=== PATIENT | female | born 1940 | race Caucasian/White ===

== ENCOUNTER 2018-09-30 13:04 | Inpatient (IN) | payer OTHER ==
--- NOTE | 2018-09-30 13:32 | PDOC ---
History of Present Illness - General Chief Complaint: Shortness of Breath Stated Complaint: SEND BY PCP, COPD PNEUMONIA Time Seen by Provider: 09/30/18 13:31 - History of Present Illness Initial Comments: The patient is a 78F w/ a history of COPD, CAD s/p CABG, and HTN who presents for evaluation of several days of productive cough, shortness of breath, and malaise. The patient was sent from her PCP's office today. She reports that she was recently ill in August, admitted to a hospital in [place] for 5 days for respiratory symptoms. Reports 3-4 days of worsening cough, shortness of breath, malaise. Denies sick contacts. Reports that she was given antibiotics by her PMD but did not complete course because she did not feel they were helping. Denies fevers/chills, vision changes, abdominal pain, N/V/C/D, or changes in sensation 09/30/18 15:38 Past History - Past Medical History Allergies/Adverse Reactions: Allergies Allergy/AdvReac Type Severity Reaction Status Date / Time pregabalin [From Lyrica] Allergy Mild Rash Verified 08/15/12 14:19 Iodinated Contrast- Oral and Allergy Verified 08/15/12 14:19 IV Dye [IV Dye, Iodine Containing Contrast ] ADOLEX Allergy Uncoded 08/15/12 14:19 Home Medications: Ambulatory Orders Aspirin [ASA -] 81 mg PO DAILY 09/30/18 Baclofen 10 mg PO HS 09/30/18 Budesonide [Pulmicort 0.25 mg -] 1 neb PO BID 09/30/18 Calcium Citrate [Calcitrate] 950 mg PO DAILY 09/30/18 Clopidogrel Bisulfate [Plavix] 75 mg PO DAILY 09/30/18 Dexlansoprazole [Dexilant] 60 mg PO DAILY 09/30/18 Docusate Sodium [Colace] 100 mg PO BID 09/30/18 Fentanyl 50 adh.patch TD Q72H 09/30/18 Furosemide [Lasix] 20 mg PO DAILY 09/30/18 Glipizide Xl [Glucotrol Xl -] 2.5 mg PO DAILY 09/30/18 Ipratropium/Albuterol Sulfate [Iprat-Albut 0.5-3(2.5) mg/3 ml] 3 ml IH PRN 09/30 Metoprolol Tartrate 25 mg PO BID 09/30/18 Mirabegron [Myrbetriq] 50 mg PO DAILY 09/30/18 Mirtazapine 7.5 mg PO HS 09/30/18 Multivitamins [Tab-A-Vit -] 1 tab PO DAILY 09/30/18 Oxycodone HCl/Acetaminophen [Endocet 10-325 mg Tablet] 1 each PO QID 09/30/18 Roflumilast [Daliresp] 500 mcg PO DAILY 09/30/18 Rosuvastatin Calcium [Crestor] 20 mg PO DAILY 09/30/18 Zolpidem Tartrate [Ambien] 5 mg PO HS 09/30/18 Asthma: Yes COPD: Yes CHF: Yes Diabetes: Yes HTN: Yes Hypercholesterolemia: Yes - Surgical History Cardiac Surgery: Yes (STENTS) - Suicide/Smoking/Psychosocial Hx Smoking Status: No Smoking History: Never smoked Have you smoked in the past 12 months: No Number of Cigarettes Smoked Daily: 0 Information on smoking cessation initiated: No Hx Alcohol Use: No Drug/Substance Use Hx: No Substance Use Type: None Hx Substance Use Treatment: No Review of Systems - Review of Systems Able to Perform ROS?: Yes Comments:: GENERAL/CONSTITUTIONAL: No fever or chills. HEAD, EYES, EARS, NOSE AND THROAT: No change in vision. No ear pain or discharge. No sore throat CARDIOVASCULAR: No chest pain RESPIRATORY: per HPI GASTROINTESTINAL: No nausea, vomiting, diarrhea or constipation GENITOURINARY: No dysuria, frequency, or change in urination MUSCULOSKELETAL: No joint or muscle swelling or pain. No neck or back pain SKIN: No rash NEUROLOGIC: No headache, vertigo, loss of consciousness, or change in strength/ sensation ENDOCRINE: No increased thirst. No abnormal weight change HEMATOLOGIC/LYMPHATIC: No anemia, easy bleeding, or history of blood clots ALLERGIC/IMMUNOLOGIC: No hives or skin allergy 09/30/18 15:44 Is the patient limited Filipino proficient: No *Physical Exam - Vital Signs Last Vital Signs Temp Pulse Resp BP Pulse Ox 99.3 F 115 H 22 H 120/60 90 L 09/30/18 13:13 09/30/18 13:13 09/30/18 13:13 09/30/18 13:13 09/30/18 13:13 - Physical Exam Comments: GENERAL: Awake, alert, and fully oriented, in no acute distress HEAD: No signs of trauma, normocephalic, atraumatic EYES: PERRLA, EOMI, sclera anicteric, conjunctiva clear ENT: Hearing grossly normal, nares patent, oropharynx clear without exudates. Moist mucosa LUNGS: No distress, speaks full sentences, b/l rhonchi diffusely b/l HEART: Regular rate and rhythm, normal S1 and S2, no murmurs appreciated, peripheral pulses normal and equal bilaterally ABDOMEN: Soft, nontender, normoactive bowel sounds. No guarding, no rebound. No masses EXTREMITIES : Normal inspection, Normal range of motion, no edema. No clubbing or cyanosis NEUROLOGICAL: Cranial nerves II through XII grossly intact. Normal speech, normal gait, no focal sensorimotor deficits SKIN: Warm, Dry, normal turgor, no rashes or lesions noted 09/30/18 15:45 Moderate Sedation - Procedure Monitoring Vital Signs: Procedure Monitoring Vital Signs Temperature 99.3 F 09/30/18 13:13 Pulse Rate 115 H 09/30/18 13:13 Respiratory Rate 22 H 09/30/18 13:13 Blood Pressure 120/60 09/30/18 13:13 O2 Sat by Pulse Oximetry (%) 90 L 09/30/18 13:13 ED Treatment Course - LABORATORY CBC & Chemistry Diagram: 09/30/18 14:00 09/30/18 14:00 Medical Decision Making - Medical Decision Making The patient is a 78F w/ a history of COPD, CAD s/p CABG, and HTN who presents for evaluation of several days of productive cough, shortness of breath, and malaise. The patient was sent from her PCP's office today. Ddx: COPD/CHF exacerbation, PNA, URI, ACS r/o ED Course CMP, CBC, Influenza, lactate, Trop I, blood cultures CXR, ECG 09/30/18 13:55 CXR w/ b/l pulmonary vascular congestion -no focal consolidation -Ceftriaxone and Doxycycline for PNA ECG w/ sinus tachycardia to 114, incomplete RBBB 09/30/18 14:41 No leukocytosis No anemia No OBEY LFTs wnl Lytes wnl Trop I neg Plan for admission for PNA vs COPD exacerbation Plan discussed w/ patient who is in agreement and verbalized understanding Dispo: admit *DC/Admit/Observation/Transfer Diagnosis at time of Disposition: COPD (chronic obstructive pulmonary disease) Qualifiers: COPD type: unspecified COPD Qualified Code(s): J44.9 - Chronic obstructive pulmonary disease, unspecified Pneumonia Qualifiers: Pneumonia type: due to unspecified organism Laterality: unspecified laterality Lung location: unspecified part of lung Qualified Code(s): J18.9 - Pneumonia, unspecified organism Hypertension Qualifiers: Hypertension type: unspecified Qualified Code(s): I10 - Essential (primary) hypertension - Discharge Dispostion Condition at time of disposition: Fair Decision to Admit order: Yes - Referrals - Patient Instructions - Post Discharge Activity
--- NOTE | 2018-09-30 13:35 | PDOC ---
Attending Attestation - HPI HPI: 09/30/18 17:26 78YOF, with a significant past medical history of DM, COPD, CAD (s/p CABG), and HTN, presenting with, 3-4 days of a productive cough, wheezing, malaise, and shortness of breath. Patient was recently evaluated at her PCP, Dr. Thompson office at which time she was advised to report to the ED if her symptoms persisted after antibiotics for further evaluation (patient was noncompliant with antibiotics because she believed it didnt help). She was recently admitted in [place] for 5 days for similar symptoms. She denies recent headache or dizziness. She denies recent nausea, vomit, diarrhea or constipation. She denies recent dysuria, frequency, urgency or hematuria. She denies recent chest pain. No sick contacts or travel. No new changes in medications. Allergies: Pregabalin, IV dye, adolex Past Medical History: DM, COPD, CAD (s/p CABG), and HTN Social history: Lives with family. No smoking. No alcohol. No illicit drugs. Surgical history: CABG <Ryan Chapa - Last Filed: 09/30/18 17:25> - Resident Resident Name: Dharmesh Pace - ED Attending Attestation I have performed the following: I have examined & evaluated the patient, The case was reviewed & discussed with the resident, I agree w/resident's findings & plan - Physicial Exam PE: 09/30/18 16:23 NAD, malaised, PERRL, EOMI, MMM, nl conjunctiva, anicteric; neck supple. lungs with bilateral coarse breath sounds and wheezing, +tachy, no murmurs, abdomen soft nontender. MCHUGH x4, no focal neuro deficits. No peripheral edema. normal color for ethnicity, WWP. no calf tenderness. - Medical Decision Making 09/30/18 16:24 I, Judi Gillespie MD, attest that this document has been prepared under my direction and personally reviewed by me in its entirety. I further attest, that it accurately reflects all work, treatment, procedures and medical decision -making performed by me. See HPI for details Vital signs reviewed, +tachy and febrile. hypoxic originally RA, then on O2 via nasal cannula Prior notes reviewed, including admissions, discharges and consultations. laboratory results and imaging reviewed, basic labs and lytes wnl, notable for normal lactic. CXR_unremarkable, does not correlate for pna in early process, but also possibly viral vs bacterial pna, covered appropriately. Cardiac panel_neg trop. EKG sinus tachycardia, 114 bpm, no interval abnormalities, wide QRS with incomplete RBBB, ST and T wave segments and morphology normal. T wave abnormalities with TWI in precordial leads. changed from prior. ED course: IV cef/doxy for CAP coverage. neg flu IV hydration, tylenol for fever and duonebs for diffuse wheezing, IV mag 2g for severity of sx, correlating with brochospasms from infection no steroids, h/o diabetes risk of hyperglycemia and DKA. Admit to Dr Kendall, accepted for management of Bronchitis/CAP, respiratory care , hydration and respiratory support/abx. pt made aware of impression and plan, agreeable. 09/30/18 19:22 <Judi Gillespie - Last Filed: 09/30/18 19:22> Attestations - Attestations 09/30/18 17:26 Documentation prepared by Ryan Chapa, acting as medical office receptionist assistant for Judi Gillesipe MD. <Ryan Chapa - Last Filed: 09/30/18 17:25>
[2018-09-30 14:25] LABS: VENOUS PC02 51.5 mmHg (38-52); VENOUS PH 7.37 (7.32-7.42); VENOUS PO2 22.4 mmHg (28-48)
[2018-09-30 14:29] LABS: BASO % 1.1 % (0-2.0); EOS % 0.8 % (0-4.5); HEMATOCRIT 38.2 % (32.4-45.2); HEMOGLOBIN 13.2 GM/dL (10.7-15.3); LYMPH % 15.5 % (8-40); MCH 31.4 pg (25.7-33.7); MCHC 34.5 g/dl (32.0-36.0); MEAN PLT VOLUME 7.8 fl (7.5-11.1); MONO % 7.6 % (3.8-10.2); PLATELET COUNT 232 K/MM3 (134-434); RDW 14.9 % (11.6-15.6); WHITE BLOOD COUNT 7.9 K/mm3 (4.0-10.0)
[2018-09-30] MEDS ORDERED: DOXYCYCLINE HYCLATE 100 MG CAPSULE PO ONE ×2 (14:38→14:51)
[2018-09-30] MEDS ORDERED: CEFTRIAXONE 1,000 MG in DEXTROSE 5%-WATER - 50 ML IVPB ONE (14:38)
[2018-09-30] MEDS ORDERED: ALBUTEROL SO4 2.5/IPRATROPIUM 0.5 INH SOL 3 ML VIAL.NEB. NEB ONE ×2 (14:51→23:28)
[2018-09-30] MEDS ORDERED: CEFTRIAXONE 1 GM/50 ML BAG ONE (14:52)
[2018-09-30 14:58] LABS: ALBUMIN 3.1 g/dl (3.4-5.0); ALK PHOS 97 U/L (45-117); ANION GAP 6 MMOL/L (8-16); BILIRUBIN,TOTAL 0.7 mg/dL (0.2-1); BLOOD UREA NITROGEN 24 mg/dL (7-18); CALCIUM 9.1 mg/dL (8.5-10.1); CHLORIDE 103 mmol/L (98-107); CO2 31 mmol/L (21-32); CREATININE 0.8 mg/dL (0.55-1.3); GLUCOSE,RANDOM 151 mg/dL (74-106); POTASSIUM 4.3 mmol/L (3.5-5.1); SGOT/AST 21 U/L (15-37); SGPT/ALT 27 U/L (13-61); SODIUM 139 mmol/L (136-145); TOT PROT 6.9 g/dl (6.4-8.2)
[2018-09-30] MEDS ORDERED: ACETAMINOPHEN 1000 MG/100 ML VIAL (NON FORMULARY) IVPB ONE (15:04)
[2018-09-30] MEDS: ALBUTEROL SO4 2.5/IPRATROPIUM 0.5 INH SOL 3 ML VIAL.NEB. NEB SCH ×5 (15:07→20:20)
[2018-09-30] MEDS ORDERED: ACETAMINOPHEN INJECTION 100 ML IVPB ONE (15:25)
[2018-09-30] MEDS ORDERED: ALBUTEROL SO4 2.5/IPRATROPIUM 0.5 INH SOL 3 ML VIAL.NEB. NEB PRN (16:17)
[2018-09-30] MEDS ORDERED: FENTANYL PATCH WASTE MC PRN (16:17)
[2018-09-30] MEDS ORDERED: ZOLPIDEM TARTRATE 5 MG TABLET PO PRN (16:17)
[2018-09-30] MEDS ORDERED: DOCUSATE SODIUM 100 MG CAPSULE (FP) PO PRN (16:17)
[2018-09-30] MEDS ORDERED: MAGNESIUM SULF 50% (8.12 MEQ/2 ML-1 GM VIAL) IVPB ONE (16:18)
[2018-09-30] MEDS ORDERED: fentaNYL 50mcg/hr PATCH.TD72 TD SCH (16:30)
[2018-09-30] MEDS ORDERED: MAGNESIUM SULF 50% (8.12 MEQ/2 ML-1 GM VIAL) ONE (17:45)
[2018-09-30] MEDS: BUDESONIDE 0.25 MG/2ML INH SUSP VIAL NEB SCH (20:10)
[2018-09-30] MEDS: HEPARIN NA (PORCINE) 5,000 UNITS/ML 1ML VIAL SQ SCH (22:35)
[2018-09-30] MEDS: MIRTAZAPINE 15 MG TABLET (FP) PO SCH (22:36)
[2018-09-30] MEDS: BACLOFEN 10 MG TABLET (FP) PO SCH (22:36)
[2018-09-30] MEDS: METOPROLOL TARTRATE 25 MG TABLET (FP) PO SCH (22:36)
[2018-09-30] MEDS: ROSUVASTATIN CA 5 MG TABLET (FP) PO SCH (22:36)
[2018-09-30] MEDS ORDERED: METOPROLOL TARTRATE 25 MG TABLET (FP) ONE (23:28)
[2018-09-30] MEDS ORDERED: BACLOFEN 10 MG TABLET (FP) ONE (23:28)
[2018-09-30] MEDS ORDERED: HEPARIN NA (PORCINE) 5,000 UNITS/ML 1ML VIAL ONE (23:29)
[2018-09-30] MEDS ORDERED: MIRTAZAPINE 15 MG TABLET (FP) ONE (23:29)
[2018-10-01] MEDS: ALBUTEROL SO4 2.5/IPRATROPIUM 0.5 INH SOL 3 ML VIAL.NEB. NEB SCH ×5 (00:30→21:25)
[2018-10-01] MEDS ORDERED: ALBUTEROL SO4 2.5/IPRATROPIUM 0.5 INH SOL 3 ML VIAL.NEB. NEB ONE ×2 (04:13→15:04)
[2018-10-01] MEDS: glipiZIDE-XL 2.5 MG TAB.ER.24 PO SCH (07:31)
[2018-10-01] MEDS: BACLOFEN 10 MG TABLET (FP) PO SCH ×3 (07:31→21:22)
[2018-10-01] MEDS ORDERED: BACLOFEN 10 MG TABLET (FP) ONE (07:32)
[2018-10-01] MEDS ORDERED: glipiZIDE 5 MG TABLET (FP) ONE (07:32)
[2018-10-01] MEDS: CALCITRIOL 0.25 MCG CAPSULE (FP) PO SCH (09:55)
[2018-10-01] MEDS: FUROSEMIDE 20 MG TABLET (FP) PO SCH (09:55)
[2018-10-01] MEDS: METOPROLOL TARTRATE 25 MG TABLET (FP) PO SCH ×2 (09:55→21:19)
[2018-10-01] MEDS: MULTIVITAMINS (DAILY MVI) TABLET (FP) PO SCH (09:55)
[2018-10-01] MEDS: CLOPIDOGREL BISULFATE 75 MG TABLET (FP) PO SCH (09:55)
[2018-10-01] MEDS: HEPARIN NA (PORCINE) 5,000 UNITS/ML 1ML VIAL SQ SCH (09:55)
[2018-10-01] MEDS: PANTOPRAZOLE 40 MG TABLET (FP) PO SCH (09:55)
[2018-10-01] MEDS: ASPIRIN COATED 81 MG TABLET.EC PO SCH (09:55)
[2018-10-01] MEDS: ROFLUMILAST 500 MCG TABLET PO SCH (09:55)
[2018-10-01] MEDS: BUDESONIDE 0.25 MG/2ML INH SUSP VIAL NEB SCH ×2 (09:55→21:24)
--- NOTE | 2018-10-01 10:37 | HP ---
Admitting History and Physical - Primary Care Physician PCP: Miri Baker I - Admission Chief Complaint: cough and malaise History of Present Illness: The patient is a 78F w/ a history of COPD, CAD s/p CABG, and HTN who presents for evaluation of several days of productive cough, shortness of breath, and malaise. The patient was sent from her PCP's office today. She reports that she was recently ill in August, admitted to a hospital in [place] for 5 days for respiratory symptoms. Reports 3-4 days of worsening cough, shortness of breath, malaise. Denies sick contacts. Reports that she was given antibiotics by her PMD but did not complete course because she did not feel they were helping. patient says she is so weak she cannot walk or make her bed , feeling very tired and fatigue and has a cough. she denies fever or chill, but was complaining of headache yesterday patient given rocephin and doxycycline in ER- temp 100.6 - Past Medical History Cardiovascular: Yes: CAD (s/p cabg) Pulmonary: Yes: COPD Musculoskeletal: Yes: Other (lumbar stenosis) Rheumatology: Yes: Other - Smoking History Smoking history: Never smoked Have you smoked in the past 12 months: No Aproximately how many cigarettes per day: 0 - Alcohol/Substance Use Hx Alcohol Use: No Home Medications - Allergies Allergies/Adverse Reactions: Allergies Allergy/AdvReac Type Severity Reaction Status Date / Time pregabalin [From Lyrica] Allergy Mild Rash Verified 08/15/12 14:19 Iodinated Contrast- Oral and Allergy Verified 08/15/12 14:19 IV Dye [IV Dye, Iodine Containing Contrast ] ADOLEX Allergy Uncoded 08/15/12 14:19 - Home Medications Home Medications: Ambulatory Orders Aspirin [ASA -] 81 mg PO DAILY 09/30/18 Baclofen 10 mg PO HS 09/30/18 Budesonide [Pulmicort 0.25 mg -] 1 neb PO BID 09/30/18 Calcium Citrate [Calcitrate] 950 mg PO DAILY 09/30/18 Clopidogrel Bisulfate [Plavix] 75 mg PO DAILY 09/30/18 Dexlansoprazole [Dexilant] 60 mg PO DAILY 09/30/18 Docusate Sodium [Colace] 100 mg PO BID 09/30/18 Fentanyl 50 adh.patch TD Q72H 09/30/18 Furosemide [Lasix] 20 mg PO DAILY 09/30/18 Glipizide Xl [Glucotrol Xl -] 2.5 mg PO DAILY 09/30/18 Ipratropium/Albuterol Sulfate [Iprat-Albut 0.5-3(2.5) mg/3 ml] 3 ml IH PRN 09/30 Metoprolol Tartrate 25 mg PO BID 09/30/18 Mirabegron [Myrbetriq] 50 mg PO DAILY 09/30/18 Mirtazapine 7.5 mg PO HS 09/30/18 Multivitamins [Tab-A-Vit -] 1 tab PO DAILY 09/30/18 Oxycodone HCl/Acetaminophen [Endocet 10-325 mg Tablet] 1 each PO QID 09/30/18 Roflumilast [Daliresp] 500 mcg PO DAILY 09/30/18 Rosuvastatin Calcium [Crestor] 20 mg PO DAILY 09/30/18 Zolpidem Tartrate [Ambien] 5 mg PO HS 09/30/18 Review of Systems - Review of Systems Constitutional: reports: Weakness, Other (fatigue malaise) Respiratory: reports: Cough Physical Examination Vital Signs: Vital Signs Temperature 97.6 F 10/01/18 07:51 Pulse Rate 74 10/01/18 07:51 Respiratory Rate 14 10/01/18 07:51 Blood Pressure 128/64 10/01/18 07:51 O2 Sat by Pulse Oximetry (%) 99 10/01/18 07:51 Constitutional: Yes: Calm Cardiovascular: Yes: Regular Rate and Rhythm, S1, S2 Respiratory: Yes: Rhonchi Gastrointestinal: Yes: Normal Bowel Sounds, Soft Edema: No Neurological: Yes: Alert, Oriented Problem List - Problems (1) COPD (chronic obstructive pulmonary disease) Assessment/Plan: daliresp and bronchodilators pulmicort Code(s): J44.9 - CHRONIC OBSTRUCTIVE PULMONARY DISEASE, UNSPECIFIED Qualifiers: COPD type: unspecified COPD Qualified Code(s): J44.9 - Chronic obstructive pulmonary disease, unspecified (2) Cough Assessment/Plan: URI symptoms rapid flu test ID consult oxygen as needed bronchodilators abx per ID dvt ppx Code(s): R05 - COUGH (3) Hx of CABG Assessment/Plan: plavix ,aspirin , metoprolol, statin Code(s): Z95.1 - PRESENCE OF AORTOCORONARY BYPASS GRAFT (4) Diabetes Assessment/Plan: hgba1c,sliding scale,glucotrol diabetic diet Code(s): E11.9 - TYPE 2 DIABETES MELLITUS WITHOUT COMPLICATIONS Qualifiers: Diabetes mellitus type: type 2 (5) Lumbar stenosis Assessment/Plan: baclofen tid Code(s): M48.061 - SPINAL STENOSIS, LUMBAR REGION WITHOUT NEUROGENIC KEESHA
[2018-10-01 10:45] LABS: HEMATOCRIT 36.3 % (32.4-45.2); HEMOGLOBIN 12.1 GM/dL (10.7-15.3); MCHC 33.3 g/dl (32.0-36.0); MEAN CELL VOLUME 92.8 fl (80-96); MEAN PLT VOLUME 7.2 fl (7.5-11.1); PLATELET COUNT 192 K/MM3 (134-434); RBC 3.91 M/mm3 (3.60-5.2); RDW 14.5 % (11.6-15.6); WHITE BLOOD COUNT 6.5 K/mm3 (4.0-10.0)
[2018-10-01 11:33] LABS: ALBUMIN 2.9 g/dl (3.4-5.0); ALK PHOS 96 U/L (45-117); ANION GAP 8 MMOL/L (8-16); BILIRUBIN,TOTAL 0.8 mg/dL (0.2-1); BLOOD UREA NITROGEN 20 mg/dL (7-18); CALCIUM 8.6 mg/dL (8.5-10.1); CHLORIDE 106 mmol/L (98-107); CO2 26 mmol/L (21-32); CREATININE 0.7 mg/dL (0.55-1.3); GLUCOSE,RANDOM 88 mg/dL (74-106); POTASSIUM 4.2 mmol/L (3.5-5.1); SGOT/AST 20 U/L (15-37); SGPT/ALT 28 U/L (13-61); SODIUM 140 mmol/L (136-145); TOT PROT 6.5 g/dl (6.4-8.2)
--- NOTE | 2018-10-01 12:43 | PN ---
Progress Note (short form) - Note Progress Note: ID CONSULT DICTATED R/O HCAP ACUTE EXAC COPD DM CAD PENDING C/S EMPIRIC ZOSYN/ ZITHROMAX
--- NOTE | 2018-10-01 13:50 | CONS ---
DATE OF CONSULTATION: DATE OF DICTATION: 10/01/2018 HISTORY OF PRESENT ILLNESS: The patient is a 78-year-old female with a history of COPD and coronary artery disease who was evaluated for possible pneumonia. The patient reports being hospitalized in a [place] hospital for 1 week in late August 2018. She was treated for a respiratory tract illness. She reports at that time she was tested for the flu and it was negative. Since returning to [place], she has not been feeling well. Over the past 3 to 4 days she has had worsening shortness of breath and cough productive of whitish sputum, as well as malaise. She had presented to her primary care physician and was prescribed an antibiotic; however, stopped taking it because she felt it was not effective. She presented to the emergency room where she was noted to have fever, tachycardia and hypoxemia. Chest x-ray shows no acute infiltrate. A Rapid flu swab was performed and was negative. The patient denies any ill contacts. She lives alone. She is a nonsmoker; however, states she had a long history of second-hand smoke. Denied any associated fever or chills, nausea, vomiting. PAST MEDICAL HISTORY: Positive for COPD, coronary artery disease, hypertension, asthma, congestive heart failure, diabetes mellitus, hyperlipidemia. PAST SURGICAL HISTORY: Status post coronary artery bypass graft. ALLERGIES: IODINE, LYRICA, ATARAX. MEDICATIONS: Aspirin, Balcofen, Plavix, Colace, fentanyl, Lasix, Glucotrol, oxycodone, Crestor, Ambien. SOCIAL HISTORY: Lives alone, nonsmoker. History of second-hand tobacco exposure. SYSTEMS REVIEW: Neurologic: No loss of consciousness, seizure activity, focal weakness. Cardiac: Negative for chest pain or palpitations. Respiratory: As per HPI. Gastrointestinal: Negative vomiting or diarrhea. Genitourinary: Negative for urinary tract infection. LABORATORY DATA: White count 7.9, hematocrit 38.2, platelet count 323. BUN 24, creatinine 0.8. Liver enzymes normal. Flu swab negative. Cultures pending. PHYSICAL EXAMINATION: General: On exam she is awake. She is in no acute distress. Her breathing does appear slightly labored. Vitals: Temperature 97.6. T max 100.6, blood pressure 128/64, pulse 74 regular, respirations 18 per minute. HEENT: Sclera anicteric. Dry mucous membranes. Heart: Sounds S1, S2. Lungs: Coarse rhonchi bilaterally, no wheezing, or rales. Abdomen: Obese, soft, nontender. Extremities: Negative for edema. IMPRESSION: 1. Rule out healthcare acquired pneumonia. 2. Acute exacerbation chronic obstructive pulmonary disease. 3. Diabetes mellitus. 4. Coronary artery disease. Await cultures. Obtain suptum culture, urine Legionella and pneumococcal antigens. Empiric antibiotic coverage for the healthcare acquired risk is atypical pneumonia with Zithromax and Zosyn. Will follow. Thank you for the kind referral. ASH BARNES M.D. [id number]
--- NOTE | 2018-10-01 14:11 | PN ---
Progress Note (short form) - Note Progress Note: PULMONARY CONSULTATION DICTATED 10/01/18 IMP COPD EXACERBATION R/O PNEUMONIA LLL ASHD S/PCABG DM HTN PLAN IV MEDROL INHALED BRONCHODILATORS ABX O2 CULTURES CHEST CT PFTS OUTPATIENT DR KARIMI Problem List - Problems (1) COPD (chronic obstructive pulmonary disease) Code(s): J44.9 - CHRONIC OBSTRUCTIVE PULMONARY DISEASE, UNSPECIFIED Qualifiers: COPD type: unspecified COPD Qualified Code(s): J44.9 - Chronic obstructive pulmonary disease, unspecified (2) Cough Code(s): R05 - COUGH (3) Diabetes Code(s): E11.9 - TYPE 2 DIABETES MELLITUS WITHOUT COMPLICATIONS Qualifiers: Diabetes mellitus type: type 2 (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 - PRESENCE OF AORTOCORONARY BYPASS GRAFT (5) Hypertension Code(s): I10 - ESSENTIAL (PRIMARY) HYPERTENSION Qualifiers: Hypertension type: unspecified Qualified Code(s): I10 - Essential (primary ) hypertension (6) Pneumonia Code(s): J18.9 - PNEUMONIA, UNSPECIFIED ORGANISM Qualifiers: Pneumonia type: due to unspecified organism Laterality: unspecified laterality Lung location: unspecified part of lung Qualified Code(s): J18.9 - Pneumonia, unspecified organism
--- NOTE | 2018-10-01 14:40 | CONS ---
DATE OF CONSULTATION: 10/01/2018 REFERRING PHYSICIAN: Alexander Kendall MD HISTORY: The patient is a 78-year-old female known to me from previous office visit many years ago with a history of COPD secondary to 2nd-hand smoke, hypertension, diabetes mellitus, ASHD status post CABG admitted to [facility] with the complaint of a 3- to 4-day history of increasing shortness of breath, cough productive of yellowish sputum, fever, chills, and shortness of breath. The patient was recently hospitalized in [place] secondary to a COPD exacerbation and discharged on . She states that since that time she has not felt well. She feels weak as well as short of breath. She went to Dr. Gunter's office yesterday with the above complaints and was advised to go to the emergency room. She denies any chest pain or palpitations. She does have, as stated, a cough productive of yellowish sputum and fevers. She denies any history of DVT or PE in the past. She is a nonsmoker. She does have a history of 2nd-hand smoke exposure. She is from [place] and moved to the [facility] many years ago. PAST MEDICAL HISTORY: Includes ASHD status post CABG, hypertension, COPD/asthma, diabetes. REVIEW OF SYSTEMS: Positive cough, positive shortness of breath, positive fever, positive chills. No chest pain, no palpitations, no abdominal pain, no lower extremity edema. CURRENT MEDICATIONS: Include Pulmicort, Tylenol, Zithromax, Zosyn, heparin, Remeron, Ambien, DuoNeb, Colace, , Crestor, NovoLog, Lasix, , Ecotrin, Roxicodone, Plavix, Protonix, Daliresp, and Calcitrol. PHYSICAL EXAMINATION: General: The patient is a well-developed, well-nourished female awake and alert in no acute distress. Vital Signs: She is afebrile. Blood pressure 128/64, respiratory rate 12, O2 saturation 99% on room air. HEENT: Normocephalic and atraumatic. Neck: Supple. Heart: Regular. S1, S2. Chest: Bilateral wheezes and rales. Abdomen: Soft. Bowel sounds are positive. Extremities: No cyanosis or edema. LABORATORIES: WBC 6.5, hemoglobin 12.1, hematocrit 36.3 with a platelet count of 192,000. Venous blood gas of 7.37, PCO2 of 51, PO2 of 22. Chest x-ray reveals increased markings at the left base with possible blunting left costophrenic angle. IMPRESSION: 1. Chronic obstructive pulmonary disease with exacerbation. 2. Pneumonia left lower lobe. 3. Arteriosclerotic heart disease status post coronary artery bypass graft. 4. Diabetes. 5. Hypertension. PLAN: Inhaled bronchodilators. Short course of Medrol. Antibiotics as per Infectious Disease. CT scan of the chest. Supplemental O2 as needed. Sputum for culture and sensitivity. Pulmonary function test as an outpatient. DVT prophylaxis. PHILLY KARIMI M.D. [id number]
[2018-10-01] MEDS: PIPERACILLIN/TAZOB 2.25 GM 2.25 GM in DEXTROSE 5%-WATER - 50 ML IVPB SCH (15:00)
[2018-10-01] MEDS ORDERED: PIPERACILLIN/TAZOB 2.25 GM 2.25 GM/50 ML BAG IVPB ONE (15:04)
[2018-10-01] MEDS ORDERED: AZITHROMYCIN IVPB 500 MG/250 ML BAG IVPB ONE (15:04)
[2018-10-01] MEDS: AZITHROMYCIN IVPB 500 MG/250 ML BAG IVPB SCH (15:15)
[2018-10-01] MEDS ORDERED: methylPREDNISolone NA SUCC 40 MG/1 ML VIAL ONE (15:17)
[2018-10-01] MEDS: INSULIN SLIDING SCALE (NOVOLOG) 1 VIAL SQ SCH ×2 (15:18→21:18)
[2018-10-01] MEDS ORDERED: INSULIN (NOVOLOG) ASPART 100 UNITS/ML 10ML VIAL ONE (15:20)
[2018-10-01] MEDS: methylPREDNISolone NA SUCC 40 MG/1 ML VIAL IVPUSH SCH ×2 (15:29→21:18)
--- NOTE | 2018-10-01 18:18 | EKG ---
Test Reason : Blood Pressure : / mmHG Vent. 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
[2018-10-01] MEDS ORDERED: BUDESONIDE 0.5 MG/2 ML INH SUSP VIAL NEB ONE (20:57)
[2018-10-01] MEDS: MIRTAZAPINE 15 MG TABLET (FP) PO SCH (21:19)
[2018-10-01] MEDS: ROSUVASTATIN CA 5 MG TABLET (FP) PO SCH (21:22)
[2018-10-02] MEDS: PIPERACILLIN/TAZOB 2.25 GM 2.25 GM in DEXTROSE 5%-WATER - 50 ML IVPB SCH ×4 (01:54→18:03)
[2018-10-02] MEDS: methylPREDNISolone NA SUCC 40 MG/1 ML VIAL IVPUSH SCH ×3 (02:45→15:40)
[2018-10-02] MEDS: glipiZIDE-XL 2.5 MG TAB.ER.24 PO SCH (06:03)
[2018-10-02] MEDS: BACLOFEN 10 MG TABLET (FP) PO SCH ×3 (06:03→21:32)
[2018-10-02] MEDS: INSULIN SLIDING SCALE (NOVOLOG) 1 VIAL SQ SCH ×5 (06:04→21:35)
[2018-10-02 07:32] LABS: BASO % 0.2 % (0-2.0); HEMATOCRIT 38.1 % (32.4-45.2); LYMPH % 13.8 % (8-40); MCH 31.7 pg (25.7-33.7); MEAN CELL VOLUME 93.4 fl (80-96); MEAN PLT VOLUME 7.5 fl (7.5-11.1); MONO % 2.7 % (3.8-10.2); NEUT % 83.3 % (42.8-82.8); PLATELET COUNT 207 K/MM3 (134-434); RBC 4.08 M/mm3 (3.60-5.2); RDW 14.3 % (11.6-15.6); WHITE BLOOD COUNT 6.1 K/mm3 (4.0-10.0)
[2018-10-02] MEDS ORDERED: PT OWN MED DRAWER 7, Y5N ONE (07:40)
[2018-10-02 07:49] LABS: ALK PHOS 118 U/L (45-117); ANION GAP 9 MMOL/L (8-16); BILIRUBIN,TOTAL 0.9 mg/dL (0.2-1); BLOOD UREA NITROGEN 21 mg/dL (7-18); CALCIUM 9.1 mg/dL (8.5-10.1); CHLORIDE 108 mmol/L (98-107); CO2 25 mmol/L (21-32); CREATININE 0.8 mg/dL (0.55-1.3); GLUCOSE,RANDOM 147 mg/dL (74-106); POTASSIUM 4.8 mmol/L (3.5-5.1); SGOT/AST 24 U/L (15-37); SGPT/ALT 40 U/L (13-61); SODIUM 142 mmol/L (136-145); TOT PROT 6.8 g/dl (6.4-8.2)
[2018-10-02] MEDS: ALBUTEROL SO4 2.5/IPRATROPIUM 0.5 INH SOL 3 ML VIAL.NEB. NEB SCH ×4 (08:16→21:37)
[2018-10-02] MEDS: BUDESONIDE 0.25 MG/2ML INH SUSP VIAL NEB SCH ×2 (08:18→21:37)
[2018-10-02] MEDS ORDERED: DEXTROSE 5%-WATER - 50 ML IVPB ONE ×2 (10:53→17:44)
[2018-10-02] MEDS ORDERED: PIPERACILLIN/TAZOBACTAM 2.25 GM VIAL IVPB ONE ×2 (10:53→17:44)
[2018-10-02] MEDS: AZITHROMYCIN IVPB 500 MG/250 ML BAG IVPB SCH (10:59)
[2018-10-02] MEDS: ROFLUMILAST 500 MCG TABLET PO SCH (10:59)
[2018-10-02] MEDS: METOPROLOL TARTRATE 25 MG TABLET (FP) PO SCH ×2 (11:00→21:32)
[2018-10-02] MEDS: ENOXAPARIN NA (PORCINE) 40 MG/0.4 ML DISP.SYRIN SQ SCH (11:00)
[2018-10-02] MEDS: PANTOPRAZOLE 40 MG TABLET (FP) PO SCH (11:00)
[2018-10-02] MEDS: CLOPIDOGREL BISULFATE 75 MG TABLET (FP) PO SCH (11:00)
[2018-10-02] MEDS: ASPIRIN COATED 81 MG TABLET.EC PO SCH (11:00)
[2018-10-02] MEDS: FUROSEMIDE 20 MG TABLET (FP) PO SCH (11:00)
[2018-10-02] MEDS: MULTIVITAMINS (DAILY MVI) TABLET (FP) PO SCH (11:00)
[2018-10-02] MEDS: CALCITRIOL 0.25 MCG CAPSULE (FP) PO SCH (11:00)
--- NOTE | 2018-10-02 15:32 | PN ---
Progress Note, Physician History of Present Illness: pulmonary alert,still dyspneic,congested - Current Medication List Current Medications: Active Medications Acetaminophen (Tylenol -) 650 mg PO Q6H PRN PRN Reason: FEVER Albuterol/Ipratropium (Duoneb -) 1 amp NEB Q4H [facility] Last Admin: 10/02/18 12:42 Dose: 1 amp Albuterol/Ipratropium (Duoneb -) 1 amp NEB Q6H PRN PRN Reason: SHORTNESS OF BREATH Aspirin (Ecotrin -) 81 mg PO DAILY [facility] Last Admin: 10/02/18 11:00 Dose: 81 mg Baclofen (Lioresal -) 10 mg PO TID [facility] Last Admin: 10/02/18 13:47 Dose: 10 mg Budesonide (Pulmicort 0.25 Mg Nebulizer -) 1 amp NEB RBID [facility] Last Admin: 10/02/18 08:18 Dose: 1 amp Calcitriol (Rocaltrol -) 0.25 mcg PO DAILY [facility] Last Admin: 10/02/18 11:00 Dose: 0.25 mcg Clopidogrel Bisulfate (Plavix -) 75 mg PO DAILY [facility] Last Admin: 10/02/18 11:00 Dose: 75 mg Docusate Sodium (Colace -) 100 mg PO Q12H PRN PRN Reason: CONSTIPATION Enoxaparin Sodium (Lovenox -) 40 mg SQ DAILY [facility] Last Admin: 10/02/18 11:00 Dose: 40 mg Furosemide (Lasix -) 20 mg PO DAILY [facility] Last Admin: 10/02/18 11:00 Dose: 20 mg Glipizide (Glucotrol Xl -) 2.5 mg PO DAILY@0700 [facility] Last Admin: 10/02/18 06:03 Dose: 2.5 mg Piperacillin Sod/Tazobactam (Sod 2.25 gm/ Dextrose) 50 mls @ 100 mls/hr IVPB Q8H-IV [facility]; Protocol Last Admin: 10/02/18 10:59 Dose: 100 mls/hr Azithromycin (Zithromax 500mg Ivpb (Pre-Docked)) 500 mg in 250 mls @ 250 mls/ hr IVPB DAILY [facility] Last Admin: 10/02/18 10:59 Dose: 250 mls/hr Insulin Aspart (Novolog Vial Sliding Scale -) 1 vial SQ ACHS [facility]; Protocol Last Admin: 10/02/18 12:00 Dose: 2 units Methylprednisolone Sodium Succinate (Solu-Medrol -) 40 mg IVPUSH Q6H-IV [facility] Last Admin: 10/02/18 08:56 Dose: 40 mg Metoprolol Tartrate (Lopressor -) 25 mg PO BID [facility] Last Admin: 10/02/18 11:00 Dose: 25 mg Mirtazapine (Remeron -) 7.5 mg PO HS [facility] Last Admin: 10/01/18 21:19 Dose: 7.5 mg Multivitamins/Minerals/Vitamin C (Tab-A-Vit -) 1 tab PO DAILY [facility] Last Admin: 10/02/18 11:00 Dose: 1 tab Oxycodone HCl (Roxicodone -) 5 mg PO Q6H PRN PRN Reason: PAIN LEVEL 7 - 10 Pantoprazole Sodium (Protonix -) 40 mg PO DAILY [facility] Last Admin: 10/02/18 11:00 Dose: 40 mg Roflumilast (Daliresp -) 500 mcg PO DAILY [facility] Last Admin: 10/02/18 10:59 Dose: 500 mcg Rosuvastatin Calcium (Crestor -) 5 mg PO HS [facility] Last Admin: 10/01/18 21:22 Dose: 5 mg Zolpidem Tartrate (Ambien -) 5 mg PO HS PRN PRN Reason: INSOMNIA - Objective Vital Signs: Vital Signs Temperature 97.6 F 10/02/18 06:00 Pulse Rate 80 10/02/18 06:00 Respiratory Rate 20 10/02/18 06:00 Blood Pressure 125/75 10/02/18 06:00 O2 Sat by Pulse Oximetry (%) 99 10/01/18 22:00 Constitutional: Yes: Well Nourished, Calm Eyes: Yes: WNL HENT: Yes: WNL Neck: Yes: WNL Cardiovascular: Yes: Regular Rate and Rhythm, S1, S2 Respiratory: Yes: Wheezes (bilateral wheezes) Gastrointestinal: Yes: Normal Bowel Sounds, Soft Extremities: Yes: WNL Edema: No Labs: CBC, BMP 10/02/18 06:00 10/02/18 06:00 - ....Imaging Cat Scan: Report Reviewed, Image Reviewed Problem List - Problems (1) COPD (chronic obstructive pulmonary disease) Code(s): J44.9 - CHRONIC OBSTRUCTIVE PULMONARY DISEASE, UNSPECIFIED Qualifiers: COPD type: unspecified COPD Qualified Code(s): J44.9 - Chronic obstructive pulmonary disease, unspecified (2) Cough Code(s): R05 - COUGH (3) Diabetes Code(s): E11.9 - TYPE 2 DIABETES MELLITUS WITHOUT COMPLICATIONS Qualifiers: Diabetes mellitus type: type 2 (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 - PRESENCE OF AORTOCORONARY BYPASS GRAFT (5) Hypertension Code(s): I10 - ESSENTIAL (PRIMARY) HYPERTENSION Qualifiers: Hypertension type: unspecified Qualified Code(s): I10 - Essential (primary ) hypertension (6) Pneumonia Code(s): J18.9 - PNEUMONIA, UNSPECIFIED ORGANISM Qualifiers: Pneumonia type: due to unspecified organism Laterality: unspecified laterality Lung location: unspecified part of lung Qualified Code(s): J18.9 - Pneumonia, unspecified organism Assessment/Plan IMP COPD EXACERBATION PNEUMONIA LLL ASHD S/PCABG DM HTN PLAN IV MEDROL INCREASE TO 60Q6 INHALED BRONCHODILATORS ABX O2 PFTS OUTPAT[address] KARIMI Problem List - Problems (1) COPD (chronic obstructive pulmonary disease) Code(s): J44.9 - CHRONIC OBSTRUCTIVE PULMONARY DISEASE, UNSPECIFIED Qualifiers: COPD type: unspecified COPD Qualified Code(s): J44.9 - Chronic obstructive pulmonary disease, unspecified (2) Cough Code(s): R05 - COUGH (3) Diabetes Code(s): E11.9 - TYPE 2 DIABETES MELLITUS WITHOUT COMPLICATIONS Qualifiers: Diabetes mellitus type: type 2 (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 - PRESENCE OF AORTOCORONARY BYPASS GRAFT (5) Hypertension Code(s): I10 - ESSENTIAL (PRIMARY) HYPERTENSION Qualifiers: Hypertension type: unspecified Qualified Code(s): I10 - Essential (primary ) hypertension (6) Pneumonia Code(s): J18.9 - PNEUMONIA, UNSPECIFIED ORGANISM Qualifiers: Pneumonia type: due to unspecified organism Laterality: unspecified laterality Lung location: unspecified part of lung Qualified Code(s): J18.9 - Pneumonia, unspecified organism
--- NOTE | 2018-10-02 16:04 | PN ---
Progress Note, Physician Chief Complaint: Cough SOB COPD History of Present Illness: Previous notes and events reviewed awake and alert NAD pt sts cough and SOB is not improving afebrile, wbc wnl - Current Medication List Current Medications: Active Medications Acetaminophen (Tylenol -) 650 mg PO Q6H PRN PRN Reason: FEVER Albuterol/Ipratropium (Duoneb -) 1 amp NEB Q4H [facility] Last Admin: 10/02/18 12:42 Dose: 1 amp Albuterol/Ipratropium (Duoneb -) 1 amp NEB Q6H PRN PRN Reason: SHORTNESS OF BREATH Aspirin (Ecotrin -) 81 mg PO DAILY [facility] Last Admin: 10/02/18 11:00 Dose: 81 mg Baclofen (Lioresal -) 10 mg PO TID [facility] Last Admin: 10/02/18 13:47 Dose: 10 mg Budesonide (Pulmicort 0.25 Mg Nebulizer -) 1 amp NEB RBID [facility] Last Admin: 10/02/18 08:18 Dose: 1 amp Calcitriol (Rocaltrol -) 0.25 mcg PO DAILY [facility] Last Admin: 10/02/18 11:00 Dose: 0.25 mcg Clopidogrel Bisulfate (Plavix -) 75 mg PO DAILY [facility] Last Admin: 10/02/18 11:00 Dose: 75 mg Docusate Sodium (Colace -) 100 mg PO Q12H PRN PRN Reason: CONSTIPATION Enoxaparin Sodium (Lovenox -) 40 mg SQ DAILY [facility] Last Admin: 10/02/18 11:00 Dose: 40 mg Furosemide (Lasix -) 20 mg PO DAILY [facility] Last Admin: 10/02/18 11:00 Dose: 20 mg Glipizide (Glucotrol Xl -) 2.5 mg PO DAILY@0700 [facility] Last Admin: 10/02/18 06:03 Dose: 2.5 mg Piperacillin Sod/Tazobactam (Sod 2.25 gm/ Dextrose) 50 mls @ 100 mls/hr IVPB Q8H-IV [facility]; Protocol Last Admin: 10/02/18 10:59 Dose: 100 mls/hr Azithromycin (Zithromax 500mg Ivpb (Pre-Docked)) 500 mg in 250 mls @ 250 mls/ hr IVPB DAILY [facility] Last Admin: 10/02/18 10:59 Dose: 250 mls/hr Insulin Aspart (Novolog Vial Sliding Scale -) 1 vial SQ ACHS [facility]; Protocol Last Admin: 10/02/18 12:00 Dose: 2 units Methylprednisolone Sodium Succinate (Solu-Medrol -) 40 mg IVPUSH Q6H-IV [facility] Last Admin: 10/02/18 15:40 Dose: 40 mg Metoprolol Tartrate (Lopressor -) 25 mg PO BID [facility] Last Admin: 10/02/18 11:00 Dose: 25 mg Mirtazapine (Remeron -) 7.5 mg PO HS [facility] Last Admin: 10/01/18 21:19 Dose: 7.5 mg Multivitamins/Minerals/Vitamin C (Tab-A-Vit -) 1 tab PO DAILY [facility] Last Admin: 10/02/18 11:00 Dose: 1 tab Oxycodone HCl (Roxicodone -) 5 mg PO Q6H PRN PRN Reason: PAIN LEVEL 7 - 10 Pantoprazole Sodium (Protonix -) 40 mg PO DAILY [facility] Last Admin: 10/02/18 11:00 Dose: 40 mg Roflumilast (Daliresp -) 500 mcg PO DAILY [facility] Last Admin: 10/02/18 10:59 Dose: 500 mcg Rosuvastatin Calcium (Crestor -) 5 mg PO HS [facility] Last Admin: 10/01/18 21:22 Dose: 5 mg Zolpidem Tartrate (Ambien -) 5 mg PO HS PRN PRN Reason: INSOMNIA - Objective Vital Signs: Vital Signs Temperature 97.6 F 10/02/18 06:00 Pulse Rate 80 10/02/18 06:00 Respiratory Rate 20 10/02/18 06:00 Blood Pressure 125/75 10/02/18 06:00 O2 Sat by Pulse Oximetry (%) 99 10/01/18 22:00 Constitutional: Yes: Calm, Mild Distress Eyes: Yes: Conjunctiva Clear Cardiovascular: Yes: Regular Rate and Rhythm Respiratory: Yes: On Nasal O2, Wheezes Gastrointestinal: Yes: Normal Bowel Sounds, Soft Musculoskeletal: Yes: WNL Extremities: Yes: WNL Edema: No Integumentary: Yes: WNL Neurological: Yes: Alert, Oriented Psychiatric: Yes: Alert, Oriented Labs: CBC, BMP 10/02/18 06:00 10/02/18 06:00 <Felisha Merrill - Last Filed: 10/02/18 15:59> - Current Medication List Current Medications: Active Medications Acetaminophen (Tylenol -) 650 mg PO Q6H PRN PRN Reason: FEVER Albuterol/Ipratropium (Duoneb -) 1 amp NEB Q4H [facility] Last Admin: 10/02/18 12:42 Dose: 1 amp Albuterol/Ipratropium (Duoneb -) 1 amp NEB Q6H PRN PRN Reason: SHORTNESS OF BREATH Aspirin (Ecotrin -) 81 mg PO DAILY [facility] Last Admin: 10/02/18 11:00 Dose: 81 mg Baclofen (Lioresal -) 10 mg PO TID [facility] Last Admin: 10/02/18 13:47 Dose: 10 mg Budesonide (Pulmicort 0.25 Mg Nebulizer -) 1 amp NEB RBID [facility] Last Admin: 10/02/18 08:18 Dose: 1 amp Calcitriol (Rocaltrol -) 0.25 mcg PO DAILY [facility] Last Admin: 10/02/18 11:00 Dose: 0.25 mcg Clopidogrel Bisulfate (Plavix -) 75 mg PO DAILY [facility] Last Admin: 10/02/18 11:00 Dose: 75 mg Docusate Sodium (Colace -) 100 mg PO Q12H PRN PRN Reason: CONSTIPATION Enoxaparin Sodium (Lovenox -) 40 mg SQ DAILY [facility] Last Admin: 10/02/18 11:00 Dose: 40 mg Furosemide (Lasix -) 20 mg PO DAILY [facility] Last Admin: 10/02/18 11:00 Dose: 20 mg Glipizide (Glucotrol Xl -) 2.5 mg PO DAILY@0700 [facility] Last Admin: 10/02/18 06:03 Dose: 2.5 mg Piperacillin Sod/Tazobactam (Sod 2.25 gm/ Dextrose) 50 mls @ 100 mls/hr IVPB Q8H-IV [facility]; Protocol Last Admin: 10/02/18 10:59 Dose: 100 mls/hr Azithromycin (Zithromax 500mg Ivpb (Pre-Docked)) 500 mg in 250 mls @ 250 mls/ hr IVPB DAILY [facility] Last Admin: 10/02/18 10:59 Dose: 250 mls/hr Insulin Aspart (Novolog Vial Sliding Scale -) 1 vial SQ ACHS [facility]; Protocol Last Admin: 10/02/18 12:00 Dose: 2 units Methylprednisolone Sodium Succinate (Solu-Medrol -) 60 mg IVPB Q6H-IV [facility] Metoprolol Tartrate (Lopressor -) 25 mg PO BID [facility] Last Admin: 10/02/18 11:00 Dose: 25 mg Mirtazapine (Remeron -) 7.5 mg PO HS [facility] Last Admin: 10/01/18 21:19 Dose: 7.5 mg Multivitamins/Minerals/Vitamin C (Tab-A-Vit -) 1 tab PO DAILY [facility] Last Admin: 10/02/18 11:00 Dose: 1 tab Oxycodone HCl (Roxicodone -) 5 mg PO Q6H PRN PRN Reason: PAIN LEVEL 7 - 10 Pantoprazole Sodium (Protonix -) 40 mg PO DAILY [facility] Last Admin: 10/02/18 11:00 Dose: 40 mg Roflumilast (Daliresp -) 500 mcg PO DAILY [facility] Last Admin: 10/02/18 10:59 Dose: 500 mcg Rosuvastatin Calcium (Crestor -) 5 mg PO HS [facility] Last Admin: 10/01/18 21:22 Dose: 5 mg Zolpidem Tartrate (Ambien -) 5 mg PO HS PRN PRN Reason: INSOMNIA - Objective Vital Signs: Vital Signs Temperature 97.6 F 10/02/18 06:00 Pulse Rate 80 10/02/18 06:00 Respiratory Rate 20 10/02/18 06:00 Blood Pressure 125/75 10/02/18 06:00 O2 Sat by Pulse Oximetry (%) 99 10/01/18 22:00 Labs: CBC, BMP 10/02/18 06:00 10/02/18 06:00 <Alexander Kendall - Last Filed: 10/02/18 16:50> Problem List - Problems (1) COPD (chronic obstructive pulmonary disease) Code(s): J44.9 - CHRONIC OBSTRUCTIVE PULMONARY DISEASE, UNSPECIFIED Qualifiers: COPD type: unspecified COPD Qualified Code(s): J44.9 - Chronic obstructive pulmonary disease, unspecified (2) Pneumonia Code(s): J18.9 - PNEUMONIA, UNSPECIFIED ORGANISM Qualifiers: Pneumonia type: due to unspecified organism Laterality: unspecified laterality Lung location: unspecified part of lung Qualified Code(s): J18.9 - Pneumonia, unspecified organism (3) Hypertension Code(s): I10 - ESSENTIAL (PRIMARY) HYPERTENSION Qualifiers: Hypertension type: unspecified Qualified Code(s): I10 - Essential (primary ) hypertension (4) Cough Code(s): R05 - COUGH (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 - PRESENCE OF AORTOCORONARY BYPASS GRAFT (6) Diabetes Code(s): E11.9 - TYPE 2 DIABETES MELLITUS WITHOUT COMPLICATIONS Qualifiers: Diabetes mellitus type: type 2 <Felisha Merrill - Last Filed: 10/02/18 15:59> Assessment/Plan -pulm on board -increase to methylprednisolone 60mg IVPB q6 -cont albuterol neb tx PRN -O2 via NC PRN, keep SpO2 >90% -ID on board -cont IV ABT -sputum cultures pending -BGM ACHS, ISS -cont metoprolol and lasix -dvt ppx -diabetic/low Na diet <Felisha Merrill - Last Filed: 10/02/18 15:59> PATIENT SEEN AND EXAMINED AND I AGREE WITH ABOVE NOTE <Alexander Kendall - Last Filed: 10/02/18 16:50>
[2018-10-02] MEDS ORDERED: INSULIN (NOVOLOG) ASPART 100 UNITS/ML 10ML VIAL ONE (21:01)
[2018-10-02] MEDS ORDERED: BUDESONIDE 0.5 MG/2 ML INH SUSP VIAL NEB ONE (21:28)
[2018-10-02] MEDS: MIRTAZAPINE 15 MG TABLET (FP) PO SCH (21:31)
[2018-10-02] MEDS: methylPREDNISolone NA SUCC 40 MG/1 ML VIAL IVPB SCH (21:32)
[2018-10-02] MEDS: ROSUVASTATIN CA 5 MG TABLET (FP) PO SCH (21:35)
[2018-10-02] MEDS: ACETAMINOPHEN 325 MG TABLET (FP) PO PRN (21:37)
[2018-10-02] MEDS: oxyCODONE HCL 5 MG TABLET PO PRN (21:38)
--- NOTE | 2018-10-02 22:07 | PN ---
Progress Note, Physician Chief Complaint: Awake, ambulatory Breathing non-labored Afebrile - Current Medication List Current Medications: Active Medications Acetaminophen (Tylenol -) 650 mg PO Q6H PRN PRN Reason: FEVER Last Admin: 10/02/18 21:37 Dose: 650 mg Albuterol/Ipratropium (Duoneb -) 1 amp NEB Q4H [facility] Last Admin: 10/02/18 21:37 Dose: 1 amp Albuterol/Ipratropium (Duoneb -) 1 amp NEB Q6H PRN PRN Reason: SHORTNESS OF BREATH Aspirin (Ecotrin -) 81 mg PO DAILY [facility] Last Admin: 10/02/18 11:00 Dose: 81 mg Baclofen (Lioresal -) 10 mg PO TID [facility] Last Admin: 10/02/18 21:32 Dose: 10 mg Budesonide (Pulmicort 0.25 Mg Nebulizer -) 1 amp NEB RBID [facility] Last Admin: 10/02/18 21:37 Dose: 1 amp Calcitriol (Rocaltrol -) 0.25 mcg PO DAILY [facility] Last Admin: 10/02/18 11:00 Dose: 0.25 mcg Clopidogrel Bisulfate (Plavix -) 75 mg PO DAILY [facility] Last Admin: 10/02/18 11:00 Dose: 75 mg Docusate Sodium (Colace -) 100 mg PO Q12H PRN PRN Reason: CONSTIPATION Enoxaparin Sodium (Lovenox -) 40 mg SQ DAILY [facility] Last Admin: 10/02/18 11:00 Dose: 40 mg Furosemide (Lasix -) 20 mg PO DAILY [facility] Last Admin: 10/02/18 11:00 Dose: 20 mg Glipizide (Glucotrol Xl -) 2.5 mg PO DAILY@0700 [facility] Last Admin: 10/02/18 06:03 Dose: 2.5 mg Piperacillin Sod/Tazobactam (Sod 2.25 gm/ Dextrose) 50 mls @ 100 mls/hr IVPB Q8H-IV [facility]; Protocol Last Admin: 10/02/18 18:03 Dose: 100 mls/hr Azithromycin (Zithromax 500mg Ivpb (Pre-Docked)) 500 mg in 250 mls @ 250 mls/ hr IVPB DAILY [facility] Last Admin: 10/02/18 10:59 Dose: 250 mls/hr Insulin Aspart (Novolog Vial Sliding Scale -) 1 vial SQ ACHS [facility]; Protocol Last Admin: 10/02/18 21:35 Dose: Not Given Methylprednisolone Sodium Succinate (Solu-Medrol -) 60 mg IVPB Q6H-IV [facility] Last Admin: 10/02/18 21:32 Dose: 60 mg Metoprolol Tartrate (Lopressor -) 25 mg PO BID [facility] Last Admin: 10/02/18 21:32 Dose: 25 mg Mirtazapine (Remeron -) 7.5 mg PO HS [facility] Last Admin: 10/02/18 21:31 Dose: 7.5 mg Multivitamins/Minerals/Vitamin C (Tab-A-Vit -) 1 tab PO DAILY [facility] Last Admin: 10/02/18 11:00 Dose: 1 tab Oxycodone HCl (Roxicodone -) 5 mg PO Q6H PRN PRN Reason: PAIN LEVEL 7 - 10 Last Admin: 10/02/18 21:38 Dose: 5 mg Pantoprazole Sodium (Protonix -) 40 mg PO DAILY [facility] Last Admin: 10/02/18 11:00 Dose: 40 mg Roflumilast (Daliresp -) 500 mcg PO DAILY [facility] Last Admin: 10/02/18 10:59 Dose: 500 mcg Rosuvastatin Calcium (Crestor -) 5 mg PO HS [facility] Last Admin: 10/02/18 21:35 Dose: Not Given Zolpidem Tartrate (Ambien -) 5 mg PO HS PRN PRN Reason: INSOMNIA Last Admin: 10/02/18 21:32 Dose: 5 mg - Objective Vital Signs: Vital Signs Temperature 98.8 F 10/02/18 21:42 Pulse Rate 86 10/02/18 21:42 Respiratory Rate 20 10/02/18 21:42 Blood Pressure 142/84 10/02/18 21:42 O2 Sat by Pulse Oximetry (%) 98 10/02/18 09:00 Constitutional: Yes: No Distress Eyes: Yes: Conjunctiva Clear Cardiovascular: Yes: Regular Rate and Rhythm, S1, S2 Respiratory: Yes: Rhonchi Gastrointestinal: Yes: Normal Bowel Sounds, Soft Edema: No Labs: CBC, BMP 10/02/18 06:00 10/02/18 06:00 Assessment/Plan Exacerbation COPD R/O HCAP Continue empiric zosyn/ zithromax
[2018-10-03] MEDS: ALBUTEROL SO4 2.5/IPRATROPIUM 0.5 INH SOL 3 ML VIAL.NEB. NEB SCH ×6 (00:21→16:25)
[2018-10-03] MEDS ORDERED: PIPERACILLIN/TAZOBACTAM 2.25 GM VIAL IVPB ONE ×3 (01:32→17:19)
[2018-10-03] MEDS ORDERED: DEXTROSE 5%-WATER - 50 ML IVPB ONE ×3 (01:32→17:19)
[2018-10-03] MEDS: PIPERACILLIN/TAZOB 2.25 GM 2.25 GM in DEXTROSE 5%-WATER - 50 ML IVPB SCH ×3 (01:44→17:29)
[2018-10-03] MEDS: methylPREDNISolone NA SUCC 40 MG/1 ML VIAL IVPB SCH ×4 (03:22→21:25)
[2018-10-03] MEDS ORDERED: PT OWN MED DRAWER 7, Y5N ONE ×2 (05:58→21:10)
[2018-10-03] MEDS: BACLOFEN 10 MG TABLET (FP) PO SCH ×3 (05:59→21:25)
[2018-10-03] MEDS: glipiZIDE-XL 2.5 MG TAB.ER.24 PO SCH (05:59)
[2018-10-03] MEDS: INSULIN SLIDING SCALE (NOVOLOG) 1 VIAL SQ SCH ×4 (06:00→21:26)
[2018-10-03] MEDS ORDERED: BUDESONIDE 0.5 MG/2 ML INH SUSP VIAL NEB ONE (07:10)
[2018-10-03] MEDS: BUDESONIDE 0.25 MG/2ML INH SUSP VIAL NEB SCH (07:19)
[2018-10-03 07:21] LABS: HEMATOCRIT 35.5 % (32.4-45.2); HEMOGLOBIN 11.7 GM/dL (10.7-15.3); MCH 30.9 pg (25.7-33.7); MCHC 33.1 g/dl (32.0-36.0); MEAN CELL VOLUME 93.3 fl (80-96); MEAN PLT VOLUME 7.6 fl (7.5-11.1); PLATELET COUNT 225 K/MM3 (134-434); RDW 14.5 % (11.6-15.6); WHITE BLOOD COUNT 12.1 K/mm3 (4.0-10.0)
[2018-10-03 08:16] LABS: ALBUMIN 2.8 g/dl (3.4-5.0); ALK PHOS 106 U/L (45-117); ANION GAP 8 MMOL/L (8-16); BILIRUBIN,TOTAL 0.3 mg/dL (0.2-1); BLOOD UREA NITROGEN 37 mg/dL (7-18); CALCIUM 9.1 mg/dL (8.5-10.1); CHLORIDE 106 mmol/L (98-107); CO2 26 mmol/L (21-32); CREATININE 1.1 mg/dL (0.55-1.3); GLUCOSE,RANDOM 129 mg/dL (74-106); POTASSIUM 4.9 mmol/L (3.5-5.1); SGOT/AST 29 U/L (15-37); SGPT/ALT 50 U/L (13-61); SODIUM 141 mmol/L (136-145); TOT PROT 6.3 g/dl (6.4-8.2)
[2018-10-03] MEDS: CLOPIDOGREL BISULFATE 75 MG TABLET (FP) PO SCH (09:24)
[2018-10-03] MEDS: ASPIRIN COATED 81 MG TABLET.EC PO SCH (09:24)
[2018-10-03] MEDS: PANTOPRAZOLE 40 MG TABLET (FP) PO SCH (09:24)
[2018-10-03] MEDS: METOPROLOL TARTRATE 25 MG TABLET (FP) PO SCH ×2 (09:24→21:25)
[2018-10-03] MEDS: AZITHROMYCIN IVPB 500 MG/250 ML BAG IVPB SCH (09:24)
[2018-10-03] MEDS: MULTIVITAMINS (DAILY MVI) TABLET (FP) PO SCH (09:24)
[2018-10-03] MEDS: ROFLUMILAST 500 MCG TABLET PO SCH (09:24)
[2018-10-03] MEDS: CALCITRIOL 0.25 MCG CAPSULE (FP) PO SCH (09:24)
[2018-10-03] MEDS: FUROSEMIDE 20 MG TABLET (FP) PO SCH (09:24)
[2018-10-03] MEDS: ENOXAPARIN NA (PORCINE) 40 MG/0.4 ML DISP.SYRIN SQ SCH (09:24)
[2018-10-03] MEDS: oxyCODONE HCL 5 MG TABLET PO PRN (09:52)
--- NOTE | 2018-10-03 10:52 | PN ---
Progress Note (short form) - Note Progress Note: PULMONARY Breathing about the same. Still with shortness of breath, cough, wheezing and chest tightness. Vital Signs Period Temp Pulse Resp BP Sys/Webster Pulse Ox Last 24 Hr 97.6 F-98.9 F 71-94 20-20 131-148/77-92 98 Gen: tachypneic at rest Heart: RRR Lung: bilateral rhonchi, wheezes Abd: soft, nontender Ext: no edema CBC, BMP 10/03/18 06:30 10/03/18 06:30 Active Medications Acetaminophen (Tylenol -) 650 mg PO Q6H PRN PRN Reason: FEVER Last Admin: 10/02/18 21:37 Dose: 650 mg Albuterol/Ipratropium (Duoneb -) 1 amp NEB Q4H [facility] Last Admin: 10/03/18 07:19 Dose: 1 amp Albuterol/Ipratropium (Duoneb -) 1 amp NEB Q6H PRN PRN Reason: SHORTNESS OF BREATH Aspirin (Ecotrin -) 81 mg PO DAILY [facility] Last Admin: 10/03/18 09:24 Dose: 81 mg Baclofen (Lioresal -) 10 mg PO TID [facility] Last Admin: 10/03/18 05:59 Dose: 10 mg Budesonide (Pulmicort 0.25 Mg Nebulizer -) 1 amp NEB RBID [facility] Last Admin: 10/03/18 07:19 Dose: 1 amp Calcitriol (Rocaltrol -) 0.25 mcg PO DAILY [facility] Last Admin: 10/03/18 09:24 Dose: 0.25 mcg Clopidogrel Bisulfate (Plavix -) 75 mg PO DAILY [facility] Last Admin: 10/03/18 09:24 Dose: 75 mg Docusate Sodium (Colace -) 100 mg PO Q12H PRN PRN Reason: CONSTIPATION Enoxaparin Sodium (Lovenox -) 40 mg SQ DAILY [facility] Last Admin: 10/03/18 09:24 Dose: 40 mg Furosemide (Lasix -) 20 mg PO DAILY [facility] Last Admin: 10/03/18 09:24 Dose: 20 mg Glipizide (Glucotrol Xl -) 2.5 mg PO DAILY@0700 [facility] Last Admin: 10/03/18 05:59 Dose: 2.5 mg Piperacillin Sod/Tazobactam (Sod 2.25 gm/ Dextrose) 50 mls @ 100 mls/hr IVPB Q8H-IV [facility]; Protocol Last Admin: 10/03/18 09:24 Dose: 100 mls/hr Azithromycin (Zithromax 500mg Ivpb (Pre-Docked)) 500 mg in 250 mls @ 250 mls/ hr IVPB DAILY [facility] Last Admin: 10/03/18 09:24 Dose: 250 mls/hr Insulin Aspart (Novolog Vial Sliding Scale -) 1 vial SQ ACHS [facility]; Protocol Last Admin: 10/03/18 06:00 Dose: Not Given Methylprednisolone Sodium Succinate (Solu-Medrol -) 60 mg IVPB Q6H-IV [facility] Last Admin: 10/03/18 09:19 Dose: 60 mg Metoprolol Tartrate (Lopressor -) 25 mg PO BID [facility] Last Admin: 10/03/18 09:24 Dose: 25 mg Mirtazapine (Remeron -) 7.5 mg PO HS [facility] Last Admin: 10/02/18 21:31 Dose: 7.5 mg Multivitamins/Minerals/Vitamin C (Tab-A-Vit -) 1 tab PO DAILY [facility] Last Admin: 10/03/18 09:24 Dose: 1 tab Oxycodone HCl (Roxicodone -) 5 mg PO Q6H PRN PRN Reason: PAIN LEVEL 7 - 10 Last Admin: 10/03/18 09:52 Dose: 5 mg Pantoprazole Sodium (Protonix -) 40 mg PO DAILY [facility] Last Admin: 10/03/18 09:24 Dose: 40 mg Roflumilast (Daliresp -) 500 mcg PO DAILY [facility] Last Admin: 10/03/18 09:24 Dose: 500 mcg Rosuvastatin Calcium (Crestor -) 5 mg PO HS [facility] Last Admin: 10/02/18 21:35 Dose: Not Given Zolpidem Tartrate (Ambien -) 5 mg PO HS PRN PRN Reason: INSOMNIA Last Admin: 10/02/18 21:32 Dose: 5 mg A/P Acute COPD Exacerbation Pneumonia CAD s/p CABG HTN DM - continue medrol at current dose - inhaled bronchodilators - O2 to keep SpO2 >90% - continue antibiotics - f/u cultures - outpt PFTs and f/u - DVT prophylaxis
--- NOTE | 2018-10-03 12:02 | PN ---
Progress Note, Physician Chief Complaint: Cough SOB COPD History of Present Illness: Previous notes and events reviewed awake and alert NAD pt sts cont to have cough and SOB but has mildly improved afebrile, wbc mildly elev - Current Medication List Current Medications: Active Medications Acetaminophen (Tylenol -) 650 mg PO Q6H PRN PRN Reason: FEVER Last Admin: 10/02/18 21:37 Dose: 650 mg Albuterol/Ipratropium (Duoneb -) 1 amp NEB Q4H [facility] Last Admin: 10/03/18 11:21 Dose: 1 amp Albuterol/Ipratropium (Duoneb -) 1 amp NEB Q6H PRN PRN Reason: SHORTNESS OF BREATH Aspirin (Ecotrin -) 81 mg PO DAILY [facility] Last Admin: 10/03/18 09:24 Dose: 81 mg Baclofen (Lioresal -) 10 mg PO TID [facility] Last Admin: 10/03/18 05:59 Dose: 10 mg Budesonide (Pulmicort 0.25 Mg Nebulizer -) 1 amp NEB RBID [facility] Last Admin: 10/03/18 07:19 Dose: 1 amp Calcitriol (Rocaltrol -) 0.25 mcg PO DAILY [facility] Last Admin: 10/03/18 09:24 Dose: 0.25 mcg Clopidogrel Bisulfate (Plavix -) 75 mg PO DAILY [facility] Last Admin: 10/03/18 09:24 Dose: 75 mg Docusate Sodium (Colace -) 100 mg PO Q12H PRN PRN Reason: CONSTIPATION Enoxaparin Sodium (Lovenox -) 40 mg SQ DAILY [facility] Last Admin: 10/03/18 09:24 Dose: 40 mg Furosemide (Lasix -) 20 mg PO DAILY [facility] Last Admin: 10/03/18 09:24 Dose: 20 mg Glipizide (Glucotrol Xl -) 2.5 mg PO DAILY@0700 [facility] Last Admin: 10/03/18 05:59 Dose: 2.5 mg Piperacillin Sod/Tazobactam (Sod 2.25 gm/ Dextrose) 50 mls @ 100 mls/hr IVPB Q8H-IV [facility]; Protocol Last Admin: 10/03/18 09:24 Dose: 100 mls/hr Azithromycin (Zithromax 500mg Ivpb (Pre-Docked)) 500 mg in 250 mls @ 250 mls/ hr IVPB DAILY [facility] Last Admin: 10/03/18 09:24 Dose: 250 mls/hr Insulin Aspart (Novolog Vial Sliding Scale -) 1 vial SQ ACHS [facility]; Protocol Last Admin: 10/03/18 06:00 Dose: Not Given Methylprednisolone Sodium Succinate (Solu-Medrol -) 60 mg IVPB Q6H-IV [facility] Last Admin: 10/03/18 09:19 Dose: 60 mg Metoprolol Tartrate (Lopressor -) 25 mg PO BID [facility] Last Admin: 10/03/18 09:24 Dose: 25 mg Mirtazapine (Remeron -) 7.5 mg PO HS [facility] Last Admin: 10/02/18 21:31 Dose: 7.5 mg Multivitamins/Minerals/Vitamin C (Tab-A-Vit -) 1 tab PO DAILY [facility] Last Admin: 10/03/18 09:24 Dose: 1 tab Oxycodone HCl (Roxicodone -) 5 mg PO Q6H PRN PRN Reason: PAIN LEVEL 7 - 10 Last Admin: 10/03/18 09:52 Dose: 5 mg Pantoprazole Sodium (Protonix -) 40 mg PO DAILY [facility] Last Admin: 10/03/18 09:24 Dose: 40 mg Roflumilast (Daliresp -) 500 mcg PO DAILY [facility] Last Admin: 10/03/18 09:24 Dose: 500 mcg Rosuvastatin Calcium (Crestor -) 5 mg PO HS [facility] Last Admin: 10/02/18 21:35 Dose: Not Given Zolpidem Tartrate (Ambien -) 5 mg PO HS PRN PRN Reason: INSOMNIA Last Admin: 10/02/18 21:32 Dose: 5 mg - Objective Vital Signs: Vital Signs Temperature 98.9 F 10/03/18 08:16 Pulse Rate 94 H 10/03/18 08:16 Respiratory Rate 20 10/03/18 08:16 Blood Pressure 140/92 10/03/18 08:16 O2 Sat by Pulse Oximetry (%) 98 10/02/18 21:00 Constitutional: Yes: Well Nourished, No Distress, Calm Eyes: Yes: Conjunctiva Clear Neck: Yes: Supple Cardiovascular: Yes: Regular Rate and Rhythm Respiratory: Yes: On Nasal O2, Wheezes Gastrointestinal: Yes: Normal Bowel Sounds, Soft Musculoskeletal: Yes: WNL Extremities: Yes: WNL Edema: No Integumentary: Yes: WNL Neurological: Yes: Alert, Oriented Psychiatric: Yes: Alert, Oriented Labs: CBC, BMP 10/03/18 06:30 10/03/18 06:30 <Felisha Merrill - Last Filed: 10/03/18 11:58> - Current Medication List Current Medications: Active Medications Acetaminophen (Tylenol -) 650 mg PO Q6H PRN PRN Reason: FEVER Last Admin: 10/02/18 21:37 Dose: 650 mg Albuterol/Ipratropium (Duoneb -) 1 amp NEB Q4H [facility] Last Admin: 10/04/18 20:09 Dose: 1 amp Albuterol/Ipratropium (Duoneb -) 1 amp NEB Q6H PRN PRN Reason: SHORTNESS OF BREATH Aspirin (Ecotrin -) 81 mg PO DAILY [facility] Last Admin: 10/04/18 09:39 Dose: 81 mg Baclofen (Lioresal -) 10 mg PO TID [facility] Last Admin: 10/04/18 14:58 Dose: 10 mg Budesonide (Pulmicort 0.25 Mg Nebulizer -) 1 amp NEB RBID [facility] Last Admin: 10/04/18 20:17 Dose: 1 amp Calcitriol (Rocaltrol -) 0.25 mcg PO DAILY [facility] Last Admin: 10/04/18 09:38 Dose: 0.25 mcg Clopidogrel Bisulfate (Plavix -) 75 mg PO DAILY [facility] Last Admin: 10/04/18 09:38 Dose: 75 mg Docusate Sodium (Colace -) 100 mg PO Q12H PRN PRN Reason: CONSTIPATION Enoxaparin Sodium (Lovenox -) 40 mg SQ DAILY [facility] Last Admin: 10/04/18 09:40 Dose: 40 mg Furosemide (Lasix -) 20 mg PO DAILY [facility] Last Admin: 10/04/18 09:39 Dose: 20 mg Glipizide (Glucotrol Xl -) 2.5 mg PO DAILY@0700 [facility] Last Admin: 10/04/18 06:11 Dose: 2.5 mg Guaifenesin (Diabetic Tussin Dm -) 5 ml PO Q6H PRN PRN Reason: COUGH Last Admin: 10/04/18 12:19 Dose: 5 ml Piperacillin Sod/Tazobactam (Sod 2.25 gm/ Dextrose) 50 mls @ 100 mls/hr IVPB Q8H-IV [facility]; Protocol Last Admin: 10/04/18 17:37 Dose: 100 mls/hr Azithromycin (Zithromax 500mg Ivpb (Pre-Docked)) 500 mg in 250 mls @ 250 mls/ hr IVPB DAILY [facility] Last Admin: 10/04/18 09:39 Dose: 250 mls/hr Insulin Aspart (Novolog Vial Sliding Scale -) 1 vial SQ ACHS [facility]; Protocol Last Admin: 10/04/18 16:49 Dose: Not Given Methylprednisolone Sodium Succinate (Solu-Medrol -) 60 mg IVPB Q6H-IV [facility] Last Admin: 10/04/18 14:58 Dose: 60 mg Metoprolol Tartrate (Lopressor -) 25 mg PO BID [facility] Last Admin: 10/04/18 09:39 Dose: 25 mg Mirtazapine (Remeron -) 7.5 mg PO [facility] Last Admin: 10/03/18 21:25 Dose: 7.5 mg Multivitamins/Minerals/Vitamin C (Tab-A-Vit -) 1 tab PO DAILY [facility] Last Admin: 10/04/18 09:39 Dose: 1 tab Nitroglycerin (Nitrostat -) 0.4 mg SL Q5M PRN PRN Reason: FOR CHEST PAIN Last Admin: 10/03/18 14:10 Dose: 0.4 mg Pantoprazole Sodium (Protonix -) 40 mg PO DAILY [facility] Last Admin: 10/04/18 09:39 Dose: 40 mg Roflumilast (Daliresp -) 500 mcg PO DAILY [facility] Last Admin: 10/04/18 09:38 Dose: 500 mcg Rosuvastatin Calcium (Crestor -) 5 mg PO HS [facility] Last Admin: 10/03/18 21:26 Dose: 5 mg - Objective Vital Signs: Vital Signs Temperature 98.1 F 10/04/18 18:00 Pulse Rate 82 10/04/18 18:00 Respiratory Rate 20 10/04/18 18:00 Blood Pressure 137/78 10/04/18 18:00 O2 Sat by Pulse Oximetry (%) 96 10/04/18 12:09 Labs: CBC, BMP 10/04/18 06:30 10/04/18 06:30 <EnochAmmir - Last Filed: 10/04/18 21:11> Problem List - Problems (1) COPD (chronic obstructive pulmonary disease) Code(s): J44.9 - CHRONIC OBSTRUCTIVE PULMONARY DISEASE, UNSPECIFIED Qualifiers: COPD type: unspecified COPD Qualified Code(s): J44.9 - Chronic obstructive pulmonary disease, unspecified (2) Pneumonia Code(s): J18.9 - PNEUMONIA, UNSPECIFIED ORGANISM Qualifiers: Pneumonia type: due to unspecified organism Laterality: unspecified laterality Lung location: unspecified part of lung Qualified Code(s): J18.9 - Pneumonia, unspecified organism (3) Hypertension Code(s): I10 - ESSENTIAL (PRIMARY) HYPERTENSION Qualifiers: Hypertension type: unspecified Qualified Code(s): I10 - Essential (primary ) hypertension (4) Cough Code(s): R05 - COUGH (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 - PRESENCE OF AORTOCORONARY BYPASS GRAFT (6) Diabetes Code(s): E11.9 - TYPE 2 DIABETES MELLITUS WITHOUT COMPLICATIONS Qualifiers: Diabetes mellitus type: type 2 <Felisha Merrill - Last Filed: 10/03/18 11:58> Assessment/Plan -pulm on board -cont with methylprednisolone 60mg IVPB q6 -cont albuterol neb tx PRN -O2 via NC PRN, keep SpO2 >90% -ID on board -nares MRSA culture pending -cont IV ABT -sputum cultures pending -BGM ACHS, ISS -cont metoprolol and lasix -dvt ppx -diabetic/low Na diet -when breathing improves will order pre/post O2 sat to assess if home O2 needed for discharge <Felisha Merrill - Last Filed: 10/03/18 11:58> I HAVE EXAMINED THE PATIENT AND AGREE WITH ABOVE NOTE <Alexander Kendall - Last Filed: 10/04/18 21:11>
--- NOTE | 2018-10-03 13:57 | PN ---
Progress Note (short form) - Note Progress Note: Patient complain of sharp/pressing pain that started in back and radiate to chest, 8/10 on pain scale. VS BP 140/67, HR 67, O2 96% on O2. EKG, troponin STAT. Cardiology consult placed. Nitro SL ordered PRN. On examination patient states that the pain has decreased to about 3/10 on pain scale. Will continue to monitor and will follow up. Problem List - Problems (1) COPD (chronic obstructive pulmonary disease) Code(s): J44.9 - CHRONIC OBSTRUCTIVE PULMONARY DISEASE, UNSPECIFIED Qualifiers: COPD type: unspecified COPD Qualified Code(s): J44.9 - Chronic obstructive pulmonary disease, unspecified (2) Pneumonia Code(s): J18.9 - PNEUMONIA, UNSPECIFIED ORGANISM Qualifiers: Pneumonia type: due to unspecified organism Laterality: unspecified laterality Lung location: unspecified part of lung Qualified Code(s): J18.9 - Pneumonia, unspecified organism (3) Hypertension Code(s): I10 - ESSENTIAL (PRIMARY) HYPERTENSION Qualifiers: Hypertension type: unspecified Qualified Code(s): I10 - Essential (primary ) hypertension (4) Cough Code(s): R05 - COUGH (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 - PRESENCE OF AORTOCORONARY BYPASS GRAFT (6) Diabetes Code(s): E11.9 - TYPE 2 DIABETES MELLITUS WITHOUT COMPLICATIONS Qualifiers: Diabetes mellitus type: type 2
[2018-10-03] MEDS ORDERED: NITROGLYCERIN SUBLINGUAL 1/150 0.4 MG TAB SL PRN (14:03)
[2018-10-03] MEDS ORDERED: NITROGLYCERIN SUBLINGUAL 1/150 0.4 MG TAB ONE (14:08)
--- NOTE | 2018-10-03 16:16 | CON.CARD ---
Consult Consult Specialty:: Cardiology Reason for Consultation:: Chest pain - History of Present Illness Chief Complaint: Chest pain History of Present Illness: This is a 78 year old female with a PMH of DM, COPD, CAD (s/p CABG), and HTN. She presents now with a 3 - 4 day history of a productive cough, wheezing, malaise, and shortness of breath. She also describes chest pain. She states that she developed jaw pain which radiates to her chest. Troponins are negative. EKG is NSR with an incomplete RBBB. The patient had a persantine nuclear stress test 11/23/16 which showed no ischemia. She states that she can not do a treadmill stress test because she "can't walk fast enough." Presently she is CP free. . - Past Medical History Cardio/Vascular: Yes: CAD (s/p cabg) Pulmonary: Yes: COPD Musculoskeletal: Yes: Other (lumbar stenosis) Rheumatology: Yes: Other - Alcohol/Substance Use Hx Alcohol Use: No - Smoking History Smoking history: Never smoked Have you smoked in the past 12 months: No Aproximately how many cigarettes per day: 0 Home Medications - Allergies Allergies/Adverse Reactions: Allergies Allergy/AdvReac Type Severity Reaction Status Date / Time pregabalin [From Lyrica] Allergy Mild Rash Verified 08/15/12 14:19 Iodinated Contrast- Oral and Allergy Verified 08/15/12 14:19 IV Dye [IV Dye, Iodine Containing Contrast ] ADOLEX Allergy Uncoded 08/15/12 14:19 - Home Medications Home Medications: Ambulatory Orders Aspirin [ASA -] 81 mg PO DAILY 09/30/18 Baclofen 10 mg PO HS 09/30/18 Budesonide [Pulmicort 0.25 mg -] 1 neb PO BID 09/30/18 Calcium Citrate [Calcitrate] 950 mg PO DAILY 09/30/18 Clopidogrel Bisulfate [Plavix] 75 mg PO DAILY 09/30/18 Dexlansoprazole [Dexilant] 60 mg PO DAILY 09/30/18 Docusate Sodium [Colace] 100 mg PO BID 09/30/18 Fentanyl 50 adh.patch TD Q72H 09/30/18 Furosemide [Lasix] 20 mg PO DAILY 09/30/18 Glipizide Xl [Glucotrol Xl -] 2.5 mg PO DAILY 09/30/18 Ipratropium/Albuterol Sulfate [Iprat-Albut 0.5-3(2.5) mg/3 ml] 3 ml IH PRN 09/30 Metoprolol Tartrate 25 mg PO BID 09/30/18 Mirabegron [Myrbetriq] 50 mg PO DAILY 09/30/18 Mirtazapine 7.5 mg PO HS 09/30/18 Multivitamins [Tab-A-Vit -] 1 tab PO DAILY 09/30/18 Oxycodone HCl/Acetaminophen [Endocet 10-325 mg Tablet] 1 each PO QID 09/30/18 Roflumilast [Daliresp] 500 mcg PO DAILY 09/30/18 Rosuvastatin Calcium [Crestor] 20 mg PO DAILY 09/30/18 Zolpidem Tartrate [Ambien] 5 mg PO HS 09/30/18 Vital Signs: Vital Signs Temperature 99.1 F 10/03/18 13:48 Pulse Rate 75 10/03/18 13:48 Respiratory Rate 20 10/03/18 13:48 Blood Pressure 140/67 10/03/18 13:48 O2 Sat by Pulse Oximetry (%) 98 10/02/18 21:00 Constitutional: Yes: No Distress Eyes: Yes: WNL HENT: Yes: WNL Neck: Yes: WNL Respiratory: Yes: Rhonchi (Bilateral scattered inspiratory rhonchi) Gastrointestinal: Yes: Soft Cardiovascular: Yes: Regular Rate and Rhythm (NL S1S2 no MRHG) Extremities: Yes: WNL Edema: No Neurological: Yes: Alert, Oriented - Other Data Labs, Other Data: CBC, BMP 10/03/18 06:30 10/03/18 06:30 Assessment/Plan 78 year old female with a PMH of DM, COPD, CAD (s/p CABG), and HTN. She presents now with a 3 - 4 day history of a productive cough, wheezing, malaise, and shortness of breath. She also describes chest pain. She states that she developed jaw pain which radiates to her chest. Troponins are negative. EKG is NSR with an incomplete RBBB. The patient had a persantine nuclear stress test 11/23/16 which showed no ischemia. She states that she can not do a treadmill stress test because she "can't walk fast enough." Presently she is CP free. Chest Pain Trop negative x1, continue to trend Continue Metoprolol tartrate 25 mg PO bid Continue Crestor 5 mg daily Continue ASA 81 mg/Plavix 75 mg PO daily Contine LOasix 20 mg daily Would obtain an echcoardiogram Would not do a stress test untill her pulmonary status improves Will follow with you.
--- NOTE | 2018-10-03 16:40 | EKG ---
Test Reason : Blood Pressure : / mmHG Vent. 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
[2018-10-03] MEDS ORDERED: INSULIN (NOVOLOG) ASPART 100 UNITS/ML 10ML VIAL ONE (21:11)
[2018-10-03] MEDS: MIRTAZAPINE 15 MG TABLET (FP) PO SCH (21:25)
[2018-10-03] MEDS: ROSUVASTATIN CA 5 MG TABLET (FP) PO SCH (21:26)
[2018-10-04] MEDS ORDERED: PIPERACILLIN/TAZOBACTAM 2.25 GM VIAL IVPB ONE ×3 (01:50→17:08)
[2018-10-04] MEDS ORDERED: DEXTROSE 5%-WATER - 50 ML IVPB ONE ×3 (01:50→17:08)
[2018-10-04] MEDS: PIPERACILLIN/TAZOB 2.25 GM 2.25 GM in DEXTROSE 5%-WATER - 50 ML IVPB SCH ×3 (01:54→17:37)
[2018-10-04] MEDS: methylPREDNISolone NA SUCC 40 MG/1 ML VIAL IVPB SCH ×4 (02:42→21:29)
[2018-10-04] MEDS: glipiZIDE-XL 2.5 MG TAB.ER.24 PO SCH (06:11)
[2018-10-04] MEDS: INSULIN SLIDING SCALE (NOVOLOG) 1 VIAL SQ SCH ×4 (06:11→21:29)
[2018-10-04] MEDS: BACLOFEN 10 MG TABLET (FP) PO SCH ×3 (06:11→21:29)
[2018-10-04] MEDS: BUDESONIDE 0.25 MG/2ML INH SUSP VIAL NEB SCH ×2 (07:35→20:17)
[2018-10-04] MEDS: ALBUTEROL SO4 2.5/IPRATROPIUM 0.5 INH SOL 3 ML VIAL.NEB. NEB SCH ×4 (07:35→20:09)
[2018-10-04 07:42] LABS: HEMATOCRIT 36.1 % (32.4-45.2); MCH 30.9 pg (25.7-33.7); MCHC 33.4 g/dl (32.0-36.0); MEAN CELL VOLUME 92.5 fl (80-96); MEAN PLT VOLUME 7.7 fl (7.5-11.1); PLATELET COUNT 239 K/MM3 (134-434); RDW 14.4 % (11.6-15.6); WHITE BLOOD COUNT 12.2 K/mm3 (4.0-10.0)
[2018-10-04 08:25] LABS: ALBUMIN 2.7 g/dl (3.4-5.0); ALK PHOS 91 U/L (45-117); ANION GAP 11 MMOL/L (8-16); BILIRUBIN,TOTAL 0.2 mg/dL (0.2-1); BLOOD UREA NITROGEN 40 mg/dL (7-18); CALCIUM 9.2 mg/dL (8.5-10.1); CHLORIDE 106 mmol/L (98-107); CO2 25 mmol/L (21-32); GLUCOSE,RANDOM 110 mg/dL (74-106); POTASSIUM 4.7 mmol/L (3.5-5.1); SGOT/AST 17 U/L (15-37); SGPT/ALT 42 U/L (13-61); SODIUM 143 mmol/L (136-145); TOT PROT 6.3 g/dl (6.4-8.2)
[2018-10-04] MEDS: CALCITRIOL 0.25 MCG CAPSULE (FP) PO SCH (09:38)
[2018-10-04] MEDS: CLOPIDOGREL BISULFATE 75 MG TABLET (FP) PO SCH (09:38)
[2018-10-04] MEDS: ROFLUMILAST 500 MCG TABLET PO SCH (09:38)
[2018-10-04] MEDS: PANTOPRAZOLE 40 MG TABLET (FP) PO SCH (09:39)
[2018-10-04] MEDS: MULTIVITAMINS (DAILY MVI) TABLET (FP) PO SCH (09:39)
[2018-10-04] MEDS: METOPROLOL TARTRATE 25 MG TABLET (FP) PO SCH ×2 (09:39→21:29)
[2018-10-04] MEDS: AZITHROMYCIN IVPB 500 MG/250 ML BAG IVPB SCH (09:39)
[2018-10-04] MEDS: FUROSEMIDE 20 MG TABLET (FP) PO SCH (09:39)
[2018-10-04] MEDS: ASPIRIN COATED 81 MG TABLET.EC PO SCH (09:39)
[2018-10-04] MEDS: ENOXAPARIN NA (PORCINE) 40 MG/0.4 ML DISP.SYRIN SQ SCH (09:40)
--- NOTE | 2018-10-04 10:31 | PN ---
Progress Note, Physician Chief Complaint: Cough SOB COPD History of Present Illness: Previous notes and events reviewed awake and alert NAD pt had episode of chest pain on 10/03/18, trop neg, EKG shows NSR, RBBB patient denies chest pain on exam, sts SOB is about the same - Current Medication List Current Medications: Active Medications Acetaminophen (Tylenol -) 650 mg PO Q6H PRN PRN Reason: FEVER Last Admin: 10/02/18 21:37 Dose: 650 mg Albuterol/Ipratropium (Duoneb -) 1 amp NEB Q4H [facility] Last Admin: 10/04/18 07:35 Dose: 1 amp Albuterol/Ipratropium (Duoneb -) 1 amp NEB Q6H PRN PRN Reason: SHORTNESS OF BREATH Aspirin (Ecotrin -) 81 mg PO DAILY [facility] Last Admin: 10/04/18 09:39 Dose: 81 mg Baclofen (Lioresal -) 10 mg PO TID [facility] Last Admin: 10/04/18 06:11 Dose: 10 mg Budesonide (Pulmicort 0.25 Mg Nebulizer -) 1 amp NEB RBID [facility] Last Admin: 10/04/18 07:35 Dose: 1 amp Calcitriol (Rocaltrol -) 0.25 mcg PO DAILY [facility] Last Admin: 10/04/18 09:38 Dose: 0.25 mcg Clopidogrel Bisulfate (Plavix -) 75 mg PO DAILY [facility] Last Admin: 10/04/18 09:38 Dose: 75 mg Docusate Sodium (Colace -) 100 mg PO Q12H PRN PRN Reason: CONSTIPATION Enoxaparin Sodium (Lovenox -) 40 mg SQ DAILY [facility] Last Admin: 10/04/18 09:40 Dose: 40 mg Furosemide (Lasix -) 20 mg PO DAILY [facility] Last Admin: 10/04/18 09:39 Dose: 20 mg Glipizide (Glucotrol Xl -) 2.5 mg PO DAILY@0700 [facility] Last Admin: 10/04/18 06:11 Dose: 2.5 mg Piperacillin Sod/Tazobactam (Sod 2.25 gm/ Dextrose) 50 mls @ 100 mls/hr IVPB Q8H-IV [facility]; Protocol Last Admin: 10/04/18 09:39 Dose: 100 mls/hr Azithromycin (Zithromax 500mg Ivpb (Pre-Docked)) 500 mg in 250 mls @ 250 mls/ hr IVPB DAILY [facility] Last Admin: 10/04/18 09:39 Dose: 250 mls/hr Insulin Aspart (Novolog Vial Sliding Scale -) 1 vial SQ ACHS [facility]; Protocol Last Admin: 10/04/18 06:11 Dose: Not Given Methylprednisolone Sodium Succinate (Solu-Medrol -) 60 mg IVPB Q6H-IV [facility] Last Admin: 10/04/18 08:35 Dose: 60 mg Metoprolol Tartrate (Lopressor -) 25 mg PO BID [facility] Last Admin: 10/04/18 09:39 Dose: 25 mg Mirtazapine (Remeron -) 7.5 mg PO HS [facility] Last Admin: 10/03/18 21:25 Dose: 7.5 mg Multivitamins/Minerals/Vitamin C (Tab-A-Vit -) 1 tab PO DAILY [facility] Last Admin: 10/04/18 09:39 Dose: 1 tab Nitroglycerin (Nitrostat -) 0.4 mg SL Q5M PRN PRN Reason: FOR CHEST PAIN Last Admin: 10/03/18 14:10 Dose: 0.4 mg Pantoprazole Sodium (Protonix -) 40 mg PO DAILY [facility] Last Admin: 10/04/18 09:39 Dose: 40 mg Roflumilast (Daliresp -) 500 mcg PO DAILY [facility] Last Admin: 10/04/18 09:38 Dose: 500 mcg Rosuvastatin Calcium (Crestor -) 5 mg PO HS [facility] Last Admin: 10/03/18 21:26 Dose: 5 mg - Objective Vital Signs: Vital Signs Temperature 98 F 10/03/18 22:00 Pulse Rate 82 10/03/18 22:00 Respiratory Rate 20 10/03/18 22:00 Blood Pressure 132/78 10/03/18 22:00 O2 Sat by Pulse Oximetry (%) 94 L 10/03/18 21:00 Constitutional: Yes: Well Nourished, Calm, Mild Distress Eyes: Yes: Conjunctiva Clear Neck: Yes: Supple Cardiovascular: Yes: Regular Rate and Rhythm Respiratory: Yes: Wheezes Gastrointestinal: Yes: Normal Bowel Sounds, Soft Musculoskeletal: Yes: WNL Extremities: Yes: WNL Edema: Yes Edema: LLE: Trace, RLE: Trace Integumentary: Yes: WNL Neurological: Yes: Alert, Oriented Psychiatric: Yes: Alert, Oriented Labs: CBC, BMP 10/04/18 06:30 10/04/18 06:30 - ....Imaging EKG: Report Reviewed <Felisha Merrill - Last Filed: 10/04/18 10:27> - Current Medication List Current Medications: Active Medications Acetaminophen (Tylenol -) 650 mg PO Q6H PRN PRN Reason: FEVER Last Admin: 10/02/18 21:37 Dose: 650 mg Albuterol/Ipratropium (Duoneb -) 1 amp NEB Q4H [facility] Last Admin: 10/04/18 20:09 Dose: 1 amp Albuterol/Ipratropium (Duoneb -) 1 amp NEB Q6H PRN PRN Reason: SHORTNESS OF BREATH Aspirin (Ecotrin -) 81 mg PO DAILY [facility] Last Admin: 10/04/18 09:39 Dose: 81 mg Baclofen (Lioresal -) 10 mg PO TID [facility] Last Admin: 10/04/18 14:58 Dose: 10 mg Budesonide (Pulmicort 0.25 Mg Nebulizer -) 1 amp NEB RBID [facility] Last Admin: 10/04/18 20:17 Dose: 1 amp Calcitriol (Rocaltrol -) 0.25 mcg PO DAILY [facility] Last Admin: 10/04/18 09:38 Dose: 0.25 mcg Clopidogrel Bisulfate (Plavix -) 75 mg PO DAILY [facility] Last Admin: 10/04/18 09:38 Dose: 75 mg Docusate Sodium (Colace -) 100 mg PO Q12H PRN PRN Reason: CONSTIPATION Enoxaparin Sodium (Lovenox -) 40 mg SQ DAILY [facility] Last Admin: 10/04/18 09:40 Dose: 40 mg Furosemide (Lasix -) 20 mg PO DAILY [facility] Last Admin: 10/04/18 09:39 Dose: 20 mg Glipizide (Glucotrol Xl -) 2.5 mg PO DAILY@0700 [facility] Last Admin: 10/04/18 06:11 Dose: 2.5 mg Guaifenesin (Diabetic Tussin Dm -) 5 ml PO Q6H PRN PRN Reason: COUGH Last Admin: 10/04/18 12:19 Dose: 5 ml Piperacillin Sod/Tazobactam (Sod 2.25 gm/ Dextrose) 50 mls @ 100 mls/hr IVPB Q8H-IV [facility]; Protocol Last Admin: 10/04/18 17:37 Dose: 100 mls/hr Azithromycin (Zithromax 500mg Ivpb (Pre-Docked)) 500 mg in 250 mls @ 250 mls/ hr IVPB DAILY [facility] Last Admin: 10/04/18 09:39 Dose: 250 mls/hr Insulin Aspart (Novolog Vial Sliding Scale -) 1 vial SQ ACHS [facility]; Protocol Last Admin: 10/04/18 16:49 Dose: Not Given Methylprednisolone Sodium Succinate (Solu-Medrol -) 60 mg IVPB Q6H-IV [facility] Last Admin: 10/04/18 14:58 Dose: 60 mg Metoprolol Tartrate (Lopressor -) 25 mg PO BID [facility] Last Admin: 10/04/18 09:39 Dose: 25 mg Mirtazapine (Remeron -) 7.5 mg PO [facility] Last Admin: 10/03/18 21:25 Dose: 7.5 mg Multivitamins/Minerals/Vitamin C (Tab-A-Vit -) 1 tab PO DAILY [facility] Last Admin: 10/04/18 09:39 Dose: 1 tab Nitroglycerin (Nitrostat -) 0.4 mg SL Q5M PRN PRN Reason: FOR CHEST PAIN Last Admin: 10/03/18 14:10 Dose: 0.4 mg Pantoprazole Sodium (Protonix -) 40 mg PO DAILY [facility] Last Admin: 10/04/18 09:39 Dose: 40 mg Roflumilast (Daliresp -) 500 mcg PO DAILY [facility] Last Admin: 10/04/18 09:38 Dose: 500 mcg Rosuvastatin Calcium (Crestor -) 5 mg PO HS [facility] Last Admin: 10/03/18 21:26 Dose: 5 mg - Objective Vital Signs: Vital Signs Temperature 98.1 F 10/04/18 18:00 Pulse Rate 82 10/04/18 18:00 Respiratory Rate 20 10/04/18 18:00 Blood Pressure 137/78 10/04/18 18:00 O2 Sat by Pulse Oximetry (%) 96 10/04/18 12:09 Labs: CBC, BMP 10/04/18 06:30 10/04/18 06:30 <Eddie Kendallmir - Last Filed: 10/04/18 21:10> Problem List - Problems (1) COPD (chronic obstructive pulmonary disease) Code(s): J44.9 - CHRONIC OBSTRUCTIVE PULMONARY DISEASE, UNSPECIFIED Qualifiers: COPD type: unspecified COPD Qualified Code(s): J44.9 - Chronic obstructive pulmonary disease, unspecified (2) Pneumonia Code(s): J18.9 - PNEUMONIA, UNSPECIFIED ORGANISM Qualifiers: Pneumonia type: due to unspecified organism Laterality: unspecified laterality Lung location: unspecified part of lung Qualified Code(s): J18.9 - Pneumonia, unspecified organism (3) Hypertension Code(s): I10 - ESSENTIAL (PRIMARY) HYPERTENSION Qualifiers: Hypertension type: unspecified Qualified Code(s): I10 - Essential (primary ) hypertension (4) Cough Code(s): R05 - COUGH (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 - PRESENCE OF AORTOCORONARY BYPASS GRAFT (6) Diabetes Code(s): E11.9 - TYPE 2 DIABETES MELLITUS WITHOUT COMPLICATIONS Qualifiers: Diabetes mellitus type: type 2 <Felisha Merrill - Last Filed: 10/04/18 10:27> Assessment/Plan -pulm on board -cont with methylprednisolone 60mg IVPB q6 -cont albuterol neb tx PRN -O2 via NC PRN, keep SpO2 >90% -ID on board -nares MRSA culture pending -cont IV ABT -cardiology recommendation appreciated -Echocardiogram ordered, hold off on stress test until pulm improves -Nitro SL PRN for chest pain -cont with metoprolol, lasix -sputum cultures pending -elev BUN, renal consult made -BGM ACHS, ISS -dvt ppx -diabetic/low Na diet -when breathing improves will order pre/post O2 sat to assess if home O2 needed for discharge <Felisha Merrill - Last Filed: 10/04/18 10:27> I HAVE EXAMINED THE PATIENT AND AGREE WITH ABOVE NOTE <Alexander Kendall - Last Filed: 10/04/18 21:10>
--- NOTE | 2018-10-04 12:17 | CONSULT ---
Consult Consult Specialty:: Nephrology Reason for Consultation:: Rising BUN - History of Present Illness History of Present Illness: Pt is a 78F PMHx of COPD, CAD s/p CABG, DM, and HTN who presented for productive cough, shortness of breath, and malais and admitted for COPD exacerbation with PNA, we have been consulted for rising BUN. Pt has had rising BUN/cr from 21/0.8>>37/1.1 >>40/1.0. Pt had proteinuria in past 2011, with negative renal US in 2017 for renal pathology. Has been on dexlansoprazole and lasix 20mg at home. Now on steroids for COPD exacerbation. - History Source History Provided By: Patient, Medical Record Limitations to Obtaining History: No Limitations - Past Medical History Cardio/Vascular: Yes: CAD (s/p cabg) Pulmonary: Yes: COPD Musculoskeletal: Yes: Other (lumbar stenosis) Rheumatology: Yes: Other - Alcohol/Substance Use Hx Alcohol Use: No - Smoking History Smoking history: Never smoked Have you smoked in the past 12 months: No Aproximately how many cigarettes per day: 0 Home Medications - Allergies Allergies/Adverse Reactions: Allergies Allergy/AdvReac Type Severity Reaction Status Date / Time pregabalin [From Lyrica] Allergy Mild Rash Verified 08/15/12 14:19 Iodinated Contrast- Oral and Allergy Verified 08/15/12 14:19 IV Dye [IV Dye, Iodine Containing Contrast ] ADOLEX Allergy Uncoded 08/15/12 14:19 - Home Medications Home Medications: Ambulatory Orders Aspirin [ASA -] 81 mg PO DAILY 09/30/18 Baclofen 10 mg PO HS 09/30/18 Budesonide [Pulmicort 0.25 mg -] 1 neb PO BID 09/30/18 Calcium Citrate [Calcitrate] 950 mg PO DAILY 09/30/18 Clopidogrel Bisulfate [Plavix] 75 mg PO DAILY 09/30/18 Dexlansoprazole [Dexilant] 60 mg PO DAILY 09/30/18 Docusate Sodium [Colace] 100 mg PO BID 09/30/18 Fentanyl 50 adh.patch TD Q72H 09/30/18 Furosemide [Lasix] 20 mg PO DAILY 09/30/18 Glipizide Xl [Glucotrol Xl -] 2.5 mg PO DAILY 09/30/18 Ipratropium/Albuterol Sulfate [Iprat-Albut 0.5-3(2.5) mg/3 ml] 3 ml IH PRN 09/30 Metoprolol Tartrate 25 mg PO BID 09/30/18 Mirabegron [Myrbetriq] 50 mg PO DAILY 09/30/18 Mirtazapine 7.5 mg PO HS 09/30/18 Multivitamins [Tab-A-Vit -] 1 tab PO DAILY 09/30/18 Oxycodone HCl/Acetaminophen [Endocet 10-325 mg Tablet] 1 each PO QID 09/30/18 Roflumilast [Daliresp] 500 mcg PO DAILY 09/30/18 Rosuvastatin Calcium [Crestor] 20 mg PO DAILY 09/30/18 Zolpidem Tartrate [Ambien] 5 mg PO HS 09/30/18 Review of Systems - Review of Systems Cardiovascular: reports: Chest Pain, Shortness of Breath Respiratory: reports: Cough Genitourinary: denies: Dysuria, Hematuria Physical Exam Vital Signs: Vital Signs Temperature 98 F 10/03/18 22:00 Pulse Rate 78 10/04/18 12:09 Respiratory Rate 20 10/03/18 22:00 Blood Pressure 132/78 10/03/18 22:00 O2 Sat by Pulse Oximetry (%) 96 10/04/18 12:09 Constitutional: Yes: Well Nourished, Mild Distress Eyes: Yes: Conjunctiva Clear Neck: Yes: Supple Cardiovascular: Yes: Regular Rate and Rhythm, S1, S2 Respiratory: Yes: Cough, Rhonchi Gastrointestinal: Yes: Soft Labs: CBC, BMP 10/04/18 06:30 10/04/18 06:30 Assessment/Plan Ambulatory Orders Aspirin [ASA -] 81 mg PO DAILY 09/30/18 Baclofen 10 mg PO HS 09/30/18 Budesonide [Pulmicort 0.25 mg -] 1 neb PO BID 09/30/18 Calcium Citrate [Calcitrate] 950 mg PO DAILY 09/30/18 Clopidogrel Bisulfate [Plavix] 75 mg PO DAILY 09/30/18 Dexlansoprazole [Dexilant] 60 mg PO DAILY 09/30/18 Docusate Sodium [Colace] 100 mg PO BID 09/30/18 Fentanyl 50 adh.patch TD Q72H 09/30/18 Furosemide [Lasix] 20 mg PO DAILY 09/30/18 Glipizide Xl [Glucotrol Xl -] 2.5 mg PO DAILY 09/30/18 Ipratropium/Albuterol Sulfate [Iprat-Albut 0.5-3(2.5) mg/3 ml] 3 ml IH PRN 09/30 Metoprolol Tartrate 25 mg PO BID 09/30/18 Mirabegron [Myrbetriq] 50 mg PO DAILY 09/30/18 Mirtazapine 7.5 mg PO HS 09/30/18 Multivitamins [Tab-A-Vit -] 1 tab PO DAILY 09/30/18 Oxycodone HCl/Acetaminophen [Endocet 10-325 mg Tablet] 1 each PO QID 09/30/18 Roflumilast [Daliresp] 500 mcg PO DAILY 09/30/18 Rosuvastatin Calcium [Crestor] 20 mg PO DAILY 09/30/18 Zolpidem Tartrate [Ambien] 5 mg PO HS 09/30/18 Active Medications Acetaminophen (Tylenol -) 650 mg PO Q6H PRN PRN Reason: FEVER Last Admin: 10/02/18 21:37 Dose: 650 mg Albuterol/Ipratropium (Duoneb -) 1 amp NEB Q4H [facility] Last Admin: 10/04/18 11:50 Dose: 1 amp Albuterol/Ipratropium (Duoneb -) 1 amp NEB Q6H PRN PRN Reason: SHORTNESS OF BREATH Aspirin (Ecotrin -) 81 mg PO DAILY [facility] Last Admin: 10/04/18 09:39 Dose: 81 mg Baclofen (Lioresal -) 10 mg PO TID [facility] Last Admin: 10/04/18 06:11 Dose: 10 mg Budesonide (Pulmicort 0.25 Mg Nebulizer -) 1 amp NEB RBID [facility] Last Admin: 10/04/18 07:35 Dose: 1 amp Calcitriol (Rocaltrol -) 0.25 mcg PO DAILY [facility] Last Admin: 10/04/18 09:38 Dose: 0.25 mcg Clopidogrel Bisulfate (Plavix -) 75 mg PO DAILY [facility] Last Admin: 10/04/18 09:38 Dose: 75 mg Docusate Sodium (Colace -) 100 mg PO Q12H PRN PRN Reason: CONSTIPATION Enoxaparin Sodium (Lovenox -) 40 mg SQ DAILY [facility] Last Admin: 10/04/18 09:40 Dose: 40 mg Furosemide (Lasix -) 20 mg PO DAILY [facility] Last Admin: 10/04/18 09:39 Dose: 20 mg Glipizide (Glucotrol Xl -) 2.5 mg PO DAILY@0700 [facility] Last Admin: 10/04/18 06:11 Dose: 2.5 mg Guaifenesin (Diabetic Tussin Dm -) 5 ml PO Q6H PRN PRN Reason: COUGH Last Admin: 10/04/18 12:19 Dose: 5 ml Piperacillin Sod/Tazobactam (Sod 2.25 gm/ Dextrose) 50 mls @ 100 mls/hr IVPB Q8H-IV [facility]; Protocol Last Admin: 10/04/18 09:39 Dose: 100 mls/hr Azithromycin (Zithromax 500mg Ivpb (Pre-Docked)) 500 mg in 250 mls @ 250 mls/ hr IVPB DAILY [facility] Last Admin: 10/04/18 09:39 Dose: 250 mls/hr Insulin Aspart (Novolog Vial Sliding Scale -) 1 vial SQ ACHS [facility]; Protocol Last Admin: 10/04/18 11:34 Dose: Not Given Methylprednisolone Sodium Succinate (Solu-Medrol -) 60 mg IVPB Q6H-IV [facility] Last Admin: 10/04/18 08:35 Dose: 60 mg Metoprolol Tartrate (Lopressor -) 25 mg PO BID [facility] Last Admin: 10/04/18 09:39 Dose: 25 mg Mirtazapine (Remeron -) 7.5 mg PO HS [facility] Last Admin: 10/03/18 21:25 Dose: 7.5 mg Multivitamins/Minerals/Vitamin C (Tab-A-Vit -) 1 tab PO DAILY [facility] Last Admin: 10/04/18 09:39 Dose: 1 tab Nitroglycerin (Nitrostat -) 0.4 mg SL Q5M PRN PRN Reason: FOR CHEST PAIN Last Admin: 10/03/18 14:10 Dose: 0.4 mg Pantoprazole Sodium (Protonix -) 40 mg PO DAILY [facility] Last Admin: 10/04/18 09:39 Dose: 40 mg Roflumilast (Daliresp -) 500 mcg PO DAILY [facility] Last Admin: 10/04/18 09:38 Dose: 500 mcg Rosuvastatin Calcium (Crestor -) 5 mg PO HS [facility] Last Admin: 10/03/18 21:26 Dose: 5 mg Assessment Pt is a 78F PMHx of COPD, CAD s/p CABG, DM, and HTN who presented for productive cough, shortness of breath, and malais and admitted for COPD exacerbation with PNA, we have been consulted for rising BUN. COPD exacerbation PNA CAD s/p CABG, DM with hyperglycemia Chest pain HTN Rising BUN Plan Pt with more isolated BUN rise in setting of steroid use Continue to monitor Pt has CKD stage 3A (CKD_EPI) GFR 54ml/min/1.73 CKD Likely in setting of diabetic/HTN nephropathy Proteinuria in past Abd US- R/o medicorenal disease (US in 2017 negative) Urinary lytes Spot protein Creatinine ratio UA Daily electrolytes Avoid nephrotoxic medications Renal diet BP control Glycemic control Visit type - Emergency Visit Emergency Visit: Yes ED Registration Date: 09/30/18 Care time: The patient presented to the Emergency Department on the above date and was hospitalized for further evaluation of their emergent condition. - New Patient This patient is new to me today: Yes Date on this admission: 10/04/18 - Critical Care Critical Care patient: No
[2018-10-04] MEDS: guaiFENesin/D-M SUGAR-FREE/ACLHOL-FREE 118 ML BOTTLE PO PRN (12:19)
--- NOTE | 2018-10-04 13:32 | PN ---
Progress Note (short form) - Note Progress Note: PULMONARY Still with shortness of breath, cough, wheezing and chest tightness. VSS/AFEBRILE Gen: tachypneic at rest Heart: RRR Lung: bilateral rhonchi, wheezes Abd: soft, nontender Ext: no edema labs/meds/notes/radiographs Acute COPD Exacerbation Pneumonia CAD s/p CABG HTN DM - continue medrol at current dose - inhaled bronchodilators - O2 to keep SpO2 >90% - continue antibiotics - f/u cultures - outpt PFTs and f/u - DVT prophylaxis Sergio NEWBY MD
--- NOTE | 2018-10-04 14:04 | ECHO ---
Version: 1 Name: PEEWEE JAFFE Exam: Adult Echocardiogram Study Date: 10/04/2018, 12:40 PM Age: 78 Years MMode/2D Measurements & Calculations IVSd: 0.86 cm LVIDs: 3.6 cm LVIDd: 5.1 cm LVPWd: 0.83 cm ACS: 1.41 cm Ao root diam: 2.8 cm LA dimension: 3.9 cm Doppler Measurements & Calculations MV E max brayan: 159.9 cm/sec MV V2 max: 169.7 cm/sec MV A max brayan: 163.4 cm/sec MV max P.5 mmHg MV mean P.4 mmHg Med E/e': 32.8 MV E/A: 0.98 Med Peak E' Brayan: 4.9 cm/sec Lat E/e': 20.8 Lat Peak E' Brayan: 7.7 cm/sec Ao max P.6 mmHg Ao mean P.4 mmHg Ao V2 max: 155.3 cm/sec PI end-d brayan: 149.3 cm/sec TR max brayan: 281.8 cm/sec TR max P.2 mmHg Procedure A two-dimensional transthoracic echocardiogram with color flow and Doppler was performed in limited views only. Left Ventricle Ejection Fraction = 40-45%. Left ventricular systolic function is mildly reduced. There is basal ant eroseptal wall severe hypokinesis. There is mid anteroseptal wall severe hypokinesis. Right Ventricle The right ventricle is grossly normal size. The right ventricular systolic function is grossly mariangel l. Atria The left atrium is mildly dilated. Right atrial size is normal. Mitral Valve There is a bioprosthetic mitral valve. There is mild mitral regurgitation. Tricuspid Valve The tricuspid valve is not well visualized, but is grossly normal. There is mild tricuspid regurgita tion. Right ventricular systolic pressure is elevated at 30-40mmHg. Aortic Valve Cannot exclude prosthetic aortic valve, repeat dedicated images are recommended. Pulmonic Valve The pulmonic valve is not well seen, but is grossly normal. There is no pulmonic valvular stenosis. Mild pulmonic valvular regurgitation. Pericardium/Pleura Trivial pericardial effusion not hemodynamically significant. Summary Statements There is basal anteroseptal wall severe hypokinesis. There is mid anteroseptal wall severe hypokinesis. Ejection Fraction = 40-45%. Left ventricular systolic function is mildly reduced. The left atrium is mildly dilated. There is a bioprosthetic mitral valve. There is mild mitral regurgitation. There is mild tricuspid regurgitation. Right ventricular systolic pressure is elevated at 30-40mmHg. Cannot exclude prosthetic aortic valve, repeat dedicated images are recommended. Mild pulmonic valvular regurgitation. MD Rapp *Israel 10/04/2018, 2:03 PM Ordering Physician: Denise Anthony Referring Physician: Alexander Kendall Performed By: Liset Hightower
--- NOTE | 2018-10-04 14:21 | PN ---
Teaching Attending Note Name of Resident: Pema Sesay (Nephrology) ATTENDING PHYSICIAN STATEMENT I saw and evaluated the patient. I reviewed the resident's note and discussed the case with the resident. I agree with the resident's findings and plan as documented. Renal Pt is a 78 year old female with pmhx of COPD, CAD, and HTN who presents with a productive cough. She also complains of wheezing. She was found to have elevated BUN and I was called to evaluate her. She denies history of ckd. She denies dysuria or hematuria. She has been on steroids. pmhx copd can htn allergies contrast, pregabalin fam hx denies ros cough Current Medications Generic Name Dose Route Start Last Admin Trade Name Freq PRN Reason Stop Dose Admin Acetaminophen 650 mg 09/30/18 16:17 10/02/18 21:37 Tylenol - PO 650 mg Q6H PRN Administration FEVER Albuterol/Ipratropium 1 amp 09/30/18 16:19 10/04/18 11:50 Duoneb - NEB 1 amp Q4H [facility] Administration Albuterol/Ipratropium 1 amp 09/30/18 16:17 Duoneb - NEB Q6H PRN SHORTNESS OF BREATH Aspirin 81 mg 10/01/18 10:00 10/04/18 09:39 Ecotrin - PO 81 mg DAILY [facility] Administration Baclofen 10 mg 09/30/18 22:00 10/04/18 06:11 Lioresal - PO 10 mg TID [facility] Administration Budesonide 1 amp 09/30/18 20:00 10/04/18 07:35 Pulmicort 0.25 Mg Nebulizer - NEB 1 amp RBID [facility] Administration Calcitriol 0.25 mcg 10/01/18 10:00 10/04/18 09:38 Rocaltrol - PO 0.25 mcg DAILY [facility] Administration Clopidogrel Bisulfate 75 mg 10/01/18 10:00 10/04/18 09:38 Plavix - PO 75 mg DAILY [facility] Administration Docusate Sodium 100 mg 09/30/18 16:17 Colace - PO Q12H PRN CONSTIPATION Enoxaparin Sodium 40 mg 10/02/18 10:00 10/04/18 09:40 Lovenox - SQ 40 mg DAILY [facility] Administration Furosemide 20 mg 10/01/18 10:00 10/04/18 09:39 Lasix - PO 20 mg DAILY [facility] Administration Glipizide 2.5 mg 10/01/18 07:00 10/04/18 06:11 Glucotrol Xl - PO 2.5 mg DAILY@0700 [facility] Administration Guaifenesin 5 ml 10/04/18 10:51 10/04/18 12:19 Diabetic Tussin Dm - PO 5 ml Q6H PRN Administration COUGH Piperacillin Sod/Tazobactam 50 mls @ 100 mls/hr 10/01/18 13:15 10/04/18 09:39 Sod 2.25 gm/ Dextrose IVPB 100 mls/hr Q8H-IV [facility] Administration Protocol Azithromycin 500 mg in 250 mls @ 250 mls/hr 10/01/18 13:15 10/04/18 09:39 Zithromax 500mg Ivpb (Pre-Docked) IVPB 250 mls/hr DAILY [facility] Administration Insulin Aspart 1 vial 10/01/18 11:00 10/04/18 11:34 Novolog Vial Sliding Scale - SQ Not Given ACHS [facility] Protocol Methylprednisolone Sodium Succinate 60 mg 10/02/18 21:00 10/04/18 08:35 Solu-Medrol - IVPB 60 mg Q6H-IV [facility] Administration Metoprolol Tartrate 25 mg 09/30/18 22:00 10/04/18 09:39 Lopressor - PO 25 mg BID [facility] Administration Mirtazapine 7.5 mg 09/30/18 22:00 10/03/18 21:25 Remeron - PO 7.5 mg HS [facility] Administration Multivitamins/Minerals/Vitamin C 1 tab 10/01/18 10:00 10/04/18 09:39 Tab-A-Vit - PO 1 tab DAILY [facility] Administration Nitroglycerin 0.4 mg 10/03/18 14:03 10/03/18 14:10 Nitrostat - SL 0.4 mg Q5M PRN Administration FOR CHEST PAIN Pantoprazole Sodium 40 mg 10/01/18 10:00 10/04/18 09:39 Protonix - PO 40 mg DAILY [facility] Administration Roflumilast 500 mcg 10/01/18 10:00 10/04/18 09:38 Daliresp - PO 500 mcg DAILY [facility] Administration Rosuvastatin Calcium 5 mg 09/30/18 22:00 10/03/18 21:26 Crestor - PO 5 mg HS [facility] Administration Laboratory Tests 09/30/18 10/02/18 10/03/18 13:14 06:00 06:30 WBC Sodium BUN 21 H 37 H Creatinine 0.8 Influenza A (Rapid) Negative Influenza B (Rapid) Negative 10/04/18 10/04/18 06:30 06:30 WBC 12.2 H Sodium 143 BUN 40 H Creatinine 1.0 Influenza A (Rapid) Influenza B (Rapid) Last Vital Signs Temp Pulse Resp BP Pulse Ox 98.7 F 78 20 134/78 96 10/04/18 10:00 10/04/18 12:09 10/04/18 10:00 10/04/18 10:00 10/04/18 12:09 cardio s1s2 pulm wheezing GI soft ext trace edema neuro awake and alert skin neg rash Impression 1. azotemia 2. copd 3. htn 4. cad 5. 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
--- NOTE | 2018-10-04 15:29 | PN ---
Progress Note, Physician Chief Complaint: Presently comfortable History of Present Illness: This is a 78 year old female with a PMH of DM, COPD, CAD (s/p CABG), MVR - Bio, and HTN. She presents now with a 3 - 4 day history of a productive cough, wheezing, malaise, and shortness of breath. She also describes chest pain. She states that she developed jaw pain which radiates to her chest. Troponins are negative. EKG is NSR with an incomplete RBBB. The patient had a persantine nuclear stress test 11/23/16 which showed no ischemia. She states that she can not do a treadmill stress test because she "can't walk fast enough." Presently she is CP free. . - Current Medication List Current Medications: Active Medications Acetaminophen (Tylenol -) 650 mg PO Q6H PRN PRN Reason: FEVER Last Admin: 10/02/18 21:37 Dose: 650 mg Albuterol/Ipratropium (Duoneb -) 1 amp NEB Q4H [facility] Last Admin: 10/04/18 11:50 Dose: 1 amp Albuterol/Ipratropium (Duoneb -) 1 amp NEB Q6H PRN PRN Reason: SHORTNESS OF BREATH Aspirin (Ecotrin -) 81 mg PO DAILY [facility] Last Admin: 10/04/18 09:39 Dose: 81 mg Baclofen (Lioresal -) 10 mg PO TID [facility] Last Admin: 10/04/18 14:58 Dose: 10 mg Budesonide (Pulmicort 0.25 Mg Nebulizer -) 1 amp NEB RBID [facility] Last Admin: 10/04/18 07:35 Dose: 1 amp Calcitriol (Rocaltrol -) 0.25 mcg PO DAILY [facility] Last Admin: 10/04/18 09:38 Dose: 0.25 mcg Clopidogrel Bisulfate (Plavix -) 75 mg PO DAILY [facility] Last Admin: 10/04/18 09:38 Dose: 75 mg Docusate Sodium (Colace -) 100 mg PO Q12H PRN PRN Reason: CONSTIPATION Enoxaparin Sodium (Lovenox -) 40 mg SQ DAILY [facility] Last Admin: 10/04/18 09:40 Dose: 40 mg Furosemide (Lasix -) 20 mg PO DAILY [facility] Last Admin: 10/04/18 09:39 Dose: 20 mg Glipizide (Glucotrol Xl -) 2.5 mg PO DAILY@0700 [facility] Last Admin: 10/04/18 06:11 Dose: 2.5 mg Guaifenesin (Diabetic Tussin Dm -) 5 ml PO Q6H PRN PRN Reason: COUGH Last Admin: 10/04/18 12:19 Dose: 5 ml Piperacillin Sod/Tazobactam (Sod 2.25 gm/ Dextrose) 50 mls @ 100 mls/hr IVPB Q8H-IV [facility]; Protocol Last Admin: 10/04/18 09:39 Dose: 100 mls/hr Azithromycin (Zithromax 500mg Ivpb (Pre-Docked)) 500 mg in 250 mls @ 250 mls/ hr IVPB DAILY [facility] Last Admin: 10/04/18 09:39 Dose: 250 mls/hr Insulin Aspart (Novolog Vial Sliding Scale -) 1 vial SQ ACHS [facility]; Protocol Last Admin: 10/04/18 11:34 Dose: Not Given Methylprednisolone Sodium Succinate (Solu-Medrol -) 60 mg IVPB Q6H-IV [facility] Last Admin: 10/04/18 14:58 Dose: 60 mg Metoprolol Tartrate (Lopressor -) 25 mg PO BID [facility] Last Admin: 10/04/18 09:39 Dose: 25 mg Mirtazapine (Remeron -) 7.5 mg PO HS [facility] Last Admin: 10/03/18 21:25 Dose: 7.5 mg Multivitamins/Minerals/Vitamin C (Tab-A-Vit -) 1 tab PO DAILY [facility] Last Admin: 10/04/18 09:39 Dose: 1 tab Nitroglycerin (Nitrostat -) 0.4 mg SL Q5M PRN PRN Reason: FOR CHEST PAIN Last Admin: 10/03/18 14:10 Dose: 0.4 mg Pantoprazole Sodium (Protonix -) 40 mg PO DAILY [facility] Last Admin: 10/04/18 09:39 Dose: 40 mg Roflumilast (Daliresp -) 500 mcg PO DAILY [facility] Last Admin: 10/04/18 09:38 Dose: 500 mcg Rosuvastatin Calcium (Crestor -) 5 mg PO HS [facility] Last Admin: 10/03/18 21:26 Dose: 5 mg - Objective Vital Signs: Vital Signs Temperature 98.7 F 10/04/18 10:00 Pulse Rate 78 10/04/18 12:09 Respiratory Rate 20 10/04/18 10:00 Blood Pressure 134/78 10/04/18 10:00 O2 Sat by Pulse Oximetry (%) 96 10/04/18 12:09 Constitutional: Yes: No Distress HENT: Yes: WNL Neck: Yes: WNL Cardiovascular: Yes: Regular Rate and Rhythm (NL S1S2 1/6 CATRINA RUSB) Respiratory: Yes: Rhonchi (Bilateral inspiratory and expiratory rhonchi) Gastrointestinal: Yes: Soft Extremities: Yes: WNL Edema: No Neurological: Yes: Alert, Oriented (Grossly non focal) Labs: CBC, BMP 10/04/18 06:30 10/04/18 06:30 Assessment/Plan 78 year old female with a PMH of DM, COPD, CAD (s/p CABG), MVR - Bio, and HTN. She presents now with a 3 - 4 day history of a productive cough, wheezing, malaise, and shortness of breath. She also describes chest pain. She states that she developed jaw pain which radiates to her chest. Troponins are negative. EKG is NSR with an incomplete RBBB. The patient had a persantine nuclear stress test 11/23/16 which showed no ischemia. She states that she can not do a treadmill stress test because she "can't walk fast enough." Presently she is CP free. Echocardiogram 10/04/18 noted: EF 40 - 45% Anteroseptal hypokinesis Bio Mitral valve Mild TR with an RVSP 40 - 45% Chest Pain Trop negative x1 Continue Metoprolol tartrate 25 mg PO bid Continue Crestor 5 mg daily Continue ASA 81 mg/Plavix 75 mg PO daily Continue Lasix 20 mg daily Would not do a stress test untill her pulmonary status improves (as an outpatient) Cardiology outpatient follow up Call prn
[2018-10-04] MEDS ORDERED: PT OWN MED DRAWER 7, Y5N ONE (20:13)
[2018-10-04] MEDS: MIRTAZAPINE 15 MG TABLET (FP) PO SCH (21:29)
[2018-10-04] MEDS: ROSUVASTATIN CA 5 MG TABLET (FP) PO SCH (21:30)
[2018-10-05] MEDS: ALBUTEROL SO4 2.5/IPRATROPIUM 0.5 INH SOL 3 ML VIAL.NEB. NEB SCH ×6 (00:55→19:55)
[2018-10-05] MEDS ORDERED: PIPERACILLIN/TAZOBACTAM 2.25 GM VIAL IVPB ONE ×3 (01:26→17:12)
[2018-10-05] MEDS ORDERED: DEXTROSE 5%-WATER - 50 ML IVPB ONE ×3 (01:26→17:12)
[2018-10-05] MEDS: PIPERACILLIN/TAZOB 2.25 GM 2.25 GM in DEXTROSE 5%-WATER - 50 ML IVPB SCH ×3 (01:33→17:14)
[2018-10-05] MEDS: methylPREDNISolone NA SUCC 40 MG/1 ML VIAL IVPB SCH ×4 (02:27→21:55)
[2018-10-05] MEDS ORDERED: PT OWN MED DRAWER 7, Y5N ONE (06:02)
[2018-10-05] MEDS: glipiZIDE-XL 2.5 MG TAB.ER.24 PO SCH (06:12)
[2018-10-05] MEDS: BACLOFEN 10 MG TABLET (FP) PO SCH ×3 (06:12→21:56)
[2018-10-05] MEDS: INSULIN SLIDING SCALE (NOVOLOG) 1 VIAL SQ SCH ×4 (06:12→21:57)
[2018-10-05] MEDS: BUDESONIDE 0.25 MG/2ML INH SUSP VIAL NEB SCH ×2 (07:28→19:55)
[2018-10-05 07:46] LABS: HEMATOCRIT 37.2 % (32.4-45.2); HEMOGLOBIN 12.7 GM/dL (10.7-15.3); MCH 31.4 pg (25.7-33.7); MCHC 34.1 g/dl (32.0-36.0); MEAN PLT VOLUME 7.5 fl (7.5-11.1); PLATELET COUNT 279 K/MM3 (134-434); RBC 4.04 M/mm3 (3.60-5.2); RDW 14.4 % (11.6-15.6); WHITE BLOOD COUNT 11.9 K/mm3 (4.0-10.0)
[2018-10-05 08:08] LABS: ALBUMIN 2.9 g/dl (3.4-5.0); ALK PHOS 88 U/L (45-117); ANION GAP 8 MMOL/L (8-16); BILIRUBIN,TOTAL 0.4 mg/dL (0.2-1); BLOOD UREA NITROGEN 41 mg/dL (7-18); CALCIUM 9.3 mg/dL (8.5-10.1); CHLORIDE 104 mmol/L (98-107); CO2 28 mmol/L (21-32); GLUCOSE,RANDOM 104 mg/dL (74-106); POTASSIUM 4.5 mmol/L (3.5-5.1); SGOT/AST 15 U/L (15-37); SGPT/ALT 40 U/L (13-61); SODIUM 140 mmol/L (136-145); TOT PROT 6.7 g/dl (6.4-8.2)
[2018-10-05] MEDS: ROFLUMILAST 500 MCG TABLET PO SCH (09:54)
[2018-10-05] MEDS: MULTIVITAMINS (DAILY MVI) TABLET (FP) PO SCH (09:55)
[2018-10-05] MEDS: CLOPIDOGREL BISULFATE 75 MG TABLET (FP) PO SCH (09:55)
[2018-10-05] MEDS: PANTOPRAZOLE 40 MG TABLET (FP) PO SCH (09:55)
[2018-10-05] MEDS: CALCITRIOL 0.25 MCG CAPSULE (FP) PO SCH (09:55)
[2018-10-05] MEDS: METOPROLOL TARTRATE 25 MG TABLET (FP) PO SCH ×2 (09:55→21:55)
[2018-10-05] MEDS: ASPIRIN COATED 81 MG TABLET.EC PO SCH (09:55)
[2018-10-05] MEDS: FUROSEMIDE 20 MG TABLET (FP) PO SCH (09:55)
[2018-10-05] MEDS: AZITHROMYCIN IVPB 500 MG/250 ML BAG IVPB SCH (09:56)
[2018-10-05] MEDS: ENOXAPARIN NA (PORCINE) 40 MG/0.4 ML DISP.SYRIN SQ SCH (09:56)
[2018-10-05] MEDS: guaiFENesin/D-M SUGAR-FREE/ACLHOL-FREE 118 ML BOTTLE PO PRN (11:02)
[2018-10-05 11:57] LABS: RATIO URIN PROTEIN/URIN CREAT 0.2 MG/DL
--- NOTE | 2018-10-05 12:55 | PN ---
Progress Note, Physician Chief Complaint: LLL Pneumonia History of Present Illness: NAD Feeling better Seen by pulmonary+ cardio+ ID - Current Medication List Current Medications: Active Medications Acetaminophen (Tylenol -) 650 mg PO Q6H PRN PRN Reason: FEVER Last Admin: 10/02/18 21:37 Dose: 650 mg Albuterol/Ipratropium (Duoneb -) 1 amp NEB Q4H [facility] Last Admin: 10/05/18 11:55 Dose: 1 amp Albuterol/Ipratropium (Duoneb -) 1 amp NEB Q6H PRN PRN Reason: SHORTNESS OF BREATH Aspirin (Ecotrin -) 81 mg PO DAILY [facility] Last Admin: 10/05/18 09:55 Dose: 81 mg Baclofen (Lioresal -) 10 mg PO TID [facility] Last Admin: 10/05/18 06:12 Dose: 10 mg Budesonide (Pulmicort 0.25 Mg Nebulizer -) 1 amp NEB RBID [facility] Last Admin: 10/05/18 07:28 Dose: 1 amp Calcitriol (Rocaltrol -) 0.25 mcg PO DAILY [facility] Last Admin: 10/05/18 09:55 Dose: 0.25 mcg Clopidogrel Bisulfate (Plavix -) 75 mg PO DAILY [facility] Last Admin: 10/05/18 09:55 Dose: 75 mg Docusate Sodium (Colace -) 100 mg PO Q12H PRN PRN Reason: CONSTIPATION Enoxaparin Sodium (Lovenox -) 40 mg SQ DAILY [facility] Last Admin: 10/05/18 09:56 Dose: 40 mg Furosemide (Lasix -) 20 mg PO DAILY [facility] Last Admin: 10/05/18 09:55 Dose: 20 mg Glipizide (Glucotrol Xl -) 2.5 mg PO DAILY@0700 [facility] Last Admin: 10/05/18 06:12 Dose: 2.5 mg Guaifenesin (Diabetic Tussin Dm -) 5 ml PO Q6H PRN PRN Reason: COUGH Last Admin: 10/05/18 11:02 Dose: 5 ml Piperacillin Sod/Tazobactam (Sod 2.25 gm/ Dextrose) 50 mls @ 100 mls/hr IVPB Q8H-IV [facility]; Protocol Last Admin: 10/05/18 09:54 Dose: 100 mls/hr Azithromycin (Zithromax 500mg Ivpb (Pre-Docked)) 500 mg in 250 mls @ 250 mls/ hr IVPB DAILY [facility] Last Admin: 10/05/18 09:56 Dose: 250 mls/hr Insulin Aspart (Novolog Vial Sliding Scale -) 1 vial SQ ACHS [facility]; Protocol Last Admin: 10/05/18 11:03 Dose: Not Given Methylprednisolone Sodium Succinate (Solu-Medrol -) 60 mg IVPB Q6H-IV [facility] Last Admin: 10/05/18 08:31 Dose: 60 mg Metoprolol Tartrate (Lopressor -) 25 mg PO BID [facility] Last Admin: 10/05/18 09:55 Dose: 25 mg Mirtazapine (Remeron -) 7.5 mg PO [facility] Last Admin: 10/04/18 21:29 Dose: 7.5 mg Multivitamins/Minerals/Vitamin C (Tab-A-Vit -) 1 tab PO DAILY [facility] Last Admin: 10/05/18 09:55 Dose: 1 tab Nitroglycerin (Nitrostat -) 0.4 mg SL Q5M PRN PRN Reason: FOR CHEST PAIN Last Admin: 10/03/18 14:10 Dose: 0.4 mg Pantoprazole Sodium (Protonix -) 40 mg PO DAILY [facility] Last Admin: 10/05/18 09:55 Dose: 40 mg Roflumilast (Daliresp -) 500 mcg PO DAILY [facility] Last Admin: 10/05/18 09:54 Dose: 500 mcg Rosuvastatin Calcium (Crestor -) 5 mg PO [facility] Last Admin: 10/04/18 21:30 Dose: 5 mg - Objective Vital Signs: Vital Signs Temperature 98.0 F 10/05/18 10:00 Pulse Rate 63 10/05/18 10:00 Respiratory Rate 20 10/05/18 10:00 Blood Pressure 144/82 10/05/18 10:00 O2 Sat by Pulse Oximetry (%) 95 10/05/18 08:35 Constitutional: Yes: Well Nourished, No Distress, Calm Cardiovascular: Yes: Regular Rate and Rhythm Respiratory: Yes: Diminished, On Nasal O2 Gastrointestinal: Yes: Normal Bowel Sounds, Soft Genitourinary: Yes: WNL Musculoskeletal: Yes: WNL Extremities: Yes: WNL Edema: No Peripheral Pulses WNL: Yes Neurological: Yes: Alert, Oriented Psychiatric: Yes: Alert, Oriented Labs: CBC, BMP 10/05/18 07:00 10/05/18 07:00 Problem List - Problems (1) COPD (chronic obstructive pulmonary disease) Assessment/Plan: -Pulmonary consult -Bronchodilators -Nasal O2 PRN -IV medrol -IV abx Code(s): J44.9 - CHRONIC OBSTRUCTIVE PULMONARY DISEASE, UNSPECIFIED Qualifiers: COPD type: unspecified COPD Qualified Code(s): J44.9 - Chronic obstructive pulmonary disease, unspecified (2) Pneumonia Assessment/Plan: -Pulmonary consult -Bronchodilators -Nasal O2 PRN -IV medrol -IV abx -CT chest reviewed Code(s): J18.9 - PNEUMONIA, UNSPECIFIED ORGANISM Qualifiers: Pneumonia type: due to unspecified organism Laterality: unspecified laterality Lung location: unspecified part of lung Qualified Code(s): J18.9 - Pneumonia, unspecified organism (3) Cough Assessment/Plan: -On tussin prn -added cepacol prn Code(s): R05 - COUGH (4) Diabetes Assessment/Plan: -BGM AC HS -Diabetic low sodium diet -A1C-6.5 -On Glipizide 2.5 mg -Novolog sliding scale Code(s): E11.9 - TYPE 2 DIABETES MELLITUS WITHOUT COMPLICATIONS Qualifiers: Diabetes mellitus type: type 2 (5) CAD (coronary artery disease) Assessment/Plan: -Seen by cardiology -On asa,plavix, statin Code(s): I25.10 - ATHSCL HEART DISEASE OF [place] CORONARY ARTERY W/O ANG PCTRS Assessment/Plan see problem list Physical therapy
[2018-10-05] MEDS ORDERED: BENZOCAINE/MENTH/CETYLPYRD CL 1 EACH LOZENGE MM PRN (12:59)
--- NOTE | 2018-10-05 13:29 | PN ---
Progress Note (short form) - Note Progress Note: PULMONARY Breathing about the same. Still with shortness of breath, cough, wheezing and chest tightness. Vital Signs Period Temp Pulse Resp BP Sys/Webster Pulse Ox Last 24 Hr 97.9 F-98.9 F 63-82 20-22 132-157/65-86 95-96 Gen: tachypneic at rest Heart: RRR Lung: bilateral rhonchi, wheezes Abd: soft, nontender Ext: no edema CBC, BMP 10/05/18 07:00 10/05/18 07:00 Active Medications Acetaminophen (Tylenol -) 650 mg PO Q6H PRN PRN Reason: FEVER Last Admin: 10/02/18 21:37 Dose: 650 mg Albuterol/Ipratropium (Duoneb -) 1 amp NEB Q4H [facility] Last Admin: 10/05/18 11:55 Dose: 1 amp Albuterol/Ipratropium (Duoneb -) 1 amp NEB Q6H PRN PRN Reason: SHORTNESS OF BREATH Aspirin (Ecotrin -) 81 mg PO DAILY [facility] Last Admin: 10/05/18 09:55 Dose: 81 mg Baclofen (Lioresal -) 10 mg PO TID [facility] Last Admin: 10/05/18 06:12 Dose: 10 mg Benzocaine/Menthol (Cepacol Lozenge -) 1 each MM PRN PRN PRN Reason: SORE THROAT Budesonide (Pulmicort 0.25 Mg Nebulizer -) 1 amp NEB RBID [facility] Last Admin: 10/05/18 07:28 Dose: 1 amp Calcitriol (Rocaltrol -) 0.25 mcg PO DAILY [facility] Last Admin: 10/05/18 09:55 Dose: 0.25 mcg Clopidogrel Bisulfate (Plavix -) 75 mg PO DAILY [facility] Last Admin: 10/05/18 09:55 Dose: 75 mg Docusate Sodium (Colace -) 100 mg PO Q12H PRN PRN Reason: CONSTIPATION Enoxaparin Sodium (Lovenox -) 40 mg SQ DAILY [facility] Last Admin: 10/05/18 09:56 Dose: 40 mg Furosemide (Lasix -) 20 mg PO DAILY [facility] Last Admin: 10/05/18 09:55 Dose: 20 mg Glipizide (Glucotrol Xl -) 2.5 mg PO DAILY@0700 [facility] Last Admin: 10/05/18 06:12 Dose: 2.5 mg Guaifenesin (Diabetic Tussin Dm -) 5 ml PO Q6H PRN PRN Reason: COUGH Last Admin: 10/05/18 11:02 Dose: 5 ml Piperacillin Sod/Tazobactam (Sod 2.25 gm/ Dextrose) 50 mls @ 100 mls/hr IVPB Q8H-IV [facility]; Protocol Last Admin: 10/05/18 09:54 Dose: 100 mls/hr Azithromycin (Zithromax 500mg Ivpb (Pre-Docked)) 500 mg in 250 mls @ 250 mls/ hr IVPB DAILY [facility] Last Admin: 10/05/18 09:56 Dose: 250 mls/hr Insulin Aspart (Novolog Vial Sliding Scale -) 1 vial SQ ACHS [facility]; Protocol Last Admin: 10/05/18 11:03 Dose: Not Given Methylprednisolone Sodium Succinate (Solu-Medrol -) 60 mg IVPB Q6H-IV [facility] Last Admin: 10/05/18 08:31 Dose: 60 mg Metoprolol Tartrate (Lopressor -) 25 mg PO BID [facility] Last Admin: 10/05/18 09:55 Dose: 25 mg Mirtazapine (Remeron -) 7.5 mg PO HS [facility] Last Admin: 10/04/18 21:29 Dose: 7.5 mg Multivitamins/Minerals/Vitamin C (Tab-A-Vit -) 1 tab PO DAILY [facility] Last Admin: 10/05/18 09:55 Dose: 1 tab Nitroglycerin (Nitrostat -) 0.4 mg SL Q5M PRN PRN Reason: FOR CHEST PAIN Last Admin: 10/03/18 14:10 Dose: 0.4 mg Pantoprazole Sodium (Protonix -) 40 mg PO DAILY [facility] Last Admin: 10/05/18 09:55 Dose: 40 mg Roflumilast (Daliresp -) 500 mcg PO DAILY [facility] Last Admin: 10/05/18 09:54 Dose: 500 mcg Rosuvastatin Calcium (Crestor -) 5 mg PO HS [facility] Last Admin: 10/04/18 21:30 Dose: 5 mg A/P Acute COPD Exacerbation Pneumonia CAD s/p CABG HTN DM - continue medrol at current dose - inhaled bronchodilators - O2 to keep SpO2 >90% - continue antibiotics - f/u cultures - outpt PFTs and f/u - DVT prophylaxis
--- NOTE | 2018-10-05 15:04 | PN ---
Progress Note, Physician History of Present Illness: Pt seen and examined at bedside. She still has cough and wheezing. She denies dysuria or hematuria. - Current Medication List Current Medications: Active Medications Acetaminophen (Tylenol -) 650 mg PO Q6H PRN PRN Reason: FEVER Last Admin: 10/02/18 21:37 Dose: 650 mg Albuterol/Ipratropium (Duoneb -) 1 amp NEB Q4H [facility] Last Admin: 10/05/18 11:55 Dose: 1 amp Albuterol/Ipratropium (Duoneb -) 1 amp NEB Q6H PRN PRN Reason: SHORTNESS OF BREATH Aspirin (Ecotrin -) 81 mg PO DAILY [facility] Last Admin: 10/05/18 09:55 Dose: 81 mg Baclofen (Lioresal -) 10 mg PO TID [facility] Last Admin: 10/05/18 13:58 Dose: 10 mg Benzocaine/Menthol (Cepacol Lozenge -) 1 each MM PRN PRN PRN Reason: SORE THROAT Budesonide (Pulmicort 0.25 Mg Nebulizer -) 1 amp NEB RBID [facility] Last Admin: 10/05/18 07:28 Dose: 1 amp Calcitriol (Rocaltrol -) 0.25 mcg PO DAILY [facility] Last Admin: 10/05/18 09:55 Dose: 0.25 mcg Clopidogrel Bisulfate (Plavix -) 75 mg PO DAILY [facility] Last Admin: 10/05/18 09:55 Dose: 75 mg Docusate Sodium (Colace -) 100 mg PO Q12H PRN PRN Reason: CONSTIPATION Enoxaparin Sodium (Lovenox -) 40 mg SQ DAILY [facility] Last Admin: 10/05/18 09:56 Dose: 40 mg Furosemide (Lasix -) 20 mg PO DAILY [facility] Last Admin: 10/05/18 09:55 Dose: 20 mg Glipizide (Glucotrol Xl -) 2.5 mg PO DAILY@0700 [facility] Last Admin: 10/05/18 06:12 Dose: 2.5 mg Guaifenesin (Diabetic Tussin Dm -) 5 ml PO Q6HPO [facility] Piperacillin Sod/Tazobactam (Sod 2.25 gm/ Dextrose) 50 mls @ 100 mls/hr IVPB Q8H-IV [facility]; Protocol Last Admin: 10/05/18 09:54 Dose: 100 mls/hr Azithromycin (Zithromax 500mg Ivpb (Pre-Docked)) 500 mg in 250 mls @ 250 mls/ hr IVPB DAILY [facility] Last Admin: 10/05/18 09:56 Dose: 250 mls/hr Insulin Aspart (Novolog Vial Sliding Scale -) 1 vial SQ ACHS [facility]; Protocol Last Admin: 10/05/18 11:03 Dose: Not Given Methylprednisolone Sodium Succinate (Solu-Medrol -) 60 mg IVPB Q6H-IV [facility] Last Admin: 10/05/18 14:48 Dose: 60 mg Metoprolol Tartrate (Lopressor -) 25 mg PO BID [facility] Last Admin: 10/05/18 09:55 Dose: 25 mg Mirtazapine (Remeron -) 7.5 mg PO [facility] Last Admin: 10/04/18 21:29 Dose: 7.5 mg Multivitamins/Minerals/Vitamin C (Tab-A-Vit -) 1 tab PO DAILY [facility] Last Admin: 10/05/18 09:55 Dose: 1 tab Nitroglycerin (Nitrostat -) 0.4 mg SL Q5M PRN PRN Reason: FOR CHEST PAIN Last Admin: 10/03/18 14:10 Dose: 0.4 mg Pantoprazole Sodium (Protonix -) 40 mg PO DAILY [facility] Last Admin: 10/05/18 09:55 Dose: 40 mg Roflumilast (Daliresp -) 500 mcg PO DAILY [facility] Last Admin: 10/05/18 09:54 Dose: 500 mcg Rosuvastatin Calcium (Crestor -) 5 mg PO [facility] Last Admin: 10/04/18 21:30 Dose: 5 mg - Objective Vital Signs: Vital Signs Temperature 98.0 F 10/05/18 10:00 Pulse Rate 63 10/05/18 10:00 Respiratory Rate 20 10/05/18 10:00 Blood Pressure 144/82 10/05/18 10:00 O2 Sat by Pulse Oximetry (%) 95 10/05/18 08:35 Constitutional: Yes: Calm Eyes: Yes: Conjunctiva Clear HENT: Yes: Atraumatic Cardiovascular: Yes: S1, S2 Respiratory: Yes: On Nasal O2, Wheezes Gastrointestinal: Yes: Soft Musculoskeletal: Yes: WNL Edema: No Neurological: Yes: Oriented Psychiatric: Yes: Oriented Labs: CBC, BMP 10/05/18 07:00 10/05/18 07:00 Assessment/Plan Current Medications Generic Name Dose Route Start Last Admin Trade Name Freq PRN Reason Stop Dose Admin Acetaminophen 650 mg 09/30/18 16:17 10/02/18 21:37 Tylenol - PO 650 mg Q6H PRN Administration FEVER Albuterol/Ipratropium 1 amp 09/30/18 16:19 10/05/18 11:55 Duoneb - NEB 1 amp Q4H [facility] Administration Albuterol/Ipratropium 1 amp 09/30/18 16:17 Duoneb - NEB Q6H PRN SHORTNESS OF BREATH Aspirin 81 mg 10/01/18 10:00 10/05/18 09:55 Ecotrin - PO 81 mg DAILY [facility] Administration Baclofen 10 mg 09/30/18 22:00 10/05/18 13:58 Lioresal - PO 10 mg TID [facility] Administration Benzocaine/Menthol 1 each 10/05/18 12:59 Cepacol Lozenge - MM PRN PRN SORE THROAT Budesonide 1 amp 09/30/18 20:00 10/05/18 07:28 Pulmicort 0.25 Mg Nebulizer - NEB 1 amp RBID [facility] Administration Calcitriol 0.25 mcg 10/01/18 10:00 10/05/18 09:55 Rocaltrol - PO 0.25 mcg DAILY [facility] Administration Clopidogrel Bisulfate 75 mg 10/01/18 10:00 10/05/18 09:55 Plavix - PO 75 mg DAILY [facility] Administration Docusate Sodium 100 mg 09/30/18 16:17 Colace - PO Q12H PRN CONSTIPATION Enoxaparin Sodium 40 mg 10/02/18 10:00 10/05/18 09:56 Lovenox - SQ 40 mg DAILY [facility] Administration Furosemide 20 mg 10/01/18 10:00 10/05/18 09:55 Lasix - PO 20 mg DAILY [facility] Administration Glipizide 2.5 mg 10/01/18 07:00 10/05/18 06:12 Glucotrol Xl - PO 2.5 mg DAILY@0700 [facility] Administration Guaifenesin 5 ml 10/05/18 18:00 Diabetic Tussin Dm - PO Q6HPO [facility] Piperacillin Sod/Tazobactam 50 mls @ 100 mls/hr 10/01/18 13:15 10/05/18 09:54 Sod 2.25 gm/ Dextrose IVPB 100 mls/hr Q8H-IV [facility] Administration Protocol Azithromycin 500 mg in 250 mls @ 250 mls/hr 10/01/18 13:15 10/05/18 09:56 Zithromax 500mg Ivpb (Pre-Docked) IVPB 250 mls/hr DAILY [facility] Administration Insulin Aspart 1 vial 10/01/18 11:00 10/05/18 11:03 Novolog Vial Sliding Scale - SQ Not Given ACHS [facility] Protocol Methylprednisolone Sodium Succinate 60 mg 10/02/18 21:00 10/05/18 14:48 Solu-Medrol - IVPB 60 mg Q6H-IV [facility] Administration Metoprolol Tartrate 25 mg 09/30/18 22:00 10/05/18 09:55 Lopressor - PO 25 mg BID [facility] Administration Mirtazapine 7.5 mg 09/30/18 22:00 10/04/18 21:29 Remeron - PO 7.5 mg HS [facility] Administration Multivitamins/Minerals/Vitamin C 1 tab 10/01/18 10:00 10/05/18 09:55 Tab-A-Vit - PO 1 tab DAILY [facility] Administration Nitroglycerin 0.4 mg 10/03/18 14:03 10/03/18 14:10 Nitrostat - SL 0.4 mg Q5M PRN Administration FOR CHEST PAIN Pantoprazole Sodium 40 mg 10/01/18 10:00 10/05/18 09:55 Protonix - PO 40 mg DAILY [facility] Administration Roflumilast 500 mcg 10/01/18 10:00 10/05/18 09:54 Daliresp - PO 500 mcg DAILY [facility] Administration Rosuvastatin Calcium 5 mg 09/30/18 22:00 10/04/18 21:30 Crestor - PO 5 mg HS [facility] Administration Impression 1. azotemia 2. copd 3. htn 4. cad 5. hld Plan - monitor bun - check ua - check bnu once off of steroids - monitor hg and check occult blood if it drops - will follow
[2018-10-05] MEDS: guaiFENesin/D-M SUGAR-FREE/ACLHOL-FREE 118 ML BOTTLE PO SCH (17:14)
[2018-10-05] MEDS: ROSUVASTATIN CA 5 MG TABLET (FP) PO SCH (21:56)
[2018-10-05] MEDS: MIRTAZAPINE 15 MG TABLET (FP) PO SCH (21:56)
[2018-10-06] MEDS: guaiFENesin/D-M SUGAR-FREE/ACLHOL-FREE 118 ML BOTTLE PO SCH ×3 (00:31→13:53)
[2018-10-06] MEDS: PIPERACILLIN/TAZOB 2.25 GM 2.25 GM in DEXTROSE 5%-WATER - 50 ML IVPB SCH ×3 (03:05→18:02)
[2018-10-06] MEDS ORDERED: PIPERACILLIN/TAZOBACTAM 2.25 GM VIAL IVPB ONE ×3 (03:24→17:59)
[2018-10-06] MEDS: methylPREDNISolone NA SUCC 40 MG/1 ML VIAL IVPB SCH ×4 (04:05→21:47)
[2018-10-06] MEDS: ALBUTEROL SO4 2.5/IPRATROPIUM 0.5 INH SOL 3 ML VIAL.NEB. NEB SCH ×5 (04:09→20:50)
[2018-10-06] MEDS ORDERED: hydrALAZINE HCL 20 MG/ML VIAL IVPUSH ONE (06:26)
[2018-10-06] MEDS ORDERED: FUROSEMIDE 40 MG/4 ML INJECTABLE VIAL IVPUSH ONE (06:27)
[2018-10-06] MEDS ORDERED: ALBUTEROL SO4 0.083% IH SOL 2.5 MG/3 ML VIAL.NEB. NEB PRN (06:39)
[2018-10-06] MEDS: BACLOFEN 10 MG TABLET (FP) PO SCH ×3 (06:50→21:47)
--- NOTE | 2018-10-06 06:58 | RAPID ---
Physical Examination Vital Signs: Vital Signs Temperature 97.8 F 10/06/18 05:45 Pulse Rate 64 10/06/18 05:45 Respiratory Rate 20 10/06/18 05:45 Blood Pressure 140/90 10/06/18 05:45 O2 Sat by Pulse Oximetry (%) 96 10/05/18 21:00 Labs: CBC, BMP 10/05/18 07:00 10/05/18 07:00 Rapid Response - Rapid Response Assessment: Rapid response called. Arrived and informed patient with elevated blood pressure and new onset chest pain. Pt admitted for COPD Exacerbation and pneumonia. States she is having chest pain and tightness which is extending up the right side of her neck. States he is also having difficulty breathing. Exam HR 75-85 BP 199/102 in right arm similar in left Acute respiratory distress Tachypnic, chest tightness, expiratory wheezes Regular rate and rythm, no murmur or rub Abdomen soft nontender A/P rule out ACS with acute complaint of chest pain Respiratory status likely secondary to acute exacerbation of COPD and pneumonia Stat EKG unchanged from previous Recent echo noted with anteroseptal wall dyskinesia Troponins ordered CXR Hydralazine given with good effect on blood pressure Lasix 40 mg IV push Transfer to telemetry
[2018-10-06] MEDS: INSULIN SLIDING SCALE (NOVOLOG) 1 VIAL SQ SCH ×4 (07:47→23:27)
[2018-10-06] MEDS: BUDESONIDE 0.25 MG/2ML INH SUSP VIAL NEB SCH ×2 (08:00→20:50)
[2018-10-06 08:28] LABS: BASO % 0.4 % (0-2.0); HEMOGLOBIN 13.9 GM/dL (10.7-15.3); LYMPH % 9.5 % (8-40); MCH 31.4 pg (25.7-33.7); MEAN CELL VOLUME 92.2 fl (80-96); MEAN PLT VOLUME 7.5 fl (7.5-11.1); MONO % 4.3 % (3.8-10.2); NEUT % 85.8 % (42.8-82.8); PLATELET COUNT 306 K/MM3 (134-434); RBC 4.44 M/mm3 (3.60-5.2); RDW 14.1 % (11.6-15.6); WHITE BLOOD COUNT 10.6 K/mm3 (4.0-10.0)
[2018-10-06 08:49] LABS: PROTHROMBIN TIME (PATIENT) 11.8 SEC (9.7-13.0)
[2018-10-06 08:52] LABS: ACTIVATED PTT 22.6 SECONDS (25.2-36.5)
[2018-10-06 08:58] LABS: ANION GAP 11 MMOL/L (8-16); BLOOD UREA NITROGEN 41 mg/dL (7-18); CALCIUM 9.1 mg/dL (8.5-10.1); CHLORIDE 104 mmol/L (98-107); CO2 28 mmol/L (21-32); CREATININE 1.2 mg/dL (0.55-1.3); GLUCOSE,RANDOM 124 mg/dL (74-106); POTASSIUM 3.9 mmol/L (3.5-5.1); SODIUM 143 mmol/L (136-145)
[2018-10-06] MEDS ORDERED: DEXTROSE 5%-WATER - 50 ML IVPB ONE ×2 (09:01→17:59)
[2018-10-06] MEDS: AZITHROMYCIN IVPB 500 MG/250 ML BAG IVPB SCH (09:52)
[2018-10-06] MEDS: MULTIVITAMINS (DAILY MVI) TABLET (FP) PO SCH (09:54)
[2018-10-06] MEDS: CLOPIDOGREL BISULFATE 75 MG TABLET (FP) PO SCH (09:54)
[2018-10-06] MEDS: PANTOPRAZOLE 40 MG TABLET (FP) PO SCH (09:54)
[2018-10-06] MEDS: FUROSEMIDE 20 MG TABLET (FP) PO SCH (09:54)
[2018-10-06] MEDS: CALCITRIOL 0.25 MCG CAPSULE (FP) PO SCH (09:54)
[2018-10-06] MEDS: METOPROLOL TARTRATE 25 MG TABLET (FP) PO SCH ×2 (09:54→21:46)
[2018-10-06] MEDS: ASPIRIN COATED 81 MG TABLET.EC PO SCH (09:54)
[2018-10-06] MEDS: ROFLUMILAST 500 MCG TABLET PO SCH (09:56)
[2018-10-06] MEDS: ENOXAPARIN NA (PORCINE) 40 MG/0.4 ML DISP.SYRIN SQ SCH (09:56)
[2018-10-06] MEDS: glipiZIDE-XL 2.5 MG TAB.ER.24 PO SCH (09:56)
[2018-10-06 10:21] LABS: ANISOCYTOSIS 0; MACROCYTOSIS 0; PLATELET ESTIMATE NORMAL
--- NOTE | 2018-10-06 12:16 | PN ---
Progress Note (short form) - Note Progress Note: PULMONARY Breathing about the same. Still with shortness of breath, cough, wheezing and chest tightness. Vital Signs Period Temp Pulse Resp BP Sys/Webster Pulse Ox Last 24 Hr 97.5 F-98 F 64-69 19-20 115-164/70-90 92-96 Gen: tachypneic at rest Heart: RRR Lung: bilateral rhonchi, wheezes Abd: soft, nontender Ext: no edema CBC, BMP 10/06/18 07:55 10/06/18 07:55 Active Medications Acetaminophen (Tylenol -) 650 mg PO Q6H PRN PRN Reason: FEVER Last Admin: 10/02/18 21:37 Dose: 650 mg Albuterol Sulfate (Ventolin 0.083% Nebulizer Soln -) 1 amp NEB Q4H PRN PRN Reason: SHORT OF BREATH/WHEEZING Albuterol/Ipratropium (Duoneb -) 1 amp NEB Q4H [facility] Last Admin: 10/06/18 04:09 Dose: 1 amp Aspirin (Ecotrin -) 81 mg PO DAILY [facility] Last Admin: 10/06/18 09:54 Dose: 81 mg Baclofen (Lioresal -) 10 mg PO TID [facility] Last Admin: 10/06/18 06:50 Dose: Not Given Benzocaine/Menthol (Cepacol Lozenge -) 1 each MM PRN PRN PRN Reason: SORE THROAT Last Admin: 10/05/18 15:49 Dose: 1 each Budesonide (Pulmicort 0.25 Mg Nebulizer -) 1 amp NEB RBID [facility] Last Admin: 10/05/18 19:55 Dose: 1 amp Calcitriol (Rocaltrol -) 0.25 mcg PO DAILY [facility] Last Admin: 10/06/18 09:54 Dose: 0.25 mcg Clopidogrel Bisulfate (Plavix -) 75 mg PO DAILY [facility] Last Admin: 10/06/18 09:54 Dose: 75 mg Docusate Sodium (Colace -) 100 mg PO Q12H PRN PRN Reason: CONSTIPATION Enoxaparin Sodium (Lovenox -) 40 mg SQ DAILY [facility] Last Admin: 10/06/18 09:56 Dose: 40 mg Furosemide (Lasix -) 20 mg PO DAILY [facility] Last Admin: 10/06/18 09:54 Dose: 20 mg Glipizide (Glucotrol Xl -) 2.5 mg PO DAILY@0700 [facility] Last Admin: 10/06/18 09:56 Dose: 2.5 mg Guaifenesin (Diabetic Tussin Dm -) 5 ml PO Q6HPO [facility] Last Admin: 10/06/18 06:50 Dose: Not Given Piperacillin Sod/Tazobactam (Sod 2.25 gm/ Dextrose) 50 mls @ 100 mls/hr IVPB Q8H-IV [facility]; Protocol Last Admin: 10/06/18 09:53 Dose: 100 mls/hr Azithromycin (Zithromax 500mg Ivpb (Pre-Docked)) 500 mg in 250 mls @ 250 mls/ hr IVPB DAILY [facility] Last Admin: 10/06/18 09:52 Dose: 250 mls/hr Insulin Aspart (Novolog Vial Sliding Scale -) 1 vial SQ ACHS [facility]; Protocol Last Admin: 10/06/18 07:47 Dose: Not Given Methylprednisolone Sodium Succinate (Solu-Medrol -) 60 mg IVPB Q6H-IV [facility] Last Admin: 10/06/18 09:53 Dose: 60 mg Metoprolol Tartrate (Lopressor -) 25 mg PO BID [facility] Last Admin: 10/06/18 09:54 Dose: 25 mg Mirtazapine (Remeron -) 7.5 mg PO HS [facility] Last Admin: 10/05/18 21:56 Dose: 7.5 mg Multivitamins/Minerals/Vitamin C (Tab-A-Vit -) 1 tab PO DAILY [facility] Last Admin: 10/06/18 09:54 Dose: 1 tab Nitroglycerin (Nitrostat -) 0.4 mg SL Q5M PRN PRN Reason: FOR CHEST PAIN Last Admin: 10/03/18 14:10 Dose: 0.4 mg Pantoprazole Sodium (Protonix -) 40 mg PO DAILY [facility] Last Admin: 10/06/18 09:54 Dose: 40 mg Roflumilast (Daliresp -) 500 mcg PO DAILY [facility] Last Admin: 10/06/18 09:56 Dose: 500 mcg Rosuvastatin Calcium (Crestor -) 5 mg PO HS [facility] Last Admin: 10/05/18 21:56 Dose: 5 mg A/P Acute COPD Exacerbation Pneumonia CAD s/p CABG HTN DM - continue medrol at current dose - inhaled bronchodilators - O2 to keep SpO2 >90% - continue antibiotics - f/u cultures - outpt PFTs and f/u - DVT prophylaxis
--- NOTE | 2018-10-06 14:38 | PN ---
Progress Note, Physician Chief Complaint: LLL Pneumonia History of Present Illness: NAD Feeling better Seen by pulmonary+ cardio+ ID - Current Medication List Current Medications: Active Medications Acetaminophen (Tylenol -) 650 mg PO Q6H PRN PRN Reason: FEVER Last Admin: 10/02/18 21:37 Dose: 650 mg Albuterol Sulfate (Ventolin 0.083% Nebulizer Soln -) 1 amp NEB Q4H PRN PRN Reason: SHORT OF BREATH/WHEEZING Albuterol/Ipratropium (Duoneb -) 1 amp NEB Q4H [facility] Last Admin: 10/06/18 04:09 Dose: 1 amp Aspirin (Ecotrin -) 81 mg PO DAILY [facility] Last Admin: 10/06/18 09:54 Dose: 81 mg Baclofen (Lioresal -) 10 mg PO TID [facility] Last Admin: 10/06/18 13:51 Dose: 10 mg Benzocaine/Menthol (Cepacol Lozenge -) 1 each MM PRN PRN PRN Reason: SORE THROAT Last Admin: 10/05/18 15:49 Dose: 1 each Budesonide (Pulmicort 0.25 Mg Nebulizer -) 1 amp NEB RBID [facility] Last Admin: 10/05/18 19:55 Dose: 1 amp Calcitriol (Rocaltrol -) 0.25 mcg PO DAILY [facility] Last Admin: 10/06/18 09:54 Dose: 0.25 mcg Clopidogrel Bisulfate (Plavix -) 75 mg PO DAILY [facility] Last Admin: 10/06/18 09:54 Dose: 75 mg Docusate Sodium (Colace -) 100 mg PO Q12H PRN PRN Reason: CONSTIPATION Enoxaparin Sodium (Lovenox -) 40 mg SQ DAILY [facility] Last Admin: 10/06/18 09:56 Dose: 40 mg Furosemide (Lasix -) 20 mg PO DAILY [facility] Last Admin: 10/06/18 09:54 Dose: 20 mg Glipizide (Glucotrol Xl -) 2.5 mg PO DAILY@0700 [facility] Last Admin: 10/06/18 09:56 Dose: 2.5 mg Guaifenesin/Codeine Phosphate (Robitussin Ac -) 5 ml PO TID PRN PRN Reason: COUGH Piperacillin Sod/Tazobactam (Sod 2.25 gm/ Dextrose) 50 mls @ 100 mls/hr IVPB Q8H-IV [facility]; Protocol Last Admin: 10/06/18 09:53 Dose: 100 mls/hr Azithromycin (Zithromax 500mg Ivpb (Pre-Docked)) 500 mg in 250 mls @ 250 mls/ hr IVPB DAILY [facility] Last Admin: 10/06/18 09:52 Dose: 250 mls/hr Insulin Aspart (Novolog Vial Sliding Scale -) 1 vial SQ ACHS [facility]; Protocol Last Admin: 10/06/18 07:47 Dose: Not Given Methylprednisolone Sodium Succinate (Solu-Medrol -) 60 mg IVPB Q6H-IV [facility] Last Admin: 10/06/18 09:53 Dose: 60 mg Metoprolol Tartrate (Lopressor -) 25 mg PO BID [facility] Last Admin: 10/06/18 09:54 Dose: 25 mg Mirtazapine (Remeron -) 7.5 mg PO [facility] Last Admin: 10/05/18 21:56 Dose: 7.5 mg Multivitamins/Minerals/Vitamin C (Tab-A-Vit -) 1 tab PO DAILY [facility] Last Admin: 10/06/18 09:54 Dose: 1 tab Nitroglycerin (Nitrostat -) 0.4 mg SL Q5M PRN PRN Reason: FOR CHEST PAIN Last Admin: 10/03/18 14:10 Dose: 0.4 mg Pantoprazole Sodium (Protonix -) 40 mg PO DAILY [facility] Last Admin: 10/06/18 09:54 Dose: 40 mg Roflumilast (Daliresp -) 500 mcg PO DAILY [facility] Last Admin: 10/06/18 09:56 Dose: 500 mcg Rosuvastatin Calcium (Crestor -) 5 mg PO [facility] Last Admin: 10/05/18 21:56 Dose: 5 mg - Objective Vital Signs: Vital Signs Temperature 97.5 F L 10/06/18 08:16 Pulse Rate 68 10/06/18 08:16 Respiratory Rate 20 10/06/18 08:16 Blood Pressure 164/70 10/06/18 08:16 O2 Sat by Pulse Oximetry (%) 92 L 10/06/18 08:14 Constitutional: Yes: Well Nourished, Calm, Mild Distress Cardiovascular: Yes: Regular Rate and Rhythm Respiratory: Yes: Regular Gastrointestinal: Yes: Normal Bowel Sounds, Soft Genitourinary: Yes: Harper Present Musculoskeletal: Yes: Muscle Weakness Edema: Yes Edema: LLE: Trace, RLE: Trace Peripheral Pulses WNL: Yes Neurological: Yes: Alert, Oriented Psychiatric: Yes: Alert, Oriented Labs: CBC, BMP 10/06/18 07:55 10/06/18 07:55 INR, PTT INR 1.00 (0.83-1.09) 10/06/18 07:55 Problem List - Problems (1) COPD (chronic obstructive pulmonary disease) Assessment/Plan: -Pulmonary consult -Bronchodilators -Nasal O2 PRN -IV medrol -IV abx Code(s): J44.9 - CHRONIC OBSTRUCTIVE PULMONARY DISEASE, UNSPECIFIED Qualifiers: COPD type: unspecified COPD Qualified Code(s): J44.9 - Chronic obstructive pulmonary disease, unspecified (2) Pneumonia Assessment/Plan: -Pulmonary consult -Bronchodilators -Nasal O2 PRN -IV medrol -IV abx -CT chest reviewed Code(s): J18.9 - PNEUMONIA, UNSPECIFIED ORGANISM Qualifiers: Pneumonia type: due to unspecified organism Laterality: unspecified laterality Lung location: unspecified part of lung Qualified Code(s): J18.9 - Pneumonia, unspecified organism (3) Cough Assessment/Plan: -On tussin prn -added cepacol prn Code(s): R05 - COUGH (4) Diabetes Assessment/Plan: -BGM AC HS -Diabetic low sodium diet -A1C-6.5 -On Glipizide 2.5 mg -Novolog sliding scale Code(s): E11.9 - TYPE 2 DIABETES MELLITUS WITHOUT COMPLICATIONS Qualifiers: Diabetes mellitus type: type 2 (5) CAD (coronary artery disease) Assessment/Plan: -Seen by cardiology -On asa,plavix, statin Code(s): I25.10 - ATHSCL HEART DISEASE OF [place] CORONARY ARTERY W/O ANG PCTRS Assessment/Plan see problem list Physical therapy
--- NOTE | 2018-10-06 17:41 | PN ---
Progress Note, Physician History of Present Illness: Pt seen and examined at bedside. [facility] She currently denies chest pain. - Current Medication List Current Medications: Active Medications Acetaminophen (Tylenol -) 650 mg PO Q6H PRN PRN Reason: FEVER Last Admin: 10/02/18 21:37 Dose: 650 mg Albuterol Sulfate (Ventolin 0.083% Nebulizer Soln -) 1 amp NEB Q4H PRN PRN Reason: SHORT OF BREATH/WHEEZING Albuterol/Ipratropium (Duoneb -) 1 amp NEB Q4H [facility] Last Admin: 10/06/18 04:09 Dose: 1 amp Aspirin (Ecotrin -) 81 mg PO DAILY [facility] Last Admin: 10/06/18 09:54 Dose: 81 mg Baclofen (Lioresal -) 10 mg PO TID [facility] Last Admin: 10/06/18 13:51 Dose: 10 mg Benzocaine/Menthol (Cepacol Lozenge -) 1 each MM PRN PRN PRN Reason: SORE THROAT Last Admin: 10/05/18 15:49 Dose: 1 each Budesonide (Pulmicort 0.25 Mg Nebulizer -) 1 amp NEB RBID [facility] Last Admin: 10/05/18 19:55 Dose: 1 amp Calcitriol (Rocaltrol -) 0.25 mcg PO DAILY [facility] Last Admin: 10/06/18 09:54 Dose: 0.25 mcg Clopidogrel Bisulfate (Plavix -) 75 mg PO DAILY [facility] Last Admin: 10/06/18 09:54 Dose: 75 mg Docusate Sodium (Colace -) 100 mg PO Q12H PRN PRN Reason: CONSTIPATION Enoxaparin Sodium (Lovenox -) 40 mg SQ DAILY [facility] Last Admin: 10/06/18 09:56 Dose: 40 mg Furosemide (Lasix -) 20 mg PO DAILY [facility] Last Admin: 10/06/18 09:54 Dose: 20 mg Glipizide (Glucotrol Xl -) 2.5 mg PO DAILY@0700 [facility] Last Admin: 10/06/18 09:56 Dose: 2.5 mg Guaifenesin/Codeine Phosphate (Robitussin Ac -) 5 ml PO TID PRN PRN Reason: COUGH Piperacillin Sod/Tazobactam (Sod 2.25 gm/ Dextrose) 50 mls @ 100 mls/hr IVPB Q8H-IV [facility]; Protocol Last Admin: 10/06/18 09:53 Dose: 100 mls/hr Azithromycin (Zithromax 500mg Ivpb (Pre-Docked)) 500 mg in 250 mls @ 250 mls/ hr IVPB DAILY [facility] Last Admin: 10/06/18 09:52 Dose: 250 mls/hr Insulin Aspart (Novolog Vial Sliding Scale -) 1 vial SQ ACHS [facility]; Protocol Last Admin: 10/06/18 16:47 Dose: Not Given Methylprednisolone Sodium Succinate (Solu-Medrol -) 60 mg IVPB Q6H-IV [facility] Last Admin: 10/06/18 15:07 Dose: 60 mg Metoprolol Tartrate (Lopressor -) 25 mg PO BID [facility] Last Admin: 10/06/18 09:54 Dose: 25 mg Mirtazapine (Remeron -) 7.5 mg PO [facility] Last Admin: 10/05/18 21:56 Dose: 7.5 mg Multivitamins/Minerals/Vitamin C (Tab-A-Vit -) 1 tab PO DAILY [facility] Last Admin: 10/06/18 09:54 Dose: 1 tab Nitroglycerin (Nitrostat -) 0.4 mg SL Q5M PRN PRN Reason: FOR CHEST PAIN Last Admin: 10/03/18 14:10 Dose: 0.4 mg Pantoprazole Sodium (Protonix -) 40 mg PO DAILY [facility] Last Admin: 10/06/18 09:54 Dose: 40 mg Roflumilast (Daliresp -) 500 mcg PO DAILY [facility] Last Admin: 10/06/18 09:56 Dose: 500 mcg Rosuvastatin Calcium (Crestor -) 5 mg PO [facility] Last Admin: 10/05/18 21:56 Dose: 5 mg - Objective Vital Signs: Vital Signs Temperature 98.4 F 10/06/18 14:10 Pulse Rate 80 10/06/18 14:10 Respiratory Rate 20 10/06/18 14:10 Blood Pressure 140/66 10/06/18 14:10 O2 Sat by Pulse Oximetry (%) 92 L 10/06/18 08:14 Constitutional: Yes: Anxious HENT: Yes: Atraumatic Cardiovascular: Yes: S1, S2 Respiratory: Yes: On Nasal O2, Wheezes Gastrointestinal: Yes: Soft Genitourinary: Yes: WNL Musculoskeletal: Yes: WNL Edema: No Neurological: Yes: Oriented Psychiatric: Yes: Oriented Labs: CBC, BMP 10/06/18 07:55 10/06/18 07:55 INR, PTT INR 1.00 (0.83-1.09) 10/06/18 07:55 Assessment/Plan Current Medications Generic Name Dose Route Start Last Admin Trade Name Freq PRN Reason Stop Dose Admin Acetaminophen 650 mg 09/30/18 16:17 10/02/18 21:37 Tylenol - PO 650 mg Q6H PRN Administration FEVER Albuterol Sulfate 1 amp 10/06/18 06:39 Ventolin 0.083% Nebulizer Soln - NEB Q4H PRN SHORT OF BREATH/WHEEZING Albuterol/Ipratropium 1 amp 09/30/18 16:19 10/06/18 04:09 Duoneb - NEB 1 amp Q4H [facility] Administration Aspirin 81 mg 10/01/18 10:00 10/06/18 09:54 Ecotrin - PO 81 mg DAILY [facility] Administration Baclofen 10 mg 09/30/18 22:00 10/06/18 13:51 Lioresal - PO 10 mg TID [facility] Administration Benzocaine/Menthol 1 each 10/05/18 12:59 10/05/18 15:49 Cepacol Lozenge - MM 1 each PRN PRN Administration SORE THROAT Budesonide 1 amp 09/30/18 20:00 10/05/18 19:55 Pulmicort 0.25 Mg Nebulizer - NEB 1 amp RBID [facility] Administration Calcitriol 0.25 mcg 10/01/18 10:00 10/06/18 09:54 Rocaltrol - PO 0.25 mcg DAILY [facility] Administration Clopidogrel Bisulfate 75 mg 10/01/18 10:00 10/06/18 09:54 Plavix - PO 75 mg DAILY [facility] Administration Docusate Sodium 100 mg 09/30/18 16:17 Colace - PO Q12H PRN CONSTIPATION Enoxaparin Sodium 40 mg 10/02/18 10:00 10/06/18 09:56 Lovenox - SQ 40 mg DAILY [facility] Administration Furosemide 20 mg 10/01/18 10:00 10/06/18 09:54 Lasix - PO 20 mg DAILY [facility] Administration Glipizide 2.5 mg 10/01/18 07:00 10/06/18 09:56 Glucotrol Xl - PO 2.5 mg DAILY@0700 [facility] Administration Guaifenesin/Codeine Phosphate 5 ml 10/06/18 12:16 Robitussin Ac - PO TID PRN COUGH Piperacillin Sod/Tazobactam 50 mls @ 100 mls/hr 10/01/18 13:15 10/06/18 09:53 Sod 2.25 gm/ Dextrose IVPB 100 mls/hr Q8H-IV [facility] Administration Protocol Azithromycin 500 mg in 250 mls @ 250 mls/hr 10/01/18 13:15 10/06/18 09:52 Zithromax 500mg Ivpb (Pre-Docked) IVPB 250 mls/hr DAILY [facility] Administration Insulin Aspart 1 vial 10/01/18 11:00 10/06/18 16:47 Novolog Vial Sliding Scale - SQ Not Given ACHS [facility] Protocol Methylprednisolone Sodium Succinate 60 mg 10/02/18 21:00 10/06/18 15:07 Solu-Medrol - IVPB 60 mg Q6H-IV [facility] Administration Metoprolol Tartrate 25 mg 09/30/18 22:00 10/06/18 09:54 Lopressor - PO 25 mg BID [facility] Administration Mirtazapine 7.5 mg 09/30/18 22:00 10/05/18 21:56 Remeron - PO 7.5 mg HS [facility] Administration Multivitamins/Minerals/Vitamin C 1 tab 10/01/18 10:00 10/06/18 09:54 Tab-A-Vit - PO 1 tab DAILY [facility] Administration Nitroglycerin 0.4 mg 10/03/18 14:03 10/03/18 14:10 Nitrostat - SL 0.4 mg Q5M PRN Administration FOR CHEST PAIN Pantoprazole Sodium 40 mg 10/01/18 10:00 10/06/18 09:54 Protonix - PO 40 mg DAILY [facility] Administration Roflumilast 500 mcg 10/01/18 10:00 10/06/18 09:56 Daliresp - PO 500 mcg DAILY [facility] Administration Rosuvastatin Calcium 5 mg 09/30/18 22:00 10/05/18 21:56 Crestor - PO 5 mg HS [facility] Administration Impression 1. azotemia 2. copd 3. htn 4. cad 5. hld Plan - check ua - repeat labs in am - scientologist is rising - pt did get lasix earlier - monitor volume statu - steroids can lead to fluid retention - monitor hg and check occult blood if it drops - will follow
--- NOTE | 2018-10-06 18:46 | EKG ---
Test Reason : Blood Pressure : / mmHG Vent. 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
[2018-10-06] MEDS: ROSUVASTATIN CA 5 MG TABLET (FP) PO SCH (21:47)
[2018-10-06] MEDS: MIRTAZAPINE 15 MG TABLET (FP) PO SCH (21:47)
[2018-10-06] MEDS: ACETAMINOPHEN 325 MG TABLET (FP) PO PRN (21:54)
[2018-10-06] MEDS: guaiFENesin/CODEINE 5 ML UNIT-DOSE CUPS PO PRN (21:57)
[2018-10-07] MEDS: ALBUTEROL SO4 2.5/IPRATROPIUM 0.5 INH SOL 3 ML VIAL.NEB. NEB SCH ×6 (00:30→20:01)
[2018-10-07] MEDS ORDERED: DEXTROSE 5%-WATER - 50 ML IVPB ONE ×3 (03:41→16:45)
[2018-10-07] MEDS ORDERED: PIPERACILLIN/TAZOBACTAM 2.25 GM VIAL IVPB ONE ×3 (03:41→16:44)
[2018-10-07] MEDS: methylPREDNISolone NA SUCC 40 MG/1 ML VIAL IVPB SCH ×4 (04:00→22:31)
[2018-10-07] MEDS: PIPERACILLIN/TAZOB 2.25 GM 2.25 GM in DEXTROSE 5%-WATER - 50 ML IVPB SCH ×3 (04:00→17:01)
[2018-10-07] MEDS: INSULIN SLIDING SCALE (NOVOLOG) 1 VIAL SQ SCH ×4 (06:25→22:41)
[2018-10-07] MEDS: BACLOFEN 10 MG TABLET (FP) PO SCH ×3 (06:25→22:31)
[2018-10-07 07:41] LABS: BASO % 0.2 % (0-2.0); HEMATOCRIT 38.7 % (32.4-45.2); HEMOGLOBIN 13.2 GM/dL (10.7-15.3); LYMPH % 12.3 % (8-40); MCH 31.3 pg (25.7-33.7); MCHC 34.1 g/dl (32.0-36.0); MEAN CELL VOLUME 91.9 fl (80-96); MEAN PLT VOLUME 7.4 fl (7.5-11.1); MONO % 4.7 % (3.8-10.2); NEUT % 82.8 % (42.8-82.8); PLATELET COUNT 315 K/MM3 (134-434); RBC 4.22 M/mm3 (3.60-5.2); WHITE BLOOD COUNT 11.6 K/mm3 (4.0-10.0)
[2018-10-07] MEDS: BUDESONIDE 0.25 MG/2ML INH SUSP VIAL NEB SCH ×2 (08:00→20:01)
[2018-10-07] MEDS: glipiZIDE-XL 2.5 MG TAB.ER.24 PO SCH (09:20)
[2018-10-07] MEDS: FUROSEMIDE 20 MG TABLET (FP) PO SCH (09:20)
[2018-10-07] MEDS: PANTOPRAZOLE 40 MG TABLET (FP) PO SCH (09:21)
[2018-10-07] MEDS: ASPIRIN COATED 81 MG TABLET.EC PO SCH (09:21)
[2018-10-07] MEDS: CALCITRIOL 0.25 MCG CAPSULE (FP) PO SCH (09:21)
[2018-10-07] MEDS: MULTIVITAMINS (DAILY MVI) TABLET (FP) PO SCH (09:21)
[2018-10-07] MEDS: METOPROLOL TARTRATE 25 MG TABLET (FP) PO SCH ×2 (09:21→22:31)
[2018-10-07] MEDS: CLOPIDOGREL BISULFATE 75 MG TABLET (FP) PO SCH (09:21)
[2018-10-07] MEDS: ROFLUMILAST 500 MCG TABLET PO SCH (09:22)
[2018-10-07] MEDS: ENOXAPARIN NA (PORCINE) 40 MG/0.4 ML DISP.SYRIN SQ SCH (09:22)
[2018-10-07] MEDS: AZITHROMYCIN IVPB 500 MG/250 ML BAG IVPB SCH (09:23)
--- NOTE | 2018-10-07 10:52 | PN ---
Progress Note, Physician History of Present Illness: pulmonary alert,sob,congested,+ cough - Current Medication List Current Medications: Active Medications Acetaminophen (Tylenol -) 650 mg PO Q6H PRN PRN Reason: FEVER Last Admin: 10/06/18 21:54 Dose: 650 mg Albuterol Sulfate (Ventolin 0.083% Nebulizer Soln -) 1 amp NEB Q4H PRN PRN Reason: SHORT OF BREATH/WHEEZING Albuterol/Ipratropium (Duoneb -) 1 amp NEB Q4H [facility] Last Admin: 10/07/18 08:00 Dose: 1 amp Aspirin (Ecotrin -) 81 mg PO DAILY [facility] Last Admin: 10/07/18 09:21 Dose: 81 mg Baclofen (Lioresal -) 10 mg PO TID [facility] Last Admin: 10/07/18 06:25 Dose: 10 mg Benzocaine/Menthol (Cepacol Lozenge -) 1 each MM PRN PRN PRN Reason: SORE THROAT Last Admin: 10/05/18 15:49 Dose: 1 each Budesonide (Pulmicort 0.25 Mg Nebulizer -) 1 amp NEB RBID [facility] Last Admin: 10/07/18 08:00 Dose: 1 amp Calcitriol (Rocaltrol -) 0.25 mcg PO DAILY [facility] Last Admin: 10/07/18 09:21 Dose: 0.25 mcg Clopidogrel Bisulfate (Plavix -) 75 mg PO DAILY [facility] Last Admin: 10/07/18 09:21 Dose: 75 mg Docusate Sodium (Colace -) 100 mg PO Q12H PRN PRN Reason: CONSTIPATION Enoxaparin Sodium (Lovenox -) 40 mg SQ DAILY [facility] Last Admin: 10/07/18 09:22 Dose: 40 mg Furosemide (Lasix -) 20 mg PO DAILY [facility] Last Admin: 10/07/18 09:20 Dose: 20 mg Glipizide (Glucotrol Xl -) 2.5 mg PO DAILY@0700 [facility] Last Admin: 10/07/18 09:20 Dose: 2.5 mg Guaifenesin/Codeine Phosphate (Robitussin Ac -) 5 ml PO TID PRN PRN Reason: COUGH Last Admin: 10/06/18 21:57 Dose: 5 ml Piperacillin Sod/Tazobactam (Sod 2.25 gm/ Dextrose) 50 mls @ 100 mls/hr IVPB Q8H-IV [facility]; Protocol Last Admin: 10/07/18 09:22 Dose: 100 mls/hr Azithromycin (Zithromax 500mg Ivpb (Pre-Docked)) 500 mg in 250 mls @ 250 mls/ hr IVPB DAILY [facility] Last Admin: 10/07/18 09:23 Dose: 250 mls/hr Insulin Aspart (Novolog Vial Sliding Scale -) 1 vial SQ ACHS [facility]; Protocol Last Admin: 10/07/18 06:25 Dose: Not Given Methylprednisolone Sodium Succinate (Solu-Medrol -) 60 mg IVPB Q6H-IV [facility] Last Admin: 10/07/18 09:21 Dose: 60 mg Metoprolol Tartrate (Lopressor -) 25 mg PO BID [facility] Last Admin: 10/07/18 09:21 Dose: 25 mg Mirtazapine (Remeron -) 7.5 mg PO [facility] Last Admin: 10/06/18 21:47 Dose: 7.5 mg Multivitamins/Minerals/Vitamin C (Tab-A-Vit -) 1 tab PO DAILY [facility] Last Admin: 10/07/18 09:21 Dose: 1 tab Nitroglycerin (Nitrostat -) 0.4 mg SL Q5M PRN PRN Reason: FOR CHEST PAIN Last Admin: 10/03/18 14:10 Dose: 0.4 mg Pantoprazole Sodium (Protonix -) 40 mg PO DAILY [facility] Last Admin: 10/07/18 09:21 Dose: 40 mg Roflumilast (Daliresp -) 500 mcg PO DAILY [facility] Last Admin: 10/07/18 09:22 Dose: 500 mcg Rosuvastatin Calcium (Crestor -) 5 mg PO HS [facility] Last Admin: 10/06/18 21:47 Dose: 5 mg - Objective Vital Signs: Vital Signs Temperature 97.8 F 10/07/18 08:31 Pulse Rate 68 10/07/18 08:31 Respiratory Rate 20 10/07/18 08:31 Blood Pressure 170/71 10/07/18 08:31 O2 Sat by Pulse Oximetry (%) 97 10/07/18 08:31 Constitutional: Yes: Well Nourished, Calm Eyes: Yes: WNL HENT: Yes: WNL Neck: Yes: WNL Cardiovascular: Yes: Regular Rate and Rhythm, S1, S2 Respiratory: Yes: Rhonchi (bilateral rhonchi and wheezes) Gastrointestinal: Yes: Normal Bowel Sounds, Soft Extremities: Yes: WNL Edema: No Labs: CBC, BMP 10/07/18 06:19 Problem List - Problems (1) COPD (chronic obstructive pulmonary disease) Code(s): J44.9 - CHRONIC OBSTRUCTIVE PULMONARY DISEASE, UNSPECIFIED Qualifiers: COPD type: unspecified COPD Qualified Code(s): J44.9 - Chronic obstructive pulmonary disease, unspecified (2) Cough Code(s): R05 - COUGH (3) Diabetes Code(s): E11.9 - TYPE 2 DIABETES MELLITUS WITHOUT COMPLICATIONS Qualifiers: Diabetes mellitus type: type 2 (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 - PRESENCE OF AORTOCORONARY BYPASS GRAFT (5) Hypertension Code(s): I10 - ESSENTIAL (PRIMARY) HYPERTENSION Qualifiers: Hypertension type: unspecified Qualified Code(s): I10 - Essential (primary ) hypertension (6) Pneumonia Code(s): J18.9 - PNEUMONIA, UNSPECIFIED ORGANISM Qualifiers: Pneumonia type: due to unspecified organism Laterality: unspecified laterality Lung location: unspecified part of lung Qualified Code(s): J18.9 - Pneumonia, unspecified organism Assessment/Plan IMP COPD EXACERBATION PNEUMONIA LLL ASHD S/P CABG DM HTN PLAN IV MEDROL SAME DOSE INHALED BRONCHODILATORS ABX O2 PFTS OUTPAT[address] KARIMI Problem List - Problems (1) COPD (chronic obstructive pulmonary disease) Code(s): J44.9 - CHRONIC OBSTRUCTIVE PULMONARY DISEASE, UNSPECIFIED Qualifiers: COPD type: unspecified COPD Qualified Code(s): J44.9 - Chronic obstructive pulmonary disease, unspecified (2) Cough Code(s): R05 - COUGH (3) Diabetes Code(s): E11.9 - TYPE 2 DIABETES MELLITUS WITHOUT COMPLICATIONS Qualifiers: Diabetes mellitus type: type 2 (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 - PRESENCE OF AORTOCORONARY BYPASS GRAFT (5) Hypertension Code(s): I10 - ESSENTIAL (PRIMARY) HYPERTENSION Qualifiers: Hypertension type: unspecified Qualified Code(s): I10 - Essential (primary ) hypertension (6) Pneumonia Code(s): J18.9 - PNEUMONIA, UNSPECIFIED ORGANISM Qualifiers: Pneumonia type: due to unspecified organism Laterality: unspecified laterality Lung location: unspecified part of lung Qualified Code(s): J18.9 - Pneumonia, unspecified organism
[2018-10-07 12:13] LABS: URINE APPEARANCE CLEAR; URINE BILIRUBIN NEGATIVE (<2.0 mg/dL); URINE COLOR YELLOW; URINE GLUCOSE (UA) NEGATIVE (NEGATIVE); URINE KETONE NEGATIVE (NEGATIVE); URINE LEUK ESTERASE NEGATIVE (NEGATIVE); URINE NITRITE NEGATIVE (NEGATIVE); URINE PROTEIN NEGATIVE (NEGATIVE); URINE UROBILINOGEN NEGATIVE mg/dL (0.2-1.0)
[2018-10-07 12:17] LABS: PLATELET ESTIMATE ADEQUATE
--- NOTE | 2018-10-07 12:55 | PN ---
Progress Note, Physician Chief Complaint: copd exacerbation LLL pneumonia History of Present Illness: complains of SOB on exertion - Current Medication List Current Medications: Active Medications Acetaminophen (Tylenol -) 650 mg PO Q6H PRN PRN Reason: FEVER Last Admin: 10/06/18 21:54 Dose: 650 mg Albuterol Sulfate (Ventolin 0.083% Nebulizer Soln -) 1 amp NEB Q4H PRN PRN Reason: SHORT OF BREATH/WHEEZING Albuterol/Ipratropium (Duoneb -) 1 amp NEB Q4H [facility] Last Admin: 10/07/18 12:05 Dose: 1 amp Aspirin (Ecotrin -) 81 mg PO DAILY [facility] Last Admin: 10/07/18 09:21 Dose: 81 mg Baclofen (Lioresal -) 10 mg PO TID [facility] Last Admin: 10/07/18 06:25 Dose: 10 mg Benzocaine/Menthol (Cepacol Lozenge -) 1 each MM PRN PRN PRN Reason: SORE THROAT Last Admin: 10/05/18 15:49 Dose: 1 each Budesonide (Pulmicort 0.25 Mg Nebulizer -) 1 amp NEB RBID [facility] Last Admin: 10/07/18 08:00 Dose: 1 amp Calcitriol (Rocaltrol -) 0.25 mcg PO DAILY [facility] Last Admin: 10/07/18 09:21 Dose: 0.25 mcg Clopidogrel Bisulfate (Plavix -) 75 mg PO DAILY [facility] Last Admin: 10/07/18 09:21 Dose: 75 mg Docusate Sodium (Colace -) 100 mg PO Q12H PRN PRN Reason: CONSTIPATION Enoxaparin Sodium (Lovenox -) 40 mg SQ DAILY [facility] Last Admin: 10/07/18 09:22 Dose: 40 mg Furosemide (Lasix -) 20 mg PO DAILY [facility] Last Admin: 10/07/18 09:20 Dose: 20 mg Glipizide (Glucotrol Xl -) 2.5 mg PO DAILY@0700 [facility] Last Admin: 10/07/18 09:20 Dose: 2.5 mg Guaifenesin/Codeine Phosphate (Robitussin Ac -) 5 ml PO TID PRN PRN Reason: COUGH Last Admin: 10/06/18 21:57 Dose: 5 ml Piperacillin Sod/Tazobactam (Sod 2.25 gm/ Dextrose) 50 mls @ 100 mls/hr IVPB Q8H-IV [facility]; Protocol Last Admin: 10/07/18 09:22 Dose: 100 mls/hr Azithromycin (Zithromax 500mg Ivpb (Pre-Docked)) 500 mg in 250 mls @ 250 mls/ hr IVPB DAILY [facility] Last Admin: 10/07/18 09:23 Dose: 250 mls/hr Insulin Aspart (Novolog Vial Sliding Scale -) 1 vial SQ ACHS [facility]; Protocol Last Admin: 10/07/18 11:58 Dose: 4 units Methylprednisolone Sodium Succinate (Solu-Medrol -) 60 mg IVPB Q6H-IV [facility] Last Admin: 10/07/18 09:21 Dose: 60 mg Metoprolol Tartrate (Lopressor -) 25 mg PO BID [facility] Last Admin: 10/07/18 09:21 Dose: 25 mg Mirtazapine (Remeron -) 7.5 mg PO [facility] Last Admin: 10/06/18 21:47 Dose: 7.5 mg Multivitamins/Minerals/Vitamin C (Tab-A-Vit -) 1 tab PO DAILY [facility] Last Admin: 10/07/18 09:21 Dose: 1 tab Nitroglycerin (Nitrostat -) 0.4 mg SL Q5M PRN PRN Reason: FOR CHEST PAIN Last Admin: 10/03/18 14:10 Dose: 0.4 mg Pantoprazole Sodium (Protonix -) 40 mg PO DAILY [facility] Last Admin: 10/07/18 09:21 Dose: 40 mg Roflumilast (Daliresp -) 500 mcg PO DAILY [facility] Last Admin: 10/07/18 09:22 Dose: 500 mcg Rosuvastatin Calcium (Crestor -) 5 mg PO HS [facility] Last Admin: 10/06/18 21:47 Dose: 5 mg - Objective Vital Signs: Vital Signs Temperature 97.8 F 10/07/18 08:31 Pulse Rate 68 10/07/18 08:31 Respiratory Rate 20 10/07/18 08:31 Blood Pressure 170/71 10/07/18 08:31 O2 Sat by Pulse Oximetry (%) 97 10/07/18 08:31 Constitutional: Yes: Calm Cardiovascular: Yes: Regular Rate and Rhythm, S1, S2 Respiratory: Yes: SOB, Wheezes Gastrointestinal: Yes: Normal Bowel Sounds, Soft Labs: CBC, BMP 10/07/18 06:19 10/06/18 07:55 INR, PTT INR 1.00 (0.83-1.09) 10/06/18 07:55 Problem List - Problems (1) COPD (chronic obstructive pulmonary disease) Assessment/Plan: daliresp and bronchodilators pulmicort iv steroids Code(s): J44.9 - CHRONIC OBSTRUCTIVE PULMONARY DISEASE, UNSPECIFIED Qualifiers: COPD type: unspecified COPD Qualified Code(s): J44.9 - Chronic obstructive pulmonary disease, unspecified (2) Cough Assessment/Plan: URI symptoms rapid flu test ID consult oxygen as needed bronchodilators abx per ID dvt ppx Code(s): R05 - COUGH (3) Hx of CABG Assessment/Plan: plavix ,aspirin , metoprolol, statin Code(s): Z95.1 - PRESENCE OF AORTOCORONARY BYPASS GRAFT (4) Diabetes Assessment/Plan: hgba1c,sliding scale,glucotrol diabetic diet Code(s): E11.9 - TYPE 2 DIABETES MELLITUS WITHOUT COMPLICATIONS Qualifiers: Diabetes mellitus type: type 2 (5) Lumbar stenosis Assessment/Plan: baclofen tid Code(s): M48.061 - SPINAL STENOSIS, LUMBAR REGION WITHOUT NEUROGENIC KEESHA
[2018-10-07] MEDS: guaiFENesin/CODEINE 5 ML UNIT-DOSE CUPS PO PRN ×2 (14:14→22:31)
--- NOTE | 2018-10-07 14:54 | PN ---
Progress Note, Physician History of Present Illness: Pt seen and examined at bedside. She is awake and alert. She complains of cough. She denies dysuria. - Current Medication List Current Medications: Active Medications Acetaminophen (Tylenol -) 650 mg PO Q6H PRN PRN Reason: FEVER Last Admin: 10/06/18 21:54 Dose: 650 mg Albuterol Sulfate (Ventolin 0.083% Nebulizer Soln -) 1 amp NEB Q4H PRN PRN Reason: SHORT OF BREATH/WHEEZING Albuterol/Ipratropium (Duoneb -) 1 amp NEB Q4H [facility] Last Admin: 10/07/18 12:05 Dose: 1 amp Aspirin (Ecotrin -) 81 mg PO DAILY [facility] Last Admin: 10/07/18 09:21 Dose: 81 mg Baclofen (Lioresal -) 10 mg PO TID [facility] Last Admin: 10/07/18 14:13 Dose: 10 mg Benzocaine/Menthol (Cepacol Lozenge -) 1 each MM PRN PRN PRN Reason: SORE THROAT Last Admin: 10/05/18 15:49 Dose: 1 each Budesonide (Pulmicort 0.25 Mg Nebulizer -) 1 amp NEB RBID [facility] Last Admin: 10/07/18 08:00 Dose: 1 amp Calcitriol (Rocaltrol -) 0.25 mcg PO DAILY [facility] Last Admin: 10/07/18 09:21 Dose: 0.25 mcg Clopidogrel Bisulfate (Plavix -) 75 mg PO DAILY [facility] Last Admin: 10/07/18 09:21 Dose: 75 mg Docusate Sodium (Colace -) 100 mg PO Q12H PRN PRN Reason: CONSTIPATION Enoxaparin Sodium (Lovenox -) 40 mg SQ DAILY [facility] Last Admin: 10/07/18 09:22 Dose: 40 mg Furosemide (Lasix -) 20 mg PO DAILY [facility] Last Admin: 10/07/18 09:20 Dose: 20 mg Glipizide (Glucotrol Xl -) 2.5 mg PO DAILY@0700 [facility] Last Admin: 10/07/18 09:20 Dose: 2.5 mg Guaifenesin/Codeine Phosphate (Robitussin Ac -) 5 ml PO TID PRN PRN Reason: COUGH Last Admin: 10/07/18 14:14 Dose: 5 ml Piperacillin Sod/Tazobactam (Sod 2.25 gm/ Dextrose) 50 mls @ 100 mls/hr IVPB Q8H-IV [facility]; Protocol Last Admin: 10/07/18 09:22 Dose: 100 mls/hr Azithromycin (Zithromax 500mg Ivpb (Pre-Docked)) 500 mg in 250 mls @ 250 mls/ hr IVPB DAILY [facility] Last Admin: 10/07/18 09:23 Dose: 250 mls/hr Insulin Aspart (Novolog Vial Sliding Scale -) 1 vial SQ ACHS [facility]; Protocol Last Admin: 10/07/18 11:58 Dose: 4 units Methylprednisolone Sodium Succinate (Solu-Medrol -) 60 mg IVPB Q6H-IV [facility] Last Admin: 10/07/18 14:14 Dose: 60 mg Metoprolol Tartrate (Lopressor -) 25 mg PO BID [facility] Last Admin: 10/07/18 09:21 Dose: 25 mg Mirtazapine (Remeron -) 7.5 mg PO [facility] Last Admin: 10/06/18 21:47 Dose: 7.5 mg Multivitamins/Minerals/Vitamin C (Tab-A-Vit -) 1 tab PO DAILY [facility] Last Admin: 10/07/18 09:21 Dose: 1 tab Nitroglycerin (Nitrostat -) 0.4 mg SL Q5M PRN PRN Reason: FOR CHEST PAIN Last Admin: 10/03/18 14:10 Dose: 0.4 mg Pantoprazole Sodium (Protonix -) 40 mg PO DAILY [facility] Last Admin: 10/07/18 09:21 Dose: 40 mg Roflumilast (Daliresp -) 500 mcg PO DAILY [facility] Last Admin: 10/07/18 09:22 Dose: 500 mcg Rosuvastatin Calcium (Crestor -) 5 mg PO HS [facility] Last Admin: 10/06/18 21:47 Dose: 5 mg - Objective Vital Signs: Vital Signs Temperature 97.8 F 10/07/18 08:31 Pulse Rate 68 10/07/18 08:31 Respiratory Rate 20 10/07/18 08:31 Blood Pressure 170/71 10/07/18 08:31 O2 Sat by Pulse Oximetry (%) 97 10/07/18 08:31 Constitutional: Yes: Calm Eyes: Yes: Conjunctiva Clear HENT: Yes: Atraumatic Neck: Yes: Supple Cardiovascular: Yes: S1, S2 Respiratory: Yes: On Nasal O2, Wheezes Gastrointestinal: Yes: Soft Genitourinary: Yes: WNL Musculoskeletal: Yes: WNL Edema: No Neurological: Yes: Oriented Psychiatric: Yes: Oriented Labs: CBC, BMP 10/07/18 06:19 10/06/18 07:55 INR, PTT INR 1.00 (0.83-1.09) 10/06/18 07:55 Assessment/Plan Current Medications Generic Name Dose Route Start Last Admin Trade Name Freq PRN Reason Stop Dose Admin Acetaminophen 650 mg 09/30/18 16:17 10/06/18 21:54 Tylenol - PO 650 mg Q6H PRN Administration FEVER Albuterol Sulfate 1 amp 10/06/18 06:39 Ventolin 0.083% Nebulizer Soln - NEB Q4H PRN SHORT OF BREATH/WHEEZING Albuterol/Ipratropium 1 amp 09/30/18 16:19 10/07/18 12:05 Duoneb - NEB 1 amp Q4H [facility] Administration Aspirin 81 mg 10/01/18 10:00 10/07/18 09:21 Ecotrin - PO 81 mg DAILY [facility] Administration Baclofen 10 mg 09/30/18 22:00 10/07/18 14:13 Lioresal - PO 10 mg TID [facility] Administration Benzocaine/Menthol 1 each 10/05/18 12:59 10/05/18 15:49 Cepacol Lozenge - MM 1 each PRN PRN Administration SORE THROAT Budesonide 1 amp 09/30/18 20:00 10/07/18 08:00 Pulmicort 0.25 Mg Nebulizer - NEB 1 amp RBID [facility] Administration Calcitriol 0.25 mcg 10/01/18 10:00 10/07/18 09:21 Rocaltrol - PO 0.25 mcg DAILY [facility] Administration Clopidogrel Bisulfate 75 mg 10/01/18 10:00 10/07/18 09:21 Plavix - PO 75 mg DAILY [facility] Administration Docusate Sodium 100 mg 09/30/18 16:17 Colace - PO Q12H PRN CONSTIPATION Enoxaparin Sodium 40 mg 10/02/18 10:00 10/07/18 09:22 Lovenox - SQ 40 mg DAILY [facility] Administration Furosemide 20 mg 10/01/18 10:00 10/07/18 09:20 Lasix - PO 20 mg DAILY [facility] Administration Glipizide 2.5 mg 10/01/18 07:00 10/07/18 09:20 Glucotrol Xl - PO 2.5 mg DAILY@0700 [facility] Administration Guaifenesin/Codeine Phosphate 5 ml 10/06/18 12:16 10/07/18 14:14 Robitussin Ac - PO 5 ml TID PRN Administration COUGH Piperacillin Sod/Tazobactam 50 mls @ 100 mls/hr 10/01/18 13:15 10/07/18 09:22 Sod 2.25 gm/ Dextrose IVPB 100 mls/hr Q8H-IV [facility] Administration Protocol Azithromycin 500 mg in 250 mls @ 250 mls/hr 10/01/18 13:15 10/07/18 09:23 Zithromax 500mg Ivpb (Pre-Docked) IVPB 250 mls/hr DAILY [facility] Administration Insulin Aspart 1 vial 10/01/18 11:00 10/07/18 11:58 Novolog Vial Sliding Scale - SQ 4 units ACHS [facility] Administration Protocol Methylprednisolone Sodium Succinate 60 mg 10/02/18 21:00 10/07/18 14:14 Solu-Medrol - IVPB 60 mg Q6H-IV [facility] Administration Metoprolol Tartrate 25 mg 09/30/18 22:00 10/07/18 09:21 Lopressor - PO 25 mg BID [facility] Administration Mirtazapine 7.5 mg 09/30/18 22:00 10/06/18 21:47 Remeron - PO 7.5 mg HS [facility] Administration Multivitamins/Minerals/Vitamin C 1 tab 10/01/18 10:00 10/07/18 09:21 Tab-A-Vit - PO 1 tab DAILY [facility] Administration Nitroglycerin 0.4 mg 10/03/18 14:03 10/03/18 14:10 Nitrostat - SL 0.4 mg Q5M PRN Administration FOR CHEST PAIN Pantoprazole Sodium 40 mg 10/01/18 10:00 10/07/18 09:21 Protonix - PO 40 mg DAILY [facility] Administration Roflumilast 500 mcg 10/01/18 10:00 10/07/18 09:22 Daliresp - PO 500 mcg DAILY [facility] Administration Rosuvastatin Calcium 5 mg 09/30/18 22:00 10/06/18 21:47 Crestor - PO 5 mg HS [facility] Administration Laboratory Tests 10/07/18 10:45 Urine Protein Negative Urine Blood Negative Impression 1. azotemia 2. copd 3. htn 4. cad 5. hld Plan - ua neg for blood or protein - check bmp - monitor renal function and potassium on lasix - avoid nsaids
[2018-10-07] MEDS: ROSUVASTATIN CA 5 MG TABLET (FP) PO SCH (22:31)
[2018-10-07] MEDS: MIRTAZAPINE 15 MG TABLET (FP) PO SCH (22:31)
[2018-10-08] MEDS: ALBUTEROL SO4 2.5/IPRATROPIUM 0.5 INH SOL 3 ML VIAL.NEB. NEB SCH ×2 (00:45→08:36)
[2018-10-08] MEDS ORDERED: PIPERACILLIN/TAZOBACTAM 2.25 GM VIAL IVPB ONE ×3 (03:02→17:19)
[2018-10-08] MEDS ORDERED: DEXTROSE 5%-WATER - 50 ML IVPB ONE ×3 (03:03→17:19)
[2018-10-08] MEDS: methylPREDNISolone NA SUCC 40 MG/1 ML VIAL IVPB SCH ×4 (03:23→21:01)
[2018-10-08] MEDS: PIPERACILLIN/TAZOB 2.25 GM 2.25 GM in DEXTROSE 5%-WATER - 50 ML IVPB SCH ×3 (03:23→17:25)
[2018-10-08] MEDS: BACLOFEN 10 MG TABLET (FP) PO SCH ×3 (06:31→21:03)
[2018-10-08] MEDS: INSULIN SLIDING SCALE (NOVOLOG) 1 VIAL SQ SCH ×4 (06:33→21:22)
[2018-10-08 07:08] LABS: BASO % 0.1 % (0-2.0); HEMATOCRIT 37.8 % (32.4-45.2); HEMOGLOBIN 12.7 GM/dL (10.7-15.3); LYMPH % 11.1 % (8-40); MCH 30.8 pg (25.7-33.7); MCHC 33.6 g/dl (32.0-36.0); MEAN CELL VOLUME 91.6 fl (80-96); MEAN PLT VOLUME 7.5 fl (7.5-11.1); MONO % 5.2 % (3.8-10.2); NEUT % 83.6 % (42.8-82.8); PLATELET COUNT 314 K/MM3 (134-434); RBC 4.13 M/mm3 (3.60-5.2); RDW 14.1 % (11.6-15.6); WHITE BLOOD COUNT 11.3 K/mm3 (4.0-10.0)
[2018-10-08 07:28] LABS: ALBUMIN 2.5 g/dl (3.4-5.0); ALK PHOS 67 U/L (45-117); ANION GAP 9 MMOL/L (8-16); BILIRUBIN,TOTAL 0.3 mg/dL (0.2-1); BLOOD UREA NITROGEN 44 mg/dL (7-18); CALCIUM 8.7 mg/dL (8.5-10.1); CHLORIDE 101 mmol/L (98-107); CO2 32 mmol/L (21-32); CREATININE 0.9 mg/dL (0.55-1.3); GLUCOSE,RANDOM 100 mg/dL (74-106); POTASSIUM 4.1 mmol/L (3.5-5.1); SGOT/AST 14 U/L (15-37); SGPT/ALT 29 U/L (13-61); SODIUM 141 mmol/L (136-145); TOT PROT 5.8 g/dl (6.4-8.2)
--- NOTE | 2018-10-08 08:33 | PN ---
Progress Note, Physician History of Present Illness: c/o cough - Current Medication List Current Medications: Active Medications Acetaminophen (Tylenol -) 650 mg PO Q6H PRN PRN Reason: FEVER Last Admin: 10/06/18 21:54 Dose: 650 mg Albuterol Sulfate (Ventolin 0.083% Nebulizer Soln -) 1 amp NEB Q4H PRN PRN Reason: SHORT OF BREATH/WHEEZING Albuterol/Ipratropium (Duoneb -) 1 amp NEB Q4H [facility] Last Admin: 10/08/18 00:45 Dose: 1 amp Aspirin (Ecotrin -) 81 mg PO DAILY [facility] Last Admin: 10/07/18 09:21 Dose: 81 mg Baclofen (Lioresal -) 10 mg PO TID [facility] Last Admin: 10/08/18 06:31 Dose: 10 mg Benzocaine/Menthol (Cepacol Lozenge -) 1 each MM PRN PRN PRN Reason: SORE THROAT Last Admin: 10/05/18 15:49 Dose: 1 each Budesonide (Pulmicort 0.25 Mg Nebulizer -) 1 amp NEB RBID [facility] Last Admin: 10/07/18 20:01 Dose: 1 amp Calcitriol (Rocaltrol -) 0.25 mcg PO DAILY [facility] Last Admin: 10/07/18 09:21 Dose: 0.25 mcg Clopidogrel Bisulfate (Plavix -) 75 mg PO DAILY [facility] Last Admin: 10/07/18 09:21 Dose: 75 mg Docusate Sodium (Colace -) 100 mg PO Q12H PRN PRN Reason: CONSTIPATION Enoxaparin Sodium (Lovenox -) 40 mg SQ DAILY [facility] Last Admin: 10/07/18 09:22 Dose: 40 mg Furosemide (Lasix -) 20 mg PO DAILY [facility] Last Admin: 10/07/18 09:20 Dose: 20 mg Glipizide (Glucotrol Xl -) 2.5 mg PO DAILY@0700 [facility] Last Admin: 10/07/18 09:20 Dose: 2.5 mg Guaifenesin/Codeine Phosphate (Robitussin Ac -) 5 ml PO TID PRN PRN Reason: COUGH Last Admin: 10/07/18 22:31 Dose: 5 ml Piperacillin Sod/Tazobactam (Sod 2.25 gm/ Dextrose) 50 mls @ 100 mls/hr IVPB Q8H-IV [facility]; Protocol Last Admin: 10/08/18 03:23 Dose: 100 mls/hr Azithromycin (Zithromax 500mg Ivpb (Pre-Docked)) 500 mg in 250 mls @ 250 mls/ hr IVPB DAILY [facility] Last Admin: 10/07/18 09:23 Dose: 250 mls/hr Insulin Aspart (Novolog Vial Sliding Scale -) 1 vial SQ ACHS [facility]; Protocol Last Admin: 10/08/18 06:33 Dose: Not Given Methylprednisolone Sodium Succinate (Solu-Medrol -) 60 mg IVPB Q6H-IV [facility] Last Admin: 10/08/18 03:23 Dose: 60 mg Metoprolol Tartrate (Lopressor -) 25 mg PO BID [facility] Last Admin: 10/07/18 22:31 Dose: 25 mg Mirtazapine (Remeron -) 7.5 mg PO [facility] Last Admin: 10/07/18 22:31 Dose: 7.5 mg Multivitamins/Minerals/Vitamin C (Tab-A-Vit -) 1 tab PO DAILY [facility] Last Admin: 10/07/18 09:21 Dose: 1 tab Nitroglycerin (Nitrostat -) 0.4 mg SL Q5M PRN PRN Reason: FOR CHEST PAIN Last Admin: 10/03/18 14:10 Dose: 0.4 mg Pantoprazole Sodium (Protonix -) 40 mg PO DAILY [facility] Last Admin: 10/07/18 09:21 Dose: 40 mg Roflumilast (Daliresp -) 500 mcg PO DAILY [facility] Last Admin: 10/07/18 09:22 Dose: 500 mcg Rosuvastatin Calcium (Crestor -) 5 mg PO [facility] Last Admin: 10/07/18 22:31 Dose: 5 mg - Objective Vital Signs: Vital Signs Temperature 98.0 F 10/08/18 08:26 Pulse Rate 63 10/08/18 08:26 Respiratory Rate 20 10/08/18 08:28 Blood Pressure 149/90 10/08/18 08:26 O2 Sat by Pulse Oximetry (%) 94 L 10/08/18 08:28 Cardiovascular: Yes: Regular Rate and Rhythm Respiratory: Yes: Diminished, Rhonchi Gastrointestinal: Yes: Normal Bowel Sounds, Soft Labs: CBC, BMP 10/08/18 05:30 10/08/18 05:30 INR, PTT INR 1.00 (0.83-1.09) 10/06/18 07:55 Assessment/Plan - Problems (1) COPD (chronic obstructive pulmonary disease) Assessment/Plan: daliresp and bronchodilators pulmicort iv steroids cxr Code(s): J44.9 - CHRONIC OBSTRUCTIVE PULMONARY DISEASE, UNSPECIFIED Qualifiers: COPD type: unspecified COPD Qualified Code(s): J44.9 - Chronic obstructive pulmonary disease, unspecified (2) Cough Assessment/Plan: URI symptoms rapid flu test neg ID consult oxygen as needed bronchodilators abx per ID dvt ppx Code(s): R05 - COUGH (3) Hx of CABG Assessment/Plan: plavix ,aspirin , metoprolol, statin Code(s): Z95.1 - PRESENCE OF AORTOCORONARY BYPASS GRAFT (4) Diabetes Assessment/Plan: hgba1c,sliding scale,glucotrol diabetic diet endo Code(s): E11.9 - TYPE 2 DIABETES MELLITUS WITHOUT COMPLICATIONS Qualifiers: Diabetes mellitus type: type 2 (5) Lumbar stenosis Assessment/Plan: baclofen tid Code(s): M48.061 - SPINAL STENOSIS, LUMBAR REGION WITHOUT NEUROGENIC KEESHA
[2018-10-08] MEDS: glipiZIDE-XL 2.5 MG TAB.ER.24 PO SCH (09:20)
[2018-10-08] MEDS: ROFLUMILAST 500 MCG TABLET PO SCH (09:20)
[2018-10-08] MEDS: PANTOPRAZOLE 40 MG TABLET (FP) PO SCH (09:21)
[2018-10-08] MEDS: METOPROLOL TARTRATE 25 MG TABLET (FP) PO SCH ×2 (09:21→21:04)
[2018-10-08] MEDS: ENOXAPARIN NA (PORCINE) 40 MG/0.4 ML DISP.SYRIN SQ SCH (09:21)
[2018-10-08] MEDS: ASPIRIN COATED 81 MG TABLET.EC PO SCH (09:21)
[2018-10-08] MEDS: FUROSEMIDE 20 MG TABLET (FP) PO SCH (09:21)
[2018-10-08] MEDS: CALCITRIOL 0.25 MCG CAPSULE (FP) PO SCH (09:21)
[2018-10-08] MEDS: AZITHROMYCIN IVPB 500 MG/250 ML BAG IVPB SCH (09:22)
[2018-10-08] MEDS: CLOPIDOGREL BISULFATE 75 MG TABLET (FP) PO SCH (09:25)
[2018-10-08] MEDS: MULTIVITAMINS (DAILY MVI) TABLET (FP) PO SCH (09:25)
[2018-10-08 11:26] LABS: ANISOCYTOSIS 0; MACROCYTOSIS 0; PLATELET ESTIMATE NORMAL
--- NOTE | 2018-10-08 11:45 | PN ---
Progress Note, Physician History of Present Illness: pulmonary alert,still very congested,+ dyspnea with min exertion - Current Medication List Current Medications: Active Medications Acetaminophen (Tylenol -) 650 mg PO Q6H PRN PRN Reason: FEVER Last Admin: 10/06/18 21:54 Dose: 650 mg Albuterol Sulfate (Ventolin 0.083% Nebulizer Soln -) 1 amp NEB Q4H PRN PRN Reason: SHORT OF BREATH/WHEEZING Albuterol/Ipratropium (Duoneb -) 1 amp NEB Q4H [facility] Last Admin: 10/08/18 08:36 Dose: 1 amp Aspirin (Ecotrin -) 81 mg PO DAILY [facility] Last Admin: 10/08/18 09:21 Dose: 81 mg Baclofen (Lioresal -) 10 mg PO TID [facility] Last Admin: 10/08/18 06:31 Dose: 10 mg Benzocaine/Menthol (Cepacol Lozenge -) 1 each MM PRN PRN PRN Reason: SORE THROAT Last Admin: 10/05/18 15:49 Dose: 1 each Budesonide (Pulmicort 0.25 Mg Nebulizer -) 1 amp NEB RBID [facility] Last Admin: 10/07/18 20:01 Dose: 1 amp Calcitriol (Rocaltrol -) 0.25 mcg PO DAILY [facility] Last Admin: 10/08/18 09:21 Dose: 0.25 mcg Clopidogrel Bisulfate (Plavix -) 75 mg PO DAILY [facility] Last Admin: 10/08/18 09:25 Dose: 75 mg Docusate Sodium (Colace -) 100 mg PO Q12H PRN PRN Reason: CONSTIPATION Enoxaparin Sodium (Lovenox -) 40 mg SQ DAILY [facility] Last Admin: 10/08/18 09:21 Dose: 40 mg Furosemide (Lasix -) 20 mg PO DAILY [facility] Last Admin: 10/08/18 09:21 Dose: 20 mg Glipizide (Glucotrol Xl -) 2.5 mg PO DAILY@0700 [facility] Last Admin: 10/08/18 09:20 Dose: 2.5 mg Guaifenesin/Codeine Phosphate (Robitussin Ac -) 5 ml PO TID PRN PRN Reason: COUGH Last Admin: 10/07/18 22:31 Dose: 5 ml Piperacillin Sod/Tazobactam (Sod 2.25 gm/ Dextrose) 50 mls @ 100 mls/hr IVPB Q8H-IV [facility]; Protocol Last Admin: 10/08/18 09:22 Dose: 100 mls/hr Azithromycin (Zithromax 500mg Ivpb (Pre-Docked)) 500 mg in 250 mls @ 250 mls/ hr IVPB DAILY [facility] Last Admin: 10/08/18 09:22 Dose: 250 mls/hr Insulin Aspart (Novolog Vial Sliding Scale -) 1 vial SQ ACHS [facility]; Protocol Last Admin: 10/08/18 06:33 Dose: Not Given Methylprednisolone Sodium Succinate (Solu-Medrol -) 60 mg IVPB Q6H-IV [facility] Last Admin: 10/08/18 09:22 Dose: 60 mg Metoprolol Tartrate (Lopressor -) 25 mg PO BID [facility] Last Admin: 10/08/18 09:21 Dose: 25 mg Mirtazapine (Remeron -) 7.[address] [facility] Last Admin: 10/07/18 22:31 Dose: 7.5 mg Multivitamins/Minerals/Vitamin C (Tab-A-Vit -) 1 tab PO DAILY [facility] Last Admin: 10/08/18 09:25 Dose: 1 tab Nitroglycerin (Nitrostat -) 0.4 mg SL Q5M PRN PRN Reason: FOR CHEST PAIN Last Admin: 10/03/18 14:10 Dose: 0.4 mg Pantoprazole Sodium (Protonix -) 40 mg PO DAILY [facility] Last Admin: 10/08/18 09:21 Dose: 40 mg Roflumilast (Daliresp -) 500 mcg PO DAILY [facility] Last Admin: 10/08/18 09:20 Dose: 500 mcg Rosuvastatin Calcium (Crestor -) [address] [facility] Last Admin: 10/07/18 22:31 Dose: 5 mg - Objective Vital Signs: Vital Signs Temperature 98.0 F 10/08/18 08:26 Pulse Rate 63 10/08/18 08:26 Respiratory Rate 20 10/08/18 08:28 Blood Pressure 149/90 10/08/18 08:26 O2 Sat by Pulse Oximetry (%) 94 L 10/08/18 08:28 Constitutional: Yes: Well Nourished, Calm Eyes: Yes: WNL HENT: Yes: WNL Neck: Yes: WNL Cardiovascular: Yes: Regular Rate and Rhythm, S1, S2 Respiratory: Yes: Rhonchi, Wheezes (bilateral wheezes and rhonchi) Gastrointestinal: Yes: Normal Bowel Sounds, Soft Extremities: Yes: WNL Edema: No Labs: CBC, BMP 10/08/18 05:30 10/08/18 05:30 INR, PTT INR 1.00 (0.83-1.09) 10/06/18 07:55 Problem List - Problems (1) COPD (chronic obstructive pulmonary disease) Code(s): J44.9 - CHRONIC OBSTRUCTIVE PULMONARY DISEASE, UNSPECIFIED Qualifiers: COPD type: unspecified COPD Qualified Code(s): J44.9 - Chronic obstructive pulmonary disease, unspecified (2) Cough Code(s): R05 - COUGH (3) Diabetes Code(s): E11.9 - TYPE 2 DIABETES MELLITUS WITHOUT COMPLICATIONS Qualifiers: Diabetes mellitus type: type 2 (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 - PRESENCE OF AORTOCORONARY BYPASS GRAFT (5) Hypertension Code(s): I10 - ESSENTIAL (PRIMARY) HYPERTENSION Qualifiers: Hypertension type: unspecified Qualified Code(s): I10 - Essential (primary ) hypertension (6) Pneumonia Code(s): J18.9 - PNEUMONIA, UNSPECIFIED ORGANISM Qualifiers: Pneumonia type: due to unspecified organism Laterality: unspecified laterality Lung location: unspecified part of lung Qualified Code(s): J18.9 - Pneumonia, unspecified organism Assessment/Plan IMP COPD EXACERBATION PNEUMONIA LLL ASHD S/P CABG DM HTN PLAN IV MEDROL SAME DOSE INHALED BRONCHODILATORS ABX O2 BROVANA PFTS OUTPATIENT DR KARIMI Problem List - Problems (1) COPD (chronic obstructive pulmonary disease) Code(s): J44.9 - CHRONIC OBSTRUCTIVE PULMONARY DISEASE, UNSPECIFIED Qualifiers: COPD type: unspecified COPD Qualified Code(s): J44.9 - Chronic obstructive pulmonary disease, unspecified (2) Cough Code(s): R05 - COUGH (3) Diabetes Code(s): E11.9 - TYPE 2 DIABETES MELLITUS WITHOUT COMPLICATIONS Qualifiers: Diabetes mellitus type: type 2 (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 - PRESENCE OF AORTOCORONARY BYPASS GRAFT (5) Hypertension Code(s): I10 - ESSENTIAL (PRIMARY) HYPERTENSION Qualifiers: Hypertension type: unspecified Qualified Code(s): I10 - Essential (primary ) hypertension (6) Pneumonia Code(s): J18.9 - PNEUMONIA, UNSPECIFIED ORGANISM Qualifiers: Pneumonia type: due to unspecified organism Laterality: unspecified laterality Lung location: unspecified part of lung Qualified Code(s): J18.9 - Pneumonia, unspecified organism
--- NOTE | 2018-10-08 13:37 | PN ---
Progress Note, Physician History of Present Illness: Pt seen and examined at bedside. She complains of congestion and cough. - Current Medication List Current Medications: Active Medications Acetaminophen (Tylenol -) 650 mg PO Q6H PRN PRN Reason: FEVER Last Admin: 10/06/18 21:54 Dose: 650 mg Albuterol Sulfate (Ventolin 0.083% Nebulizer Soln -) 1 amp NEB Q4H PRN PRN Reason: SHORT OF BREATH/WHEEZING Last Admin: 10/08/18 12:06 Dose: 1 amp Arformoterol Tartrate (Brovana (Restricted To Pulmonology/Resp) -) 1 amp NEB RBID [facility] Aspirin (Ecotrin -) 81 mg PO DAILY [facility] Last Admin: 10/08/18 09:21 Dose: 81 mg Baclofen (Lioresal -) 10 mg PO TID [facility] Last Admin: 10/08/18 06:31 Dose: 10 mg Benzocaine/Menthol (Cepacol Lozenge -) 1 each MM PRN PRN PRN Reason: SORE THROAT Last Admin: 10/05/18 15:49 Dose: 1 each Calcitriol (Rocaltrol -) 0.25 mcg PO DAILY [facility] Last Admin: 10/08/18 09:21 Dose: 0.25 mcg Clopidogrel Bisulfate (Plavix -) 75 mg PO DAILY [facility] Last Admin: 10/08/18 09:25 Dose: 75 mg Docusate Sodium (Colace -) 100 mg PO Q12H PRN PRN Reason: CONSTIPATION Enoxaparin Sodium (Lovenox -) 40 mg SQ DAILY [facility] Last Admin: 10/08/18 09:21 Dose: 40 mg Furosemide (Lasix -) 20 mg PO DAILY [facility] Last Admin: 10/08/18 09:21 Dose: 20 mg Glipizide (Glucotrol Xl -) 2.5 mg PO DAILY@0700 [facility] Last Admin: 10/08/18 09:20 Dose: 2.5 mg Guaifenesin/Codeine Phosphate (Robitussin Ac -) 5 ml PO TID PRN PRN Reason: COUGH Last Admin: 10/07/18 22:31 Dose: 5 ml Piperacillin Sod/Tazobactam (Sod 2.25 gm/ Dextrose) 50 mls @ 100 mls/hr IVPB Q8H-IV [facility]; Protocol Last Admin: 10/08/18 09:22 Dose: 100 mls/hr Azithromycin (Zithromax 500mg Ivpb (Pre-Docked)) 500 mg in 250 mls @ 250 mls/ hr IVPB DAILY [facility] Last Admin: 10/08/18 09:22 Dose: 250 mls/hr Insulin Aspart (Novolog Vial Sliding Scale -) 1 vial SQ ACHS [facility]; Protocol Last Admin: 10/08/18 11:16 Dose: Not Given Methylprednisolone Sodium Succinate (Solu-Medrol -) 60 mg IVPB Q6H-IV [facility] Last Admin: 10/08/18 09:22 Dose: 60 mg Metoprolol Tartrate (Lopressor -) 25 mg PO BID [facility] Last Admin: 10/08/18 09:21 Dose: 25 mg Mirtazapine (Remeron -) 7.5 mg PO [facility] Last Admin: 10/07/18 22:31 Dose: 7.5 mg Mometasone Furoate (Asmanex 220mcg -) 2 puff IH RBID [facility] Multivitamins/Minerals/Vitamin C (Tab-A-Vit -) 1 tab PO DAILY [facility] Last Admin: 10/08/18 09:25 Dose: 1 tab Nitroglycerin (Nitrostat -) 0.4 mg SL Q5M PRN PRN Reason: FOR CHEST PAIN Last Admin: 10/03/18 14:10 Dose: 0.4 mg Pantoprazole Sodium (Protonix -) 40 mg PO DAILY [facility] Last Admin: 10/08/18 09:21 Dose: 40 mg Roflumilast (Daliresp -) 500 mcg PO DAILY [facility] Last Admin: 10/08/18 09:20 Dose: 500 mcg Rosuvastatin Calcium (Crestor -) 5 mg PO [facility] Last Admin: 10/07/18 22:31 Dose: 5 mg - Objective Vital Signs: Vital Signs Temperature 98.0 F 10/08/18 08:26 Pulse Rate 63 10/08/18 08:26 Respiratory Rate 20 10/08/18 08:28 Blood Pressure 149/90 10/08/18 08:26 O2 Sat by Pulse Oximetry (%) 94 L 10/08/18 08:28 Constitutional: Yes: Calm Eyes: Yes: Conjunctiva Clear HENT: Yes: Atraumatic Cardiovascular: Yes: S1, S2 Respiratory: Yes: On Nasal O2, Wheezes Gastrointestinal: Yes: Soft, Abdomen, Obese Genitourinary: Yes: WNL Musculoskeletal: Yes: WNL Edema: Yes Edema: LLE: Trace, RLE: Trace Neurological: Yes: Oriented Psychiatric: Yes: Oriented Labs: CBC, BMP 10/08/18 05:30 10/08/18 05:30 INR, PTT INR 1.00 (0.83-1.09) 10/06/18 07:55 Assessment/Plan Current Medications Generic Name Dose Route Start Last Admin Trade Name Freq PRN Reason Stop Dose Admin Acetaminophen 650 mg 09/30/18 16:17 10/06/18 21:54 Tylenol - PO 650 mg Q6H PRN Administration FEVER Albuterol Sulfate 1 amp 10/06/18 06:39 10/08/18 12:06 Ventolin 0.083% Nebulizer Soln - NEB 1 amp Q4H PRN Administration SHORT OF BREATH/WHEEZING Arformoterol Tartrate 1 amp 10/08/18 20:00 Brovana (Restricted To Pulmonology/Resp) - NEB RBID [facility] Aspirin 81 mg 10/01/18 10:00 10/08/18 09:21 Ecotrin - PO 81 mg DAILY [facility] Administration Baclofen 10 mg 09/30/18 22:00 10/08/18 06:31 Lioresal - PO 10 mg TID [facility] Administration Benzocaine/Menthol 1 each 10/05/18 12:59 10/05/18 15:49 Cepacol Lozenge - MM 1 each PRN PRN Administration SORE THROAT Calcitriol 0.25 mcg 10/01/18 10:00 10/08/18 09:21 Rocaltrol - PO 0.25 mcg DAILY LEONARDO Administration Clopidogrel Bisulfate 75 mg 10/01/18 10:00 10/08/18 09:25 Plavix - PO 75 mg DAILY LEONARDO Administration Docusate Sodium 100 mg 09/30/18 16:17 Colace - PO Q12H PRN CONSTIPATION Enoxaparin Sodium 40 mg 10/02/18 10:00 10/08/18 09:21 Lovenox - SQ 40 mg DAILY LEONARDO Administration Furosemide 20 mg 10/01/18 10:00 10/08/18 09:21 Lasix - PO 20 mg DAILY LEONARDO Administration Glipizide 2.5 mg 10/01/18 07:00 10/08/18 09:20 Glucotrol Xl - PO 2.5 mg DAILY@0700 LEONARDO Administration Guaifenesin/Codeine Phosphate 5 ml 10/06/18 12:16 10/07/18 22:31 Robitussin Ac - PO 5 ml TID PRN Administration COUGH Piperacillin Sod/Tazobactam 50 mls @ 100 mls/hr 10/01/18 13:15 10/08/18 09:22 Sod 2.25 gm/ Dextrose IVPB 100 mls/hr Q8H-IV LEONARDO Administration Protocol Azithromycin 500 mg in 250 mls @ 250 mls/hr 10/01/18 13:15 10/08/18 09:22 Zithromax 500mg Ivpb (Pre-Docked) IVPB 250 mls/hr DAILY LEONARDO Administration Insulin Aspart 1 vial 10/01/18 11:00 10/08/18 11:16 Novolog Vial Sliding Scale - SQ Not Given ACHS [facility] Protocol Methylprednisolone Sodium Succinate 60 mg 10/02/18 21:00 10/08/18 09:22 Solu-Medrol - IVPB 60 mg Q6H-IV LEONARDO Administration Metoprolol Tartrate 25 mg 09/30/18 22:00 10/08/18 09:21 Lopressor - PO 25 mg BID LEONARDO Administration Mirtazapine 7.5 mg 09/30/18 22:00 10/07/18 22:31 Remeron - PO 7.5 mg HS [facility] Administration Mometasone Furoate 2 puff 10/08/18 20:00 Asmanex 220mcg - IH RBID [facility] Multivitamins/Minerals/Vitamin C 1 tab 10/01/18 10:00 10/08/18 09:25 Tab-A-Vit - PO 1 tab DAILY [facility] Administration Nitroglycerin 0.4 mg 10/03/18 14:03 10/03/18 14:10 Nitrostat - SL 0.4 mg Q5M PRN Administration FOR CHEST PAIN Pantoprazole Sodium 40 mg 10/01/18 10:00 10/08/18 09:21 Protonix - PO 40 mg DAILY LEONARDO Administration Roflumilast 500 mcg 10/01/18 10:00 10/08/18 09:20 Daliresp - PO 500 mcg DAILY LEONARDO Administration Rosuvastatin Calcium 5 mg 09/30/18 22:00 10/07/18 22:31 Crestor - PO 5 mg HS LEONARDO Administration Impression 1. azotemia 2. copd 3. htn 4. cad 5. hld Plan - monitor lytes - check bun after off of steroids - pt on 20 mg of lasix, monitor volume status - pulm follow up appreciated - avoid nsaids
[2018-10-08] MEDS ORDERED: BENZOCAINE/MENTH/CETYLPYRD CL 1 EACH LOZENGE MM PRN (19:28)
[2018-10-08] MEDS ORDERED: NITROGLYCERIN SUBLINGUAL 1/150 0.4 MG TAB SL PRN (19:28)
[2018-10-08] MEDS ORDERED: DOCUSATE SODIUM 100 MG CAPSULE (FP) PO PRN (19:28)
[2018-10-08] MEDS: MOMETASONE FUROATE 220 MCG/IH INHALER IH SCH (20:26)
[2018-10-08] MEDS: ARFORMOTEROL TARTRATE 15 MCG/2 ML VIAL NEB SCH (20:30)
[2018-10-08] MEDS: MIRTAZAPINE 15 MG TABLET (FP) PO SCH (21:02)
[2018-10-08] MEDS: ROSUVASTATIN CA 5 MG TABLET (FP) PO SCH (21:03)
[2018-10-08] MEDS: ACETAMINOPHEN 325 MG TABLET (FP) PO PRN (21:36)
[2018-10-09] MEDS ORDERED: DEXTROSE 5%-WATER - 50 ML IVPB ONE ×3 (02:15→17:09)
[2018-10-09] MEDS ORDERED: PIPERACILLIN/TAZOBACTAM 2.25 GM VIAL IVPB ONE ×3 (02:15→17:09)
[2018-10-09] MEDS: PIPERACILLIN/TAZOB 2.25 GM 2.25 GM in DEXTROSE 5%-WATER - 50 ML IVPB SCH ×3 (02:25→18:13)
[2018-10-09] MEDS: methylPREDNISolone NA SUCC 40 MG/1 ML VIAL IVPB SCH ×4 (02:32→21:25)
[2018-10-09] MEDS: BACLOFEN 10 MG TABLET (FP) PO SCH ×3 (05:37→21:25)
[2018-10-09] MEDS: INSULIN SLIDING SCALE (NOVOLOG) 1 VIAL SQ SCH ×4 (06:13→21:32)
[2018-10-09 07:49] LABS: ALBUMIN 2.5 g/dl (3.4-5.0); ALK PHOS 68 U/L (45-117); ANION GAP 10 MMOL/L (8-16); BILIRUBIN,TOTAL 0.5 mg/dL (0.2-1); BLOOD UREA NITROGEN 43 mg/dL (7-18); CALCIUM 8.6 mg/dL (8.5-10.1); CHLORIDE 102 mmol/L (98-107); CO2 29 mmol/L (21-32); CREATININE 0.9 mg/dL (0.55-1.3); GLUCOSE,RANDOM 101 mg/dL (74-106); POTASSIUM 3.9 mmol/L (3.5-5.1); SGOT/AST 12 U/L (15-37); SGPT/ALT 29 U/L (13-61); SODIUM 140 mmol/L (136-145); TOT PROT 5.8 g/dl (6.4-8.2)
[2018-10-09] MEDS ORDERED: PT OWN MED DRAWER 7, Y5N ONE ×3 (07:52→21:23)
[2018-10-09] MEDS: ARFORMOTEROL TARTRATE 15 MCG/2 ML VIAL NEB SCH ×2 (08:22→21:00)
[2018-10-09] MEDS: glipiZIDE-XL 2.5 MG TAB.ER.24 PO SCH (08:30)
[2018-10-09] MEDS: MOMETASONE FUROATE 220 MCG/IH INHALER IH SCH ×2 (08:30→22:20)
--- NOTE | 2018-10-09 09:18 | PN ---
Progress Note, Physician - Current Medication List Current Medications: Active Medications Acetaminophen (Tylenol -) 650 mg PO Q6H PRN PRN Reason: FEVER Last Admin: 10/08/18 21:36 Dose: 650 mg Albuterol Sulfate (Ventolin 0.083% Nebulizer Soln -) 1 amp NEB Q4H PRN PRN Reason: SHORT OF BREATH/WHEEZING Last Admin: 10/08/18 12:06 Dose: 1 amp Arformoterol Tartrate (Brovana (Restricted To Pulmonology/Resp) -) 1 amp NEB RBID [facility] Last Admin: 10/08/18 20:30 Dose: 1 amp Aspirin (Ecotrin -) 81 mg PO DAILY [facility] Baclofen (Lioresal -) 10 mg PO TID [facility] Last Admin: 10/09/18 05:37 Dose: 10 mg Benzocaine/Menthol (Cepacol Lozenge -) 1 each MM PRN PRN PRN Reason: SORE THROAT Calcitriol (Rocaltrol -) 0.25 mcg PO DAILY [facility] Clopidogrel Bisulfate (Plavix -) 75 mg PO DAILY [facility] Docusate Sodium (Colace -) 100 mg PO Q12H PRN PRN Reason: CONSTIPATION Enoxaparin Sodium (Lovenox -) 40 mg SQ DAILY [facility] Furosemide (Lasix -) 20 mg PO DAILY [facility] Glipizide (Glucotrol Xl -) 2.5 mg PO DAILY@0700 [facility] Last Admin: 10/09/18 08:30 Dose: 2.5 mg Guaifenesin/Codeine Phosphate (Robitussin Ac -) 5 ml PO TID PRN PRN Reason: COUGH Last Admin: 10/07/18 22:31 Dose: 5 ml Azithromycin (Zithromax 500mg Ivpb (Pre-Docked)) 500 mg in 250 mls @ 250 mls/ hr IVPB DAILY [facility] Piperacillin Sod/Tazobactam (Sod 2.25 gm/ Dextrose) 50 mls @ 100 mls/hr IVPB Q8H-IV [facility]; Protocol Last Admin: 10/09/18 02:25 Dose: 100 mls/hr Insulin Aspart (Novolog Vial Sliding Scale -) 1 vial SQ ACHS [facility]; Protocol Last Admin: 10/09/18 06:13 Dose: Not Given Methylprednisolone Sodium Succinate (Solu-Medrol -) 60 mg IVPB Q6H-IV [facility] Last Admin: 10/09/18 02:32 Dose: 60 mg Metoprolol Tartrate (Lopressor -) 25 mg PO BID [facility] Last Admin: 10/08/18 21:04 Dose: 25 mg Mirtazapine (Remeron -) 7.5 mg PO HS [facility] Last Admin: 10/08/18 21:02 Dose: 7.5 mg Mometasone Furoate (Asmanex 220mcg -) 2 puff IH RBID [facility] Last Admin: 10/09/18 08:30 Dose: 2 pfu Multivitamins/Minerals/Vitamin C (Tab-A-Vit -) 1 tab PO DAILY [facility] Nitroglycerin (Nitrostat -) 0.4 mg SL Q5M PRN PRN Reason: FOR CHEST PAIN Pantoprazole Sodium (Protonix -) 40 mg PO DAILY [facility] Roflumilast (Daliresp -) 500 mcg PO DAILY [facility] Rosuvastatin Calcium (Crestor -) 5 mg PO [facility] Last Admin: 10/08/18 21:03 Dose: 5 mg - Objective Vital Signs: Vital Signs Temperature 97.8 F 10/09/18 05:45 Pulse Rate 64 10/09/18 05:45 Respiratory Rate 20 10/09/18 05:45 Blood Pressure 160/90 10/09/18 05:45 O2 Sat by Pulse Oximetry (%) 94 L 10/08/18 21:00 Cardiovascular: Yes: S1, S2 Respiratory: Yes: On Nasal O2, Rhonchi Gastrointestinal: Yes: Normal Bowel Sounds, Soft Labs: CBC, BMP 10/08/18 05:30 10/09/18 05:30 INR, PTT INR 1.00 (0.83-1.09) 10/06/18 07:55 Assessment/Plan - Problems (1) COPD (chronic obstructive pulmonary disease) Assessment/Plan: daliresp and bronchodilators pulmicort iv steroids cxr Code(s): J44.9 - CHRONIC OBSTRUCTIVE PULMONARY DISEASE, UNSPECIFIED Qualifiers: COPD type: unspecified COPD Qualified Code(s): J44.9 - Chronic obstructive pulmonary disease, unspecified (2) Cough Assessment/Plan: URI symptoms rapid flu test neg ID consult oxygen as needed bronchodilators abx per ID dvt ppx Code(s): R05 - COUGH (3) Hx of CABG Assessment/Plan: plavix ,aspirin , metoprolol, statin Code(s): Z95.1 - PRESENCE OF AORTOCORONARY BYPASS GRAFT (4) Diabetes Assessment/Plan: hgba1c,sliding scale,glucotrol diabetic diet endo Code(s): E11.9 - TYPE 2 DIABETES MELLITUS WITHOUT COMPLICATIONS Qualifiers: Diabetes mellitus type: type 2 (5) Lumbar stenosis Assessment/Plan: baclofen tid Code(s): M48.061 - SPINAL STENOSIS, LUMBAR REGION WITHOUT NEUROGENIC KEESHA
[2018-10-09] MEDS: CALCITRIOL 0.25 MCG CAPSULE (FP) PO SCH (09:35)
[2018-10-09] MEDS: MULTIVITAMINS (DAILY MVI) TABLET (FP) PO SCH (09:36)
[2018-10-09] MEDS: METOPROLOL TARTRATE 25 MG TABLET (FP) PO SCH ×2 (09:36→21:24)
[2018-10-09] MEDS: ROFLUMILAST 500 MCG TABLET PO SCH (09:36)
[2018-10-09] MEDS: ENOXAPARIN NA (PORCINE) 40 MG/0.4 ML DISP.SYRIN SQ SCH (09:36)
[2018-10-09] MEDS: FUROSEMIDE 20 MG TABLET (FP) PO SCH (09:36)
[2018-10-09] MEDS: CLOPIDOGREL BISULFATE 75 MG TABLET (FP) PO SCH (09:36)
[2018-10-09] MEDS: ASPIRIN COATED 81 MG TABLET.EC PO SCH (09:36)
[2018-10-09] MEDS: AZITHROMYCIN IVPB 500 MG/250 ML BAG IVPB SCH (09:37)
[2018-10-09] MEDS: PANTOPRAZOLE 40 MG TABLET (FP) PO SCH (09:37)
--- NOTE | 2018-10-09 10:41 | PN ---
Progress Note, Physician History of Present Illness: Pt seen and examined at bedside. She says that her breathing feels better today but she still get short of breath with ambulation. - Current Medication List Current Medications: Active Medications Acetaminophen (Tylenol -) 650 mg PO Q6H PRN PRN Reason: FEVER Last Admin: 10/08/18 21:36 Dose: 650 mg Albuterol Sulfate (Ventolin 0.083% Nebulizer Soln -) 1 amp NEB Q4H PRN PRN Reason: SHORT OF BREATH/WHEEZING Last Admin: 10/08/18 12:06 Dose: 1 amp Arformoterol Tartrate (Brovana (Restricted To Pulmonology/Resp) -) 1 amp NEB RBID [facility] Last Admin: 10/08/18 20:30 Dose: 1 amp Aspirin (Ecotrin -) 81 mg PO DAILY [facility] Last Admin: 10/09/18 09:36 Dose: 81 mg Baclofen (Lioresal -) 10 mg PO TID [facility] Last Admin: 10/09/18 05:37 Dose: 10 mg Benzocaine/Menthol (Cepacol Lozenge -) 1 each MM PRN PRN PRN Reason: SORE THROAT Calcitriol (Rocaltrol -) 0.25 mcg PO DAILY [facility] Last Admin: 10/09/18 09:35 Dose: 0.25 mcg Clopidogrel Bisulfate (Plavix -) 75 mg PO DAILY [facility] Last Admin: 10/09/18 09:36 Dose: 75 mg Docusate Sodium (Colace -) 100 mg PO Q12H PRN PRN Reason: CONSTIPATION Enoxaparin Sodium (Lovenox -) 40 mg SQ DAILY [facility] Last Admin: 10/09/18 09:36 Dose: 40 mg Furosemide (Lasix -) 20 mg PO DAILY [facility] Last Admin: 10/09/18 09:36 Dose: 20 mg Glipizide (Glucotrol Xl -) 2.5 mg PO DAILY@0700 [facility] Last Admin: 10/09/18 08:30 Dose: 2.5 mg Guaifenesin/Codeine Phosphate (Robitussin Ac -) 5 ml PO TID PRN PRN Reason: COUGH Last Admin: 10/07/18 22:31 Dose: 5 ml Azithromycin (Zithromax 500mg Ivpb (Pre-Docked)) 500 mg in 250 mls @ 250 mls/ hr IVPB DAILY [facility] Last Admin: 10/09/18 09:37 Dose: 250 mls/hr Piperacillin Sod/Tazobactam (Sod 2.25 gm/ Dextrose) 50 mls @ 100 mls/hr IVPB Q8H-IV [facility]; Protocol Last Admin: 10/09/18 09:37 Dose: 100 mls/hr Insulin Aspart (Novolog Vial Sliding Scale -) 1 vial SQ ACHS [facility]; Protocol Last Admin: 10/09/18 06:13 Dose: Not Given Methylprednisolone Sodium Succinate (Solu-Medrol -) 60 mg IVPB Q6H-IV [facility] Last Admin: 10/09/18 09:35 Dose: 60 mg Metoprolol Tartrate (Lopressor -) 25 mg PO BID [facility] Last Admin: 10/09/18 09:36 Dose: 25 mg Mirtazapine (Remeron -) 7.5 mg PO [facility] Last Admin: 10/08/18 21:02 Dose: 7.5 mg Mometasone Furoate (Asmanex 220mcg -) 2 puff IH RBID [facility] Last Admin: 10/09/18 08:30 Dose: 2 pfu Multivitamins/Minerals/Vitamin C (Tab-A-Vit -) 1 tab PO DAILY [facility] Last Admin: 10/09/18 09:36 Dose: 1 tab Nitroglycerin (Nitrostat -) 0.4 mg SL Q5M PRN PRN Reason: FOR CHEST PAIN Pantoprazole Sodium (Protonix -) 40 mg PO DAILY [facility] Last Admin: 10/09/18 09:37 Dose: 40 mg Roflumilast (Daliresp -) 500 mcg PO DAILY [facility] Last Admin: 10/09/18 09:36 Dose: 500 mcg Rosuvastatin Calcium (Crestor -) 5 mg PO [facility] Last Admin: 10/08/18 21:03 Dose: 5 mg - Objective Vital Signs: Vital Signs Temperature 97.8 F 10/09/18 05:45 Pulse Rate 64 10/09/18 05:45 Respiratory Rate 20 10/09/18 05:45 Blood Pressure 160/90 10/09/18 05:45 O2 Sat by Pulse Oximetry (%) 94 L 10/08/18 21:00 Constitutional: Yes: Calm Eyes: Yes: Conjunctiva Clear HENT: Yes: Atraumatic Cardiovascular: Yes: S1, S2 Respiratory: Yes: On Nasal O2, Wheezes Gastrointestinal: Yes: Normal Bowel Sounds, Soft Genitourinary: Yes: WNL Musculoskeletal: Yes: WNL Edema: No Neurological: Yes: Oriented Psychiatric: Yes: Oriented Labs: CBC, BMP 10/08/18 05:30 10/09/18 05:30 INR, PTT INR 1.00 (0.83-1.09) 10/06/18 07:55 Problem List - Problems (1) Azotemia Code(s): R79.89 - OTHER SPECIFIED ABNORMAL FINDINGS OF BLOOD CHEMISTRY (2) CAD (coronary artery disease) Code(s): I25.10 - ATHSCL HEART DISEASE OF [place] CORONARY ARTERY W/O ANG PCTRS (3) COPD (chronic obstructive pulmonary disease) Code(s): J44.9 - CHRONIC OBSTRUCTIVE PULMONARY DISEASE, UNSPECIFIED Qualifiers: COPD type: unspecified COPD Qualified Code(s): J44.9 - Chronic obstructive pulmonary disease, unspecified Assessment/Plan Current Medications Generic Name Dose Route Start Last Admin Trade Name Freq PRN Reason Stop Dose Admin Acetaminophen 650 mg 10/08/18 19:28 10/08/18 21:36 Tylenol - PO 650 mg Q6H PRN Administration FEVER Albuterol Sulfate 1 amp 10/06/18 06:39 10/08/18 12:06 Ventolin 0.083% Nebulizer Soln - NEB 1 amp Q4H PRN Administration SHORT OF BREATH/WHEEZING Arformoterol Tartrate 1 amp 10/08/18 20:00 10/08/18 20:30 Brovana (Restricted To Pulmonology/Resp) - NEB 1 amp RBID [facility] Administration Aspirin 81 mg 10/09/18 10:00 10/09/18 09:36 Ecotrin - PO 81 mg DAILY [facility] Administration Baclofen 10 mg 10/08/18 22:00 10/09/18 05:37 Lioresal - PO 10 mg TID [facility] Administration Benzocaine/Menthol 1 each 10/08/18 19:28 Cepacol Lozenge - MM PRN PRN SORE THROAT Calcitriol 0.25 mcg 10/09/18 10:00 10/09/18 09:35 Rocaltrol - PO 0.25 mcg DAILY [facility] Administration Clopidogrel Bisulfate 75 mg 10/09/18 10:00 10/09/18 09:36 Plavix - PO 75 mg DAILY [facility] Administration Docusate Sodium 100 mg 10/08/18 19:28 Colace - PO Q12H PRN CONSTIPATION Enoxaparin Sodium 40 mg 10/09/18 10:00 10/09/18 09:36 Lovenox - SQ 40 mg DAILY [facility] Administration Furosemide 20 mg 10/09/18 10:00 10/09/18 09:36 Lasix - PO 20 mg DAILY [facility] Administration Glipizide 2.5 mg 10/09/18 07:00 10/09/18 08:30 Glucotrol Xl - PO 2.5 mg DAILY@0700 [facility] Administration Guaifenesin/Codeine Phosphate 5 ml 10/06/18 12:16 10/07/18 22:31 Robitussin Ac - PO 5 ml TID PRN Administration COUGH Azithromycin 500 mg in 250 mls @ 250 mls/hr 10/09/18 10:00 10/09/18 09:37 Zithromax 500mg Ivpb (Pre-Docked) IVPB 250 mls/hr DAILY [facility] Administration Piperacillin Sod/Tazobactam 50 mls @ 100 mls/hr 10/09/18 02:00 10/09/18 09:37 Sod 2.25 gm/ Dextrose IVPB 100 mls/hr Q8H-IV [facility] Administration Protocol Insulin Aspart 1 vial 10/08/18 22:00 10/09/18 06:13 Novolog Vial Sliding Scale - SQ Not Given ACHS [facility] Protocol Methylprednisolone Sodium Succinate 60 mg 10/08/18 21:00 10/09/18 09:35 Solu-Medrol - IVPB 60 mg Q6H-IV [facility] Administration Metoprolol Tartrate 25 mg 10/08/18 22:00 10/09/18 09:36 Lopressor - PO 25 mg BID [facility] Administration Mirtazapine 7.5 mg 10/08/18 22:00 10/08/18 21:02 Remeron - PO 7.5 mg HS [facility] Administration Mometasone Furoate 2 puff 10/08/18 20:00 10/09/18 08:30 Asmanex 220mcg - IH 2 pfu RBID [facility] Administration Multivitamins/Minerals/Vitamin C 1 tab 10/09/18 10:00 10/09/18 09:36 Tab-A-Vit - PO 1 tab DAILY [facility] Administration Nitroglycerin 0.4 mg 10/08/18 19:28 Nitrostat - SL Q5M PRN FOR CHEST PAIN Pantoprazole Sodium 40 mg 10/09/18 10:00 10/09/18 09:37 Protonix - PO 40 mg DAILY [facility] Administration Roflumilast 500 mcg 10/09/18 10:00 10/09/18 09:36 Daliresp - PO 500 mcg DAILY [facility] Administration Rosuvastatin Calcium 5 mg 10/08/18 22:00 10/08/18 21:03 Crestor - PO 5 mg HS [facility] Administration Impression 1. azotemia 2. copd 3. htn 4. cad 5. hld Plan - renal function is stable - monitor bun, likely elevated from steroids - avoid nsaids - monitor volume status on 20 mg of lasix - will follow PRN
[2018-10-09] MEDS: MIRTAZAPINE 15 MG TABLET (FP) PO SCH (21:24)
[2018-10-09] MEDS: ROSUVASTATIN CA 5 MG TABLET (FP) PO SCH (22:19)
[2018-10-10] MEDS ORDERED: PIPERACILLIN/TAZOBACTAM 2.25 GM VIAL IVPB ONE ×3 (00:23→13:17)
[2018-10-10] MEDS ORDERED: DEXTROSE 5%-WATER - 50 ML IVPB ONE ×3 (00:23→13:17)
[2018-10-10] MEDS: PIPERACILLIN/TAZOB 2.25 GM 2.25 GM in DEXTROSE 5%-WATER - 50 ML IVPB SCH ×2 (01:26→09:36)
[2018-10-10] MEDS: methylPREDNISolone NA SUCC 40 MG/1 ML VIAL IVPB SCH ×4 (02:26→22:19)
[2018-10-10] MEDS ORDERED: PT OWN MED DRAWER 7, Y5N ONE ×2 (06:06→21:55)
[2018-10-10] MEDS: glipiZIDE-XL 2.5 MG TAB.ER.24 PO SCH (06:25)
[2018-10-10] MEDS: INSULIN SLIDING SCALE (NOVOLOG) 1 VIAL SQ SCH ×4 (06:25→22:26)
[2018-10-10] MEDS: BACLOFEN 10 MG TABLET (FP) PO SCH ×3 (06:25→22:19)
[2018-10-10] MEDS: ARFORMOTEROL TARTRATE 15 MCG/2 ML VIAL NEB SCH ×2 (07:33→19:55)
[2018-10-10] MEDS: MOMETASONE FUROATE 220 MCG/IH INHALER IH SCH ×2 (09:34→22:16)
[2018-10-10] MEDS: AZITHROMYCIN IVPB 500 MG/250 ML BAG IVPB SCH (09:36)
[2018-10-10] MEDS: ENOXAPARIN NA (PORCINE) 40 MG/0.4 ML DISP.SYRIN SQ SCH (09:36)
[2018-10-10] MEDS: PANTOPRAZOLE 40 MG TABLET (FP) PO SCH (09:36)
--- NOTE | 2018-10-10 09:36 | PN ---
Progress Note (short form) - Note Progress Note: Still with very congested cough. No CP. Still with MAURICIO. - Objective Vital Signs: Intake & Output 10/07/18 10/08/18 10/09/18 10/10/18 23:59 23:59 23:59 23:59 Intake Total 730 910 870 150 Balance 730 910 870 150 Weight 144 lb 6.4 oz 145 lb 144 lb 9.6 oz 144 lb 6 oz Last Vital Signs Temp Pulse Resp BP Pulse Ox 98.1 F 61 20 147/80 95 10/10/18 05:42 10/10/18 05:42 10/10/18 05:42 10/10/18 05:42 10/09/18 21:00 Active Medications Acetaminophen (Tylenol -) 650 mg PO Q6H PRN PRN Reason: FEVER Last Admin: 10/08/18 21:36 Dose: 650 mg Albuterol Sulfate (Ventolin 0.083% Nebulizer Soln -) 1 amp NEB Q4H PRN PRN Reason: SHORT OF BREATH/WHEEZING Last Admin: 10/08/18 12:06 Dose: 1 amp Arformoterol Tartrate (Brovana (Restricted To Pulmonology/Resp) -) 1 amp NEB RBID [facility] Last Admin: 10/10/18 07:33 Dose: 1 amp Aspirin (Ecotrin -) 81 mg PO DAILY [facility] Last Admin: 10/09/18 09:36 Dose: 81 mg Baclofen (Lioresal -) 10 mg PO TID [facility] Last Admin: 10/10/18 06:25 Dose: 10 mg Benzocaine/Menthol (Cepacol Lozenge -) 1 each MM PRN PRN PRN Reason: SORE THROAT Calcitriol (Rocaltrol -) 0.25 mcg PO DAILY [facility] [place] Last Admin: 10/09/18 09:35 Dose: 0.25 mcg Clopidogrel Bisulfate (Plavix -) 75 mg PO DAILY [facility] Last Admin: 10/09/18 09:36 Dose: 75 mg Docusate Sodium (Colace -) 100 mg PO Q12H PRN PRN Reason: CONSTIPATION Enoxaparin Sodium (Lovenox -) 40 mg SQ DAILY [facility] [place] Last Admin: 10/09/18 09:36 Dose: 40 mg Furosemide (Lasix -) 20 mg PO DAILY [facility] [place] Last Admin: 10/09/18 09:36 Dose: 20 mg Glipizide (Glucotrol Xl -) 2.5 mg PO DAILY@0700 [facility] [place] Last Admin: 10/10/18 06:25 Dose: 2.5 mg Guaifenesin/Codeine Phosphate (Robitussin Ac -) 5 ml PO TID PRN PRN Reason: COUGH Last Admin: 10/07/18 22:31 Dose: 5 ml Azithromycin (Zithromax 500mg Ivpb (Pre-Docked)) 500 mg in 250 mls @ 250 mls/ hr IVPB DAILY [facility] [place] Last Admin: 10/09/18 09:37 Dose: 250 mls/hr Piperacillin Sod/Tazobactam (Sod 2.25 gm/ Dextrose) 50 mls @ 100 mls/hr IVPB Q8H-IV [facility] [place]; Protocol Last Admin: 10/10/18 01:26 Dose: 100 mls/hr Insulin Aspart (Novolog Vial Sliding Scale -) 1 vial SQ ACHS [facility] [place]; Protocol Last Admin: 10/10/18 06:25 Dose: Not Given Methylprednisolone Sodium Succinate (Solu-Medrol -) 60 mg IVPB Q6H-IV [facility] [place] Last Admin: 10/10/18 02:26 Dose: 60 mg Metoprolol Tartrate (Lopressor -) 25 mg PO BID [facility] [place] Last Admin: 10/09/18 21:24 Dose: 25 mg Mirtazapine (Remeron -) 7.5 mg PO [facility] Last Admin: 10/09/18 21:24 Dose: 7.5 mg Mometasone Furoate (Asmanex 220mcg -) 2 puff IH RBID [facility] [place] Last Admin: 10/09/18 22:20 Dose: Not Given Multivitamins/Minerals/Vitamin C (Tab-A-Vit -) 1 tab PO DAILY [facility] Last Admin: 10/09/18 09:36 Dose: 1 tab Nitroglycerin (Nitrostat -) 0.4 mg SL Q5M PRN PRN Reason: FOR CHEST PAIN Pantoprazole Sodium (Protonix -) 40 mg PO DAILY [facility] [place] Last Admin: 10/09/18 09:37 Dose: 40 mg Roflumilast (Daliresp -) 500 mcg PO DAILY [facility] [place] Last Admin: 10/09/18 09:36 Dose: 500 mcg Rosuvastatin Calcium (Crestor -) 5 mg PO HS [facility] Last Admin: 10/09/18 22:19 Dose: 5 mg Constitutional: Yes: NAD Eyes: Yes: WNL HENT: Yes: WNL Neck: Yes: WNL Cardiovascular: Yes: Regular Rate and Rhythm, S1, S2 Respiratory: Yes: Bilateral coarse Rhonchi and Wheezes Gastrointestinal: Yes: Normal Bowel Sounds, Soft Extremities: Yes: WNL Edema: No Labs: Laboratory Results - last 24 hr 10/09/18 10/09/18 10/09/18 11:45 16:57 21:31 POC Glucometer 181 138 203 10/10/18 05:56 POC Glucometer 94 Problem List - Problems (1) COPD (chronic obstructive pulmonary disease) Code(s): J44.9 - CHRONIC OBSTRUCTIVE PULMONARY DISEASE, UNSPECIFIED Qualifiers: COPD type: unspecified COPD Qualified Code(s): J44.9 - Chronic obstructive pulmonary disease, unspecified (2) Cough Code(s): R05 - COUGH (3) Diabetes Code(s): E11.9 - TYPE 2 DIABETES MELLITUS WITHOUT COMPLICATIONS Qualifiers: Diabetes mellitus type: type 2 (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 - PRESENCE OF AORTOCORONARY BYPASS GRAFT (5) Hypertension Code(s): I10 - ESSENTIAL (PRIMARY) HYPERTENSION Qualifiers: Hypertension type: unspecified Qualified Code(s): I10 - Essential (primary ) hypertension (6) Pneumonia Code(s): J18.9 - PNEUMONIA, UNSPECIFIED ORGANISM Qualifiers: Pneumonia type: due to unspecified organism Laterality: unspecified laterality Lung location: unspecified part of lung Qualified Code(s): J18.9 - Pneumonia, unspecified organism Assessment/Plan IMP COPD EXACERBATION PNEUMONIA LLL ASHD S/P CABG DM HTN PLAN IV MEDROL SAME DOSE INHALED BRONCHODILATORS ABX O2 BROVANA PFTS OUT[address] GARCÍA
[2018-10-10] MEDS: METOPROLOL TARTRATE 25 MG TABLET (FP) PO SCH ×2 (09:37→22:19)
[2018-10-10] MEDS: CLOPIDOGREL BISULFATE 75 MG TABLET (FP) PO SCH (09:37)
[2018-10-10] MEDS: ASPIRIN COATED 81 MG TABLET.EC PO SCH (09:37)
[2018-10-10] MEDS: FUROSEMIDE 20 MG TABLET (FP) PO SCH (09:37)
[2018-10-10] MEDS: CALCITRIOL 0.25 MCG CAPSULE (FP) PO SCH (09:37)
[2018-10-10] MEDS: MULTIVITAMINS (DAILY MVI) TABLET (FP) PO SCH (09:37)
[2018-10-10] MEDS: ROFLUMILAST 500 MCG TABLET PO SCH (09:39)
[2018-10-10] MEDS: guaiFENesin/CODEINE 5 ML UNIT-DOSE CUPS PO PRN (09:45)
--- NOTE | 2018-10-10 11:26 | PN ---
Progress Note, Physician Chief Complaint: Cough SOB COPD History of Present Illness: Previous notes and events reviewed awake and alert NAD patient continue to complain of MAURICIO, states cough is improving - Current Medication List Current Medications: Active Medications Acetaminophen (Tylenol -) 650 mg PO Q6H PRN PRN Reason: FEVER Last Admin: 10/08/18 21:36 Dose: 650 mg Albuterol Sulfate (Ventolin 0.083% Nebulizer Soln -) 1 amp NEB Q4H PRN PRN Reason: SHORT OF BREATH/WHEEZING Last Admin: 10/08/18 12:06 Dose: 1 amp Arformoterol Tartrate (Brovana (Restricted To Pulmonology/Resp) -) 1 amp NEB RBID [facility] Last Admin: 10/10/18 07:33 Dose: 1 amp Aspirin (Ecotrin -) 81 mg PO DAILY [facility] Last Admin: 10/10/18 09:37 Dose: 81 mg Baclofen (Lioresal -) 10 mg PO TID [facility] Last Admin: 10/10/18 06:25 Dose: 10 mg Benzocaine/Menthol (Cepacol Lozenge -) 1 each MM PRN PRN PRN Reason: SORE THROAT Calcitriol (Rocaltrol -) 0.25 mcg PO DAILY [facility] Last Admin: 10/10/18 09:37 Dose: 0.25 mcg Clopidogrel Bisulfate (Plavix -) 75 mg PO DAILY [facility] Last Admin: 10/10/18 09:37 Dose: 75 mg Docusate Sodium (Colace -) 100 mg PO Q12H PRN PRN Reason: CONSTIPATION Enoxaparin Sodium (Lovenox -) 40 mg SQ DAILY [facility] Last Admin: 10/10/18 09:36 Dose: 40 mg Furosemide (Lasix -) 20 mg PO DAILY [facility] Last Admin: 10/10/18 09:37 Dose: 20 mg Glipizide (Glucotrol Xl -) 2.5 mg PO DAILY@0700 [facility] Last Admin: 10/10/18 06:25 Dose: 2.5 mg Guaifenesin/Codeine Phosphate (Robitussin Ac -) 5 ml PO TID PRN PRN Reason: COUGH Last Admin: 10/10/18 09:45 Dose: 5 ml Azithromycin (Zithromax 500mg Ivpb (Pre-Docked)) 500 mg in 250 mls @ 250 mls/ hr IVPB DAILY [facility] Last Admin: 10/10/18 09:36 Dose: 250 mls/hr Piperacillin Sod/Tazobactam (Sod 2.25 gm/ Dextrose) 50 mls @ 100 mls/hr IVPB Q8H-IV [facility]; Protocol Last Admin: 10/10/18 09:36 Dose: 100 mls/hr Insulin Aspart (Novolog Vial Sliding Scale -) 1 vial SQ ACHS [facility]; Protocol Last Admin: 10/10/18 06:25 Dose: Not Given Methylprednisolone Sodium Succinate (Solu-Medrol -) 60 mg IVPB Q6H-IV [facility] Last Admin: 10/10/18 09:37 Dose: 60 mg Metoprolol Tartrate (Lopressor -) 25 mg PO BID [facility] Last Admin: 10/10/18 09:37 Dose: 25 mg Mirtazapine (Remeron -) 7.5 mg PO HS [facility] Last Admin: 10/09/18 21:24 Dose: 7.5 mg Mometasone Furoate (Asmanex 220mcg -) 2 puff IH RBID [facility] Last Admin: 10/10/18 09:34 Dose: 2 pfu Multivitamins/Minerals/Vitamin C (Tab-A-Vit -) 1 tab PO DAILY [facility] Last Admin: 10/10/18 09:37 Dose: 1 tab Nitroglycerin (Nitrostat -) 0.4 mg SL Q5M PRN PRN Reason: FOR CHEST PAIN Pantoprazole Sodium (Protonix -) 40 mg PO DAILY [facility] Last Admin: 10/10/18 09:36 Dose: 40 mg Roflumilast (Daliresp -) 500 mcg PO DAILY [facility] Last Admin: 10/10/18 09:39 Dose: 500 mcg Rosuvastatin Calcium (Crestor -) 5 mg PO [facility] Last Admin: 10/09/18 22:19 Dose: 5 mg - Objective Vital Signs: Vital Signs Temperature 98.1 F 10/10/18 10:00 Pulse Rate 78 10/10/18 10:00 Respiratory Rate 24 H 10/10/18 10:00 Blood Pressure 147/78 10/10/18 10:00 O2 Sat by Pulse Oximetry (%) 90 L 10/10/18 09:00 Constitutional: Yes: Well Nourished, No Distress, Calm Eyes: Yes: Conjunctiva Clear Cardiovascular: Yes: Regular Rate and Rhythm Respiratory: Yes: On Nasal O2, Rhonchi, Wheezes Gastrointestinal: Yes: Normal Bowel Sounds, Soft Musculoskeletal: Yes: Muscle Weakness Extremities: Yes: WNL Edema: No Integumentary: Yes: WNL Neurological: Yes: Alert Psychiatric: Yes: Alert Labs: CBC, BMP 10/08/18 05:30 10/09/18 05:30 INR, PTT INR 1.00 (0.83-1.09) 10/06/18 07:55 <Felisha Merrill - Last Filed: 10/10/18 12:30> - Current Medication List Current Medications: Active Medications Acetaminophen (Tylenol -) 650 mg PO Q6H PRN PRN Reason: FEVER Last Admin: 10/13/18 02:49 Dose: 650 mg Amoxicillin/Clavulanate Potassium (Augmentin - 875mg Tablet) 1 tab PO BID@0800, 1730 [facility] Last Admin: 10/13/18 08:52 Dose: 1 tab Arformoterol Tartrate (Brovana (Restricted To Pulmonology/Resp) -) 1 amp NEB RBID [facility] Last Admin: 10/13/18 07:54 Dose: 1 amp Aspirin (Ecotrin -) 81 mg PO DAILY [facility] Last Admin: 10/13/18 09:05 Dose: 81 mg Baclofen (Lioresal -) 10 mg PO TID [facility] Last Admin: 10/13/18 06:13 Dose: 10 mg Benzocaine/Menthol (Cepacol Lozenge -) 1 each MM PRN PRN PRN Reason: SORE THROAT Calcitriol (Rocaltrol -) 0.25 mcg PO DAILY [facility] Last Admin: 10/12/18 12:13 Dose: 0.25 mcg Clopidogrel Bisulfate (Plavix -) 75 mg PO DAILY [facility] Last Admin: 10/13/18 09:04 Dose: 75 mg Docusate Sodium (Colace -) 100 mg PO Q12H PRN PRN Reason: CONSTIPATION Enoxaparin Sodium (Lovenox -) 40 mg SQ DAILY [facility] Last Admin: 10/13/18 09:05 Dose: 40 mg Furosemide (Lasix -) 20 mg PO Q48H [facility] Last Admin: 10/13/18 09:04 Dose: 20 mg Glipizide (Glucotrol Xl -) 2.5 mg PO DAILY@0700 [facility] Last Admin: 10/13/18 06:13 Dose: 2.5 mg Insulin Aspart (Novolog Vial Sliding Scale -) 1 vial SQ ACHS [facility]; Protocol Last Admin: 10/13/18 06:15 Dose: Not Given Isosorbide Dinitrate (Isordil -) 20 mg PO TIDISORDIL [facility] Last Admin: 10/13/18 08:52 Dose: 20 mg Methylprednisolone Sodium Succinate (Solu-Medrol -) 60 mg IVPB Q6H-IV [facility] Last Admin: 10/13/18 08:52 Dose: 60 mg Metoprolol Tartrate (Lopressor -) 25 mg PO BID [facility] Last Admin: 10/13/18 09:05 Dose: 25 mg Mirtazapine (Remeron -) 7.5 mg PO HS [facility] Last Admin: 10/12/18 21:08 Dose: 7.5 mg Mometasone Furoate (Asmanex 220mcg -) 2 puff IH RBID [facility] Last Admin: 10/13/18 08:53 Dose: 2 puff Multivitamins/Minerals/Vitamin C (Tab-A-Vit -) 1 tab PO DAILY [facility] Last Admin: 10/13/18 09:05 Dose: 1 tab Nitroglycerin (Nitrostat -) 0.4 mg SL Q5M PRN PRN Reason: FOR CHEST PAIN Last Admin: 10/12/18 14:12 Dose: 0.4 mg Pantoprazole Sodium (Protonix -) 40 mg PO DAILY [facility] Last Admin: 10/13/18 09:04 Dose: 40 mg Roflumilast (Daliresp -) 500 mcg PO DAILY [facility] Last Admin: 10/13/18 09:06 Dose: 500 mcg Rosuvastatin Calcium (Crestor -) 5 mg PO [facility] Last Admin: 10/12/18 21:11 Dose: 5 mg - Objective Vital Signs: Vital Signs Temperature 98.8 F 10/13/18 09:11 Pulse Rate 73 10/13/18 09:11 Respiratory Rate 22 H 10/13/18 09:11 Blood Pressure 156/75 10/13/18 09:11 O2 Sat by Pulse Oximetry (%) 93 L 10/12/18 21:00 Labs: CBC, BMP 10/13/18 08:00 10/13/18 08:00 INR, PTT INR 1.00 (0.83-1.09) 10/06/18 07:55 <Alexander Kendall - Last Filed: 10/13/18 09:22> Problem List - Problems (1) COPD (chronic obstructive pulmonary disease) Code(s): J44.9 - CHRONIC OBSTRUCTIVE PULMONARY DISEASE, UNSPECIFIED Qualifiers: COPD type: unspecified COPD Qualified Code(s): J44.9 - Chronic obstructive pulmonary disease, unspecified (2) Pneumonia Code(s): J18.9 - PNEUMONIA, UNSPECIFIED ORGANISM Qualifiers: Pneumonia type: due to unspecified organism Laterality: unspecified laterality Lung location: unspecified part of lung Qualified Code(s): J18.9 - Pneumonia, unspecified organism (3) Hypertension Code(s): I10 - ESSENTIAL (PRIMARY) HYPERTENSION Qualifiers: Hypertension type: unspecified Qualified Code(s): I10 - Essential (primary ) hypertension (4) Cough Code(s): R05 - COUGH (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 - PRESENCE OF AORTOCORONARY BYPASS GRAFT (6) Diabetes Code(s): E11.9 - TYPE 2 DIABETES MELLITUS WITHOUT COMPLICATIONS Qualifiers: Diabetes mellitus type: type 2 <Felisha Merrill - Last Filed: 10/10/18 12:30> Assessment/Plan -pulm on board -cont with methylprednisolone 60mg IVPB q6 -cont albuterol neb tx PRN -O2 via NC PRN, keep SpO2 >90% -ID on board -nares MRSA culture pending -cont IV ABT -Nitro SL PRN for chest pain -cont with metoprolol, lasix -wbc elev possibly due to steroid use, will cont to monitor trend of wbc -renal on board -BUN elev, continue to monitor -BGM ACHS, ISS -dvt ppx -diabetic/low Na diet -when breathing improves will order pre/post O2 sat to assess if home O2 needed for discharge <Felisha Merrill - Last Filed: 10/10/18 12:30> PATIENT SEEN AND EXAMINED AND I AGREE WITH THE ABOVE NOTE <Alexander Kendall - Last Filed: 10/13/18 09:22>
[2018-10-10] MEDS ORDERED: INSULIN (NOVOLOG) ASPART 100 UNITS/ML 10ML VIAL ONE (11:34)
--- NOTE | 2018-10-10 14:28 | PN ---
Progress Note, Physician Chief Complaint: Awake, supine in bed Breathing non-labored Talking on cell phone Afebrile with slightly elevated WBC on steroids Sputum c/s normal toy Legionella ag (-) BC (-) - Current Medication List Current Medications: Active Medications Acetaminophen (Tylenol -) 650 mg PO Q6H PRN PRN Reason: FEVER Last Admin: 10/08/18 21:36 Dose: 650 mg Albuterol Sulfate (Ventolin 0.083% Nebulizer Soln -) 1 amp NEB Q4H PRN PRN Reason: SHORT OF BREATH/WHEEZING Last Admin: 10/08/18 12:06 Dose: 1 amp Arformoterol Tartrate (Brovana (Restricted To Pulmonology/Resp) -) 1 amp NEB RBID [facility] Last Admin: 10/10/18 07:33 Dose: 1 amp Aspirin (Ecotrin -) 81 mg PO DAILY [facility] Last Admin: 10/10/18 09:37 Dose: 81 mg Baclofen (Lioresal -) 10 mg PO TID [facility] Last Admin: 10/10/18 14:08 Dose: 10 mg Benzocaine/Menthol (Cepacol Lozenge -) 1 each MM PRN PRN PRN Reason: SORE THROAT Calcitriol (Rocaltrol -) 0.25 mcg PO DAILY [facility] Last Admin: 10/10/18 09:37 Dose: 0.25 mcg Clopidogrel Bisulfate (Plavix -) 75 mg PO DAILY [facility] Last Admin: 10/10/18 09:37 Dose: 75 mg Docusate Sodium (Colace -) 100 mg PO Q12H PRN PRN Reason: CONSTIPATION Enoxaparin Sodium (Lovenox -) 40 mg SQ DAILY [facility] Last Admin: 10/10/18 09:36 Dose: 40 mg Furosemide (Lasix -) 20 mg PO DAILY [facility] Last Admin: 10/10/18 09:37 Dose: 20 mg Glipizide (Glucotrol Xl -) 2.5 mg PO DAILY@0700 [facility] Last Admin: 10/10/18 06:25 Dose: 2.5 mg Azithromycin (Zithromax 500mg Ivpb (Pre-Docked)) 500 mg in 250 mls @ 250 mls/ hr IVPB DAILY [facility] Last Admin: 10/10/18 09:36 Dose: 250 mls/hr Piperacillin Sod/Tazobactam (Sod 2.25 gm/ Dextrose) 50 mls @ 100 mls/hr IVPB Q8H-IV [facility]; Protocol Last Admin: 10/10/18 09:36 Dose: 100 mls/hr Insulin Aspart (Novolog Vial Sliding Scale -) 1 vial SQ ACHS [facility]; Protocol Last Admin: 10/10/18 11:53 Dose: Not Given Methylprednisolone Sodium Succinate (Solu-Medrol -) 60 mg IVPB Q6H-IV [facility] Last Admin: 10/10/18 14:08 Dose: 60 mg Metoprolol Tartrate (Lopressor -) 25 mg PO BID [facility] Last Admin: 10/10/18 09:37 Dose: 25 mg Mirtazapine (Remeron -) 7.5 mg PO HS [facility] Last Admin: 10/09/18 21:24 Dose: 7.5 mg Mometasone Furoate (Asmanex 220mcg -) 2 puff IH RBID [facility] Last Admin: 10/10/18 09:34 Dose: 2 pfu Multivitamins/Minerals/Vitamin C (Tab-A-Vit -) 1 tab PO DAILY [facility] Last Admin: 10/10/18 09:37 Dose: 1 tab Nitroglycerin (Nitrostat -) 0.4 mg SL Q5M PRN PRN Reason: FOR CHEST PAIN Pantoprazole Sodium (Protonix -) 40 mg PO DAILY [facility] Last Admin: 10/10/18 09:36 Dose: 40 mg Roflumilast (Daliresp -) 500 mcg PO DAILY [facility] Last Admin: 10/10/18 09:39 Dose: 500 mcg Rosuvastatin Calcium (Crestor -) 5 mg PO [facility] Last Admin: 10/09/18 22:19 Dose: 5 mg - Objective Vital Signs: Vital Signs Temperature 98.6 F 10/10/18 13:53 Pulse Rate 64 10/10/18 13:53 Respiratory Rate 24 H 10/10/18 10:00 Blood Pressure 144/70 10/10/18 13:53 O2 Sat by Pulse Oximetry (%) 90 L 10/10/18 09:00 Constitutional: Yes: No Distress Eyes: Yes: Conjunctiva Clear Cardiovascular: Yes: Regular Rate and Rhythm, S1, S2 Respiratory: Yes: Rhonchi Gastrointestinal: Yes: Normal Bowel Sounds, Soft. No: Tenderness Labs: CBC, BMP 10/08/18 05:30 10/09/18 05:30 INR, PTT INR 1.00 (0.83-1.09) 10/06/18 07:55 Assessment/Plan Exacerbation COPD R/O HCAP Day #10 empiric zosyn Substitute po augmentin
[2018-10-10] MEDS: AMOX TR/POT CLAV 875MG/125MG TABLETS (FP) PO SCH (16:50)
[2018-10-10] MEDS: ROSUVASTATIN CA 5 MG TABLET (FP) PO SCH (22:16)
[2018-10-10] MEDS: MIRTAZAPINE 15 MG TABLET (FP) PO SCH (22:17)
[2018-10-11] MEDS: methylPREDNISolone NA SUCC 40 MG/1 ML VIAL IVPB SCH ×4 (02:31→22:43)
[2018-10-11] MEDS ORDERED: MELATONIN 5 MG TABLETS PO ONE (02:44)
[2018-10-11] MEDS: INSULIN SLIDING SCALE (NOVOLOG) 1 VIAL SQ SCH ×4 (06:17→23:15)
[2018-10-11] MEDS: BACLOFEN 10 MG TABLET (FP) PO SCH ×3 (06:18→22:43)
[2018-10-11 07:05] LABS: HEMATOCRIT 40.6 % (32.4-45.2); HEMOGLOBIN 13.8 GM/dL (10.7-15.3); MCH 31.4 pg (25.7-33.7); MCHC 34.1 g/dl (32.0-36.0); MEAN CELL VOLUME 92.2 fl (80-96); MEAN PLT VOLUME 7.5 fl (7.5-11.1); PLATELET COUNT 333 K/MM3 (134-434); RDW 13.9 % (11.6-15.6); WHITE BLOOD COUNT 14.6 K/mm3 (4.0-10.0)
[2018-10-11] MEDS: ARFORMOTEROL TARTRATE 15 MCG/2 ML VIAL NEB SCH ×2 (07:20→20:58)
[2018-10-11 07:54] LABS: ALBUMIN 2.3 g/dl (3.4-5.0); ALK PHOS 67 U/L (45-117); ANION GAP 9 MMOL/L (8-16); BILIRUBIN,TOTAL 0.4 mg/dL (0.2-1); BLOOD UREA NITROGEN 47 mg/dL (7-18); CALCIUM 8.5 mg/dL (8.5-10.1); CHLORIDE 101 mmol/L (98-107); CO2 31 mmol/L (21-32); CREATININE 0.9 mg/dL (0.55-1.3); GLUCOSE,RANDOM 112 mg/dL (74-106); POTASSIUM 4.6 mmol/L (3.5-5.1); SGOT/AST 14 U/L (15-37); SGPT/ALT 35 U/L (13-61); SODIUM 140 mmol/L (136-145); TOT PROT 5.8 g/dl (6.4-8.2)
[2018-10-11] MEDS: AMOX TR/POT CLAV 875MG/125MG TABLETS (FP) PO SCH ×2 (08:12→17:19)
[2018-10-11] MEDS: MOMETASONE FUROATE 220 MCG/IH INHALER IH SCH ×2 (08:12→23:17)
[2018-10-11] MEDS: CLOPIDOGREL BISULFATE 75 MG TABLET (FP) PO SCH (09:33)
[2018-10-11] MEDS: PANTOPRAZOLE 40 MG TABLET (FP) PO SCH (09:33)
[2018-10-11] MEDS: FUROSEMIDE 20 MG TABLET (FP) PO SCH (09:33)
[2018-10-11] MEDS: METOPROLOL TARTRATE 25 MG TABLET (FP) PO SCH ×2 (09:33→22:44)
[2018-10-11] MEDS: ASPIRIN COATED 81 MG TABLET.EC PO SCH (09:33)
[2018-10-11] MEDS: MULTIVITAMINS (DAILY MVI) TABLET (FP) PO SCH (09:33)
[2018-10-11] MEDS: ENOXAPARIN NA (PORCINE) 40 MG/0.4 ML DISP.SYRIN SQ SCH (09:33)
[2018-10-11] MEDS: CALCITRIOL 0.25 MCG CAPSULE (FP) PO SCH (09:33)
[2018-10-11] MEDS: ROFLUMILAST 500 MCG TABLET PO SCH (09:36)
[2018-10-11] MEDS: glipiZIDE-XL 2.5 MG TAB.ER.24 PO SCH (09:36)
--- NOTE | 2018-10-11 12:03 | PN ---
Progress Note, Physician History of Present Illness: Pt seen and examined at bedside. She complains of wheezing. - Current Medication List Current Medications: Active Medications Acetaminophen (Tylenol -) 650 mg PO Q6H PRN PRN Reason: FEVER Last Admin: 10/08/18 21:36 Dose: 650 mg Amoxicillin/Clavulanate Potassium (Augmentin - 875mg Tablet) 1 tab PO BID@0800, 1730 [facility] Last Admin: 10/11/18 08:12 Dose: 1 tab Arformoterol Tartrate (Brovana (Restricted To Pulmonology/Resp) -) 1 amp NEB RBID [facility] Last Admin: 10/11/18 07:20 Dose: 1 amp Aspirin (Ecotrin -) 81 mg PO DAILY [facility] Last Admin: 10/11/18 09:33 Dose: 81 mg Baclofen (Lioresal -) 10 mg PO TID [facility] Last Admin: 10/11/18 06:18 Dose: 10 mg Benzocaine/Menthol (Cepacol Lozenge -) 1 each MM PRN PRN PRN Reason: SORE THROAT Calcitriol (Rocaltrol -) 0.25 mcg PO DAILY [facility] Last Admin: 10/11/18 09:33 Dose: 0.25 mcg Clopidogrel Bisulfate (Plavix -) 75 mg PO DAILY [facility] Last Admin: 10/11/18 09:33 Dose: 75 mg Docusate Sodium (Colace -) 100 mg PO Q12H PRN PRN Reason: CONSTIPATION Enoxaparin Sodium (Lovenox -) 40 mg SQ DAILY [facility] Last Admin: 10/11/18 09:33 Dose: 40 mg Furosemide (Lasix -) 20 mg PO DAILY [facility] Last Admin: 10/11/18 09:33 Dose: 20 mg Glipizide (Glucotrol Xl -) 2.5 mg PO DAILY@0700 [facility] Last Admin: 10/11/18 09:36 Dose: 2.5 mg Insulin Aspart (Novolog Vial Sliding Scale -) 1 vial SQ ACHS [facility]; Protocol Last Admin: 10/11/18 11:51 Dose: Not Given Methylprednisolone Sodium Succinate (Solu-Medrol -) 60 mg IVPB Q6H-IV [facility] Last Admin: 10/11/18 09:33 Dose: 60 mg Metoprolol Tartrate (Lopressor -) 25 mg PO BID [facility] Last Admin: 10/11/18 09:33 Dose: 25 mg Mirtazapine (Remeron -) 7.5 mg PO HS [facility] Last Admin: 10/10/18 22:17 Dose: 7.5 mg Mometasone Furoate (Asmanex 220mcg -) 2 puff IH RBID [facility] Last Admin: 10/11/18 08:12 Dose: 2 pfu Multivitamins/Minerals/Vitamin C (Tab-A-Vit -) 1 tab PO DAILY [facility] Last Admin: 10/11/18 09:33 Dose: 1 tab Nitroglycerin (Nitrostat -) 0.4 mg SL Q5M PRN PRN Reason: FOR CHEST PAIN Pantoprazole Sodium (Protonix -) 40 mg PO DAILY [facility] Last Admin: 10/11/18 09:33 Dose: 40 mg Roflumilast (Daliresp -) 500 mcg PO DAILY [facility] Last Admin: 10/11/18 09:36 Dose: 500 mcg Rosuvastatin Calcium (Crestor -) 5 mg PO [facility] Last Admin: 10/10/18 22:16 Dose: 5 mg - Objective Vital Signs: Vital Signs Temperature 98.4 F 10/11/18 10:00 Pulse Rate 79 10/11/18 10:00 Respiratory Rate 20 10/11/18 10:00 Blood Pressure 144/83 10/11/18 10:00 O2 Sat by Pulse Oximetry (%) 90 L 10/10/18 21:00 Constitutional: Yes: Calm Eyes: Yes: Conjunctiva Clear HENT: Yes: Atraumatic Neck: Yes: Supple Cardiovascular: Yes: S1, S2 Respiratory: Yes: On Nasal O2, Wheezes Gastrointestinal: Yes: Normal Bowel Sounds, Soft Genitourinary: Yes: WNL Musculoskeletal: Yes: WNL Edema: No Neurological: Yes: Oriented Psychiatric: Yes: Oriented Labs: CBC, BMP 10/11/18 06:00 10/11/18 06:00 INR, PTT INR 1.00 (0.83-1.09) 10/06/18 07:55 Problem List - Problems (1) Azotemia Code(s): R79.89 - OTHER SPECIFIED ABNORMAL FINDINGS OF BLOOD CHEMISTRY (2) CAD (coronary artery disease) Code(s): I25.10 - ATHSCL HEART DISEASE OF [place] CORONARY ARTERY W/O ANG PCTRS (3) COPD (chronic obstructive pulmonary disease) Code(s): J44.9 - CHRONIC OBSTRUCTIVE PULMONARY DISEASE, UNSPECIFIED Qualifiers: COPD type: unspecified COPD Qualified Code(s): J44.9 - Chronic obstructive pulmonary disease, unspecified Assessment/Plan Current Medications Generic Name Dose Route Start Last Admin Trade Name Freq PRN Reason Stop Dose Admin Acetaminophen 650 mg 10/08/18 19:28 10/08/18 21:36 Tylenol - PO 650 mg Q6H PRN Administration FEVER Amoxicillin/Clavulanate Potassium 1 tab 10/10/18 17:30 10/11/18 08:12 Augmentin - 875mg Tablet PO 1 tab BID@0800,1730 [facility] Administration Arformoterol Tartrate 1 amp 10/08/18 20:00 10/11/18 07:20 Brovana (Restricted To Pulmonology/Resp) - NEB 1 amp RBID [facility] Administration Aspirin 81 mg 10/09/18 10:00 10/11/18 09:33 Ecotrin - PO 81 mg DAILY [facility] Administration Baclofen 10 mg 10/08/18 22:00 10/11/18 06:18 Lioresal - PO 10 mg TID [facility] Administration Benzocaine/Menthol 1 each 10/08/18 19:28 Cepacol Lozenge - MM PRN PRN SORE THROAT Calcitriol 0.25 mcg 10/09/18 10:00 10/11/18 09:33 Rocaltrol - PO 0.25 mcg DAILY [facility] Administration Clopidogrel Bisulfate 75 mg 10/09/18 10:00 10/11/18 09:33 Plavix - PO 75 mg DAILY [facility] Administration Docusate Sodium 100 mg 10/08/18 19:28 Colace - PO Q12H PRN CONSTIPATION Enoxaparin Sodium 40 mg 10/09/18 10:00 10/11/18 09:33 Lovenox - SQ 40 mg DAILY [facility] Administration Furosemide 20 mg 10/09/18 10:00 10/11/18 09:33 Lasix - PO 20 mg DAILY [facility] Administration Glipizide 2.5 mg 10/09/18 07:00 10/11/18 09:36 Glucotrol Xl - PO 2.5 mg DAILY@0700 [facility] Administration Insulin Aspart 1 vial 10/08/18 22:00 10/11/18 11:51 Novolog Vial Sliding Scale - SQ Not Given ACHS [facility] Protocol Methylprednisolone Sodium Succinate 60 mg 10/08/18 21:00 10/11/18 09:33 Solu-Medrol - IVPB 60 mg Q6H-IV [facility] Administration Metoprolol Tartrate 25 mg 10/08/18 22:00 10/11/18 09:33 Lopressor - PO 25 mg BID [facility] Administration Mirtazapine 7.5 mg 10/08/18 22:00 10/10/18 22:17 Remeron - PO 7.5 mg HS [facility] Administration Mometasone Furoate 2 puff 10/08/18 20:00 10/11/18 08:12 Asmanex 220mcg - IH 2 pfu RBID [facility] Administration Multivitamins/Minerals/Vitamin C 1 tab 10/09/18 10:00 10/11/18 09:33 Tab-A-Vit - PO 1 tab DAILY [facility] Administration Nitroglycerin 0.4 mg 10/08/18 19:28 Nitrostat - SL Q5M PRN FOR CHEST PAIN Pantoprazole Sodium 40 mg 10/09/18 10:00 10/11/18 09:33 Protonix - PO 40 mg DAILY [facility] Administration Roflumilast 500 mcg 10/09/18 10:00 10/11/18 09:36 Daliresp - PO 500 mcg DAILY [facility] Administration Rosuvastatin Calcium 5 mg 10/08/18 22:00 10/10/18 22:16 Crestor - PO 5 mg HS [facility] Administration Impression 1. azotemia 2. copd 3. htn 4. cad 5. hld Plan - repeat bun after she is off if steroids - can change lasix to every other day - monitor volume status - avoid nsaids - will follow PRN
--- NOTE | 2018-10-11 15:18 | PN ---
Progress Note, Physician Chief Complaint: Cough SOB COPD History of Present Illness: Previous notes and events reviewed awake and alert NAD patient continue to complain of dyspnea with exertion, states cough is improving - Current Medication List Current Medications: Active Medications Acetaminophen (Tylenol -) 650 mg PO Q6H PRN PRN Reason: FEVER Last Admin: 10/08/18 21:36 Dose: 650 mg Amoxicillin/Clavulanate Potassium (Augmentin - 875mg Tablet) 1 tab PO BID@0800, 1730 [facility] Last Admin: 10/11/18 08:12 Dose: 1 tab Arformoterol Tartrate (Brovana (Restricted To Pulmonology/Resp) -) 1 amp NEB RBID [facility] Last Admin: 10/11/18 07:20 Dose: 1 amp Aspirin (Ecotrin -) 81 mg PO DAILY [facility] Last Admin: 10/11/18 09:33 Dose: 81 mg Baclofen (Lioresal -) 10 mg PO TID [facility] Last Admin: 10/11/18 14:56 Dose: 10 mg Benzocaine/Menthol (Cepacol Lozenge -) 1 each MM PRN PRN PRN Reason: SORE THROAT Calcitriol (Rocaltrol -) 0.25 mcg PO DAILY [facility] Last Admin: 10/11/18 09:33 Dose: 0.25 mcg Clopidogrel Bisulfate (Plavix -) 75 mg PO DAILY [facility] Last Admin: 10/11/18 09:33 Dose: 75 mg Docusate Sodium (Colace -) 100 mg PO Q12H PRN PRN Reason: CONSTIPATION Enoxaparin Sodium (Lovenox -) 40 mg SQ DAILY [facility] Last Admin: 10/11/18 09:33 Dose: 40 mg Furosemide (Lasix -) 20 mg PO Q48H [facility] Glipizide (Glucotrol Xl -) 2.5 mg PO DAILY@0700 [facility] Last Admin: 10/11/18 09:36 Dose: 2.5 mg Insulin Aspart (Novolog Vial Sliding Scale -) 1 vial SQ [facility]; Protocol Last Admin: 10/11/18 11:51 Dose: Not Given Methylprednisolone Sodium Succinate (Solu-Medrol -) 60 mg IVPB Q6H-IV [facility] Last Admin: 10/11/18 14:56 Dose: 60 mg Metoprolol Tartrate (Lopressor -) 25 mg PO BID [facility] Last Admin: 10/11/18 09:33 Dose: 25 mg Mirtazapine (Remeron -) 7.5 mg PO HS [facility] Last Admin: 10/10/18 22:17 Dose: 7.5 mg Mometasone Furoate (Asmanex 220mcg -) 2 puff IH RBID [facility] Last Admin: 10/11/18 08:12 Dose: 2 pfu Multivitamins/Minerals/Vitamin C (Tab-A-Vit -) 1 tab PO DAILY [facility] Last Admin: 10/11/18 09:33 Dose: 1 tab Nitroglycerin (Nitrostat -) 0.4 mg SL Q5M PRN PRN Reason: FOR CHEST PAIN Pantoprazole Sodium (Protonix -) 40 mg PO DAILY [facility] Last Admin: 10/11/18 09:33 Dose: 40 mg Roflumilast (Daliresp -) 500 mcg PO DAILY [facility] Last Admin: 10/11/18 09:36 Dose: 500 mcg Rosuvastatin Calcium (Crestor -) 5 mg PO [facility] Last Admin: 10/10/18 22:16 Dose: 5 mg - Objective Vital Signs: Vital Signs Temperature 98.0 F 10/11/18 14:31 Pulse Rate 69 10/11/18 14:31 Respiratory Rate 20 10/11/18 10:00 Blood Pressure 147/85 10/11/18 14:31 O2 Sat by Pulse Oximetry (%) 91 L 10/11/18 09:00 Constitutional: Yes: Well Nourished, No Distress, Calm Eyes: Yes: Conjunctiva Clear Neck: Yes: Supple Cardiovascular: Yes: Regular Rate and Rhythm Respiratory: Yes: On Nasal O2, Rhonchi Gastrointestinal: Yes: Normal Bowel Sounds, Soft Musculoskeletal: Yes: Muscle Weakness Extremities: Yes: WNL Integumentary: Yes: WNL Neurological: Yes: Alert, Oriented Psychiatric: Yes: Alert, Oriented Labs: CBC, BMP 10/11/18 06:00 10/11/18 06:00 INR, PTT INR 1.00 (0.83-1.09) 10/06/18 07:55 <Felisha Merrill - Last Filed: 10/11/18 15:12> - Current Medication List Current Medications: Active Medications Acetaminophen (Tylenol -) 650 mg PO Q6H PRN PRN Reason: FEVER Last Admin: 10/13/18 02:49 Dose: 650 mg Amoxicillin/Clavulanate Potassium (Augmentin - 875mg Tablet) 1 tab PO BID@0800, 1730 [facility] Last Admin: 10/13/18 08:52 Dose: 1 tab Arformoterol Tartrate (Brovana (Restricted To Pulmonology/Resp) -) 1 amp NEB RBID [facility] Last Admin: 10/13/18 07:54 Dose: 1 amp Aspirin (Ecotrin -) 81 mg PO DAILY [facility] Last Admin: 10/13/18 09:05 Dose: 81 mg Baclofen (Lioresal -) 10 mg PO TID [facility] Last Admin: 10/13/18 06:13 Dose: 10 mg Benzocaine/Menthol (Cepacol Lozenge -) 1 each MM PRN PRN PRN Reason: SORE THROAT Calcitriol (Rocaltrol -) 0.25 mcg PO DAILY [facility] Last Admin: 10/12/18 12:13 Dose: 0.25 mcg Clopidogrel Bisulfate (Plavix -) 75 mg PO DAILY [facility] Last Admin: 10/13/18 09:04 Dose: 75 mg Docusate Sodium (Colace -) 100 mg PO Q12H PRN PRN Reason: CONSTIPATION Enoxaparin Sodium (Lovenox -) 40 mg SQ DAILY [facility] Last Admin: 10/13/18 09:05 Dose: 40 mg Furosemide (Lasix -) 20 mg PO Q48H [facility] Last Admin: 10/13/18 09:04 Dose: 20 mg Glipizide (Glucotrol Xl -) 2.5 mg PO DAILY@0700 [facility] Last Admin: 10/13/18 06:13 Dose: 2.5 mg Insulin Aspart (Novolog Vial Sliding Scale -) 1 vial SQ [facility]; Protocol Last Admin: 10/13/18 06:15 Dose: Not Given Isosorbide Dinitrate (Isordil -) 20 mg PO TIDISORDIL [facility] Last Admin: 10/13/18 08:52 Dose: 20 mg Methylprednisolone Sodium Succinate (Solu-Medrol -) 60 mg IVPB Q6H-IV [facility] Last Admin: 10/13/18 08:52 Dose: 60 mg Metoprolol Tartrate (Lopressor -) 25 mg PO BID [facility] Last Admin: 10/13/18 09:05 Dose: 25 mg Mirtazapine (Remeron -) 7.5 mg PO HS [facility] Last Admin: 10/12/18 21:08 Dose: 7.5 mg Mometasone Furoate (Asmanex 220mcg -) 2 puff IH RBID [facility] Last Admin: 10/13/18 08:53 Dose: 2 puff Multivitamins/Minerals/Vitamin C (Tab-A-Vit -) 1 tab PO DAILY [facility] Last Admin: 10/13/18 09:05 Dose: 1 tab Nitroglycerin (Nitrostat -) 0.4 mg SL Q5M PRN PRN Reason: FOR CHEST PAIN Last Admin: 10/12/18 14:12 Dose: 0.4 mg Pantoprazole Sodium (Protonix -) 40 mg PO DAILY [facility] Last Admin: 10/13/18 09:04 Dose: 40 mg Roflumilast (Daliresp -) 500 mcg PO DAILY [facility] Last Admin: 10/13/18 09:06 Dose: 500 mcg Rosuvastatin Calcium (Crestor -) 5 mg PO HS [facility] Last Admin: 10/12/18 21:11 Dose: 5 mg - Objective Vital Signs: Vital Signs Temperature 98.8 F 10/13/18 09:11 Pulse Rate 73 10/13/18 09:11 Respiratory Rate 22 H 10/13/18 09:11 Blood Pressure 156/75 10/13/18 09:11 O2 Sat by Pulse Oximetry (%) 93 L 10/12/18 21:00 Labs: CBC, BMP 10/13/18 08:00 10/13/18 08:00 INR, PTT INR 1.00 (0.83-1.09) 10/06/18 07:55 <Alexander Kendall - Last Filed: 10/13/18 09:21> Problem List - Problems (1) COPD (chronic obstructive pulmonary disease) Code(s): J44.9 - CHRONIC OBSTRUCTIVE PULMONARY DISEASE, UNSPECIFIED Qualifiers: COPD type: unspecified COPD Qualified Code(s): J44.9 - Chronic obstructive pulmonary disease, unspecified (2) Pneumonia Code(s): J18.9 - PNEUMONIA, UNSPECIFIED ORGANISM Qualifiers: Pneumonia type: due to unspecified organism Laterality: unspecified laterality Lung location: unspecified part of lung Qualified Code(s): J18.9 - Pneumonia, unspecified organism (3) Hypertension Code(s): I10 - ESSENTIAL (PRIMARY) HYPERTENSION Qualifiers: Hypertension type: unspecified Qualified Code(s): I10 - Essential (primary ) hypertension (4) Cough Code(s): R05 - COUGH (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 - PRESENCE OF AORTOCORONARY BYPASS GRAFT (6) Diabetes Code(s): E11.9 - TYPE 2 DIABETES MELLITUS WITHOUT COMPLICATIONS Qualifiers: Diabetes mellitus type: type 2 <Felisha Merrill - Last Filed: 10/11/18 15:12> Assessment/Plan -pulm on board -cont with methylprednisolone 60mg IVPB q6 -cont albuterol neb tx PRN -O2 via NC PRN, keep SpO2 >90% -ID on board -cont IV ABT -Nitro SL PRN for chest pain -cont with metoprolol -lasix changed to q48h -wbc elev possibly due to steroid use, will cont to monitor trend of wbc -renal on board -BUN elev, continue to monitor -BGM ACHS, ISS -dvt ppx -diabetic/low Na diet -when breathing improves will order pre/post O2 sat to assess if home O2 needed for discharge -outpatient PFTs <Felihsa Merrill - Last Filed: 10/11/18 15:12> PATIENT SEEN AND EXAMINED AND I AGREE WITH THE ABOVE NOTE <Alexander Kendall - Last Filed: 10/13/18 09:21>
[2018-10-11] MEDS ORDERED: INSULIN (NOVOLOG) ASPART 100 UNITS/ML 10ML VIAL ONE (17:17)
[2018-10-11] MEDS: MIRTAZAPINE 15 MG TABLET (FP) PO SCH (22:44)
[2018-10-11] MEDS: ROSUVASTATIN CA 5 MG TABLET (FP) PO SCH (22:44)
[2018-10-12] MEDS: methylPREDNISolone NA SUCC 40 MG/1 ML VIAL IVPB SCH ×4 (02:00→21:08)
[2018-10-12] MEDS: BACLOFEN 10 MG TABLET (FP) PO SCH ×3 (06:00→21:08)
[2018-10-12] MEDS: INSULIN SLIDING SCALE (NOVOLOG) 1 VIAL SQ SCH ×4 (06:01→21:14)
[2018-10-12] MEDS: glipiZIDE-XL 2.5 MG TAB.ER.24 PO SCH (06:41)
[2018-10-12] MEDS: ARFORMOTEROL TARTRATE 15 MCG/2 ML VIAL NEB SCH ×2 (07:25→20:50)
[2018-10-12 08:17] LABS: HEMATOCRIT 39.3 % (32.4-45.2); HEMOGLOBIN 13.6 GM/dL (10.7-15.3); MCH 31.8 pg (25.7-33.7); MCHC 34.6 g/dl (32.0-36.0); MEAN CELL VOLUME 91.7 fl (80-96); MEAN PLT VOLUME 7.4 fl (7.5-11.1); PLATELET COUNT 322 K/MM3 (134-434); RBC 4.29 M/mm3 (3.60-5.2); WHITE BLOOD COUNT 16.3 K/mm3 (4.0-10.0)
[2018-10-12] MEDS: AMOX TR/POT CLAV 875MG/125MG TABLETS (FP) PO SCH ×2 (08:33→17:27)
[2018-10-12] MEDS: MOMETASONE FUROATE 220 MCG/IH INHALER IH SCH ×2 (08:33→20:10)
[2018-10-12 08:51] LABS: ALBUMIN 2.2 g/dl (3.4-5.0); ALK PHOS 66 U/L (45-117); ANION GAP 8 MMOL/L (8-16); BILIRUBIN,TOTAL 0.5 mg/dL (0.2-1); BLOOD UREA NITROGEN 46 mg/dL (7-18); CALCIUM 8.1 mg/dL (8.5-10.1); CHLORIDE 104 mmol/L (98-107); CO2 29 mmol/L (21-32); CREATININE 0.9 mg/dL (0.55-1.3); GLUCOSE,RANDOM 98 mg/dL (74-106); POTASSIUM 4.5 mmol/L (3.5-5.1); SGOT/AST 15 U/L (15-37); SGPT/ALT 36 U/L (13-61); SODIUM 141 mmol/L (136-145); TOT PROT 5.6 g/dl (6.4-8.2)
[2018-10-12] MEDS ORDERED: PT OWN MED DRAWER 7, Y5N ONE ×3 (09:35→20:57)
[2018-10-12] MEDS: PANTOPRAZOLE 40 MG TABLET (FP) PO SCH (09:36)
[2018-10-12] MEDS: CLOPIDOGREL BISULFATE 75 MG TABLET (FP) PO SCH (09:36)
[2018-10-12] MEDS: METOPROLOL TARTRATE 25 MG TABLET (FP) PO SCH ×2 (09:36→21:08)
[2018-10-12] MEDS: ASPIRIN COATED 81 MG TABLET.EC PO SCH (09:36)
[2018-10-12] MEDS: ENOXAPARIN NA (PORCINE) 40 MG/0.4 ML DISP.SYRIN SQ SCH (09:36)
[2018-10-12] MEDS: MULTIVITAMINS (DAILY MVI) TABLET (FP) PO SCH (09:36)
[2018-10-12] MEDS: ROFLUMILAST 500 MCG TABLET PO SCH (09:37)
--- NOTE | 2018-10-12 10:25 | PN ---
Progress Note, Physician Chief Complaint: Cough SOB COPD History of Present Illness: Previous notes and events reviewed awake and alert NAD patient continue to complain of dyspnea - Current Medication List Current Medications: Active Medications Acetaminophen (Tylenol -) 650 mg PO Q6H PRN PRN Reason: FEVER Last Admin: 10/08/18 21:36 Dose: 650 mg Amoxicillin/Clavulanate Potassium (Augmentin - 875mg Tablet) 1 tab PO BID@0800, 1730 [facility] Last Admin: 10/12/18 08:33 Dose: 1 tab Arformoterol Tartrate (Brovana (Restricted To Pulmonology/Resp) -) 1 amp NEB RBID [facility] Last Admin: 10/12/18 07:25 Dose: 1 amp Aspirin (Ecotrin -) 81 mg PO DAILY [facility] Last Admin: 10/12/18 09:36 Dose: 81 mg Baclofen (Lioresal -) 10 mg PO TID [facility] Last Admin: 10/12/18 06:00 Dose: 10 mg Benzocaine/Menthol (Cepacol Lozenge -) 1 each MM PRN PRN PRN Reason: SORE THROAT Calcitriol (Rocaltrol -) 0.25 mcg PO DAILY [facility] Last Admin: 10/11/18 09:33 Dose: 0.25 mcg Clopidogrel Bisulfate (Plavix -) 75 mg PO DAILY [facility] Last Admin: 10/12/18 09:36 Dose: 75 mg Docusate Sodium (Colace -) 100 mg PO Q12H PRN PRN Reason: CONSTIPATION Enoxaparin Sodium (Lovenox -) 40 mg SQ DAILY [facility] Last Admin: 10/12/18 09:36 Dose: 40 mg Furosemide (Lasix -) 20 mg PO Q48H [facility] Glipizide (Glucotrol Xl -) 2.5 mg PO DAILY@0700 [facility] Last Admin: 10/12/18 06:41 Dose: 2.5 mg Insulin Aspart (Novolog Vial Sliding Scale -) 1 vial SQ [facility]; Protocol Last Admin: 10/12/18 06:01 Dose: Not Given Methylprednisolone Sodium Succinate (Solu-Medrol -) 60 mg IVPB Q6H-IV [facility] Last Admin: 10/12/18 08:33 Dose: 60 mg Metoprolol Tartrate (Lopressor -) 25 mg PO BID [facility] Last Admin: 10/12/18 09:36 Dose: 25 mg Mirtazapine (Remeron -) 7.5 mg PO HS [facility] Last Admin: 10/11/18 22:44 Dose: 7.5 mg Mometasone Furoate (Asmanex 220mcg -) 2 puff IH RBID [facility] Last Admin: 10/12/18 08:33 Dose: 2 puff Multivitamins/Minerals/Vitamin C (Tab-A-Vit -) 1 tab PO DAILY [facility] Last Admin: 10/12/18 09:36 Dose: 1 tab Nitroglycerin (Nitrostat -) 0.4 mg SL Q5M PRN PRN Reason: FOR CHEST PAIN Pantoprazole Sodium (Protonix -) 40 mg PO DAILY [facility] Last Admin: 10/12/18 09:36 Dose: 40 mg Roflumilast (Daliresp -) 500 mcg PO DAILY [facility] Last Admin: 10/12/18 09:37 Dose: 500 mcg Rosuvastatin Calcium (Crestor -) 5 mg PO [facility] Last Admin: 10/11/18 22:44 Dose: 5 mg - Objective Vital Signs: Vital Signs Temperature 97.9 F 10/11/18 22:00 Pulse Rate 67 10/12/18 06:59 Respiratory Rate 20 10/12/18 06:59 Blood Pressure 156/84 10/12/18 06:59 O2 Sat by Pulse Oximetry (%) 91 L 10/11/18 21:00 Constitutional: Yes: No Distress, Calm Eyes: Yes: Conjunctiva Clear HENT: Yes: Atraumatic, Normocephalic Neck: Yes: Supple Cardiovascular: Yes: Regular Rate and Rhythm Respiratory: Yes: Regular, On Nasal O2, Rhonchi Gastrointestinal: Yes: Normal Bowel Sounds, Soft Musculoskeletal: Yes: Muscle Weakness Extremities: Yes: WNL Edema: No Integumentary: Yes: WNL Neurological: Yes: Alert, Oriented Psychiatric: Yes: Alert, Oriented Labs: CBC, BMP 10/12/18 07:30 10/12/18 07:30 INR, PTT INR 1.00 (0.83-1.09) 10/06/18 07:55 Microbiology 10/04/18 14:30 Sputum - Expectorated Gram Stain - Final 10/04/18 14:30 Sputum - Expectorated Sputum Culture - Final NORMAL RESPIRATORY DORINA 09/30/18 14:00 Blood - Peripheral Venous Blood Culture - Final NO GROWTH AFTER 5 DAYS INCUBATION 09/30/18 14:00 Blood - Peripheral Venous Blood Culture - Final NO GROWTH AFTER 5 DAYS INCUBATION 10/02/18 21:30 Nares - Mrsa Screen - Right MRSA Screen - Final NO MRSA ISOLATED 10/02/18 21:30 Nares - Mrsa Screen - Left MRSA Screen - Final NO MRSA ISOLATED 10/02/18 05:00 Urine For Antigen Detection Legionella Antigen - Final 10/02/18 05:00 Urine For Antigen Detection Streptococcus pneumoniae Antigen (M - Final <Felisha Merrill - Last Filed: 10/12/18 10:23> - Current Medication List Current Medications: Active Medications Acetaminophen (Tylenol -) 650 mg PO Q6H PRN PRN Reason: FEVER Last Admin: 10/13/18 02:49 Dose: 650 mg Amoxicillin/Clavulanate Potassium (Augmentin - 875mg Tablet) 1 tab PO BID@0800, 1730 [facility] Last Admin: 10/13/18 08:52 Dose: 1 tab Arformoterol Tartrate (Brovana (Restricted To Pulmonology/Resp) -) 1 amp NEB RBID [facility] Last Admin: 10/13/18 07:54 Dose: 1 amp Aspirin (Ecotrin -) 81 mg PO DAILY [facility] Last Admin: 10/13/18 09:05 Dose: 81 mg Baclofen (Lioresal -) 10 mg PO TID [facility] Last Admin: 10/13/18 06:13 Dose: 10 mg Benzocaine/Menthol (Cepacol Lozenge -) 1 each MM PRN PRN PRN Reason: SORE THROAT Calcitriol (Rocaltrol -) 0.25 mcg PO DAILY [facility] Last Admin: 10/12/18 12:13 Dose: 0.25 mcg Clopidogrel Bisulfate (Plavix -) 75 mg PO DAILY [facility] Last Admin: 10/13/18 09:04 Dose: 75 mg Docusate Sodium (Colace -) 100 mg PO Q12H PRN PRN Reason: CONSTIPATION Enoxaparin Sodium (Lovenox -) 40 mg SQ DAILY [facility] Last Admin: 10/13/18 09:05 Dose: 40 mg Furosemide (Lasix -) 20 mg PO Q48H [facility] Last Admin: 10/13/18 09:04 Dose: 20 mg Glipizide (Glucotrol Xl -) 2.5 mg PO DAILY@0700 [facility] Last Admin: 10/13/18 06:13 Dose: 2.5 mg Insulin Aspart (Novolog Vial Sliding Scale -) 1 vial SQ [facility]; Protocol Last Admin: 10/13/18 06:15 Dose: Not Given Isosorbide Dinitrate (Isordil -) 20 mg PO TIDISORDIL [facility] Last Admin: 10/13/18 08:52 Dose: 20 mg Methylprednisolone Sodium Succinate (Solu-Medrol -) 60 mg IVPB Q6H-IV [facility] Last Admin: 10/13/18 08:52 Dose: 60 mg Metoprolol Tartrate (Lopressor -) 25 mg PO BID [facility] Last Admin: 10/13/18 09:05 Dose: 25 mg Mirtazapine (Remeron -) 7.5 mg PO HS [facility] Last Admin: 10/12/18 21:08 Dose: 7.5 mg Mometasone Furoate (Asmanex 220mcg -) 2 puff IH RBID [facility] Last Admin: 10/13/18 08:53 Dose: 2 puff Multivitamins/Minerals/Vitamin C (Tab-A-Vit -) 1 tab PO DAILY [facility] Last Admin: 10/13/18 09:05 Dose: 1 tab Nitroglycerin (Nitrostat -) 0.4 mg SL Q5M PRN PRN Reason: FOR CHEST PAIN Last Admin: 10/12/18 14:12 Dose: 0.4 mg Pantoprazole Sodium (Protonix -) 40 mg PO DAILY [facility] Last Admin: 10/13/18 09:04 Dose: 40 mg Roflumilast (Daliresp -) 500 mcg PO DAILY [facility] Last Admin: 10/13/18 09:06 Dose: 500 mcg Rosuvastatin Calcium (Crestor -) 5 mg PO HS [facility] Last Admin: 10/12/18 21:11 Dose: 5 mg - Objective Vital Signs: Vital Signs Temperature 98.8 F 10/13/18 09:11 Pulse Rate 73 10/13/18 09:11 Respiratory Rate 22 H 10/13/18 09:11 Blood Pressure 156/75 10/13/18 09:11 O2 Sat by Pulse Oximetry (%) 93 L 10/12/18 21:00 Labs: CBC, BMP 10/13/18 08:00 10/13/18 08:00 INR, PTT INR 1.00 (0.83-1.09) 10/06/18 07:55 <Alexander Kendall - Last Filed: 10/13/18 09:20> Problem List - Problems (1) COPD (chronic obstructive pulmonary disease) Code(s): J44.9 - CHRONIC OBSTRUCTIVE PULMONARY DISEASE, UNSPECIFIED Qualifiers: COPD type: unspecified COPD Qualified Code(s): J44.9 - Chronic obstructive pulmonary disease, unspecified (2) Pneumonia Code(s): J18.9 - PNEUMONIA, UNSPECIFIED ORGANISM Qualifiers: Pneumonia type: due to unspecified organism Laterality: unspecified laterality Lung location: unspecified part of lung Qualified Code(s): J18.9 - Pneumonia, unspecified organism (3) Hypertension Code(s): I10 - ESSENTIAL (PRIMARY) HYPERTENSION Qualifiers: Hypertension type: unspecified Qualified Code(s): I10 - Essential (primary ) hypertension (4) Cough Code(s): R05 - COUGH (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 - PRESENCE OF AORTOCORONARY BYPASS GRAFT (6) Diabetes Code(s): E11.9 - TYPE 2 DIABETES MELLITUS WITHOUT COMPLICATIONS Qualifiers: Diabetes mellitus type: type 2 <Felisha Merrill - Last Filed: 10/12/18 10:23> Assessment/Plan -pulm on board -cont with methylprednisolone 60mg IVPB q6 -cont albuterol neb tx PRN -O2 via NC PRN, keep SpO2 >90% -ID on board -on PO ABT -Nitro SL PRN for chest pain -cont with metoprolol -lasix changed to q48h -wbc elev possibly due to steroid use, will cont to monitor trend of wbc -renal on board -BUN elev, continue to monitor -BGM ACHS, ISS -dvt ppx -diabetic/low Na diet -when breathing improves will order pre/post O2 sat to assess if home O2 needed for discharge -outpatient PFTs <Felisha Merrill - Last Filed: 10/12/18 10:23> PATIENT SEEN AND EXAMINED AND I AGREE WITH THE ABOVE NOTE <Alexander Kendall - Last Filed: 10/13/18 09:20>
[2018-10-12] MEDS: CALCITRIOL 0.25 MCG CAPSULE (FP) PO SCH (12:13)
--- NOTE | 2018-10-12 14:34 | PN ---
Progress Note (short form) - Note Progress Note: Patient complain of aqueezing mid chest pain radiating to back, 8/10 on pain scale. VS BP 181/89 HR 74 SpO2 94-96% on O@. EKG, troponin STAT. Cardiology consult placed and spoke with Dr. Cao. Nitro SL x 2 given. Problem List - Problems (1) COPD (chronic obstructive pulmonary disease) Code(s): J44.9 - CHRONIC OBSTRUCTIVE PULMONARY DISEASE, UNSPECIFIED Qualifiers: COPD type: unspecified COPD Qualified Code(s): J44.9 - Chronic obstructive pulmonary disease, unspecified (2) Pneumonia Code(s): J18.9 - PNEUMONIA, UNSPECIFIED ORGANISM Qualifiers: Pneumonia type: due to unspecified organism Laterality: unspecified laterality Lung location: unspecified part of lung Qualified Code(s): J18.9 - Pneumonia, unspecified organism (3) Hypertension Code(s): I10 - ESSENTIAL (PRIMARY) HYPERTENSION Qualifiers: Hypertension type: unspecified Qualified Code(s): I10 - Essential (primary ) hypertension (4) Cough Code(s): R05 - COUGH (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 - PRESENCE OF AORTOCORONARY BYPASS GRAFT (6) Diabetes Code(s): E11.9 - TYPE 2 DIABETES MELLITUS WITHOUT COMPLICATIONS Qualifiers: Diabetes mellitus type: type 2
--- NOTE | 2018-10-12 15:08 | PN ---
Progress Note (short form) - Note Progress Note: PULMONARY Still with shortness of breath, cough, wheezing and chest tightness. Has right anterior chest discomfort radiating to back VSS/AFEBRILE Gen: tachypneic at rest Heart: RRR Lung: bilateral rhonchi, wheezes Abd: soft, nontender Ext: no edema labs/meds/notes/radiographs Acute COPD Exacerbation Pneumonia CAD s/p CABG HTN DM - continue medrol at current dose - inhaled bronchodilators - O2 to keep SpO2 >90% - continue antibiotics - f/u cultures - outpt PFTs and f/u - DVT prophylaxis - EKG/TROPS Sergio NEWBY MD
--- NOTE | 2018-10-12 15:16 | PN ---
Progress Note, Physician Chief Complaint: Asked to see patient for chest pain. 15 min of chest pressure radiating to neck and back which resolved now after SLNTG x 3. ECG showed no ischemic changes. History of Present Illness: 78 year old female with a PMH of DM, COPD, CAD (s/p CABG, bio[facility] at [facility]), and HTN. She presented with COPD exacerbation. Respiratory status has been difficult to improve. Troponins are negative. EKG is NSR with an incomplete RBBB. The patient had a persantine nuclear stress test 11/23/16 which showed no ischemia - Current Medication List Current Medications: Active Medications Acetaminophen (Tylenol -) 650 mg PO Q6H PRN PRN Reason: FEVER Last Admin: 10/08/18 21:36 Dose: 650 mg Amoxicillin/Clavulanate Potassium (Augmentin - 875mg Tablet) 1 tab PO BID@0800, 1730 [facility] Last Admin: 10/12/18 08:33 Dose: 1 tab Arformoterol Tartrate (Brovana (Restricted To Pulmonology/Resp) -) 1 amp NEB RBID [facility] Last Admin: 10/12/18 07:25 Dose: 1 amp Aspirin (Ecotrin -) 81 mg PO DAILY [facility] Last Admin: 10/12/18 09:36 Dose: 81 mg Baclofen (Lioresal -) 10 mg PO TID [facility] Last Admin: 10/12/18 15:00 Dose: 10 mg Benzocaine/Menthol (Cepacol Lozenge -) 1 each MM PRN PRN PRN Reason: SORE THROAT Calcitriol (Rocaltrol -) 0.25 mcg PO DAILY [facility] Last Admin: 10/12/18 12:13 Dose: 0.25 mcg Clopidogrel Bisulfate (Plavix -) 75 mg PO DAILY [facility] Last Admin: 10/12/18 09:36 Dose: 75 mg Docusate Sodium (Colace -) 100 mg PO Q12H PRN PRN Reason: CONSTIPATION Enoxaparin Sodium (Lovenox -) 40 mg SQ DAILY [facility] Last Admin: 10/12/18 09:36 Dose: 40 mg Furosemide (Lasix -) 20 mg PO Q48H [facility] Glipizide (Glucotrol Xl -) 2.5 mg PO DAILY@0700 [facility] Last Admin: 10/12/18 06:41 Dose: 2.5 mg Insulin Aspart (Novolog Vial Sliding Scale -) 1 vial SQ ACHS [facility]; Protocol Last Admin: 10/12/18 11:39 Dose: Not Given Methylprednisolone Sodium Succinate (Solu-Medrol -) 60 mg IVPB Q6H-IV [facility] Last Admin: 10/12/18 15:00 Dose: 60 mg Metoprolol Tartrate (Lopressor -) 25 mg PO BID [facility] Last Admin: 10/12/18 09:36 Dose: 25 mg Mirtazapine (Remeron -) 7.5 mg PO HS [facility] Last Admin: 10/11/18 22:44 Dose: 7.5 mg Mometasone Furoate (Asmanex 220mcg -) 2 puff IH RBID [facility] Last Admin: 10/12/18 08:33 Dose: 2 puff Multivitamins/Minerals/Vitamin C (Tab-A-Vit -) 1 tab PO DAILY [facility] Last Admin: 10/12/18 09:36 Dose: 1 tab Nitroglycerin (Nitrostat -) 0.4 mg SL Q5M PRN PRN Reason: FOR CHEST PAIN Last Admin: 10/12/18 14:12 Dose: 0.4 mg Pantoprazole Sodium (Protonix -) 40 mg PO DAILY [facility] Last Admin: 10/12/18 09:36 Dose: 40 mg Roflumilast (Daliresp -) 500 mcg PO DAILY [facility] Last Admin: 10/12/18 09:37 Dose: 500 mcg Rosuvastatin Calcium (Crestor -) 5 mg PO HS [facility] Last Admin: 10/11/18 22:44 Dose: 5 mg - Objective Vital Signs: Vital Signs Temperature 98.3 F 10/12/18 10:00 Pulse Rate 78 10/12/18 15:02 Respiratory Rate 20 10/12/18 15:02 Blood Pressure 142/86 10/12/18 15:02 O2 Sat by Pulse Oximetry (%) 93 L 10/12/18 09:00 Constitutional: Yes: Well Nourished, Mild Distress Eyes: Yes: Conjunctiva Clear HENT: Yes: Atraumatic Neck: Yes: Supple, Trachea Midline Cardiovascular: Yes: Regular Rate and Rhythm, S1, S2 Respiratory: Yes: Regular, SOB, Wheezes. No: Rales Edema: No Peripheral Pulses WNL: No Labs: CBC, BMP 10/12/18 07:30 10/12/18 07:30 INR, PTT INR 1.00 (0.83-1.09) 10/06/18 07:55 - ....Imaging EKG: [facility] changes, old anteroseptal FL with incomplete RBBB) Problem List - Problems (1) CAD (coronary artery disease) Code(s): I25.10 - ATHSCL HEART DISEASE OF [place] CORONARY ARTERY W/O ANG PCTRS Assessment/Plan Ischemic heart disease requiring CABG MVR 4 years ago at [facility]. With previous FL and severe COPD. She is admitted with COPD exacerbation and developed transient anginal chest pain today. Her pain resolved with NTG and she is now comfortable. Her ECG showed no changes of ischemia when compared to prior. Given her active reactive airway disease in addition to dye allergy, she may not be a candidate for cardiac cath at this time. Her angina was transient and now comfortable without features to support unstable angina and maybe due to demand. * Would ideally increase Beta keny dose, however her active airway disease precludes this. Continue with low dose BB if possible. * Please add Isosorbide dinitrite 20mg TID * Check CPK and troponin now and in 8 hours.
[2018-10-12] MEDS: MIRTAZAPINE 15 MG TABLET (FP) PO SCH (21:08)
[2018-10-12] MEDS: ROSUVASTATIN CA 5 MG TABLET (FP) PO SCH (21:11)
[2018-10-12] MEDS: ISOSORBIDE DINITRATE 20 MG TABLET (FP) PO SCH (21:28)
[2018-10-12] MEDS ORDERED: ISOSORBIDE DINITRATE 20 MG TABLET (FP) PO SCH (22:00)
[2018-10-13] MEDS: methylPREDNISolone NA SUCC 40 MG/1 ML VIAL IVPB SCH ×3 (02:48→18:50)
[2018-10-13] MEDS: ACETAMINOPHEN 325 MG TABLET (FP) PO PRN ×2 (02:49→15:54)
[2018-10-13] MEDS: BACLOFEN 10 MG TABLET (FP) PO SCH ×3 (06:13→21:50)
[2018-10-13] MEDS: glipiZIDE-XL 2.5 MG TAB.ER.24 PO SCH (06:13)
[2018-10-13] MEDS: INSULIN SLIDING SCALE (NOVOLOG) 1 VIAL SQ SCH ×4 (06:15→21:51)
[2018-10-13] MEDS: ARFORMOTEROL TARTRATE 15 MCG/2 ML VIAL NEB SCH ×2 (07:54→20:18)
[2018-10-13] MEDS ORDERED: ISOSORBIDE DINITRATE 20 MG TABLET (FP) PO SCH (08:00)
[2018-10-13 08:29] LABS: HEMATOCRIT 39.4 % (32.4-45.2); HEMOGLOBIN 13.4 GM/dL (10.7-15.3); MCH 31.5 pg (25.7-33.7); MCHC 34.1 g/dl (32.0-36.0); MEAN CELL VOLUME 92.4 fl (80-96); MEAN PLT VOLUME 7.8 fl (7.5-11.1); PLATELET COUNT 316 K/MM3 (134-434); RBC 4.26 M/mm3 (3.60-5.2); RDW 14.2 % (11.6-15.6); WHITE BLOOD COUNT 18.8 K/mm3 (4.0-10.0)
[2018-10-13] MEDS ORDERED: PT OWN MED DRAWER 7, Y5N ONE ×2 (08:40→21:24)
[2018-10-13] MEDS: ISOSORBIDE DINITRATE 20 MG TABLET (FP) PO SCH ×3 (08:52→18:50)
[2018-10-13] MEDS: AMOX TR/POT CLAV 875MG/125MG TABLETS (FP) PO SCH ×2 (08:52→18:30)
[2018-10-13] MEDS: MOMETASONE FUROATE 220 MCG/IH INHALER IH SCH ×2 (08:53→20:00)
[2018-10-13 09:04] LABS: ALBUMIN 2.4 g/dl (3.4-5.0); ALK PHOS 60 U/L (45-117); ANION GAP 8 MMOL/L (8-16); BILIRUBIN,TOTAL 0.6 mg/dL (0.2-1); BLOOD UREA NITROGEN 47 mg/dL (7-18); CALCIUM 8.7 mg/dL (8.5-10.1); CHLORIDE 104 mmol/L (98-107); CO2 27 mmol/L (21-32); CREATININE 0.8 mg/dL (0.55-1.3); GLUCOSE,RANDOM 89 mg/dL (74-106); POTASSIUM 4.8 mmol/L (3.5-5.1); SGOT/AST 19 U/L (15-37); SGPT/ALT 36 U/L (13-61); SODIUM 139 mmol/L (136-145); TOT PROT 5.7 g/dl (6.4-8.2)
[2018-10-13] MEDS: CLOPIDOGREL BISULFATE 75 MG TABLET (FP) PO SCH (09:04)
[2018-10-13] MEDS: FUROSEMIDE 20 MG TABLET (FP) PO SCH (09:04)
[2018-10-13] MEDS: PANTOPRAZOLE 40 MG TABLET (FP) PO SCH (09:04)
[2018-10-13] MEDS: METOPROLOL TARTRATE 25 MG TABLET (FP) PO SCH ×2 (09:05→21:50)
[2018-10-13] MEDS: MULTIVITAMINS (DAILY MVI) TABLET (FP) PO SCH (09:05)
[2018-10-13] MEDS: ENOXAPARIN NA (PORCINE) 40 MG/0.4 ML DISP.SYRIN SQ SCH (09:05)
[2018-10-13] MEDS: ASPIRIN COATED 81 MG TABLET.EC PO SCH (09:05)
[2018-10-13] MEDS: ROFLUMILAST 500 MCG TABLET PO SCH (09:06)
[2018-10-13] MEDS: CALCITRIOL 0.25 MCG CAPSULE (FP) PO SCH (10:36)
--- NOTE | 2018-10-13 10:39 | PN ---
Progress Note, Physician Chief Complaint: Cough SOB COPD History of Present Illness: Previous notes and events reviewed awake and alert NAD patient continue to complain of dyspnea denies chest pain or dizziness - Current Medication List Current Medications: Active Medications Acetaminophen (Tylenol -) 650 mg PO Q6H PRN PRN Reason: FEVER Last Admin: 10/13/18 02:49 Dose: 650 mg Amoxicillin/Clavulanate Potassium (Augmentin - 875mg Tablet) 1 tab PO BID@0800, 1730 [facility] Last Admin: 10/13/18 08:52 Dose: 1 tab Arformoterol Tartrate (Brovana (Restricted To Pulmonology/Resp) -) 1 amp NEB RBID [facility] Last Admin: 10/13/18 07:54 Dose: 1 amp Aspirin (Ecotrin -) 81 mg PO DAILY [facility] Last Admin: 10/13/18 09:05 Dose: 81 mg Baclofen (Lioresal -) 10 mg PO TID [facility] Last Admin: 10/13/18 06:13 Dose: 10 mg Benzocaine/Menthol (Cepacol Lozenge -) 1 each MM PRN PRN PRN Reason: SORE THROAT Calcitriol (Rocaltrol -) 0.25 mcg PO DAILY [facility] Last Admin: 10/12/18 12:13 Dose: 0.25 mcg Clopidogrel Bisulfate (Plavix -) 75 mg PO DAILY [facility] Last Admin: 10/13/18 09:04 Dose: 75 mg Docusate Sodium (Colace -) 100 mg PO Q12H PRN PRN Reason: CONSTIPATION Enoxaparin Sodium (Lovenox -) 40 mg SQ DAILY [facility] Last Admin: 10/13/18 09:05 Dose: 40 mg Furosemide (Lasix -) 20 mg PO Q48H [facility] Last Admin: 10/13/18 09:04 Dose: 20 mg Glipizide (Glucotrol Xl -) 2.5 mg PO DAILY@0700 [facility] Last Admin: 10/13/18 06:13 Dose: 2.5 mg Insulin Aspart (Novolog Vial Sliding Scale -) 1 vial SQ ACHS [facility]; Protocol Last Admin: 10/13/18 06:15 Dose: Not Given Isosorbide Dinitrate (Isordil -) 20 mg PO TIDISORDIL [facility] Last Admin: 10/13/18 08:52 Dose: 20 mg Methylprednisolone Sodium Succinate (Solu-Medrol -) 60 mg IVPB Q6H-IV [facility] Last Admin: 10/13/18 08:52 Dose: 60 mg Metoprolol Tartrate (Lopressor -) 25 mg PO BID [facility] Last Admin: 10/13/18 09:05 Dose: 25 mg Mirtazapine (Remeron -) 7.5 mg PO HS [facility] Last Admin: 10/12/18 21:08 Dose: 7.5 mg Mometasone Furoate (Asmanex 220mcg -) 2 puff IH RBID [facility] Last Admin: 10/13/18 08:53 Dose: 2 puff Multivitamins/Minerals/Vitamin C (Tab-A-Vit -) 1 tab PO DAILY [facility] Last Admin: 10/13/18 09:05 Dose: 1 tab Nitroglycerin (Nitrostat -) 0.4 mg SL Q5M PRN PRN Reason: FOR CHEST PAIN Last Admin: 10/12/18 14:12 Dose: 0.4 mg Pantoprazole Sodium (Protonix -) 40 mg PO DAILY [facility] Last Admin: 10/13/18 09:04 Dose: 40 mg Roflumilast (Daliresp -) 500 mcg PO DAILY [facility] Last Admin: 10/13/18 09:06 Dose: 500 mcg Rosuvastatin Calcium (Crestor -) 5 mg PO HS [facility] Last Admin: 10/12/18 21:11 Dose: 5 mg - Objective Vital Signs: Vital Signs Temperature 98.8 F 10/13/18 09:11 Pulse Rate 73 10/13/18 09:11 Respiratory Rate 22 H 10/13/18 09:11 Blood Pressure 156/75 10/13/18 09:11 O2 Sat by Pulse Oximetry (%) 93 L 10/12/18 21:00 Constitutional: Yes: Well Nourished, Calm, Mild Distress Eyes: Yes: Conjunctiva Clear Neck: Yes: Supple Cardiovascular: Yes: Regular Rate and Rhythm Respiratory: Yes: Regular, On Nasal O2, Rhonchi (b/l), Wheezes Gastrointestinal: Yes: Normal Bowel Sounds, Soft Musculoskeletal: Yes: Muscle Weakness Extremities: Yes: WNL Edema: No Integumentary: Yes: WNL Neurological: Yes: Alert, Oriented Psychiatric: Yes: Alert, Oriented Labs: CBC, BMP 10/13/18 08:00 10/13/18 08:00 INR, PTT INR 1.00 (0.83-1.09) 10/06/18 07:55 <GarfieldChichoFelisha Gabrielle - Last Filed: 10/13/18 10:35> - Current Medication List Current Medications: Active Medications Acetaminophen (Tylenol -) 650 mg PO Q6H PRN PRN Reason: FEVER Last Admin: 10/14/18 19:51 Dose: 650 mg Amoxicillin/Clavulanate Potassium (Augmentin - 875mg Tablet) 1 tab PO BID@0800, 1730 [facility] Last Admin: 10/14/18 17:33 Dose: 1 tab Arformoterol Tartrate (Brovana (Restricted To Pulmonology/Resp) -) 1 amp NEB RBID [facility] Last Admin: 10/14/18 20:30 Dose: 1 amp Aspirin (Ecotrin -) 81 mg PO DAILY [facility] Last Admin: 10/14/18 09:21 Dose: 81 mg Baclofen (Lioresal -) 10 mg PO TID [facility] Last Admin: 10/14/18 21:17 Dose: 10 mg Benzocaine/Menthol (Cepacol Lozenge -) 1 each MM PRN PRN PRN Reason: SORE THROAT Calcitriol (Rocaltrol -) 0.25 mcg PO DAILY [facility] Last Admin: 10/14/18 10:27 Dose: 0.25 mcg Clopidogrel Bisulfate (Plavix -) 75 mg PO DAILY [facility] Last Admin: 10/14/18 09:21 Dose: 75 mg Docusate Sodium (Colace -) 100 mg PO Q12H PRN PRN Reason: CONSTIPATION Enoxaparin Sodium (Lovenox -) 40 mg SQ DAILY [facility] Last Admin: 10/14/18 09:20 Dose: 40 mg Furosemide (Lasix -) 20 mg PO Q48H [facility] Last Admin: 10/13/18 09:04 Dose: 20 mg Glipizide (Glucotrol Xl -) 2.5 mg PO DAILY@0700 [facility] Last Admin: 10/14/18 06:35 Dose: 2.5 mg Insulin Aspart (Novolog Vial Sliding Scale -) 1 vial SQ [facility]; Protocol Last Admin: 10/14/18 21:17 Dose: 2 units Isosorbide Dinitrate (Isordil -) 20 mg PO TIDISORDIL [facility] Last Admin: 10/14/18 17:33 Dose: 20 mg Melatonin (Melatonin) 10 mg PO HS [facility] Last Admin: 10/14/18 21:54 Dose: 10 mg Methylprednisolone Sodium Succinate (Solu-Medrol -) 40 mg IVPB Q8H-IV [facility] Last Admin: 10/15/18 02:04 Dose: 40 mg Metoprolol Tartrate (Lopressor -) 25 mg PO BID [facility] Last Admin: 10/14/18 21:17 Dose: 25 mg Mirtazapine (Remeron -) 7.5 mg PO HS [facility] Last Admin: 10/14/18 21:18 Dose: 7.5 mg Mometasone Furoate (Asmanex 220mcg -) 2 puff IH RBID [facility] Last Admin: 10/14/18 20:14 Dose: 2 puff Multivitamins/Minerals/Vitamin C (Tab-A-Vit -) 1 tab PO DAILY [facility] Last Admin: 10/14/18 09:21 Dose: 1 tab Nitroglycerin (Nitrostat -) 0.4 mg SL Q5M PRN PRN Reason: FOR CHEST PAIN Last Admin: 10/12/18 14:12 Dose: 0.4 mg Pantoprazole Sodium (Protonix -) 40 mg PO DAILY [facility] Last Admin: 10/14/18 09:21 Dose: 40 mg Roflumilast (Daliresp -) 500 mcg PO DAILY [facility] Last Admin: 10/14/18 09:21 Dose: 500 mcg Rosuvastatin Calcium (Crestor -) 5 mg PO HS [facility] Last Admin: 10/14/18 21:23 Dose: 5 mg - Objective Vital Signs: Vital Signs Temperature 98.3 F 10/14/18 19:10 Pulse Rate 70 10/14/18 19:10 Respiratory Rate 18 10/14/18 19:10 Blood Pressure 138/81 10/14/18 19:10 O2 Sat by Pulse Oximetry (%) 94 L 10/14/18 21:00 Labs: CBC, BMP 10/14/18 07:41 10/14/18 07:41 INR, PTT INR 1.00 (0.83-1.09) 10/06/18 07:55 <Alexander Kendall - Last Filed: 10/15/18 05:51> Problem List - Problems (1) COPD (chronic obstructive pulmonary disease) Code(s): J44.9 - CHRONIC OBSTRUCTIVE PULMONARY DISEASE, UNSPECIFIED Qualifiers: COPD type: unspecified COPD Qualified Code(s): J44.9 - Chronic obstructive pulmonary disease, unspecified (2) Pneumonia Code(s): J18.9 - PNEUMONIA, UNSPECIFIED ORGANISM Qualifiers: Pneumonia type: due to unspecified organism Laterality: unspecified laterality Lung location: unspecified part of lung Qualified Code(s): J18.9 - Pneumonia, unspecified organism (3) Hypertension Code(s): I10 - ESSENTIAL (PRIMARY) HYPERTENSION Qualifiers: Hypertension type: unspecified Qualified Code(s): I10 - Essential (primary ) hypertension (4) Cough Code(s): R05 - COUGH (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 - PRESENCE OF AORTOCORONARY BYPASS GRAFT (6) Diabetes Code(s): E11.9 - TYPE 2 DIABETES MELLITUS WITHOUT COMPLICATIONS Qualifiers: Diabetes mellitus type: type 2 <Felisha Merrill - Last Filed: 10/13/18 10:35> Assessment/Plan -pulm on board -cont with methylprednisolone 60mg IVPB q6 -cont albuterol neb tx PRN -O2 via NC PRN, keep SpO2 >90% -ID on board -on PO ABT -Nitro SL PRN for chest pain -started on Isosorbide dinitrate 20mg TID -cont with metoprolol -lasix changed to q48h -wbc elev possibly due to steroid use, will cont to monitor trend of wbc -renal on board -BUN elev, continue to monitor -BGM ACHS, ISS -dvt ppx -diabetic/low Na diet -when breathing improves will order pre/post O2 sat to assess if home O2 needed for discharge -outpatient PFTs <Felisha Merrill - Last Filed: 10/13/18 10:35> PATIENT SEEN AND EXAMINED AND I AGREE WITH THE ABOVE NOTE <Alexander Kendall - Last Filed: 10/15/18 05:51>
--- NOTE | 2018-10-13 11:21 | EKG ---
Test Reason : Blood Pressure : / mmHG Vent. 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
--- NOTE | 2018-10-13 14:33 | PN ---
Progress Note (short form) - Note Progress Note: PULMONARY Chest pain has ceased Appears comfortable VSS/AFEBRILE Gen: tachypneic at rest Heart: RRR Lung: left base rhonchi Abd: soft, nontender Ext: no edema labs/meds/notes/radiographs Acute COPD Exacerbation Pneumonia CAD s/p CABG HTN DM - Taper medrol - inhaled bronchodilators - O2 to keep SpO2 >90% - continue antibiotics - outpt PFTs and f/u - DVT prophylaxis - EKG/TROPS Sergio NEWBY MD
--- NOTE | 2018-10-13 16:14 | PN ---
Progress Note, Physician Chief Complaint: No further CP Has [place] History of Present Illness: 78 year old female with a PMH of DM, COPD, CAD (s/p CABG, bioMVR at [facility]), and HTN. She presented with COPD exacerbation. Respiratory status has been difficult to improve. Troponins are negative. EKG is NSR with an incomplete RBBB. The patient had a persantine nuclear stress test 11/23/16 which showed no ischemia - Current Medication List Current Medications: Active Medications Acetaminophen (Tylenol -) 650 mg PO Q6H PRN PRN Reason: FEVER Last Admin: 10/13/18 15:54 Dose: 650 mg Amoxicillin/Clavulanate Potassium (Augmentin - 875mg Tablet) 1 tab PO BID@0800, 1730 [facility] Last Admin: 10/13/18 08:52 Dose: 1 tab Arformoterol Tartrate (Brovana (Restricted To Pulmonology/Resp) -) 1 amp NEB RBID [facility] Last Admin: 10/13/18 07:54 Dose: 1 amp Aspirin (Ecotrin -) 81 mg PO DAILY [facility] Last Admin: 10/13/18 09:05 Dose: 81 mg Baclofen (Lioresal -) 10 mg PO TID [facility] Last Admin: 10/13/18 13:18 Dose: 10 mg Benzocaine/Menthol (Cepacol Lozenge -) 1 each MM PRN PRN PRN Reason: SORE THROAT Calcitriol (Rocaltrol -) 0.25 mcg PO DAILY [facility] Last Admin: 10/13/18 10:36 Dose: 0.25 mcg Clopidogrel Bisulfate (Plavix -) 75 mg PO DAILY [facility] Last Admin: 10/13/18 09:04 Dose: 75 mg Docusate Sodium (Colace -) 100 mg PO Q12H PRN PRN Reason: CONSTIPATION Enoxaparin Sodium (Lovenox -) 40 mg SQ DAILY [facility] Last Admin: 10/13/18 09:05 Dose: 40 mg Furosemide (Lasix -) 20 mg PO Q48H [facility] Last Admin: 10/13/18 09:04 Dose: 20 mg Glipizide (Glucotrol Xl -) 2.5 mg PO DAILY@0700 [facility] Last Admin: 10/13/18 06:13 Dose: 2.5 mg Insulin Aspart (Novolog Vial Sliding Scale -) 1 vial SQ [facility]; Protocol Last Admin: 10/13/18 16:00 Dose: Not Given Isosorbide Dinitrate (Isordil -) 20 mg PO TIDISORDIL [facility] Last Admin: 10/13/18 13:12 Dose: 20 mg Methylprednisolone Sodium Succinate (Solu-Medrol -) 40 mg IVPB Q8H-IV [facility] Metoprolol Tartrate (Lopressor -) 25 mg PO BID [facility] Last Admin: 10/13/18 09:05 Dose: 25 mg Mirtazapine (Remeron -) 7.5 mg PO HS [facility] Last Admin: 10/12/18 21:08 Dose: 7.5 mg Mometasone Furoate (Asmanex 220mcg -) 2 puff IH RBID [facility] Last Admin: 10/13/18 08:53 Dose: 2 puff Multivitamins/Minerals/Vitamin C (Tab-A-Vit -) 1 tab PO DAILY [facility] Last Admin: 10/13/18 09:05 Dose: 1 tab Nitroglycerin (Nitrostat -) 0.4 mg SL Q5M PRN PRN Reason: FOR CHEST PAIN Last Admin: 10/12/18 14:12 Dose: 0.4 mg Pantoprazole Sodium (Protonix -) 40 mg PO DAILY [facility] Last Admin: 10/13/18 09:04 Dose: 40 mg Roflumilast (Daliresp -) 500 mcg PO DAILY [facility] Last Admin: 10/13/18 09:06 Dose: 500 mcg Rosuvastatin Calcium (Crestor -) 5 mg PO [facility] Last Admin: 10/12/18 21:11 Dose: 5 mg - Objective Vital Signs: Vital Signs Temperature 98.3 F 10/13/18 15:23 Pulse Rate 71 10/13/18 15:23 Respiratory Rate 20 10/13/18 15:23 Blood Pressure 128/70 10/13/18 15:23 O2 Sat by Pulse Oximetry (%) 93 L 10/12/18 21:00 Constitutional: Yes: Well Nourished, No Distress Eyes: Yes: Conjunctiva Clear, EOM Intact HENT: Yes: Atraumatic, Normocephalic Neck: Yes: Supple, Trachea Midline Cardiovascular: Yes: Regular Rate and Rhythm, S1, S2. No: JVD Respiratory: Yes: Regular, Wheezes Gastrointestinal: Yes: Normal Bowel Sounds, Soft Edema: No Labs: CBC, BMP 10/13/18 08:00 10/13/18 08:00 INR, PTT INR 1.00 (0.83-1.09) 10/06/18 07:55 Laboratory Tests 10/12/18 10/12/18 14:45 19:33 Troponin I 0.03 0.04 Problem List - Problems (1) CAD (coronary artery disease) Code(s): I25.10 - ATHSCL HEART DISEASE OF [place] CORONARY ARTERY W/O ANG PCTRS Assessment/Plan Ischemic heart disease requiring CABG MVR 4 years ago at [facility]. With previous [place] and severe COPD. She is admitted with COPD exacerbation and developed transient anginal chest pain today. Her pain resolved with NTG and she is now comfortable. Her ECG showed no changes of ischemia when compared to prior. Stable angina with intermittent chest pain. Now resolved. ZURDO negative. Continue Long acting nitrate.
[2018-10-13] MEDS ORDERED: INSULIN (NOVOLOG) ASPART 100 UNITS/ML 10ML VIAL ONE (21:25)
[2018-10-13] MEDS: ROSUVASTATIN CA 5 MG TABLET (FP) PO SCH (21:50)
[2018-10-13] MEDS: MIRTAZAPINE 15 MG TABLET (FP) PO SCH (21:51)
[2018-10-14] MEDS: ACETAMINOPHEN 325 MG TABLET (FP) PO PRN ×3 (00:18→19:51)
[2018-10-14] MEDS: methylPREDNISolone NA SUCC 40 MG/1 ML VIAL IVPB SCH ×3 (02:55→17:33)
[2018-10-14] MEDS ORDERED: PT OWN MED DRAWER 7, Y5N ONE ×2 (06:21→21:03)
[2018-10-14] MEDS: glipiZIDE-XL 2.5 MG TAB.ER.24 PO SCH (06:35)
[2018-10-14] MEDS: BACLOFEN 10 MG TABLET (FP) PO SCH ×3 (06:35→21:17)
[2018-10-14] MEDS: INSULIN SLIDING SCALE (NOVOLOG) 1 VIAL SQ SCH ×4 (06:35→21:17)
[2018-10-14] MEDS: ARFORMOTEROL TARTRATE 15 MCG/2 ML VIAL NEB SCH ×2 (07:23→20:30)
[2018-10-14] MEDS: AMOX TR/POT CLAV 875MG/125MG TABLETS (FP) PO SCH ×2 (08:08→17:33)
[2018-10-14] MEDS: MOMETASONE FUROATE 220 MCG/IH INHALER IH SCH ×2 (08:09→20:14)
[2018-10-14] MEDS: ISOSORBIDE DINITRATE 20 MG TABLET (FP) PO SCH ×3 (08:09→17:33)
[2018-10-14 08:57] LABS: HEMATOCRIT 37.9 % (32.4-45.2); HEMOGLOBIN 12.9 GM/dL (10.7-15.3); MCH 31.3 pg (25.7-33.7); MCHC 34.1 g/dl (32.0-36.0); MEAN CELL VOLUME 91.7 fl (80-96); MEAN PLT VOLUME 7.6 fl (7.5-11.1); PLATELET COUNT 308 K/MM3 (134-434); RBC 4.13 M/mm3 (3.60-5.2); RDW 14.1 % (11.6-15.6); WHITE BLOOD COUNT 16.9 K/mm3 (4.0-10.0)
[2018-10-14] MEDS: ENOXAPARIN NA (PORCINE) 40 MG/0.4 ML DISP.SYRIN SQ SCH (09:20)
[2018-10-14] MEDS: PANTOPRAZOLE 40 MG TABLET (FP) PO SCH (09:21)
[2018-10-14] MEDS: MULTIVITAMINS (DAILY MVI) TABLET (FP) PO SCH (09:21)
[2018-10-14] MEDS: CLOPIDOGREL BISULFATE 75 MG TABLET (FP) PO SCH (09:21)
[2018-10-14] MEDS: METOPROLOL TARTRATE 25 MG TABLET (FP) PO SCH ×2 (09:21→21:17)
[2018-10-14] MEDS: ROFLUMILAST 500 MCG TABLET PO SCH (09:21)
[2018-10-14] MEDS: ASPIRIN COATED 81 MG TABLET.EC PO SCH (09:21)
[2018-10-14 09:26] LABS: ALBUMIN 2.4 g/dl (3.4-5.0); ALK PHOS 59 U/L (45-117); ANION GAP 9 MMOL/L (8-16); BILIRUBIN,TOTAL 0.5 mg/dL (0.2-1); BLOOD UREA NITROGEN 38 mg/dL (7-18); CALCIUM 8.3 mg/dL (8.5-10.1); CHLORIDE 106 mmol/L (98-107); CO2 26 mmol/L (21-32); CREATININE 0.7 mg/dL (0.55-1.3); GLUCOSE,RANDOM 81 mg/dL (74-106); POTASSIUM 4.4 mmol/L (3.5-5.1); SGOT/AST 16 U/L (15-37); SGPT/ALT 36 U/L (13-61); SODIUM 141 mmol/L (136-145); TOT PROT 5.6 g/dl (6.4-8.2)
[2018-10-14] MEDS: CALCITRIOL 0.25 MCG CAPSULE (FP) PO SCH (10:27)
--- NOTE | 2018-10-14 11:53 | PN ---
Progress Note (short form) - Note Progress Note: PULMONARY Breathing slowly improving but still with shortness of breath, cough, wheezing. Vital Signs Period Temp Pulse Resp BP Sys/[place] Pulse Ox Last 24 Hr 97.7 F-98.3 F 64-79 18-24 128-151/70-82 93-99 Gen: less tachypneic at rest Heart: RRR Lung: bilateral rhonchi, wheezes Abd: soft, nontender Ext: no edema CBC, BMP 10/14/18 07:41 10/14/18 07:41 Active Medications Acetaminophen (Tylenol -) 650 mg PO Q6H PRN PRN Reason: FEVER Last Admin: 10/14/18 00:18 Dose: 650 mg Amoxicillin/Clavulanate Potassium (Augmentin - 875mg Tablet) 1 tab PO BID@0800, 1730 [facility] Last Admin: 10/14/18 08:08 Dose: 1 tab Arformoterol Tartrate (Brovana (Restricted To Pulmonology/Resp) -) 1 amp NEB RBID [facility] Last Admin: 10/14/18 07:23 Dose: 1 amp Aspirin (Ecotrin -) 81 mg PO DAILY [facility] Last Admin: 10/14/18 09:21 Dose: 81 mg Baclofen (Lioresal -) 10 mg PO TID [facility] Last Admin: 10/14/18 06:35 Dose: 10 mg Benzocaine/Menthol (Cepacol Lozenge -) 1 each MM PRN PRN PRN Reason: SORE THROAT Calcitriol (Rocaltrol -) 0.25 mcg PO DAILY [facility] Last Admin: 10/14/18 10:27 Dose: 0.25 mcg Clopidogrel Bisulfate (Plavix -) 75 mg PO DAILY [facility] Last Admin: 10/14/18 09:21 Dose: 75 mg Docusate Sodium (Colace -) 100 mg PO Q12H PRN PRN Reason: CONSTIPATION Enoxaparin Sodium (Lovenox -) 40 mg SQ DAILY [facility] Last Admin: 10/14/18 09:20 Dose: 40 mg Furosemide (Lasix -) 20 mg PO Q48H [facility] Last Admin: 10/13/18 09:04 Dose: 20 mg Glipizide (Glucotrol Xl -) 2.5 mg PO DAILY@0700 [facility] Last Admin: 10/14/18 06:35 Dose: 2.5 mg Insulin Aspart (Novolog Vial Sliding Scale -) 1 vial SQ ACHS [facility]; Protocol Last Admin: 10/14/18 11:03 Dose: Not Given Isosorbide Dinitrate (Isordil -) 20 mg PO TIDISORDIL [facility] Last Admin: 10/14/18 08:09 Dose: 20 mg Methylprednisolone Sodium Succinate (Solu-Medrol -) 40 mg IVPB Q8H-IV [facility] Last Admin: 10/14/18 09:21 Dose: 40 mg Metoprolol Tartrate (Lopressor -) 25 mg PO BID [facility] Last Admin: 10/14/18 09:21 Dose: 25 mg Mirtazapine (Remeron -) 7.5 mg PO HS [facility] Last Admin: 10/13/18 21:51 Dose: 7.5 mg Mometasone Furoate (Asmanex 220mcg -) 2 puff IH RBID [facility] Last Admin: 10/14/18 08:09 Dose: 2 puff Multivitamins/Minerals/Vitamin C (Tab-A-Vit -) 1 tab PO DAILY [facility] Last Admin: 10/14/18 09:21 Dose: 1 tab Nitroglycerin (Nitrostat -) 0.4 mg SL Q5M PRN PRN Reason: FOR CHEST PAIN Last Admin: 10/12/18 14:12 Dose: 0.4 mg Pantoprazole Sodium (Protonix -) 40 mg PO DAILY [facility] Last Admin: 10/14/18 09:21 Dose: 40 mg Roflumilast (Daliresp -) 500 mcg PO DAILY [facility] Last Admin: 10/14/18 09:21 Dose: 500 mcg Rosuvastatin Calcium (Crestor -) 5 mg PO HS [facility] Last Admin: 10/13/18 21:50 Dose: 5 mg A/P Acute COPD Exacerbation Pneumonia CAD s/p CABG HTN DM - continue medrol at current dose - inhaled bronchodilators - O2 to keep SpO2 >90% - continue antibiotics - outpt PFTs and f/u - DVT prophylaxis
--- NOTE | 2018-10-14 12:01 | PN ---
Progress Note, Physician Chief Complaint: patient seen and examined admitted for copd exacerbation on iv steroids - Current Medication List Current Medications: Active Medications Acetaminophen (Tylenol -) 650 mg PO Q6H PRN PRN Reason: FEVER Last Admin: 10/14/18 00:18 Dose: 650 mg Amoxicillin/Clavulanate Potassium (Augmentin - 875mg Tablet) 1 tab PO BID@0800, 1730 [facility] Last Admin: 10/14/18 08:08 Dose: 1 tab Arformoterol Tartrate (Brovana (Restricted To Pulmonology/Resp) -) 1 amp NEB RBID [facility] Last Admin: 10/14/18 07:23 Dose: 1 amp Aspirin (Ecotrin -) 81 mg PO DAILY [facility] Last Admin: 10/14/18 09:21 Dose: 81 mg Baclofen (Lioresal -) 10 mg PO TID [facility] Last Admin: 10/14/18 06:35 Dose: 10 mg Benzocaine/Menthol (Cepacol Lozenge -) 1 each MM PRN PRN PRN Reason: SORE THROAT Calcitriol (Rocaltrol -) 0.25 mcg PO DAILY [facility] Last Admin: 10/14/18 10:27 Dose: 0.25 mcg Clopidogrel Bisulfate (Plavix -) 75 mg PO DAILY [facility] Last Admin: 10/14/18 09:21 Dose: 75 mg Docusate Sodium (Colace -) 100 mg PO Q12H PRN PRN Reason: CONSTIPATION Enoxaparin Sodium (Lovenox -) 40 mg SQ DAILY [facility] Last Admin: 10/14/18 09:20 Dose: 40 mg Furosemide (Lasix -) 20 mg PO Q48H [facility] Last Admin: 10/13/18 09:04 Dose: 20 mg Glipizide (Glucotrol Xl -) 2.5 mg PO DAILY@0700 [facility] Last Admin: 10/14/18 06:35 Dose: 2.5 mg Insulin Aspart (Novolog Vial Sliding Scale -) 1 vial SQ ACHS [facility]; Protocol Last Admin: 10/14/18 11:03 Dose: Not Given Isosorbide Dinitrate (Isordil -) 20 mg PO TIDISORDIL [facility] Last Admin: 10/14/18 08:09 Dose: 20 mg Methylprednisolone Sodium Succinate (Solu-Medrol -) 40 mg IVPB Q8H-IV [facility] Last Admin: 10/14/18 09:21 Dose: 40 mg Metoprolol Tartrate (Lopressor -) 25 mg PO BID [facility] Last Admin: 10/14/18 09:21 Dose: 25 mg Mirtazapine (Remeron -) 7.5 mg PO HS [facility] Last Admin: 10/13/18 21:51 Dose: 7.5 mg Mometasone Furoate (Asmanex 220mcg -) 2 puff IH RBID [facility] Last Admin: 10/14/18 08:09 Dose: 2 puff Multivitamins/Minerals/Vitamin C (Tab-A-Vit -) 1 tab PO DAILY [facility] Last Admin: 10/14/18 09:21 Dose: 1 tab Nitroglycerin (Nitrostat -) 0.4 mg SL Q5M PRN PRN Reason: FOR CHEST PAIN Last Admin: 10/12/18 14:12 Dose: 0.4 mg Pantoprazole Sodium (Protonix -) 40 mg PO DAILY [facility] Last Admin: 10/14/18 09:21 Dose: 40 mg Roflumilast (Daliresp -) 500 mcg PO DAILY [facility] Last Admin: 10/14/18 09:21 Dose: 500 mcg Rosuvastatin Calcium (Crestor -) 5 mg PO [facility] Last Admin: 10/13/18 21:50 Dose: 5 mg - Objective Vital Signs: Vital Signs Temperature 97.9 F 10/14/18 10:00 Pulse Rate 79 10/14/18 10:00 Respiratory Rate 18 10/14/18 10:00 Blood Pressure 151/82 10/14/18 10:00 O2 Sat by Pulse Oximetry (%) 93 L 10/14/18 09:00 Constitutional: Yes: Calm Cardiovascular: Yes: Regular Rate and Rhythm, S1, S2 Respiratory: Yes: Rhonchi Gastrointestinal: Yes: Normal Bowel Sounds, Soft Neurological: Yes: Alert Labs: CBC, BMP 10/14/18 07:41 10/14/18 07:41 INR, PTT INR 1.00 (0.83-1.09) 10/06/18 07:55 Problem List - Problems (1) COPD (chronic obstructive pulmonary disease) Assessment/Plan: daliresp and bronchodilators pulmicort iv steroids same dose Code(s): J44.9 - CHRONIC OBSTRUCTIVE PULMONARY DISEASE, UNSPECIFIED Qualifiers: COPD type: unspecified COPD Qualified Code(s): J44.9 - Chronic obstructive pulmonary disease, unspecified (2) Cough Assessment/Plan: ID consult noted oxygen as needed bronchodilators abx per ID stop zosyn now start augmentin dvt ppx Code(s): R05 - COUGH (3) Hx of CABG Assessment/Plan: plavix ,aspirin , metoprolol, statin long acting nitrate Code(s): Z95.1 - PRESENCE OF AORTOCORONARY BYPASS GRAFT (4) Diabetes Assessment/Plan: [id number] 6.5 sliding scale ,glucotrol diabetic diet Code(s): E11.9 - TYPE 2 DIABETES MELLITUS WITHOUT COMPLICATIONS Qualifiers: Diabetes mellitus type: type 2 (5) Lumbar stenosis Assessment/Plan: baclofen tid Code(s): M48.061 - SPINAL STENOSIS, LUMBAR REGION WITHOUT NEUROGENIC KEESHA
--- NOTE | 2018-10-14 15:43 | PN ---
Progress Note, Physician History of Present Illness: seen and examined today in nad. lying in bed comfortable. still has dyspnea with mild exertion. - Current Medication List Current Medications: Active Medications Acetaminophen (Tylenol -) 650 mg PO Q6H PRN PRN Reason: FEVER Last Admin: 10/14/18 14:06 Dose: 650 mg Amoxicillin/Clavulanate Potassium (Augmentin - 875mg Tablet) 1 tab PO BID@0800, 1730 [facility] Last Admin: 10/14/18 08:08 Dose: 1 tab Arformoterol Tartrate (Brovana (Restricted To Pulmonology/Resp) -) 1 amp NEB RBID [facility] Last Admin: 10/14/18 07:23 Dose: 1 amp Aspirin (Ecotrin -) 81 mg PO DAILY [facility] Last Admin: 10/14/18 09:21 Dose: 81 mg Baclofen (Lioresal -) 10 mg PO TID [facility] Last Admin: 10/14/18 13:09 Dose: 10 mg Benzocaine/Menthol (Cepacol Lozenge -) 1 each MM PRN PRN PRN Reason: SORE THROAT Calcitriol (Rocaltrol -) 0.25 mcg PO DAILY [facility] Last Admin: 10/14/18 10:27 Dose: 0.25 mcg Clopidogrel Bisulfate (Plavix -) 75 mg PO DAILY [facility] Last Admin: 10/14/18 09:21 Dose: 75 mg Docusate Sodium (Colace -) 100 mg PO Q12H PRN PRN Reason: CONSTIPATION Enoxaparin Sodium (Lovenox -) 40 mg SQ DAILY [facility] Last Admin: 10/14/18 09:20 Dose: 40 mg Furosemide (Lasix -) 20 mg PO Q48H [facility] Last Admin: 10/13/18 09:04 Dose: 20 mg Glipizide (Glucotrol Xl -) 2.5 mg PO DAILY@0700 [facility] Last Admin: 10/14/18 06:35 Dose: 2.5 mg Insulin Aspart (Novolog Vial Sliding Scale -) 1 vial SQ ACHS [facility]; Protocol Last Admin: 10/14/18 11:03 Dose: Not Given Isosorbide Dinitrate (Isordil -) 20 mg PO TIDISORDIL [facility] Last Admin: 10/14/18 13:09 Dose: 20 mg Methylprednisolone Sodium Succinate (Solu-Medrol -) 40 mg IVPB Q8H-IV [facility] Last Admin: 10/14/18 09:21 Dose: 40 mg Metoprolol Tartrate (Lopressor -) 25 mg PO BID [facility] Last Admin: 10/14/18 09:21 Dose: 25 mg Mirtazapine (Remeron -) 7.5 mg PO HS [facility] Last Admin: 10/13/18 21:51 Dose: 7.5 mg Mometasone Furoate (Asmanex 220mcg -) 2 puff IH RBID [facility] Last Admin: 10/14/18 08:09 Dose: 2 puff Multivitamins/Minerals/Vitamin C (Tab-A-Vit -) 1 tab PO DAILY [facility] Last Admin: 10/14/18 09:21 Dose: 1 tab Nitroglycerin (Nitrostat -) 0.4 mg SL Q5M PRN PRN Reason: FOR CHEST PAIN Last Admin: 10/12/18 14:12 Dose: 0.4 mg Pantoprazole Sodium (Protonix -) 40 mg PO DAILY [facility] Last Admin: 10/14/18 09:21 Dose: 40 mg Roflumilast (Daliresp -) 500 mcg PO DAILY [facility] Last Admin: 10/14/18 09:21 Dose: 500 mcg Rosuvastatin Calcium (Crestor -) 5 mg PO HS [facility] Last Admin: 10/13/18 21:50 Dose: 5 mg - Objective Vital Signs: Vital Signs Temperature 97.8 F 10/14/18 15:14 Pulse Rate 71 10/14/18 15:14 Respiratory Rate 18 10/14/18 15:14 Blood Pressure 136/75 10/14/18 15:14 O2 Sat by Pulse Oximetry (%) 93 L 10/14/18 09:00 Constitutional: Yes: No Distress, Calm Eyes: Yes: Conjunctiva Clear, EOM Intact HENT: Yes: Atraumatic, Normocephalic Neck: Yes: Supple, Trachea Midline Cardiovascular: Yes: Regular Rate and Rhythm, S1, S2. No: Bradycardia, Tachycardia, Pulse Irregular, Bruit, JVD, Gallop, Murmur, Rub, S3, S4, Varicosities Respiratory: Yes: Regular, Diminished, On Nasal O2, Rhonchi, Wheezes. No: Rales , SOB Gastrointestinal: Yes: Normal Bowel Sounds, Soft. No: Distention, Tenderness Musculoskeletal: Yes: WNL Extremities: Yes: WNL Edema: No Peripheral Pulses WNL: Yes Peripheral Pulses: Left Doralis Pedis: 2+, Right Dorsalis Pedis: 2+ Neurological: Yes: Alert, Oriented Psychiatric: Yes: Alert, Oriented Labs: CBC, BMP 10/14/18 07:41 10/14/18 07:41 INR, PTT INR 1.00 (0.83-1.09) 10/06/18 07:55 - ....Imaging Chest X-ray: Report Reviewed, Image Reviewed EKG: Report Reviewed, Image Reviewed Other: Report Reviewed, Image Reviewed Assessment/Plan 78 year old female with a PMH of DM, COPD, CAD (s/p CABG, bio[facility]VR at [facility]), and HTN. She presented with COPD exacerbation. Respiratory status has been difficult to improve. Troponins are negative. EKG is NSR with an incomplete RBBB. The patient had a persantine nuclear stress test 11/23/16 which showed no ischemia Ischemic heart disease requiring CABG MVR 4 years ago at [facility]. With previous TX and severe COPD. Chest pain-stable angina vs secondary to COPD -transient chest pain 10/13/18 has not recurred, received NTG with improvement -ECG showed no changes of ischemia when compared to prior. -cardiac enzymes were wnl -cont ASA, metoprolol, crestor, Isordil -cont tx for AE COPD -no additional inpatient ischemic work up needed at this time. [facility] close outpatient cardiac fup. Please call with any additional questions.
[2018-10-14] MEDS ORDERED: INSULIN (NOVOLOG) ASPART 100 UNITS/ML 10ML VIAL ONE (21:03)
[2018-10-14] MEDS: MIRTAZAPINE 15 MG TABLET (FP) PO SCH (21:18)
[2018-10-14] MEDS: ROSUVASTATIN CA 5 MG TABLET (FP) PO SCH (21:23)
[2018-10-14] MEDS: MELATONIN 5 MG TABLETS PO SCH (21:54)
[2018-10-15] MEDS: methylPREDNISolone NA SUCC 40 MG/1 ML VIAL IVPB SCH ×2 (02:04→09:29)
[2018-10-15] MEDS ORDERED: PT OWN MED DRAWER 7, Y5N ONE ×2 (06:09→21:11)
[2018-10-15] MEDS: INSULIN SLIDING SCALE (NOVOLOG) 1 VIAL SQ SCH ×4 (06:15→21:29)
[2018-10-15] MEDS: glipiZIDE-XL 2.5 MG TAB.ER.24 PO SCH (06:15)
[2018-10-15] MEDS: BACLOFEN 10 MG TABLET (FP) PO SCH ×3 (06:15→21:30)
[2018-10-15] MEDS: ARFORMOTEROL TARTRATE 15 MCG/2 ML VIAL NEB SCH ×2 (07:40→20:50)
[2018-10-15] MEDS: AMOX TR/POT CLAV 875MG/125MG TABLETS (FP) PO SCH ×2 (09:29→17:12)
[2018-10-15] MEDS: METOPROLOL TARTRATE 25 MG TABLET (FP) PO SCH ×2 (09:29→21:23)
[2018-10-15] MEDS: ASPIRIN COATED 81 MG TABLET.EC PO SCH (09:29)
[2018-10-15] MEDS: PANTOPRAZOLE 40 MG TABLET (FP) PO SCH (09:29)
[2018-10-15] MEDS: CLOPIDOGREL BISULFATE 75 MG TABLET (FP) PO SCH (09:29)
[2018-10-15] MEDS: FUROSEMIDE 20 MG TABLET (FP) PO SCH (09:29)
[2018-10-15] MEDS: ENOXAPARIN NA (PORCINE) 40 MG/0.4 ML DISP.SYRIN SQ SCH (09:29)
[2018-10-15] MEDS: MULTIVITAMINS (DAILY MVI) TABLET (FP) PO SCH (09:29)
[2018-10-15] MEDS: ISOSORBIDE DINITRATE 20 MG TABLET (FP) PO SCH ×3 (09:30→17:12)
[2018-10-15] MEDS: ROFLUMILAST 500 MCG TABLET PO SCH (09:31)
[2018-10-15] MEDS: MOMETASONE FUROATE 220 MCG/IH INHALER IH SCH ×2 (09:35→21:00)
--- NOTE | 2018-10-15 10:12 | PN ---
Progress Note, Physician - Current Medication List Current Medications: Active Medications Acetaminophen (Tylenol -) 650 mg PO Q6H PRN PRN Reason: FEVER Last Admin: 10/14/18 19:51 Dose: 650 mg Amoxicillin/Clavulanate Potassium (Augmentin - 875mg Tablet) 1 tab PO BID@0800, 1730 [facility] Last Admin: 10/15/18 09:29 Dose: 1 tab Arformoterol Tartrate (Brovana (Restricted To Pulmonology/Resp) -) 1 amp NEB RBID [facility] Last Admin: 10/14/18 20:30 Dose: 1 amp Aspirin (Ecotrin -) 81 mg PO DAILY [facility] Last Admin: 10/15/18 09:29 Dose: 81 mg Baclofen (Lioresal -) 10 mg PO TID [facility] Last Admin: 10/15/18 06:15 Dose: 10 mg Benzocaine/Menthol (Cepacol Lozenge -) 1 each MM PRN PRN PRN Reason: SORE THROAT Calcitriol (Rocaltrol -) 0.25 mcg PO DAILY [facility] Last Admin: 10/14/18 10:27 Dose: 0.25 mcg Clopidogrel Bisulfate (Plavix -) 75 mg PO DAILY [facility] Last Admin: 10/15/18 09:29 Dose: 75 mg Docusate Sodium (Colace -) 100 mg PO Q12H PRN PRN Reason: CONSTIPATION Enoxaparin Sodium (Lovenox -) 40 mg SQ DAILY [facility] Last Admin: 10/15/18 09:29 Dose: 40 mg Furosemide (Lasix -) 20 mg PO Q48H [facility] Last Admin: 10/15/18 09:29 Dose: 20 mg Glipizide (Glucotrol Xl -) 2.5 mg PO DAILY@0700 [facility] Last Admin: 10/15/18 06:15 Dose: 2.5 mg Insulin Aspart (Novolog Vial Sliding Scale -) 1 vial SQ ACHS [facility]; Protocol Last Admin: 10/15/18 06:15 Dose: Not Given Isosorbide Dinitrate (Isordil -) 20 mg PO TIDISORDIL [facility] Last Admin: 10/15/18 09:30 Dose: 20 mg Melatonin (Melatonin) 10 mg PO HS [facility] Last Admin: 10/14/18 21:54 Dose: 10 mg Methylprednisolone Sodium Succinate (Solu-Medrol -) 40 mg IVPB Q8H-IV [facility] Last Admin: 10/15/18 09:29 Dose: 40 mg Metoprolol Tartrate (Lopressor -) 25 mg PO BID [facility] Last Admin: 10/15/18 09:29 Dose: 25 mg Mirtazapine (Remeron -) 7.5 mg PO HS [facility] Last Admin: 10/14/18 21:18 Dose: 7.5 mg Mometasone Furoate (Asmanex 220mcg -) 2 puff IH RBID [facility] Last Admin: 10/15/18 09:35 Dose: 2 puff Multivitamins/Minerals/Vitamin C (Tab-A-Vit -) 1 tab PO DAILY [facility] Last Admin: 10/15/18 09:29 Dose: 1 tab Nitroglycerin (Nitrostat -) 0.4 mg SL Q5M PRN PRN Reason: FOR CHEST PAIN Last Admin: 10/12/18 14:12 Dose: 0.4 mg Pantoprazole Sodium (Protonix -) 40 mg PO DAILY [facility] Last Admin: 10/15/18 09:29 Dose: 40 mg Roflumilast (Daliresp -) 500 mcg PO DAILY [facility] Last Admin: 10/15/18 09:31 Dose: 500 mcg Rosuvastatin Calcium (Crestor -) 5 mg PO [facility] Last Admin: 10/14/18 21:23 Dose: 5 mg - Objective Vital Signs: Vital Signs Temperature 98.1 F 10/15/18 08:55 Pulse Rate 72 10/15/18 08:55 Respiratory Rate 20 10/15/18 08:55 Blood Pressure 152/81 10/15/18 08:55 O2 Sat by Pulse Oximetry (%) 91 L 10/15/18 08:53 Cardiovascular: Yes: S1, S2 Respiratory: Yes: On Nasal O2, Rhonchi Gastrointestinal: Yes: Normal Bowel Sounds, Soft Labs: CBC, BMP 10/14/18 07:41 10/14/18 07:41 INR, PTT INR 1.00 (0.83-1.09) 10/06/18 07:55 Assessment/Plan - Problems (1) COPD (chronic obstructive pulmonary disease) Assessment/Plan: daliresp and bronchodilators pulmicort iv steroids to po Code(s): J44.9 - CHRONIC OBSTRUCTIVE PULMONARY DISEASE, UNSPECIFIED Qualifiers: COPD type: unspecified COPD Qualified Code(s): J44.9 - Chronic obstructive pulmonary disease, unspecified (2) Cough Assessment/Plan: ID consult noted oxygen as needed bronchodilators abx per ID stop zosyn now start augmentin dvt ppx Code(s): R05 - COUGH (3) Hx of CABG Assessment/Plan: plavix ,aspirin , metoprolol, statin long acting nitrate Code(s): Z95.1 - PRESENCE OF AORTOCORONARY BYPASS GRAFT (4) Diabetes Assessment/Plan: hgba1c 6.5 sliding scale ,glucotrol diabetic diet Code(s): E11.9 - TYPE 2 DIABETES MELLITUS WITHOUT COMPLICATIONS Qualifiers: Diabetes mellitus type: type 2 (5) Lumbar stenosis Assessment/Plan: baclofen tid Code(s): M48.061 - SPINAL STENOSIS, LUMBAR REGION WITHOUT NEUROGENIC KEESHA
[2018-10-15] MEDS: CALCITRIOL 0.25 MCG CAPSULE (FP) PO SCH (10:52)
--- NOTE | 2018-10-15 11:25 | PN ---
Progress Note (short form) - Note Progress Note: PULMONARY Breathing slowly improving, chest feels slightly looser today. Vital Signs Period Temp Pulse Resp BP Sys/[place]ster Pulse Ox Last 24 Hr 97.8 F-98.3 F 65-72 18-20 136-157/75-84 91-94 Gen: less tachypneic at rest Heart: RRR Lung: less rhonchi, wheezes Abd: soft, nontender Ext: no edema CBC, BMP 10/14/18 07:41 10/14/18 07:41 Active Medications Acetaminophen (Tylenol -) 650 mg PO Q6H PRN PRN Reason: FEVER Last Admin: 10/14/18 19:51 Dose: 650 mg Amoxicillin/Clavulanate Potassium (Augmentin - 875mg Tablet) 1 tab PO BID@0800, 1730 [facility] Last Admin: 10/15/18 09:29 Dose: 1 tab Arformoterol Tartrate (Brovana (Restricted To Pulmonology/Resp) -) 1 amp NEB RBID [facility] Last Admin: 10/15/18 07:40 Dose: 1 amp Aspirin (Ecotrin -) 81 mg PO DAILY [facility] Last Admin: 10/15/18 09:29 Dose: 81 mg Baclofen (Lioresal -) 10 mg PO TID [facility] Last Admin: 10/15/18 06:15 Dose: 10 mg Benzocaine/Menthol (Cepacol Lozenge -) 1 each MM PRN PRN PRN Reason: SORE THROAT Calcitriol (Rocaltrol -) 0.25 mcg PO DAILY [facility] Last Admin: 10/15/18 10:52 Dose: 0.25 mcg Clopidogrel Bisulfate (Plavix -) 75 mg PO DAILY [facility] Last Admin: 10/15/18 09:29 Dose: 75 mg Docusate Sodium (Colace -) 100 mg PO Q12H PRN PRN Reason: CONSTIPATION Enoxaparin Sodium (Lovenox -) 40 mg SQ DAILY [facility] Last Admin: 10/15/18 09:29 Dose: 40 mg Furosemide (Lasix -) 20 mg PO Q48H [facility] Last Admin: 10/15/18 09:29 Dose: 20 mg Glipizide (Glucotrol Xl -) 2.5 mg PO DAILY@0700 [facility] Last Admin: 10/15/18 06:15 Dose: 2.5 mg Insulin Aspart (Novolog Vial Sliding Scale -) 1 vial SQ ACHS [facility]; Protocol Last Admin: 10/15/18 11:15 Dose: Not Given Isosorbide Dinitrate (Isordil -) 20 mg PO TIDISORDIL [facility] Last Admin: 10/15/18 09:30 Dose: 20 mg Melatonin (Melatonin) 10 mg PO HS [facility] Last Admin: 10/14/18 21:54 Dose: 10 mg Metoprolol Tartrate (Lopressor -) 25 mg PO BID [facility] Last Admin: 10/15/18 09:29 Dose: 25 mg Mirtazapine (Remeron -) 7.5 mg PO HS [facility] Last Admin: 10/14/18 21:18 Dose: 7.5 mg Mometasone Furoate (Asmanex 220mcg -) 2 puff IH RBID [facility] Last Admin: 10/15/18 09:35 Dose: 2 puff Multivitamins/Minerals/Vitamin C (Tab-A-Vit -) 1 tab PO DAILY [facility] Last Admin: 10/15/18 09:29 Dose: 1 tab Nitroglycerin (Nitrostat -) 0.4 mg SL Q5M PRN PRN Reason: FOR CHEST PAIN Last Admin: 10/12/18 14:12 Dose: 0.4 mg Pantoprazole Sodium (Protonix -) 40 mg PO DAILY [facility] Last Admin: 10/15/18 09:29 Dose: 40 mg Prednisone (Deltasone -) 30 mg PO BID [facility] Roflumilast (Daliresp -) 500 mcg PO DAILY [facility] Last Admin: 10/15/18 09:31 Dose: 500 mcg Rosuvastatin Calcium (Crestor -) [address] [facility] Last Admin: 10/14/18 21:23 Dose: 5 mg A/P Acute COPD Exacerbation Pneumonia CAD s/p CABG HTN DM - prednisone taper - inhaled bronchodilators - O2 to keep SpO2 >90% - continue antibiotics - outpt PFTs and f/u - DVT prophylaxis
[2018-10-15] MEDS ORDERED: INSULIN (NOVOLOG) ASPART 100 UNITS/ML 10ML VIAL ONE (21:09)
[2018-10-15] MEDS: MIRTAZAPINE 15 MG TABLET (FP) PO SCH (21:23)
[2018-10-15] MEDS: predniSONE 10 MG TABLET (UD) PO SCH (21:23)
[2018-10-15] MEDS: MELATONIN 5 MG TABLETS PO SCH (21:23)
[2018-10-15] MEDS: ROSUVASTATIN CA 5 MG TABLET (FP) PO SCH (21:24)
[2018-10-16 05:51] VITALS: TEMP 98.2
[2018-10-16] MEDS: BACLOFEN 10 MG TABLET (FP) PO SCH ×2 (06:08→14:02)
[2018-10-16] MEDS: glipiZIDE-XL 2.5 MG TAB.ER.24 PO SCH (06:08)
[2018-10-16] MEDS: INSULIN SLIDING SCALE (NOVOLOG) 1 VIAL SQ SCH ×3 (06:10→16:57)
[2018-10-16] MEDS: ARFORMOTEROL TARTRATE 15 MCG/2 ML VIAL NEB SCH (07:35)
[2018-10-16] MEDS: AMOX TR/POT CLAV 875MG/125MG TABLETS (FP) PO SCH ×2 (08:12→17:19)
--- NOTE | 2018-10-16 08:54 | DS ---
Physical Examination Vital Signs: Vital Signs Temperature 98.2 F 10/16/18 05:49 Pulse Rate 67 10/16/18 05:49 Respiratory Rate 20 10/16/18 05:49 Blood Pressure 144/71 10/16/18 05:49 O2 Sat by Pulse Oximetry (%) 96 10/15/18 21:00 Cardiovascular: Yes: S1, S2 Respiratory: Yes: Rhonchi Gastrointestinal: Yes: Normal Bowel Sounds, Soft. No: Tenderness Labs: CBC, BMP 10/14/18 07:41 10/14/18 07:41 Discharge Summary Reason For Visit: PNEUMONIA Current Active Problems Azotemia (Acute) CAD (coronary artery disease) (Acute) COPD (chronic obstructive pulmonary disease) (Acute) Cough (Acute) Diabetes (Acute) Hx of CABG (Acute) Hypertension (Acute) Lumbar stenosis (Acute) Pneumonia (Acute) Hospital Course: - Problems (1) COPD (chronic obstructive pulmonary disease) Assessment/Plan: daliresp and bronchodilators pulmicort iv steroids to po Code(s): J44.9 - CHRONIC OBSTRUCTIVE PULMONARY DISEASE, UNSPECIFIED Qualifiers: COPD type: unspecified COPD Qualified Code(s): J44.9 - Chronic obstructive pulmonary disease, unspecified (2) Cough Assessment/Plan: ID consult noted oxygen as needed bronchodilators abx per ID stop zosyn now start augmentin dvt ppx Code(s): R05 - COUGH (3) Hx of CABG Assessment/Plan: plavix ,aspirin , metoprolol, statin long acting nitrate Code(s): Z95.1 - PRESENCE OF AORTOCORONARY BYPASS GRAFT (4) Diabetes Assessment/Plan: hgba1c 6.5 sliding scale ,glucotrol diabetic diet Code(s): E11.9 - TYPE 2 DIABETES MELLITUS WITHOUT COMPLICATIONS Qualifiers: Diabetes mellitus type: type 2 (5) Lumbar stenosis Assessment/Plan: baclofen tid Code(s): M48.061 - SPINAL STENOSIS, LUMBAR REGION WITHOUT NEUROGENIC KEESHA Condition: Fair - Instructions Referrals: Miri Baker MD [Primary Care Provider] - 1 Week - Home Medications Comprehensive Discharge Medication List: Ambulatory Orders Aspirin [ASA -] 81 mg PO DAILY 09/30/18 Baclofen 10 mg PO HS 09/30/18 Budesonide [Pulmicort 0.25 mg Nebulizer -] 1 neb PO BID 09/30/18 Calcium Citrate [Calcitrate] 950 mg PO DAILY 09/30/18 Clopidogrel Bisulfate [Plavix] 75 mg PO DAILY 09/30/18 Dexlansoprazole [Dexilant] 60 mg PO DAILY 09/30/18 Docusate Sodium [Colace] 100 mg PO BID 09/30/18 Fentanyl 50 adh.patch TD Q72H 09/30/18 Furosemide [Lasix] 20 mg PO DAILY 09/30/18 Glipizide Xl [Glucotrol Xl -] 2.5 mg PO DAILY 09/30/18 Ipratropium/Albuterol Sulfate [Iprat-Albut 0.5-3(2.5) mg/3 ml] 3 ml IH PRN 09/30 Metoprolol Tartrate 25 mg PO BID 09/30/18 Mirabegron [Myrbetriq] 50 mg PO DAILY 09/30/18 Mirtazapine 7.5 mg PO HS 09/30/18 Multivitamins [Multivit ([facility] Formulary)] 1 tab PO DAILY 09/30/18 Oxycodone HCl/Acetaminophen [Endocet 10-325 mg Tablet] 1 each PO QID 09/30/18 Roflumilast [Daliresp] 500 mcg PO DAILY 09/30/18 Rosuvastatin Calcium [Crestor] 20 mg PO DAILY 09/30/18 Zolpidem Tartrate [Ambien] 5 mg PO HS 09/30/18 Acetaminophen [Tylenol .Regular Strength -] 650 mg PO Q6H PRN tablet 10/16/18 Amox-Tr/K Cl [Augmentin 875-125mg Tablet -] 1 tab PO BID@0800,1730 #6 tablet Furosemide [Lasix -] 20 mg PO Q48H #30 tablet 10/16/18 Glipizide Xl [Glucotrol Xl -] 2.5 mg PO DAILY@0700 tab.er.24 10/16/18 Isosorbide Dinitrate [Isordil -] 20 mg PO TIDISORDIL #90 tablet 10/16/18 Multivitamins [Multivit ([facility] Formulary)] 1 tab PO DAILY tab 10/16/18 predniSONE [Deltasone -] 30 mg PO BID #100 tablet 10/16/18
[2018-10-16] MEDS: MOMETASONE FUROATE 220 MCG/IH INHALER IH SCH (09:04)
[2018-10-16 10:07] VITALS: BP 129/76; PULSE 72
[2018-10-16] MEDS ORDERED: PT OWN MED DRAWER 7, Y5N ONE ×3 (10:10→17:18)
[2018-10-16] MEDS: predniSONE 10 MG TABLET (UD) PO SCH (10:11)
[2018-10-16] MEDS: CLOPIDOGREL BISULFATE 75 MG TABLET (FP) PO SCH (10:11)
[2018-10-16] MEDS: ENOXAPARIN NA (PORCINE) 40 MG/0.4 ML DISP.SYRIN SQ SCH (10:11)
[2018-10-16] MEDS: ASPIRIN COATED 81 MG TABLET.EC PO SCH (10:11)
[2018-10-16] MEDS: MULTIVITAMINS (DAILY MVI) TABLET (FP) PO SCH (10:12)
[2018-10-16] MEDS: PANTOPRAZOLE 40 MG TABLET (FP) PO SCH (10:12)
[2018-10-16] MEDS: METOPROLOL TARTRATE 25 MG TABLET (FP) PO SCH (10:12)
[2018-10-16] MEDS: ROFLUMILAST 500 MCG TABLET PO SCH (10:12)
[2018-10-16] MEDS: ISOSORBIDE DINITRATE 20 MG TABLET (FP) PO SCH ×3 (10:13→17:19)
[2018-10-16] MEDS: CALCITRIOL 0.25 MCG CAPSULE (FP) PO SCH (10:14)
[2018-10-16] MEDS ORDERED: BACITRACIN 15 GM TUBE TOPICAL OINTMENT TP SCH (15:00)
[2018-10-16] MEDS: ACETAMINOPHEN 325 MG TABLET (FP) PO PRN (15:08)
[2018-10-19 01:46] VITALS: BMI 28.5
== END 2018-10-16 17:35 | disposition home health service (06) | DRG 190 ==
LOC: JER 13:04 → JERBED 16:11 → J6S 10-01 19:55 → J4W 10-06 08:43 → J6S 10-09 10:46
PROVIDERS: ADMIT Family Medicine; ATTEND Family Medicine
DX: J44.0 Chronic obstructive pulmonary disease with (acute) lower respiratory infection (principal); J18.9 Pneumonia, unspecified organism; I12.9 Hypertensive chronic kidney disease with stage 1 through stage 4 chronic kidney disease, or unspecified chronic kidney disease; E11.22 Type 2 diabetes mellitus with diabetic chronic kidney disease; N18.3 Chronic kidney disease, stage 3 (moderate); M48.061 Spinal stenosis, lumbar region without neurogenic claudication; E78.5 Hyperlipidemia, unspecified; I25.10 Atherosclerotic heart disease of native coronary artery without angina pectoris; Z95.1 Presence of aortocoronary bypass graft; Z95.5 Presence of coronary angioplasty implant and graft; Z79.84 Long term (current) use of oral hypoglycemic drugs; I45.10 Unspecified right bundle-branch block; R00.0 Tachycardia, unspecified; E11.65 Type 2 diabetes mellitus with hyperglycemia; I25.2 Old myocardial infarction; I25.9 Chronic ischemic heart disease, unspecified
CPT/HCPCS: 36415; 71045-TC-FY; 71046-TC-FY; 71250-TC; 76775-TC; 80048; 80053; 81003; 82436; 82550; 82570; 82803; 82962; 83036; 83605; 84133; 84156; 84300; 84484; 85025; 85027; 85610; 85730; 87040; 87070; 87081; 87205; 87804; 87899; 93005; 93010; 93306-TC; 93970-TC; 94640; 94761; 97116-GP; 97161-GP; 99285-25; J0131; J0475; J1644

== ENCOUNTER 2021-04-14 16:26 | Inpatient (IN) | payer OTHER ==
[2021-04-14] MEDS ORDERED: ALBUTEROL SO4 2.5/IPRATROPIUM 0.5 INH SOL 3 ML VIAL.NEB. NEB ONE ×2 (18:28→18:39)
[2021-04-14] MEDS ORDERED: methylPREDNISolone NA SUCC 125 MG/2 ML VIAL IVPUSH ONE (18:29)
[2021-04-14] MEDS ORDERED: methylPREDNISolone NA SUCC 125 MG/2 ML VIAL ONE (18:40)
[2021-04-14 18:49] LABS: BASO % 0.4 % (0-2.0); EOS % 2.2 % (0-4.5); HEMATOCRIT 38.3 % (32.4-45.2); HEMOGLOBIN 12.5 GM/dL (10.7-15.3); MCH 30.4 pg (25.7-33.7); MCHC 32.7 g/dl (32.0-36.0); MEAN CELL VOLUME 92.9 fl (80-96); MEAN PLT VOLUME 7.4 fl (7.5-11.1); MONO % 11.7 % (3.8-10.2); NEUT % 45.7 % (42.8-82.8); PLATELET COUNT 184 10^3/uL (134-434); RBC 4.12 M/mm3 (3.60-5.2); RDW 14.4 % (11.6-15.6); WHITE BLOOD COUNT 7.2 K/mm3 (4.0-10.0)
[2021-04-14 19:07] LABS: CHLORIDE 105 mmol/L (98-107); SODIUM 141 mmol/L (136-145)
[2021-04-14 19:08] LABS: LACTIC ACID 2.6 mmol/L (0.4-2.0)
[2021-04-14 19:09] LABS: BLOOD UREA NITROGEN 20.1 mg/dL (7-18); CALCIUM 8.6 mg/dL (8.5-10.1); CO2 28 mmol/L (21-32); GLUCOSE,RANDOM 98 mg/dL (74-106); MAGNESIUM 2.4 mg/dL (1.8-2.4)
[2021-04-14 19:12] LABS: CREATININE 0.9 mg/dL (0.55-1.3); SGOT/AST 56 U/L (15-37); SGPT/ALT 26 U/L (13-61)
[2021-04-14 19:14] LABS: BILIRUBIN,TOTAL 0.5 mg/dL (0.2-1); TOT PROT 7.6 g/dl (6.4-8.2)
[2021-04-14 19:15] LABS: ALK PHOS 108 U/L (45-117)
[2021-04-14 19:21] LABS: N-TERMINAL BNP 583.4 pg/ml (5-450)
[2021-04-14 19:24] LABS: ANION GAP 8 MMOL/L (8-16)
[2021-04-14 20:31] LABS: CALCIUM 8.8 mg/dL (8.5-10.1)
[2021-04-14 20:35] LABS: CREATININE 0.8 mg/dL (0.55-1.3)
[2021-04-14] MEDS ORDERED: ALBUTEROL SO4 2.5/IPRATROPIUM 0.5 INH SOL 3 ML VIAL.NEB. NEB PRN (21:51)
[2021-04-14] MEDS: INSULIN SLIDING SCALE (NOVOLOG) 1 VIAL SQ SCH (22:14)
[2021-04-15 00:05] VITALS: BMI 24.9
[2021-04-15] MEDS: methylPREDNISolone NA SUCC 40 MG/1 ML VIAL IVPUSH SCH ×4 (05:34→20:54)
[2021-04-15] MEDS: INSULIN SLIDING SCALE (NOVOLOG) 1 VIAL SQ SCH ×4 (06:12→21:00)
[2021-04-15 08:33] LABS: BASO % 0.2 % (0-2.0); HEMATOCRIT 40.5 % (32.4-45.2); HEMOGLOBIN 13.6 GM/dL (10.7-15.3); LYMPH % 14.7 % (8-40); MCH 30.9 pg (25.7-33.7); MCHC 33.5 g/dl (32.0-36.0); MEAN PLT VOLUME 7.5 fl (7.5-11.1); NEUT % 83.1 % (42.8-82.8); PLATELET COUNT 185 10^3/uL (134-434); RDW 14.3 % (11.6-15.6); WHITE BLOOD COUNT 7.1 K/mm3 (4.0-10.0)
[2021-04-15 08:49] LABS: BLOOD UREA NITROGEN 21.6 mg/dL (7-18)
[2021-04-15 08:50] LABS: CALCIUM 9.3 mg/dL (8.5-10.1)
[2021-04-15 08:52] LABS: CREATININE 0.6 mg/dL (0.55-1.3)
[2021-04-15] MEDS ORDERED: FUROSEMIDE 20 MG TABLET (FP) PO SCH (10:00)
[2021-04-15] MEDS: ENOXAPARIN NA (PORCINE) 40 MG/0.4 ML DISP.SYRIN SQ SCH (11:54)
[2021-04-15] MEDS: PANTOPRAZOLE 40 MG TABLET PO SCH (11:55)
[2021-04-15] MEDS: ASPIRIN 81 MG CHEWABLE TABLETS PO SCH (11:55)
[2021-04-15] MEDS: METOPROLOL TARTRATE 25 MG TABLET (FP) PO SCH ×2 (11:55→21:00)
[2021-04-15] MEDS: ROSUVASTATIN CA 20 MG TABLET (FP) PO SCH (11:55)
[2021-04-15] MEDS: LISINOPRIL 10 MG TABLET PO SCH (11:55)
[2021-04-16] MEDS: methylPREDNISolone NA SUCC 40 MG/1 ML VIAL IVPUSH SCH ×3 (02:46→17:58)
[2021-04-16] MEDS ORDERED: ACETAMINOPHEN 325 MG TABLET (FP) PO ONE (04:47)
[2021-04-16] MEDS: INSULIN SLIDING SCALE (NOVOLOG) 1 VIAL SQ SCH ×4 (06:14→22:18)
[2021-04-16] MEDS: ENOXAPARIN NA (PORCINE) 40 MG/0.4 ML DISP.SYRIN SQ SCH (09:34)
[2021-04-16] MEDS: METOPROLOL TARTRATE 25 MG TABLET (FP) PO SCH ×2 (09:37→22:18)
[2021-04-16] MEDS: PANTOPRAZOLE 40 MG TABLET PO SCH (09:37)
[2021-04-16] MEDS: ROSUVASTATIN CA 20 MG TABLET (FP) PO SCH (09:37)
[2021-04-16] MEDS: FUROSEMIDE 40 MG TABLET (FP) PO SCH (09:37)
[2021-04-16] MEDS: ASPIRIN 81 MG CHEWABLE TABLETS PO SCH (09:37)
[2021-04-16] MEDS: LISINOPRIL 10 MG TABLET PO SCH (09:37)
[2021-04-16 10:05] LABS: BASO % 0.1 % (0-2.0); HEMATOCRIT 41.3 % (32.4-45.2); HEMOGLOBIN 13.8 GM/dL (10.7-15.3); LYMPH % 11.3 % (8-40); MCHC 33.4 g/dl (32.0-36.0); MEAN CELL VOLUME 92.7 fl (80-96); MONO % 2.5 % (3.8-10.2); NEUT % 86.1 % (42.8-82.8); PLATELET COUNT 203 10^3/uL (134-434); RBC 4.45 M/mm3 (3.60-5.2); RDW 13.9 % (11.6-15.6); WHITE BLOOD COUNT 11.3 K/mm3 (4.0-10.0)
[2021-04-16] MEDS ORDERED: ALBUTEROL SO4 0.083% IH SOL 2.5 MG/3 ML VIAL.NEB. NEB PRN (10:24)
[2021-04-16 10:29] LABS: ALBUMIN 2.9 g/dl (3.4-5.0); BLOOD UREA NITROGEN 28.4 mg/dL (7-18); CALCIUM 8.9 mg/dL (8.5-10.1); MAGNESIUM 2.1 mg/dL (1.8-2.4)
[2021-04-16 10:32] LABS: CREATININE 0.8 mg/dL (0.55-1.3)
[2021-04-16 10:33] LABS: TOT PROT 6.9 g/dl (6.4-8.2)
[2021-04-16 10:35] LABS: BILIRUBIN,TOTAL 0.6 mg/dL (0.2-1)
[2021-04-16] MEDS: ALBUTEROL SO4 2.5/IPRATROPIUM 0.5 INH SOL 3 ML VIAL.NEB. NEB SCH ×3 (12:51→20:05)
[2021-04-17] MEDS: methylPREDNISolone NA SUCC 40 MG/1 ML VIAL IVPUSH SCH ×3 (02:13→17:47)
[2021-04-17] MEDS: INSULIN SLIDING SCALE (NOVOLOG) 1 VIAL SQ SCH ×4 (07:06→21:29)
[2021-04-17] MEDS: ALBUTEROL SO4 2.5/IPRATROPIUM 0.5 INH SOL 3 ML VIAL.NEB. NEB SCH ×4 (07:45→19:20)
[2021-04-17 09:29] LABS: BASO % 0.1 % (0-2.0); HEMOGLOBIN 14.1 GM/dL (10.7-15.3); LYMPH % 8.8 % (8-40); MCH 31.1 pg (25.7-33.7); MCHC 33.5 g/dl (32.0-36.0); MEAN CELL VOLUME 92.8 fl (80-96); MEAN PLT VOLUME 7.9 fl (7.5-11.1); MONO % 2.8 % (3.8-10.2); NEUT % 88.3 % (42.8-82.8); PLATELET COUNT 213 10^3/uL (134-434); RBC 4.52 M/mm3 (3.60-5.2); RDW 14.6 % (11.6-15.6); WHITE BLOOD COUNT 12.2 K/mm3 (4.0-10.0)
[2021-04-17 09:53] LABS: CALCIUM 8.8 mg/dL (8.5-10.1)
[2021-04-17 09:54] LABS: ALBUMIN 2.9 g/dl (3.4-5.0); MAGNESIUM 2.3 mg/dL (1.8-2.4)
[2021-04-17 09:58] LABS: BILIRUBIN,TOTAL 0.5 mg/dL (0.2-1); TOT PROT 6.8 g/dl (6.4-8.2)
[2021-04-17] MEDS: ENOXAPARIN NA (PORCINE) 40 MG/0.4 ML DISP.SYRIN SQ SCH (10:58)
[2021-04-17] MEDS: FUROSEMIDE 40 MG TABLET (FP) PO SCH (10:59)
[2021-04-17] MEDS: ROSUVASTATIN CA 20 MG TABLET (FP) PO SCH (10:59)
[2021-04-17] MEDS: LISINOPRIL 10 MG TABLET PO SCH (10:59)
[2021-04-17] MEDS: METOPROLOL TARTRATE 25 MG TABLET (FP) PO SCH ×2 (10:59→21:24)
[2021-04-17] MEDS: PANTOPRAZOLE 40 MG TABLET PO SCH (10:59)
[2021-04-17] MEDS: ASPIRIN 81 MG CHEWABLE TABLETS PO SCH (11:01)
[2021-04-18] MEDS ORDERED: MELATONIN 5 MG TABLETS PO ONE (02:04)
[2021-04-18] MEDS: methylPREDNISolone NA SUCC 40 MG/1 ML VIAL IVPUSH SCH ×3 (02:04→19:03)
[2021-04-18] MEDS ORDERED: ACETAMINOPHEN 325 MG TABLET (FP) PO ONE (02:05)
[2021-04-18] MEDS: INSULIN SLIDING SCALE (NOVOLOG) 1 VIAL SQ SCH ×4 (06:18→21:58)
[2021-04-18] MEDS: ALBUTEROL SO4 2.5/IPRATROPIUM 0.5 INH SOL 3 ML VIAL.NEB. NEB SCH ×4 (07:30→20:15)
[2021-04-18 09:16] LABS: BASO % 0.2 % (0-2.0); HEMATOCRIT 42.7 % (32.4-45.2); HEMOGLOBIN 14.4 GM/dL (10.7-15.3); LYMPH % 8.9 % (8-40); MCH 31.3 pg (25.7-33.7); MCHC 33.7 g/dl (32.0-36.0); MEAN CELL VOLUME 92.8 fl (80-96); MEAN PLT VOLUME 7.7 fl (7.5-11.1); MONO % 3.3 % (3.8-10.2); NEUT % 87.6 % (42.8-82.8); PLATELET COUNT 197 10^3/uL (134-434); RDW 14.2 % (11.6-15.6); WHITE BLOOD COUNT 10.7 K/mm3 (4.0-10.0)
[2021-04-18 09:40] LABS: BLOOD UREA NITROGEN 41.3 mg/dL (7-18)
[2021-04-18 09:43] LABS: CREATININE 1.1 mg/dL (0.55-1.3)
[2021-04-18 09:44] LABS: BILIRUBIN,TOTAL 0.5 mg/dL (0.2-1); TOT PROT 6.7 g/dl (6.4-8.2)
[2021-04-18 09:48] LABS: CALCIUM 8.7 mg/dL (8.5-10.1); MAGNESIUM 2.6 mg/dL (1.8-2.4)
[2021-04-18] MEDS: ASPIRIN 81 MG CHEWABLE TABLETS PO SCH (10:48)
[2021-04-18] MEDS: ROSUVASTATIN CA 20 MG TABLET (FP) PO SCH (10:49)
[2021-04-18] MEDS: METOPROLOL TARTRATE 25 MG TABLET (FP) PO SCH ×2 (10:49→21:56)
[2021-04-18] MEDS: LISINOPRIL 10 MG TABLET PO SCH (10:49)
[2021-04-18] MEDS: PANTOPRAZOLE 40 MG TABLET PO SCH (10:50)
[2021-04-18] MEDS: FUROSEMIDE 40 MG TABLET (FP) PO SCH (10:58)
[2021-04-18] MEDS: ENOXAPARIN NA (PORCINE) 40 MG/0.4 ML DISP.SYRIN SQ SCH (10:58)
[2021-04-18] MEDS: guaiFENesin 600 MG TABLET.ER (FP) PO SCH ×2 (16:41→21:56)
[2021-04-18] MEDS: MELATONIN 5 MG TABLETS PO SCH (21:56)
[2021-04-19] MEDS: methylPREDNISolone NA SUCC 40 MG/1 ML VIAL IVPUSH SCH ×3 (01:17→18:12)
[2021-04-19] MEDS: INSULIN SLIDING SCALE (NOVOLOG) 1 VIAL SQ SCH ×4 (06:28→22:18)
[2021-04-19] MEDS: ALBUTEROL SO4 2.5/IPRATROPIUM 0.5 INH SOL 3 ML VIAL.NEB. NEB SCH ×4 (07:40→20:10)
[2021-04-19] MEDS: ASPIRIN 81 MG CHEWABLE TABLETS PO SCH (10:45)
[2021-04-19] MEDS: FUROSEMIDE 40 MG TABLET (FP) PO SCH (10:46)
[2021-04-19] MEDS: ENOXAPARIN NA (PORCINE) 40 MG/0.4 ML DISP.SYRIN SQ SCH (10:46)
[2021-04-19] MEDS: PANTOPRAZOLE 40 MG TABLET PO SCH (10:46)
[2021-04-19] MEDS: guaiFENesin 600 MG TABLET.ER (FP) PO SCH ×2 (10:46→22:12)
[2021-04-19] MEDS: LISINOPRIL 10 MG TABLET PO SCH (10:46)
[2021-04-19] MEDS: METOPROLOL TARTRATE 25 MG TABLET (FP) PO SCH ×2 (10:46→22:12)
[2021-04-19] MEDS: ROSUVASTATIN CA 20 MG TABLET (FP) PO SCH (10:46)
[2021-04-19] MEDS ORDERED: PT OWN MED DRAWER 7, Y5N ONE (11:01)
[2021-04-19] MEDS ORDERED: MORPHINE SULFATE 2 MG/ML VIAL IVPB ONE (21:59)
[2021-04-19] MEDS: MELATONIN 5 MG TABLETS PO SCH (22:57)
[2021-04-20] MEDS: methylPREDNISolone NA SUCC 40 MG/1 ML VIAL IVPUSH SCH ×3 (01:58→17:17)
[2021-04-20] MEDS: INSULIN SLIDING SCALE (NOVOLOG) 1 VIAL SQ SCH ×4 (06:57→22:53)
[2021-04-20] MEDS: ALBUTEROL SO4 2.5/IPRATROPIUM 0.5 INH SOL 3 ML VIAL.NEB. NEB SCH ×4 (07:40→20:45)
[2021-04-20] MEDS: ENOXAPARIN NA (PORCINE) 40 MG/0.4 ML DISP.SYRIN SQ SCH (10:13)
[2021-04-20] MEDS: METOPROLOL TARTRATE 25 MG TABLET (FP) PO SCH ×2 (10:14→22:53)
[2021-04-20] MEDS: ASPIRIN 81 MG CHEWABLE TABLETS PO SCH (10:14)
[2021-04-20] MEDS: ROSUVASTATIN CA 20 MG TABLET (FP) PO SCH (10:14)
[2021-04-20] MEDS: guaiFENesin 600 MG TABLET.ER (FP) PO SCH ×2 (10:14→22:53)
[2021-04-20] MEDS: LISINOPRIL 10 MG TABLET PO SCH (10:14)
[2021-04-20] MEDS: PANTOPRAZOLE 40 MG TABLET PO SCH (10:14)
[2021-04-20] MEDS: FUROSEMIDE 40 MG TABLET (FP) PO SCH (10:14)
[2021-04-20 11:35] LABS: BASO % 0.1 % (0-2.0); HEMATOCRIT 41.6 % (32.4-45.2); HEMOGLOBIN 14.2 GM/dL (10.7-15.3); LYMPH % 8.3 % (8-40); MCH 31.5 pg (25.7-33.7); MCHC 34.2 g/dl (32.0-36.0); MEAN CELL VOLUME 92.1 fl (80-96); MEAN PLT VOLUME 7.6 fl (7.5-11.1); MONO % 6.3 % (3.8-10.2); NEUT % 85.3 % (42.8-82.8); PLATELET COUNT 221 10^3/uL (134-434); RBC 4.52 M/mm3 (3.60-5.2); RDW 14.1 % (11.6-15.6); WHITE BLOOD COUNT 10.3 K/mm3 (4.0-10.0)
[2021-04-20 11:56] LABS: CHLORIDE 102 mmol/L (98-107); SODIUM 137 mmol/L (136-145)
[2021-04-20 12:00] LABS: CALCIUM 8.5 mg/dL (8.5-10.1)
[2021-04-20 12:01] LABS: ALBUMIN 2.9 g/dl (3.4-5.0); ANION GAP 8 MMOL/L (8-16); CO2 28 mmol/L (21-32); GLUCOSE,RANDOM 180 mg/dL (74-106)
[2021-04-20 12:04] LABS: CREATININE 0.9 mg/dL (0.55-1.3); SGOT/AST 14 U/L (15-37); SGPT/ALT 23 U/L (13-61)
[2021-04-20 12:06] LABS: BILIRUBIN,TOTAL 0.6 mg/dL (0.2-1); TOT PROT 6.5 g/dl (6.4-8.2)
[2021-04-20 12:07] LABS: ALK PHOS 76 U/L (45-117)
[2021-04-20] MEDS ORDERED: ONDANSETRON 4 MG/2 ML VIAL IVPUSH ONE (17:43)
[2021-04-20] MEDS ORDERED: MORPHINE SULFATE 2 MG/ML VIAL IVPUSH ONE ×2 (19:41→21:33)
[2021-04-20] MEDS ORDERED: PANTOPRAZOLE SODIUM 40 MG VIAL IVPUSH ONE (20:47)
[2021-04-20] MEDS ORDERED: PROCHLORPERAZINE INJECTION 10 MG/2 ML VIAL IVPB ONE (20:48)
[2021-04-20 21:48] LABS: BASO % 0.3 % (0-2.0); HEMATOCRIT 46.5 % (32.4-45.2); HEMOGLOBIN 15.7 GM/dL (10.7-15.3); LYMPH % 6.9 % (8-40); MCH 30.7 pg (25.7-33.7); MCHC 33.8 g/dl (32.0-36.0); MEAN CELL VOLUME 90.8 fl (80-96); MEAN PLT VOLUME 7.3 fl (7.5-11.1); MONO % 5.1 % (3.8-10.2); NEUT % 87.7 % (42.8-82.8); PLATELET COUNT 272 10^3/uL (134-434); RBC 5.13 M/mm3 (3.60-5.2); RDW 14.3 % (11.6-15.6); WHITE BLOOD COUNT 11.4 K/mm3 (4.0-10.0)
[2021-04-20 22:08] LABS: CHLORIDE 98 mmol/L (98-107); SODIUM 136 mmol/L (136-145)
[2021-04-20 22:10] LABS: CALCIUM 8.7 mg/dL (8.5-10.1)
[2021-04-20 22:11] LABS: ALBUMIN 3.1 g/dl (3.4-5.0); ANION GAP 9 MMOL/L (8-16); BLOOD UREA NITROGEN 43.7 mg/dL (7-18); CO2 29 mmol/L (21-32); GLUCOSE,RANDOM 150 mg/dL (74-106)
[2021-04-20 22:14] LABS: SGPT/ALT 27 U/L (13-61)
[2021-04-20 22:15] LABS: BILIRUBIN,TOTAL 0.7 mg/dL (0.2-1)
[2021-04-20 22:16] LABS: ALK PHOS 86 U/L (45-117)
[2021-04-20 22:17] LABS: SGOT/AST 16 U/L (15-37)
[2021-04-20] MEDS: MELATONIN 5 MG TABLETS PO SCH (22:53)
[2021-04-21] MEDS ORDERED: LABETALOL HCL 5 MG/1 ML (100MG/20 ML VIAL) IVPUSH ONE ×2 (00:33→03:29)
[2021-04-21] MEDS: MORPHINE SULFATE 2 MG/ML VIAL IVPUSH PRN ×2 (00:47→07:58)
[2021-04-21] MEDS ORDERED: ALBUTEROL SO4 0.083% IH SOL 2.5 MG/3 ML VIAL.NEB. NEB PRN (00:58)
[2021-04-21] MEDS ORDERED: methylPREDNISolone NA SUCC 40 MG/1 ML VIAL IVPUSH SCH (02:00)
[2021-04-21] MEDS ORDERED: ASPIRIN 81 MG CHEWABLE TABLETS PO ONE (03:05)
[2021-04-21] MEDS ORDERED: HEPARIN NA (PORCINE) 5,000 UNITS/ML 1ML VIAL IVPUSH PRN ×2 (04:20)
[2021-04-21] MEDS ORDERED: HEPARIN NA (PORCINE) 5,000 UNITS/ML 1ML VIAL IVPUSH ONE ×2 (04:20)
[2021-04-21] MEDS ORDERED: HEPARIN INFUSION - 25,000 UNITS/500 ML INFUS.BAG IVPB SCH (04:30)
[2021-04-21 06:34] VITALS: BP 154/85; PULSE 79; TEMP 98.4
[2021-04-21] MEDS ORDERED: INSULIN SLIDING SCALE (NOVOLOG) 1 VIAL SQ SCH (07:00)
[2021-04-21] MEDS ORDERED: ALBUTEROL SO4 2.5/IPRATROPIUM 0.5 INH SOL 3 ML VIAL.NEB. NEB SCH (08:00)
[2021-04-21] MEDS ORDERED: NITROGLYCERIN 50MG/D5W 250ML 50 MG/250 ML ML IVPB SCH (09:00)
[2021-04-21] MEDS ORDERED: PANTOPRAZOLE 40 MG TABLET PO SCH (10:00)
[2021-04-21] MEDS ORDERED: METOPROLOL TARTRATE 25 MG TABLET (FP) PO SCH (10:00)
[2021-04-21] MEDS ORDERED: LISINOPRIL 10 MG TABLET PO SCH (10:00)
[2021-04-21] MEDS ORDERED: FUROSEMIDE 40 MG TABLET (FP) PO SCH (10:00)
[2021-04-21] MEDS ORDERED: guaiFENesin 600 MG TABLET.ER (FP) PO SCH (10:00)
[2021-04-21] MEDS ORDERED: ASPIRIN 81 MG CHEWABLE TABLETS PO SCH (10:00)
[2021-04-21] MEDS ORDERED: ENOXAPARIN NA (PORCINE) 40 MG/0.4 ML DISP.SYRIN SQ SCH (10:00)
[2021-04-21] MEDS ORDERED: ROSUVASTATIN CA 20 MG TABLET (FP) PO SCH (22:00)
[2021-04-21] MEDS ORDERED: MELATONIN 5 MG TABLETS PO SCH (22:00)
[2021-04-22 06:06] LABS: SARS-CoV-2 NAA Not Detected (Not Detected)
== END 2021-04-21 07:30 | disposition short-term general hospital (02) | DRG 190 ==
LOC: JER 16:26 → JERBED 21:43 → J5S 23:48 → J4W 04-20 23:04
PROVIDERS: ADMIT Internal Medicine; ATTEND Family Medicine
DX: J44.1 Chronic obstructive pulmonary disease with (acute) exacerbation (principal); I21.4 Non-ST elevation (NSTEMI) myocardial infarction; J18.9 Pneumonia, unspecified organism; E87.2 Acidosis; I50.22 Chronic systolic (congestive) heart failure; K56.609 Unspecified intestinal obstruction, unspecified as to partial versus complete obstruction; I25.10 Atherosclerotic heart disease of native coronary artery without angina pectoris; I11.0 Hypertensive heart disease with heart failure; E11.9 Type 2 diabetes mellitus without complications; M48.061 Spinal stenosis, lumbar region without neurogenic claudication; G47.00 Insomnia, unspecified; I45.10 Unspecified right bundle-branch block; R50.9 Fever, unspecified; R07.89 Other chest pain; R11.10 Vomiting, unspecified; R10.31 Right lower quadrant pain; Z95.1 Presence of aortocoronary bypass graft
CPT/HCPCS: 36415; 71045-TC-FY; 71046-TC-FY; 71250-TC; 74018-TC-FY; 74176-TC; 80048; 80053; 80061; 82550; 82962; 83036; 83605; 83721; 83735; 83880; 84484; 85025; 85730; 87040; 87070; 87205; 87899; 93005; 93010; 93306-TC; 94010; 94640; 94660; 99285-25; C9803; J1644; U0003; U0005

== ENCOUNTER 2022-07-17 19:08 | Emergency (ER) | payer OTHER ==
[2022-07-17 19:15] VITALS: BP 170/71; PULSE 67; RESP 18; TEMP 98.1; BMI 30.2
[2022-07-17] MEDS ORDERED: TETRACAINE/BENZOCAINE/BUTAMBEN 20 GM SPR TP ONE (19:49)
[2022-07-17] MEDS ORDERED: BENZOCAINE 20% 57 GM BOTTLE TP ONE ×2 (20:00→20:19)
[2022-07-17] MEDS ORDERED: LIDOCAINE VISCOUS 2% ORAL/TOP 15 ML UNIT-DOSE CUP MM ONE (20:24)
[2022-07-17] MEDS ORDERED: LIDOCAINE VISCOUS 2% ORAL/TOP 15 ML UNIT-DOSE CUP ONE (20:26)
== END 2022-07-17 23:52 | disposition home or self-care (01) ==
LOC: JER 19:08
DX: R09.89 Other specified symptoms and signs involving the circulatory and respiratory systems (principal); R07.0 Pain in throat
CPT/HCPCS: 70490-TC; 82962; 99284-25

== ENCOUNTER 2022-07-23 10:41 | Observation (INO) | payer OTHER ==
[2022-07-23 10:47] VITALS: BMI 29.7
[2022-07-23] MEDS ORDERED: ALBUTEROL SO4 2.5/IPRATROPIUM 0.5 INH SOL 3 ML VIAL.NEB. NEB ONE (11:41)
[2022-07-23 12:05] LABS: BASO % 0.5 % (0-2.0); EOS % 1.5 % (0-4.5); HEMATOCRIT 38.2 % (32.4-45.2); HEMOGLOBIN 12.4 GM/dL (10.7-15.3); LYMPH % 30.9 % (8-40); MCH 30.6 pg (25.7-33.7); MCHC 32.5 g/dl (32.0-36.0); MEAN PLT VOLUME 7.7 fl (7.5-11.1); MONO % 10.3 % (3.8-10.2); NEUT % 56.8 % (42.8-82.8); PLATELET COUNT 216 10^3/uL (134-434); RBC 4.07 M/mm3 (3.60-5.2); RDW 13.4 % (11.6-15.6); WHITE BLOOD COUNT 8.3 K/mm3 (4.0-10.0)
[2022-07-23 12:12] LABS: INR 1.05 (0.83-1.09); PROTHROMBIN TIME (PATIENT) 12.1 SEC (9.7-13.0)
[2022-07-23 12:15] LABS: ACTIVATED PTT 28.7 SECONDS (25.2-36.5)
[2022-07-23 12:23] LABS: BLOOD UREA NITROGEN 23.8 mg/dL (7-18)
[2022-07-23 12:27] LABS: CREATININE 0.8 mg/dL (0.55-1.3)
[2022-07-23 12:28] LABS: BILIRUBIN,TOTAL 0.9 mg/dL (0.2-1); TOT PROT 6.3 g/dl (6.4-8.2)
[2022-07-23] MEDS ORDERED: ALBUTEROL SO4 2.5/IPRATROPIUM 0.5 INH SOL 3 ML VIAL.NEB. NEB PRN (17:15)
[2022-07-23] MEDS ORDERED: ACETAMINOPHEN 325 MG TABLET (FP) PO ONE (18:34)
[2022-07-23] MEDS ORDERED: ACETAMINOPHEN 325 MG TABLET (FP) ONE (18:35)
[2022-07-23 19:13] LABS: EPI CELLS 7 /uL (0-25.1); HYALINE CASTS 0 /uL (0-3.1); URINE APPEARANCE CLEAR; URINE BACTERIA 89 /uL (0-1359); URINE BILIRUBIN NEGATIVE (NEGATIVE); URINE COLOR YELLOW; URINE GLUCOSE (UA) NEGATIVE (NEGATIVE); URINE KETONE NEGATIVE (NEGATIVE); URINE LEUK ESTERASE 1+ (NEGATIVE); URINE NITRITE NEGATIVE (NEGATIVE); URINE PROTEIN NEGATIVE (NEGATIVE); URINE RBC 9 /uL (0-23.9); URINE UROBILINOGEN 0.2 mg/dL (0.2-1.0); URINE WBC 6 /uL (0-25.8)
[2022-07-23] MEDS ORDERED: ATORVASTATIN CA 80 MG TABLET (FP) ONE (21:21)
[2022-07-23] MEDS ORDERED: METOPROLOL TARTRATE 50 MG TABLET (FP) ONE (21:21)
[2022-07-23] MEDS ORDERED: RANOLAZINE E.R. 500 MG TABLET (FP) ONE (21:22)
[2022-07-23] MEDS ORDERED: GABAPENTIN 300 MG CAPSULE ONE (21:22)
[2022-07-23] MEDS ORDERED: QUEtiapine FUMARATE 25 MG TABLET ONE (21:22)
[2022-07-23] MEDS: GABAPENTIN 300 MG CAPSULE PO SCH (21:33)
[2022-07-23] MEDS: BUDESONIDE/FORMETEROL FUMARATE 160/4.5 mcg INHALER IH SCH (21:33)
[2022-07-23] MEDS: RANOLAZINE E.R. 1,000 MG TABLET (FP) PO SCH (21:33)
[2022-07-23] MEDS: ATORVASTATIN CA 80 MG TABLET (FP) PO SCH (21:33)
[2022-07-23] MEDS: METOPROLOL TARTRATE 50 MG TABLET (FP) PO SCH (21:34)
[2022-07-23] MEDS ORDERED: QUEtiapine FUMARATE 25 MG TABLET PO SCH (22:00)
[2022-07-23] MEDS ORDERED: METOPROLOL TARTRATE 25 MG TABLET (FP) PO SCH (22:00)
[2022-07-24 08:17] LABS: BASO % 0.5 % (0-2.0); EOS % 2.1 % (0-4.5); HEMATOCRIT 39.2 % (32.4-45.2); HEMOGLOBIN 13.1 GM/dL (10.7-15.3); LYMPH % 42.5 % (8-40); MCH 31.5 pg (25.7-33.7); MCHC 33.5 g/dl (32.0-36.0); MEAN CELL VOLUME 93.8 fl (80-96); MONO % 8.9 % (3.8-10.2); PLATELET COUNT 200 10^3/uL (134-434); RBC 4.17 M/mm3 (3.60-5.2); RDW 13.6 % (11.6-15.6)
[2022-07-24 09:10] LABS: CALCIUM 8.6 mg/dL (8.5-10.1)
[2022-07-24 09:11] LABS: ALBUMIN 2.9 g/dl (3.4-5.0); MAGNESIUM 2.1 mg/dL (1.8-2.4)
[2022-07-24 09:14] LABS: CREATININE 0.7 mg/dL (0.55-1.3); PHOSPHOROUS 3.9 mg/dL (2.5-4.9)
[2022-07-24 09:15] LABS: TOT PROT 6.1 g/dl (6.4-8.2)
[2022-07-24] MEDS ORDERED: FUROSEMIDE 20 MG TABLET (FP) PO SCH (10:00)
[2022-07-24] MEDS ORDERED: ROSUVASTATIN CA 20 MG TABLET PO SCH (10:00)
[2022-07-24] MEDS: GABAPENTIN 300 MG CAPSULE PO SCH ×2 (10:55→21:11)
[2022-07-24] MEDS: METOPROLOL TARTRATE 50 MG TABLET (FP) PO SCH ×2 (10:55→21:11)
[2022-07-24] MEDS: LISINOPRIL 10 MG TABLET PO SCH (10:56)
[2022-07-24] MEDS: CLOPIDOGREL BISULFATE 75 MG TABLET (FP) PO SCH (10:56)
[2022-07-24] MEDS: BUDESONIDE/FORMETEROL FUMARATE 160/4.5 mcg INHALER IH SCH ×2 (10:56→23:00)
[2022-07-24] MEDS: RANOLAZINE E.R. 1,000 MG TABLET (FP) PO SCH ×2 (10:56→21:11)
[2022-07-24] MEDS: ISOSORBIDE MONONITRATE 60 MG TAB.SR.24H (FP) PO SCH (10:56)
[2022-07-24] MEDS: ASPIRIN 81 MG CHEWABLE TABLETS PO SCH (10:56)
[2022-07-24] MEDS ORDERED: ISOSORBIDE MONONITRATE 60 MG TAB.SR.24H (FP) PO ONE (11:00)
[2022-07-24] MEDS ORDERED: METOPROLOL TARTRATE 50 MG TABLET (FP) ONE ×2 (11:00→21:01)
[2022-07-24] MEDS ORDERED: CLOPIDOGREL BISULFATE 75 MG TABLET (FP) ONE (11:01)
[2022-07-24] MEDS ORDERED: GABAPENTIN 300 MG CAPSULE ONE ×2 (11:01→21:01)
[2022-07-24] MEDS ORDERED: LISINOPRIL 10 MG TABLET ONE (11:01)
[2022-07-24] MEDS ORDERED: ASPIRIN 81 MG CHEWABLE TABLETS ONE (11:01)
[2022-07-24] MEDS ORDERED: FUROSEMIDE 20 MG TABLET (FP) ONE (11:01)
[2022-07-24] MEDS: ALBUTEROL SO4 2.5/IPRATROPIUM 0.5 INH SOL 3 ML VIAL.NEB. NEB SCH ×3 (11:20→20:00)
[2022-07-24] MEDS ORDERED: ALBUTEROL SO4 2.5/IPRATROPIUM 0.5 INH SOL 3 ML VIAL.NEB. NEB ONE ×2 (11:21→20:25)
[2022-07-24] MEDS ORDERED: ATORVASTATIN CA 80 MG TABLET (FP) ONE (21:01)
[2022-07-24] MEDS: ATORVASTATIN CA 80 MG TABLET (FP) PO SCH (21:10)
[2022-07-25] MEDS: ALBUTEROL SO4 2.5/IPRATROPIUM 0.5 INH SOL 3 ML VIAL.NEB. NEB SCH ×5 (08:25→21:13)
[2022-07-25] MEDS ORDERED: RANOLAZINE E.R. 500 MG TABLET (FP) ONE ×2 (08:43→21:01)
[2022-07-25] MEDS: ISOSORBIDE MONONITRATE 60 MG TAB.SR.24H (FP) PO SCH (09:00)
[2022-07-25] MEDS: ASPIRIN 81 MG CHEWABLE TABLETS PO SCH (09:00)
[2022-07-25] MEDS: GABAPENTIN 300 MG CAPSULE PO SCH ×2 (09:00→21:02)
[2022-07-25] MEDS: CLOPIDOGREL BISULFATE 75 MG TABLET (FP) PO SCH (09:00)
[2022-07-25] MEDS: METOPROLOL TARTRATE 50 MG TABLET (FP) PO SCH ×2 (09:00→21:02)
[2022-07-25] MEDS: LISINOPRIL 10 MG TABLET PO SCH (09:01)
[2022-07-25] MEDS: RANOLAZINE E.R. 1,000 MG TABLET (FP) PO SCH ×2 (09:01→21:03)
[2022-07-25] MEDS: TORSEMIDE 20 MG TABLET (FP) PO SCH (09:03)
[2022-07-25] MEDS: BUDESONIDE/FORMETEROL FUMARATE 160/4.5 mcg INHALER IH SCH ×2 (09:05→21:04)
[2022-07-25] MEDS ORDERED: FLU VACC QS2022-23(6MOS UP)/PF 60 MCG/0.5 ML SYRINGE IM ONE (10:00)
[2022-07-25] MEDS: ATORVASTATIN CA 80 MG TABLET (FP) PO SCH (21:03)
[2022-07-26] MEDS: ALBUTEROL SO4 2.5/IPRATROPIUM 0.5 INH SOL 3 ML VIAL.NEB. NEB SCH ×3 (07:27→15:49)
[2022-07-26] MEDS ORDERED: REGADENOSON 0.4 MG/5 ML PRE-FILLED SYRINGE IVPUSH ONE ×2 (09:33→09:45)
[2022-07-26] MEDS ORDERED: RANOLAZINE E.R. 500 MG TABLET (FP) ONE (09:33)
[2022-07-26] MEDS: CLOPIDOGREL BISULFATE 75 MG TABLET (FP) PO SCH (10:57)
[2022-07-26] MEDS: RANOLAZINE E.R. 1,000 MG TABLET (FP) PO SCH (10:57)
[2022-07-26] MEDS: ISOSORBIDE MONONITRATE 60 MG TAB.SR.24H (FP) PO SCH (10:58)
[2022-07-26] MEDS: GABAPENTIN 300 MG CAPSULE PO SCH (10:58)
[2022-07-26] MEDS: LISINOPRIL 10 MG TABLET PO SCH (10:58)
[2022-07-26] MEDS: TORSEMIDE 20 MG TABLET (FP) PO SCH (10:58)
[2022-07-26] MEDS: ASPIRIN 81 MG CHEWABLE TABLETS PO SCH (10:58)
[2022-07-26] MEDS: BUDESONIDE/FORMETEROL FUMARATE 160/4.5 mcg INHALER IH SCH (10:59)
[2022-07-26 17:01] VITALS: BP 91/50; PULSE 64; RESP 18; TEMP 98.1
== END 2022-07-26 19:24 | disposition home or self-care (01) ==
LOC: JER 10:41 → UNDOADMOB 13:44 → INTOOBSV 13:44 → JERBED 13:44 → J4W 07-25 05:03
PROVIDERS: ADMIT Family Medicine; ATTEND Family Medicine
PROC: 3E0F7SF Introduction of Other Gas into Respiratory Tract, Via Natural or Artificial Opening (ICD-10-PCS; principal; 2022-07-24)
PROC: 3E02340 Introduction of Influenza Vaccine into Muscle, Percutaneous Approach (ICD-10-PCS; 2022-07-24)
DX: R07.9 Chest pain, unspecified (principal); J44.9 Chronic obstructive pulmonary disease, unspecified; I25.10 Atherosclerotic heart disease of native coronary artery without angina pectoris; I11.0 Hypertensive heart disease with heart failure; I50.9 Heart failure, unspecified; Z95.1 Presence of aortocoronary bypass graft; Z95.5 Presence of coronary angioplasty implant and graft; E78.5 Hyperlipidemia, unspecified; E11.9 Type 2 diabetes mellitus without complications; Z79.84 Long term (current) use of oral hypoglycemic drugs; R26.89 Other abnormalities of gait and mobility
CPT/HCPCS: 36415; 70450-TC; 71046-TC-FY; 78452-TC; 80053; 80061; 81003; 82550; 82962; 83735; 83880; 84100; 84443; 84484; 85025; 85610; 85730; 93005; 93010; 93017; 93306-TC; 94640; 96374; 97116-GP; 97162-GP; 99285-25; A9502; C9803-CS; G0378; J2785; Q2036; U0003; U0005

== ENCOUNTER 2022-09-15 14:34 | Inpatient (IN) | payer OTHER ==
[2022-09-15 14:53] VITALS: BMI 30.2
[2022-09-15] MEDS ORDERED: DEXAMETHASONE SOD PHOSPHATE 20 MG/5 ML VIAL IVPB ONE (15:38)
[2022-09-15 16:00] LABS: VENOUS BASE EXCESS -0.2 mmol/L (-2-2); VENOUS O2 SATURATION 55.8 % (70-80); VENOUS PCO2 45.2 mmHg (38-52); VENOUS PH 7.368 (7.310-7.410)
[2022-09-15 16:18] LABS: HEMATOCRIT 38.4 % (32.4-45.2); HEMOGLOBIN 12.3 GM/dL (10.7-15.3); MCH 29.9 pg (25.7-33.7); MEAN CELL VOLUME 93.5 fl (80-96); MEAN PLT VOLUME 7.8 fl (7.5-11.1); PLATELET COUNT 209 10^3/uL (134-434); RBC 4.11 M/mm3 (3.60-5.2); RDW 14.4 % (11.6-15.6)
[2022-09-15 16:23] LABS: INR 1.09 (0.83-1.09); PROTHROMBIN TIME (PATIENT) 12.5 SEC (9.7-13.0)
[2022-09-15 16:26] LABS: ACTIVATED PTT 31.9 SECONDS (25.2-36.5)
[2022-09-15] MEDS ORDERED: ALBUTEROL SO4 2.5/IPRATROPIUM 0.5 INH SOL 3 ML VIAL.NEB. NEB ONE (16:30)
[2022-09-15] MEDS ORDERED: DEXAMETHASONE SOD PHOSPHATE 10 MG/1 ML VIAL ONE (16:30)
[2022-09-15 16:35] LABS: CALCIUM 9.1 mg/dL (8.5-10.1)
[2022-09-15 16:36] LABS: ALBUMIN 3.3 g/dl (3.4-5.0); BLOOD UREA NITROGEN 20.6 mg/dL (7-18)
[2022-09-15] MEDS: ALBUTEROL SO4 2.5/IPRATROPIUM 0.5 INH SOL 3 ML VIAL.NEB. NEB SCH ×3 (16:36→17:44)
[2022-09-15 16:40] LABS: BILIRUBIN,DIRECT 0.2 mg/dL (0.0-0.2); BILIRUBIN,TOTAL 0.5 mg/dL (0.2-1); CREATININE 0.7 mg/dL (0.55-1.3)
[2022-09-15] MEDS ORDERED: MAGNESIUM SULF 50% (8.12 MEQ/2 ML-1 GM VIAL) IVPB ONE (16:50)
[2022-09-15 17:12] LABS: ANISOCYTOSIS 1+; MACROCYTOSIS 0; PLATELET ESTIMATE NORMAL
[2022-09-15] MEDS ORDERED: MAGNESIUM SULFATE IN WATER 2 GM/50 ML IVPB IVPB ONE (17:18)
[2022-09-15] MEDS ORDERED: AZITHROMYCIN IVPB 500 MG in DEXTROSE 5%-WATER - 250 ML IVPB ONE (19:29)
[2022-09-15] MEDS ORDERED: REMDESIVIR 200 MG in SODIUM CHLORIDE 250 ML IVPB ONE (22:00)
[2022-09-15] MEDS ORDERED: ATORVASTATIN CA 40 MG TABLET (FP) ONE (23:06)
[2022-09-15] MEDS: ATORVASTATIN CA 40 MG TABLET (FP) PO SCH (23:33)
[2022-09-15] MEDS: INSULIN SLIDING SCALE (NOVOLOG) 1 VIAL SQ SCH (23:46)
[2022-09-16] MEDS ORDERED: guaiFENesin/D-M SUGAR-FREE/ACLHOL-FREE 118 ML BOTTLE PO PRN (04:04)
[2022-09-16] MEDS: INSULIN SLIDING SCALE (NOVOLOG) 1 VIAL SQ SCH ×4 (07:12→22:43)
[2022-09-16 07:32] LABS: BASO % 0.1 % (0-2.0); HEMATOCRIT 39.6 % (32.4-45.2); HEMOGLOBIN 12.7 GM/dL (10.7-15.3); MCH 30.1 pg (25.7-33.7); MCHC 32.2 g/dl (32.0-36.0); MEAN CELL VOLUME 93.3 fl (80-96); MEAN PLT VOLUME 7.9 fl (7.5-11.1); MONO % 14.3 % (3.8-10.2); NEUT % 65.6 % (42.8-82.8); PLATELET COUNT 221 10^3/uL (134-434); RBC 4.24 M/mm3 (3.60-5.2); RDW 14.2 % (11.6-15.6); WHITE BLOOD COUNT 3.7 K/mm3 (4.0-10.0)
[2022-09-16 07:42] LABS: BLOOD UREA NITROGEN 15.2 mg/dL (7-18)
[2022-09-16 07:44] LABS: CALCIUM 9.3 mg/dL (8.5-10.1)
[2022-09-16 07:45] LABS: ALBUMIN 3.4 g/dl (3.4-5.0); MAGNESIUM 2.5 mg/dL (1.8-2.4)
[2022-09-16 07:48] LABS: CREATININE 0.7 mg/dL (0.55-1.3); PHOSPHOROUS 2.9 mg/dL (2.5-4.9)
[2022-09-16 07:49] LABS: BILIRUBIN,TOTAL 0.3 mg/dL (0.2-1)
[2022-09-16 07:50] LABS: TOT PROT 7.2 g/dl (6.4-8.2)
[2022-09-16] MEDS: ALBUTEROL SO4 2.5/IPRATROPIUM 0.5 INH SOL 3 ML VIAL.NEB. NEB SCH ×4 (08:59→20:02)
[2022-09-16] MEDS ORDERED: ALBUTEROL SO4 2.5/IPRATROPIUM 0.5 INH SOL 3 ML VIAL.NEB. NEB ONE ×4 (09:00→19:58)
[2022-09-16] MEDS ORDERED: METOPROLOL TARTRATE 25 MG TABLET (FP) ONE (09:00)
[2022-09-16] MEDS ORDERED: CLOPIDOGREL BISULFATE 75 MG TABLET (FP) ONE (09:01)
[2022-09-16] MEDS ORDERED: ENOXAPARIN NA (PORCINE) 40 MG/0.4 ML DISP.SYRIN SQ ONE (09:01)
[2022-09-16] MEDS ORDERED: DEXAMETHASONE SOD PHOSPHATE 10 MG/1 ML VIAL ONE (09:01)
[2022-09-16] MEDS ORDERED: FUROSEMIDE 20 MG TABLET (FP) ONE (09:01)
[2022-09-16] MEDS ORDERED: MECLIZINE HCL 12.5 MG TABLET ONE (09:01)
[2022-09-16] MEDS ORDERED: ASPIRIN 81 MG CHEWABLE TABLETS ONE (09:01)
[2022-09-16] MEDS ORDERED: LISINOPRIL 5 MG TABLET ONE (09:01)
[2022-09-16] MEDS: LISINOPRIL 10 MG TABLET PO SCH (09:14)
[2022-09-16] MEDS: CLOPIDOGREL BISULFATE 75 MG TABLET (FP) PO SCH (09:14)
[2022-09-16] MEDS: ROFLUMILAST 500 MCG TABLET PO SCH (09:14)
[2022-09-16] MEDS: FUROSEMIDE 20 MG TABLET (FP) PO SCH (09:14)
[2022-09-16] MEDS: ASPIRIN 81 MG CHEWABLE TABLETS PO SCH (09:14)
[2022-09-16] MEDS: MECLIZINE HCL 12.5 MG TABLET PO SCH (09:14)
[2022-09-16] MEDS: ENOXAPARIN NA (PORCINE) 40 MG/0.4 ML DISP.SYRIN SQ SCH (09:14)
[2022-09-16] MEDS: METOPROLOL TARTRATE 25 MG TABLET (FP) PO SCH (09:14)
[2022-09-16] MEDS ORDERED: DEXAMETHASONE SOD PHOSPHATE 10 MG/1 ML VIAL IVPUSH SCH (10:00)
[2022-09-16] MEDS ORDERED: ALBUTEROL SO4 HFA INHALER IH PRN (10:00)
[2022-09-16] MEDS ORDERED: methylPREDNISolone NA SUCC 125 MG/2 ML VIAL IVPUSH ONE (10:10)
[2022-09-16] MEDS ORDERED: methylPREDNISolone NA SUCC 125 MG/2 ML VIAL IVPUSH SCH (10:15)
[2022-09-16] MEDS ORDERED: methylPREDNISolone NA SUCC 125 MG/2 ML VIAL ONE ×2 (10:38→14:08)
[2022-09-16] MEDS: BUDESONIDE/FORMETEROL FUMARATE 160/4.5 mcg INHALER IH SCH ×2 (10:43→22:43)
[2022-09-16] MEDS: REMDESIVIR 100 MG in SODIUM CHLORIDE 250 ML IVPB SCH (10:43)
[2022-09-16] MEDS: methylPREDNISolone NA SUCC 125 MG/2 ML VIAL IVPUSH SCH ×2 (14:16→22:43)
[2022-09-16 19:54] LABS: PH,URINE 5.5 (5.0-8.0); URINE APPEARANCE CLEAR; URINE BILIRUBIN NEGATIVE (NEGATIVE); URINE COLOR YELLOW; URINE GLUCOSE (UA) NEGATIVE (NEGATIVE); URINE KETONE NEGATIVE (NEGATIVE); URINE LEUK ESTERASE NEGATIVE (NEGATIVE); URINE NITRITE NEGATIVE (NEGATIVE); URINE PROTEIN TRACE (NEGATIVE); URINE UROBILINOGEN 0.2 mg/dL (0.2-1.0)
[2022-09-16] MEDS ORDERED: REMDESIVIR 100 MG in SODIUM CHLORIDE 270 ML IVPB ONE (21:42)
[2022-09-16] MEDS ORDERED: methylPREDNISolone NA SUCC 40 MG/1 ML VIAL ONE (22:25)
[2022-09-16] MEDS ORDERED: ATORVASTATIN CA 40 MG TABLET (FP) ONE (22:25)
[2022-09-16] MEDS ORDERED: guaiFENesin/CODEINE 10 ML UNIT-DOSE CUPS ONE (22:25)
[2022-09-16] MEDS: ATORVASTATIN CA 40 MG TABLET (FP) PO SCH (22:43)
[2022-09-16] MEDS: guaiFENesin/CODEINE 10 ML UNIT-DOSE CUPS PO PRN (22:46)
[2022-09-16] MEDS ORDERED: ZOLPIDEM TARTRATE 5 MG TABLET ONE (23:32)
[2022-09-16] MEDS: ZOLPIDEM TARTRATE 5 MG TABLET PO PRN (23:34)
[2022-09-17] MEDS ORDERED: methylPREDNISolone NA SUCC 40 MG/1 ML VIAL ONE ×2 (06:04→13:55)
[2022-09-17] MEDS: methylPREDNISolone NA SUCC 125 MG/2 ML VIAL IVPUSH SCH ×3 (06:05→22:06)
[2022-09-17] MEDS: INSULIN SLIDING SCALE (NOVOLOG) 1 VIAL SQ SCH ×4 (09:26→22:06)
[2022-09-17] MEDS ORDERED: ALBUTEROL SO4 2.5/IPRATROPIUM 0.5 INH SOL 3 ML VIAL.NEB. NEB ONE ×3 (10:10→15:47)
[2022-09-17] MEDS ORDERED: ASPIRIN 81 MG CHEWABLE TABLETS ONE (10:11)
[2022-09-17] MEDS ORDERED: MECLIZINE HCL 12.5 MG TABLET ONE (10:11)
[2022-09-17] MEDS ORDERED: LISINOPRIL 5 MG TABLET ONE (10:11)
[2022-09-17] MEDS ORDERED: CLOPIDOGREL BISULFATE 75 MG TABLET (FP) ONE (10:11)
[2022-09-17] MEDS ORDERED: METOPROLOL TARTRATE 25 MG TABLET (FP) ONE (10:11)
[2022-09-17] MEDS ORDERED: FUROSEMIDE 20 MG TABLET (FP) ONE (10:12)
[2022-09-17] MEDS ORDERED: ENOXAPARIN NA (PORCINE) 40 MG/0.4 ML DISP.SYRIN SQ ONE (10:12)
[2022-09-17] MEDS: ENOXAPARIN NA (PORCINE) 40 MG/0.4 ML DISP.SYRIN SQ SCH (10:14)
[2022-09-17] MEDS: FUROSEMIDE 20 MG TABLET (FP) PO SCH (10:14)
[2022-09-17] MEDS: ASPIRIN 81 MG CHEWABLE TABLETS PO SCH (10:14)
[2022-09-17] MEDS: ROFLUMILAST 500 MCG TABLET PO SCH (10:14)
[2022-09-17] MEDS: MECLIZINE HCL 12.5 MG TABLET PO SCH (10:14)
[2022-09-17] MEDS: METOPROLOL TARTRATE 25 MG TABLET (FP) PO SCH (10:14)
[2022-09-17] MEDS: ALBUTEROL SO4 2.5/IPRATROPIUM 0.5 INH SOL 3 ML VIAL.NEB. NEB SCH ×4 (10:14→22:18)
[2022-09-17] MEDS: CLOPIDOGREL BISULFATE 75 MG TABLET (FP) PO SCH (10:14)
[2022-09-17] MEDS: LISINOPRIL 10 MG TABLET PO SCH (10:15)
[2022-09-17] MEDS: BUDESONIDE/FORMETEROL FUMARATE 160/4.5 mcg INHALER IH SCH ×2 (11:26→22:07)
[2022-09-17] MEDS: REMDESIVIR 100 MG in SODIUM CHLORIDE 250 ML IVPB SCH (11:47)
[2022-09-17] MEDS: guaiFENesin/CODEINE 10 ML UNIT-DOSE CUPS PO PRN (19:19)
[2022-09-17] MEDS ORDERED: guaiFENesin/CODEINE 10 ML UNIT-DOSE CUPS ONE (19:19)
[2022-09-17] MEDS: ATORVASTATIN CA 40 MG TABLET (FP) PO SCH (22:05)
[2022-09-17] MEDS: ZOLPIDEM TARTRATE 5 MG TABLET PO PRN (22:05)
[2022-09-17] MEDS ORDERED: BENZOCAINE/MENTHOL (CHLORASEPTIC ) LOZENGE MM PRN (23:02)
[2022-09-18] MEDS: guaiFENesin/CODEINE 10 ML UNIT-DOSE CUPS PO PRN (00:56)
[2022-09-18] MEDS: INSULIN SLIDING SCALE (NOVOLOG) 1 VIAL SQ SCH ×4 (06:43→22:30)
[2022-09-18] MEDS: methylPREDNISolone NA SUCC 125 MG/2 ML VIAL IVPUSH SCH ×3 (06:43→20:59)
[2022-09-18] MEDS: ALBUTEROL SO4 2.5/IPRATROPIUM 0.5 INH SOL 3 ML VIAL.NEB. NEB SCH ×4 (08:05→20:52)
[2022-09-18] MEDS: ROFLUMILAST 500 MCG TABLET PO SCH (10:07)
[2022-09-18] MEDS: METOPROLOL TARTRATE 25 MG TABLET (FP) PO SCH (10:07)
[2022-09-18] MEDS: LISINOPRIL 10 MG TABLET PO SCH (10:07)
[2022-09-18] MEDS: FUROSEMIDE 20 MG TABLET (FP) PO SCH (10:07)
[2022-09-18] MEDS: ASPIRIN 81 MG CHEWABLE TABLETS PO SCH (10:07)
[2022-09-18] MEDS: CLOPIDOGREL BISULFATE 75 MG TABLET (FP) PO SCH (10:07)
[2022-09-18] MEDS: ENOXAPARIN NA (PORCINE) 40 MG/0.4 ML DISP.SYRIN SQ SCH (10:09)
[2022-09-18] MEDS: BUDESONIDE/FORMETEROL FUMARATE 160/4.5 mcg INHALER IH SCH ×2 (10:21→22:21)
[2022-09-18] MEDS: MECLIZINE HCL 12.5 MG TABLET PO SCH (11:36)
[2022-09-18] MEDS: REMDESIVIR 100 MG in SODIUM CHLORIDE 250 ML IVPB SCH (11:36)
[2022-09-18 19:40] LABS: CALCIUM 8.8 mg/dL (8.5-10.1)
[2022-09-18 19:41] LABS: ALBUMIN 3.1 g/dl (3.4-5.0)
[2022-09-18 19:44] LABS: CREATININE 1.2 mg/dL (0.55-1.3)
[2022-09-18 19:46] LABS: BILIRUBIN,TOTAL 0.3 mg/dL (0.2-1); TOT PROT 6.6 g/dl (6.4-8.2)
[2022-09-18 20:45] LABS: BLOOD UREA NITROGEN 40.5 mg/dL (7-18)
[2022-09-18] MEDS: ATORVASTATIN CA 40 MG TABLET (FP) PO SCH (21:00)
[2022-09-18] MEDS: MELATONIN 5 MG TABLETS PO SCH (22:24)
[2022-09-19] MEDS: guaiFENesin/CODEINE 10 ML UNIT-DOSE CUPS PO PRN (01:20)
[2022-09-19] MEDS: methylPREDNISolone NA SUCC 125 MG/2 ML VIAL IVPUSH SCH ×4 (02:39→22:15)
[2022-09-19] MEDS: INSULIN SLIDING SCALE (NOVOLOG) 1 VIAL SQ SCH ×4 (06:03→22:28)
[2022-09-19] MEDS: ALBUTEROL SO4 2.5/IPRATROPIUM 0.5 INH SOL 3 ML VIAL.NEB. NEB SCH ×4 (08:25→20:05)
[2022-09-19] MEDS: FUROSEMIDE 20 MG TABLET (FP) PO SCH (11:18)
[2022-09-19] MEDS: CLOPIDOGREL BISULFATE 75 MG TABLET (FP) PO SCH (11:18)
[2022-09-19] MEDS: METOPROLOL TARTRATE 25 MG TABLET (FP) PO SCH (11:18)
[2022-09-19] MEDS: ASPIRIN 81 MG CHEWABLE TABLETS PO SCH (11:18)
[2022-09-19] MEDS: ENOXAPARIN NA (PORCINE) 40 MG/0.4 ML DISP.SYRIN SQ SCH (11:18)
[2022-09-19] MEDS: ROFLUMILAST 500 MCG TABLET PO SCH (11:18)
[2022-09-19] MEDS: LISINOPRIL 10 MG TABLET PO SCH (11:18)
[2022-09-19] MEDS: BUDESONIDE/FORMETEROL FUMARATE 160/4.5 mcg INHALER IH SCH ×2 (11:28→22:18)
[2022-09-19] MEDS: MECLIZINE HCL 12.5 MG TABLET PO SCH (11:53)
[2022-09-19 12:21] LABS: BASO % 0.1 % (0-2.0); HEMATOCRIT 39.4 % (32.4-45.2); HEMOGLOBIN 12.7 GM/dL (10.7-15.3); LYMPH % 5.8 % (8-40); MCH 30.2 pg (25.7-33.7); MCHC 32.3 g/dl (32.0-36.0); MEAN CELL VOLUME 93.5 fl (80-96); MEAN PLT VOLUME 8.1 fl (7.5-11.1); MONO % 6.2 % (3.8-10.2); NEUT % 87.9 % (42.8-82.8); PLATELET COUNT 228 10^3/uL (134-434); RBC 4.21 M/mm3 (3.60-5.2); RDW 14.3 % (11.6-15.6); WHITE BLOOD COUNT 7.2 K/mm3 (4.0-10.0)
[2022-09-19] MEDS: MECLIZINE HCL 25 MG TABLET (FP) PO SCH (13:29)
[2022-09-19] MEDS: REMDESIVIR 100 MG in SODIUM CHLORIDE 250 ML IVPB SCH (13:30)
[2022-09-19] MEDS: ATORVASTATIN CA 40 MG TABLET (FP) PO SCH (22:16)
[2022-09-19] MEDS: MELATONIN 5 MG TABLETS PO SCH (22:16)
[2022-09-20] MEDS: guaiFENesin/CODEINE 10 ML UNIT-DOSE CUPS PO PRN (01:16)
[2022-09-20] MEDS: methylPREDNISolone NA SUCC 125 MG/2 ML VIAL IVPUSH SCH ×3 (03:12→19:24)
[2022-09-20] MEDS: INSULIN SLIDING SCALE (NOVOLOG) 1 VIAL SQ SCH ×4 (06:06→21:17)
[2022-09-20] MEDS: ALBUTEROL SO4 2.5/IPRATROPIUM 0.5 INH SOL 3 ML VIAL.NEB. NEB SCH ×4 (07:40→20:18)
[2022-09-20] MEDS: ENOXAPARIN NA (PORCINE) 40 MG/0.4 ML DISP.SYRIN SQ SCH (09:32)
[2022-09-20] MEDS: ASPIRIN 81 MG CHEWABLE TABLETS PO SCH (09:33)
[2022-09-20] MEDS: CLOPIDOGREL BISULFATE 75 MG TABLET (FP) PO SCH (09:33)
[2022-09-20] MEDS: FUROSEMIDE 20 MG TABLET (FP) PO SCH (09:33)
[2022-09-20] MEDS: MECLIZINE HCL 25 MG TABLET (FP) PO SCH (09:33)
[2022-09-20] MEDS: METOPROLOL TARTRATE 25 MG TABLET (FP) PO SCH (09:33)
[2022-09-20] MEDS: ROFLUMILAST 500 MCG TABLET PO SCH (09:33)
[2022-09-20] MEDS: LISINOPRIL 10 MG TABLET PO SCH (09:33)
[2022-09-20] MEDS: BUDESONIDE/FORMETEROL FUMARATE 160/4.5 mcg INHALER IH SCH ×2 (09:40→21:12)
[2022-09-20 09:42] LABS: BASO % 0.1 % (0-2.0); HEMATOCRIT 39.9 % (32.4-45.2); HEMOGLOBIN 13.1 GM/dL (10.7-15.3); LYMPH % 8.3 % (8-40); MCH 30.3 pg (25.7-33.7); MEAN CELL VOLUME 91.9 fl (80-96); MEAN PLT VOLUME 8.3 fl (7.5-11.1); MONO % 4.3 % (3.8-10.2); NEUT % 87.3 % (42.8-82.8); PLATELET COUNT 242 10^3/uL (134-434); RBC 4.34 M/mm3 (3.60-5.2); WHITE BLOOD COUNT 6.7 K/mm3 (4.0-10.0)
[2022-09-20] MEDS: ATORVASTATIN CA 40 MG TABLET (FP) PO SCH (21:12)
[2022-09-20] MEDS: MELATONIN 5 MG TABLETS PO SCH (21:12)
[2022-09-21] MEDS: methylPREDNISolone NA SUCC 125 MG/2 ML VIAL IVPUSH SCH ×5 (00:20→20:33)
[2022-09-21] MEDS: INSULIN SLIDING SCALE (NOVOLOG) 1 VIAL SQ SCH ×4 (06:22→22:22)
[2022-09-21] MEDS: ALBUTEROL SO4 2.5/IPRATROPIUM 0.5 INH SOL 3 ML VIAL.NEB. NEB SCH ×4 (07:25→21:41)
[2022-09-21] MEDS: ASPIRIN 81 MG CHEWABLE TABLETS PO SCH (09:29)
[2022-09-21] MEDS: LISINOPRIL 10 MG TABLET PO SCH (09:29)
[2022-09-21] MEDS: ENOXAPARIN NA (PORCINE) 40 MG/0.4 ML DISP.SYRIN SQ SCH (09:29)
[2022-09-21] MEDS: FUROSEMIDE 20 MG TABLET (FP) PO SCH (09:30)
[2022-09-21] MEDS: ROFLUMILAST 500 MCG TABLET PO SCH (09:30)
[2022-09-21] MEDS: METOPROLOL TARTRATE 25 MG TABLET (FP) PO SCH (09:30)
[2022-09-21] MEDS: CLOPIDOGREL BISULFATE 75 MG TABLET (FP) PO SCH (09:30)
[2022-09-21] MEDS: MECLIZINE HCL 25 MG TABLET (FP) PO SCH (09:30)
[2022-09-21] MEDS: BUDESONIDE/FORMETEROL FUMARATE 160/4.5 mcg INHALER IH SCH ×2 (09:32→22:03)
[2022-09-21] MEDS: METOPROLOL TARTRATE 50 MG TABLET (FP) PO SCH (22:02)
[2022-09-21] MEDS: MELATONIN 5 MG TABLETS PO SCH (22:02)
[2022-09-21] MEDS: ATORVASTATIN CA 40 MG TABLET (FP) PO SCH (22:02)
[2022-09-22] MEDS: methylPREDNISolone NA SUCC 125 MG/2 ML VIAL IVPUSH SCH ×2 (02:44→10:54)
[2022-09-22] MEDS ORDERED: ACETAMINOPHEN 1000 MG/100 ML BAG IVPB ONE (04:00)
[2022-09-22] MEDS: INSULIN SLIDING SCALE (NOVOLOG) 1 VIAL SQ SCH ×4 (06:12→22:06)
[2022-09-22] MEDS: ALBUTEROL SO4 2.5/IPRATROPIUM 0.5 INH SOL 3 ML VIAL.NEB. NEB SCH ×4 (08:05→20:49)
[2022-09-22 10:05] LABS: HEMATOCRIT 40.1 % (32.4-45.2); HEMOGLOBIN 13.1 GM/dL (10.7-15.3); MCH 30.1 pg (25.7-33.7); MCHC 32.6 g/dl (32.0-36.0); MEAN CELL VOLUME 92.5 fl (80-96); MEAN PLT VOLUME 8.2 fl (7.5-11.1); PLATELET COUNT 257 10^3/uL (134-434); RBC 4.33 M/mm3 (3.60-5.2); WHITE BLOOD COUNT 8.8 K/mm3 (4.0-10.0)
[2022-09-22 10:32] LABS: CALCIUM 8.6 mg/dL (8.5-10.1)
[2022-09-22 10:33] LABS: BLOOD UREA NITROGEN 43.3 mg/dL (7-18)
[2022-09-22 10:36] LABS: CREATININE 0.9 mg/dL (0.55-1.3)
[2022-09-22] MEDS: ENOXAPARIN NA (PORCINE) 40 MG/0.4 ML DISP.SYRIN SQ SCH (10:53)
[2022-09-22] MEDS: ASPIRIN 81 MG CHEWABLE TABLETS PO SCH (10:53)
[2022-09-22] MEDS: METOPROLOL TARTRATE 50 MG TABLET (FP) PO SCH ×2 (10:53→21:34)
[2022-09-22] MEDS: ROFLUMILAST 500 MCG TABLET PO SCH (10:53)
[2022-09-22] MEDS: LISINOPRIL 10 MG TABLET PO SCH ×2 (10:53→12:12)
[2022-09-22] MEDS: FUROSEMIDE 20 MG TABLET (FP) PO SCH (10:53)
[2022-09-22] MEDS: CLOPIDOGREL BISULFATE 75 MG TABLET (FP) PO SCH (10:53)
[2022-09-22] MEDS: MECLIZINE HCL 25 MG TABLET (FP) PO SCH ×2 (10:54→12:12)
[2022-09-22] MEDS: BUDESONIDE/FORMETEROL FUMARATE 160/4.5 mcg INHALER IH SCH ×2 (10:55→21:34)
[2022-09-22] MEDS: MELATONIN 5 MG TABLETS PO SCH (21:34)
[2022-09-22] MEDS: methylPREDNISolone NA SUCC 40 MG/1 ML VIAL IVPUSH SCH (21:34)
[2022-09-22] MEDS: ATORVASTATIN CA 40 MG TABLET (FP) PO SCH (21:34)
[2022-09-22] MEDS ORDERED: guaiFENesin 200 MG/10 ML 10 ML UNIT-DOSE CUPS PO ONE (22:39)
[2022-09-23] MEDS: INSULIN SLIDING SCALE (NOVOLOG) 1 VIAL SQ SCH ×3 (06:28→16:58)
[2022-09-23] MEDS: ALBUTEROL SO4 2.5/IPRATROPIUM 0.5 INH SOL 3 ML VIAL.NEB. NEB SCH ×3 (07:50→15:40)
[2022-09-23] MEDS: ENOXAPARIN NA (PORCINE) 40 MG/0.4 ML DISP.SYRIN SQ SCH (10:32)
[2022-09-23] MEDS: ASPIRIN 81 MG CHEWABLE TABLETS PO SCH (10:33)
[2022-09-23] MEDS: BUDESONIDE/FORMETEROL FUMARATE 160/4.5 mcg INHALER IH SCH (10:33)
[2022-09-23] MEDS: FUROSEMIDE 20 MG TABLET (FP) PO SCH (10:33)
[2022-09-23] MEDS: methylPREDNISolone NA SUCC 40 MG/1 ML VIAL IVPUSH SCH (10:33)
[2022-09-23] MEDS: MECLIZINE HCL 25 MG TABLET (FP) PO SCH (10:33)
[2022-09-23] MEDS: METOPROLOL TARTRATE 50 MG TABLET (FP) PO SCH (10:33)
[2022-09-23] MEDS: LISINOPRIL 10 MG TABLET PO SCH (10:33)
[2022-09-23] MEDS: CLOPIDOGREL BISULFATE 75 MG TABLET (FP) PO SCH (10:33)
[2022-09-23] MEDS: ROFLUMILAST 500 MCG TABLET PO SCH (10:33)
[2022-09-23] MEDS ORDERED: guaiFENesin 200 MG/10 ML 10 ML UNIT-DOSE CUPS PO ONE (14:34)
[2022-09-23 16:18] VITALS: RESP 18
[2022-09-23 18:50] VITALS: BP 130/62; PULSE 67; TEMP 98.6
== END 2022-09-23 18:46 | disposition home health service (06) | DRG 177 ==
LOC: JER 14:34 → JERBED 17:14 → J5S 09-17 21:00 → OBSVTOIN 09-19 10:02
PROVIDERS: ADMIT Internal Medicine; ATTEND Internal Medicine
DX: U07.1 COVID-19 (principal); J12.82 Pneumonia due to coronavirus disease 2019; J96.01 Acute respiratory failure with hypoxia; J44.1 Chronic obstructive pulmonary disease with (acute) exacerbation; I50.32 Chronic diastolic (congestive) heart failure; I25.10 Atherosclerotic heart disease of native coronary artery without angina pectoris; I25.2 Old myocardial infarction; E78.5 Hyperlipidemia, unspecified; I11.0 Hypertensive heart disease with heart failure; E11.9 Type 2 diabetes mellitus without complications; Z95.1 Presence of aortocoronary bypass graft; R42 Dizziness and giddiness; R94.31 Abnormal electrocardiogram [ECG] [EKG]
CPT/HCPCS: 0241U-QW; 36415; 71045-TC-FY; 71046-TC-FY; 80048; 80053; 81003; 82248; 82728; 82803; 82962; 83036; 83605; 83615; 83735; 84100; 84443; 85025; 85027; 85379; 85610; 85730; 86140; 87040; 87070; 87086; 87205; 87899; 93005; 93010; 93971-TC; 94640; 94761; 97116-GP; 97162-GP; 99285-25; C9399; G0378; J1100